=== PATIENT | female | born 1960 | race African-American/Black ===

== ENCOUNTER 2018-09-15 19:37 | Observation (INO) | payer OTHER ==
--- NOTE | 2018-09-15 20:29 | EDPHYS ---
Physician Documentation [facility] Name: Neela Pizano Age: 58 yrs Sex: Female : 1960 Arrival Date: 09/15/2018 Time: 19:38 Bed 8 Private MD: Bal Harris E ED Physician Omkar Nicole HPI: 09/15 20:08 This 58 yrs old Black Female presents to ER via Wheelchair with complaints of Chest thomas Pain, Asthma Exacerbation. 20:08 The patient or guardian reports chest pain that is located primarily in the anterior [facility] chest wall. Historical: - Allergies: 19:53 Iodine; aa1 19:53 Prednisone; (the orange one); aa1 - Home Meds: 19:53 gabapentin Oral [Active]; lisinopril Oral [Active]; Lorazepam Oral [Active]; Metformin aa1 Oral [Active]; albuterol sulfate inhalation Inhl [Active]; Atrovent Inhl [Active]; - PMHx: 19:53 Asthma; Diabetes - NIDDM; Hypertension; neuropathy; aa1 - PSHx: 19:53 Tubal ligation; Right little toe; aa1 - Immunization history:: Flu vaccine is not up to date. - Social history:: Smoking status: Patient/guardian denies using tobacco. - Ebola Screening: : No symptoms or risks identified at this time. ROS: 20:09 Constitutional: Negative for fever, chills, and weight loss, Eyes: Negative for injury, thomas pain, redness, and discharge, ENT: Negative for injury, pain, and discharge, Neck: Negative for injury, pain, and swelling, Cardiovascular: Negative for chest pain, palpitations, and edema, Abdomen/GI: Negative for abdominal pain, nausea, vomiting, diarrhea, and constipation, Back: Negative for injury and pain, : Negative for injury, bleeding, discharge, and swelling, MS/Extremity: Negative for injury and deformity, Skin: Negative for injury, rash, and discoloration, Neuro: Negative for headache, weakness, numbness, tingling, and seizure, Psych: Negative for depression, anxiety, suicide ideation, homicidal ideation, and hallucinations, Allergy/Immunology: Negative for hives, rash, and allergies, Endocrine: Negative for neck swelling, polydipsia, polyuria, polyphagia, and marked weight changes, Hematologic/Lymphatic: Negative for swollen nodes, abnormal bleeding, and unusual bruising. 20:09 Respiratory: Positive for cough, shortness of breath, wheezing, inspiratory, expiratory. Exam: 20:09 Constitutional: This is a well developed, well nourished patient who is awake, alert, thomas and in no acute distress. Head/Face: Normocephalic, atraumatic. Eyes: Pupils equal round and reactive to light, extra-ocular motions intact. Lids and lashes normal. Conjunctiva and sclera are non-icteric and not injected. Cornea within normal limits. Periorbital areas with no swelling, redness, or edema. ENT: Nares patent. No nasal discharge, no septal abnormalities noted. Tympanic membranes are normal and external auditory canals are clear. Oropharynx with no redness, swelling, or masses, exudates, or evidence of obstruction, uvula midline. Mucous membranes moist. Neck: Trachea midline, no thyromegaly or masses palpated, and no cervical lymphadenopathy. Supple, full range of motion without nuchal rigidity, or vertebral point tenderness. No Meningismus. Chest/axilla: Normal chest wall appearance and motion. Nontender with no deformity. No lesions are appreciated. Cardiovascular: Regular rate and rhythm with a normal S1 and S2. No gallops, murmurs, or rubs. Normal PMI, no JVD. No pulse deficits. Abdomen/GI: Soft, non-tender, with normal bowel sounds. No distension or tympany. No guarding or rebound. No evidence of tenderness throughout. Back: No spinal tenderness. No costovertebral tenderness. Full range of motion. Female : Normal external genitalia. Skin: Warm, dry with normal turgor. Normal color with no rashes, no lesions, and no evidence of cellulitis. MS/ Extremity: Pulses equal, no cyanosis. Neurovascular intact. Full, normal range of motion. Neuro: Awake and alert, GCS 15, oriented to person, place, time, and situation. Cranial nerves II-XII grossly intact. Motor strength 5/5 in all extremities. Sensory grossly intact. Cerebellar exam normal. Normal gait. Psych: Awake, alert, with orientation to person, place and time. Behavior, mood, and affect are within normal limits. 20:09 Respiratory: mild respiratory distress is noted, Breath sounds: decreased breath sounds, rhonchi, wheezing: inspiratory expiratory Vital Signs: 19:53 BP 138 / 95; Pulse 83; Resp 24; Temp 97.7; Pulse Ox 99% ; Weight 95.25 kg; Height 5 ft. aa1 4 in. (162.56 cm); Pain 0/10; 21:10 BP 126 / 96; Pulse 84; Resp 19; Pulse Ox 100% on Nebulizer Mask; rr5 22:15 BP 108 / 68; Pulse 84; Resp 16; Pulse Ox 99% on R/A; rr5 22:15 Pain 3/10; rr5 19:53 Body Mass Index 36.05 (95.25 kg, 162.56 cm) aa1 MDM: 19:47 Patient medically screened. [facility] 20:10 Data reviewed: vital signs, nurses notes, lab test result(s), EKG, radiologic studies. [facility] 09/15 20:08 Order name: Basic Metabolic Panel [facility] 09/15 20:08 Order name: CBC with Diff [facility] 09/15 20:08 Order name: LFT's [facility] 09/15 20:08 Order name: Magnesium [facility] 09/15 20:08 Order name: NT PRO-BNP [facility] 09/15 20:08 Order name: PT-INR [facility] 09/15 20:08 Order name: Troponin (emerg Dept Use Only); Complete Time: 21:16 [facility] 09/15 20:08 Order name: Blood Culture Adult (2) [facility] 09/15 20:08 Order name: Procalcitonin [facility] 09/15 20:08 Order name: Lactate; Complete Time: 21:16 [facility] 09/15 20:08 Order name: Urine Culture [facility] 09/15 20:08 Order name: Basic Metabolic Panel; Complete Time: 21:16 [facility] 09/15 20:08 Order name: CBC with Automated Diff; Complete Time: 21:16 [facility] 09/15 20:08 Order name: Liver (Hepatic) Function; Complete Time: 21:16 [facility] 09/15 20:08 Order name: XRAY Chest (1 view); Complete Time: 21:16 [facility] 09/15 20:08 Order name: EKG; Complete Time: 20:09 [facility] 09/15 20:08 Order name: Magnesium; Complete Time: 21:16 [facility] 09/15 20:08 Order name: NT PRO-BNP; Complete Time: 21:16 [facility] 09/15 20:08 Order name: Protime (+INR); Complete Time: 21:16 [facility] 09/15 22:02 Order name: Urine Dipstick--Ancillary (enter results) ar5 09/15 22:19 Order name: Urine Dipstick-Ancillary [facility] 09/15 20:08 Order name: Cardiac monitoring; Complete Time: 20:49 [facility] 09/15 20:08 Order name: EKG - Nurse/Tech; Complete Time: 20:49 [facility] 09/15 20:08 Order name: IV Saline Lock; Complete Time: 20:49 [facility] 09/15 20:08 Order name: Labs collected and sent; Complete Time: 21:02 [facility] 09/15 20:08 Order name: O2 Per Protocol; Complete Time: 20:49 [facility] 09/15 20:08 Order name: O2 Sat Monitoring; Complete Time: 20:49 [facility] 09/15 20:08 Order name: Urine Dipstick-Ancillary (obtain specimen); Complete Time: 22:12 [facility] Administered Medications: 20:40 Drug: SOLU-Medrol 125 mg Route: IVP; Site: right antecubital; ea 21:10 Follow up: Response: No adverse reaction ea 20:50 Drug: Albuterol - atroVENT (3:1) (2.5 mg - 0.5 mg) 3 ml Route: Nebulizer; ea 21:00 Follow up: Response: No adverse reaction ea 20:53 Drug: Rocephin - (cefTRIAXone) 1 grams Route: IVPB; Infused Over: 30 mins; Site: right ea antecubital; 21:10 Follow up: Response: No adverse reaction; IV Status: Completed infusion; IV Intake: 10mlea 20:53 Drug: Pepcid 20 mg Route: IVP; Site: right antecubital; ea 21:40 Follow up: Response: No adverse reaction ea 20:53 Drug: NS 0.9% 1000 ml Route: IV; Rate: 125 ml/hr; Site: right antecubital; ea 21:40 Follow up: IV Status: Infusion continued upon admission ea 20:55 Drug: Zithromax 500 mg Route: IVPB; Infused Over: 1 hrs; Site: right antecubital; rr5 22:12 Follow up: Response: No adverse reaction; IV Status: Infusion continued upon admission ea 20:55 Drug: Ativan 0.5 mg Route: IVP; Site: right antecubital; rr5 21:39 Follow up: Response: No adverse reaction; Anxiety decreased ea 21:01 Drug: Aspirin Chewable Tablet 162 mg Route: PO; rr5 21:39 Follow up: Response: No adverse reaction ea 21:37 Drug: NS 0.9% 500 ml Route: IV; Rate: bolus; Site: right antecubital; ea 22:11 Follow up: Response: No adverse reaction; IV Status: Completed infusion; IV Intake: ea 500ml Disposition: 09/15/18 20:29 Hospitalization ordered by Jean Claude Lewis for Inpatient Admission. Preliminary diagnosis are Dyspnea, Other chest pain, Unspecified asthma with (acute) exacerbation - failed outpatient treatment, Unspecified kidney failure. - Bed requested for Telemetry/MedSurg (Inpatient). - Status is Inpatient Admission. rr5 - Condition is Fair. - Problem is new. - Symptoms have improved. UTI on Admission? Yes Signatures: Dispatcher [employer] EDMS Ly Ivan RN RN mw Autenrieth, Alissa, RN RN aa1 Omkar Nicole MD MD cha Antunez, Elena, RN RN ea Roque, Raymond RN RN rr5 Corrections: (The following items were deleted from the chart) 20:29 20:29 Hospitalization Ordered by Jean Claude Lewis MD for Inpatient Admission. Preliminary thomas diagnosis is Dyspnea; Other chest pain; Unspecified asthma with (acute) exacerbation - failed outpatient treatment. Bed requested for Telemetry/MedSurg (Inpatient). Status is Inpatient Admission. Condition is Fair. Problem is new. Symptoms have improved. UTI on Admission? No. thomas 21:30 20:29 09/15/2018 20:29 Hospitalization Ordered by Jean Claude Lewis MD for Inpatient thomas Admission. Preliminary diagnosis is Dyspnea; Other chest pain; Unspecified asthma with (acute) exacerbation - failed outpatient treatment. Bed requested for Telemetry/MedSurg (Inpatient). Status is Inpatient Admission. Condition is Fair. Problem is new. Symptoms have improved. UTI on Admission? Yes. thomas 21:34 21:30 09/15/2018 20:29 Hospitalization Ordered by Jean Claude Lewis MD for Inpatient mw Admission. Preliminary diagnosis is Dyspnea; Other chest pain; Unspecified asthma with (acute) exacerbation - failed outpatient treatment; Unspecified kidney failure. Bed requested for Telemetry/MedSurg (Inpatient). Status is Inpatient Admission. Condition is Fair. Problem is new. Symptoms have improved. UTI on Admission? Yes. [facility] 22:29 21:34 09/15/2018 20:29 Hospitalization Ordered by Jean Claude Lewis MD for Inpatient rr5 Admission. Preliminary diagnosis is Dyspnea; Other chest pain; Unspecified asthma with (acute) exacerbation - failed outpatient treatment; Unspecified kidney failure. Bed requested for Telemetry/MedSurg (Inpatient). Status is Inpatient Admission. Condition is Fair. Problem is new. Symptoms have improved. UTI on Admission? Yes. mw
--- NOTE | 2018-09-15 20:29 | ER ---
Nurse's Notes [facility] Name: Neela Pizano Age: 58 yrs Sex: Female : 1960 Arrival Date: 09/15/2018 Time: 19:38 Bed 8 Private MD: Bal Harris E Diagnosis: Dyspnea;Other chest pain;Unspecified asthma with (acute) exacerbation-failed outpatient treatment;Unspecified kidney failure Presentation: 09/15 19:47 Presenting complaint: Patient states: she has been having asthma flare-ups all week aa1 with minimal relief from her breathing txs. States, "I just need that shot to open me up so I can go home.". Transition of care: patient was not received from another setting of care. Onset of symptoms was September 10, 2018. Risk Assessment: Do you want to hurt yourself or someone else? Patient reports no desire to harm self or others. Initial Sepsis Screen: Does the patient meet any 2 criteria? No. Patient's initial sepsis screen is negative. Does the patient have a suspected source of infection? No. Patient's initial sepsis screen is negative. Care prior to arrival: None. 19:47 Method Of Arrival: Wheelchair aa1 19:47 Acuity: MARVIN 3 aa1 Triage Assessment: 19:53 General: Appears in no apparent distress. comfortable, Behavior is calm, cooperative, aa1 appropriate for age. Pain: Denies pain. Historical: - Allergies: 19:53 Iodine; aa1 19:53 Prednisone; (the orange one); aa1 - Home Meds: 19:53 gabapentin Oral [Active]; lisinopril Oral [Active]; Lorazepam Oral [Active]; Metformin aa1 Oral [Active]; albuterol sulfate inhalation Inhl [Active]; Atrovent Inhl [Active]; - PMHx: 19:53 Asthma; Diabetes - NIDDM; Hypertension; neuropathy; aa1 - PSHx: 19:53 Tubal ligation; Right little toe; aa1 - Immunization history:: Flu vaccine is not up to date. - Social history:: Smoking status: Patient/guardian denies using tobacco. - Ebola Screening: : No symptoms or risks identified at this time. Screenin:15 Abuse screen: Denies threats or abuse. Nutritional screening: No deficits noted. ea Tuberculosis screening: No symptoms or risk factors identified. Fall Risk None identified. Assessment: 20:10 General: Appears in no apparent distress. uncomfortable, Behavior is calm, cooperative, rr5 appropriate for age. Pain: Complains of pain in chest Pain does not radiate. Pain currently is 10 out of 10 on a pain scale. Quality of pain is described as aching, Pain began gradually, Is continuous, intermittent. 20:10 Neuro: Level of Consciousness is awake, alert, obeys commands, Oriented to person, rr5 place, time, situation, Appropriate for age. Cardiovascular: Reports chest pain, Capillary refill < 3 seconds Patient's skin is warm and dry. Rhythm is regular. Respiratory: Reports shortness of breath I'm having asthma Airway is patent Respiratory effort is even, unlabored, Respiratory pattern is regular, tachypnea. GI: No signs and/or symptoms were reported involving the gastrointestinal system. : No signs and/or symptoms were reported regarding the genitourinary system. EENT: No signs and/or symptoms were reported regarding the EENT system. Derm: Skin is intact, Skin temperature is warm. Musculoskeletal: No signs and/or symptoms reported regarding the musculoskeletal system. 21:00 Reassessment: Patient appears in no apparent distress at this time. Patient is alert, rr5 oriented x 3, equal unlabored respirations, skin warm/dry/pink. its getting better now, about 8/10. Patient states symptoms have improved. 21:15 Reassessment: Patient appears in no apparent distress at this time. Patient is alert, rr5 oriented x 3, equal unlabored respirations, skin warm/dry/pink. agreed for the admission. no complaints made. Patient states feeling better. Patient states symptoms have improved. 21:40 Reassessment: Amna calender feeder cell phone number [phone]. rr5 22:15 Reassessment: Patient appears in no apparent distress at this time. Patient is alert, rr5 oriented x 3, equal unlabored respirations, skin warm/dry/pink. chest pain 3/10 pain score Patient states feeling better. Patient states symptoms have improved. Vital Signs: 19:53 BP 138 / 95; Pulse 83; Resp 24; Temp 97.7; Pulse Ox 99% ; Weight 95.25 kg; Height 5 ft. aa1 4 in. (162.56 cm); Pain 0/10; 21:10 BP 126 / 96; Pulse 84; Resp 19; Pulse Ox 100% on Nebulizer Mask; rr5 22:15 BP 108 / 68; Pulse 84; Resp 16; Pulse Ox 99% on R/A; rr5 22:15 Pain 3/10; rr5 19:53 Body Mass Index 36.05 (95.25 kg, 162.56 cm) aa1 ED Course: 19:38 Patient arrived in ED. am2 19:38 Bal Harris MD is Private Physician. am2 19:47 Omkar Nicole MD is Attending Physician. thomas 19:50 Triage completed. aa1 19:53 Arm band placed on right wrist. aa1 19:55 Za Schafer, GEE is Primary Nurse. ea 20:10 Patient has correct armband on for positive identification. Placed in gown. Bed in low ea position. Call light in reach. Side rails up X2. bus monitor on. Pulse ox on. NIBP on. 20:15 Patient maintains SpO2 saturation greater than 95% on room air. ea 20:25 XRAY Chest (1 view) In Process Unspecified. EDMS 20:27 Jean Claude Lewis MD is Hospitalizing Provider. thomas 20:30 Inserted saline lock: 22 gauge in right antecubital area, using aseptic technique. rr5 ,using aseptic technique. by za Blood collected. 21:42 No provider procedures requiring assistance completed. Patient admitted, IV remains in ea place. Administered Medications: 20:40 Drug: SOLU-Medrol 125 mg Route: IVP; Site: right antecubital; ea 21:10 Follow up: Response: No adverse reaction ea 20:50 Drug: Albuterol - atroVENT (3:1) (2.5 mg - 0.5 mg) 3 ml Route: Nebulizer; ea 21:00 Follow up: Response: No adverse reaction ea 20:53 Drug: Rocephin - (cefTRIAXone) 1 grams Route: IVPB; Infused Over: 30 mins; Site: right ea antecubital; 21:10 Follow up: Response: No adverse reaction; IV Status: Completed infusion; IV Intake: 10mlea 20:53 Drug: Pepcid 20 mg Route: IVP; Site: right antecubital; ea 21:40 Follow up: Response: No adverse reaction ea 20:53 Drug: NS 0.9% 1000 ml Route: IV; Rate: 125 ml/hr; Site: right antecubital; ea 21:40 Follow up: IV Status: Infusion continued upon admission ea 20:55 Drug: Zithromax 500 mg Route: IVPB; Infused Over: 1 hrs; Site: right antecubital; rr5 22:12 Follow up: Response: No adverse reaction; IV Status: Infusion continued upon admission ea 20:55 Drug: Ativan 0.5 mg Route: IVP; Site: right antecubital; rr5 21:39 Follow up: Response: No adverse reaction; Anxiety decreased ea 21:01 Drug: Aspirin Chewable Tablet 162 mg Route: PO; rr5 21:39 Follow up: Response: No adverse reaction ea 21:37 Drug: NS 0.9% 500 ml Route: IV; Rate: bolus; Site: right antecubital; ea 22:11 Follow up: Response: No adverse reaction; IV Status: Completed infusion; IV Intake: ea 500ml Intake: 21:10 IV: 10ml; Total: 10ml. ea 22:11 IV: 500ml; Total: 510ml. lashon Outcome: 20:29 Decision to Hospitalize by Provider. thomas 22:10 Admitted to Med/surg accompanied by tech, room 402, with chart, Report called to lashon Castro RN 22:10 Condition: stable 22:10 Instructed on the need for admit, Demonstrated understanding of instructions. 22:29 Patient left the ED. rr5 Signatures: Dispatcher [employer] EDMS Nichelle Busby RN RN [email or web address] Omkar Nicole MD MD cha Moreno, Amanda am2 Antunez, Elena, RN RN ea Roque, Raymond, RN RN rr5
[2018-09-15] MEDS ORDERED: METHYLPREDNISOLONE 125 MG INJ ONE (20:30)
[2018-09-15] MEDS ORDERED: NA CHLORIDE 0.9% 250 ML ONE (20:30)
[2018-09-15] MEDS ORDERED: AZITHROMYCIN 500 MG INJ IVPB ONE (20:30)
[2018-09-15] MEDS ORDERED: ALBUTEROL 2.5 MG/3 ML NEB SOL ONE (20:30)
[2018-09-15] MEDS ORDERED: IPRATROPIUM BROM 0.5MG/2.5ML ONE (20:30)
[2018-09-15] MEDS ORDERED: FAMOTIDINE 20 MG/2 ML VIAL IV ONE ×2 (20:31→20:54)
[2018-09-15] MEDS ORDERED: CEFTRIAXONE/SWI 1gm 1 GM/10 ML SYR ONE (20:31)
[2018-09-15] MEDS ORDERED: NA CHLORIDE 0.9% 1,000 ML ONE (20:31)
[2018-09-15 20:55] LABS: Absolute Lymphocytes (CBC) 2.4 K/uL (0.7-4.9); Absolute Monocytes 0.4 K/uL (0.1-1.3); Basophils % 0.6 % (0-1.3); Hematocrit 39.7 % (36.0-45.0); Lymphocytes % 34.5 % (15.3-44.8); MPV 8.5 fL (7.6-11.3); Monocytes % 6.2 % (3.3-12.3); RBC Red Blood Cell Count 4.17 M/uL (3.86-4.86)
--- NOTE | 2018-09-15 20:56 | RAD REPORT ---
EXAM DESCRIPTION: RAD - Chest Single View - 09/15/2018 8:25 pm CLINICAL HISTORY: Cough, COPD COMPARISON: November 2016 TECHNIQUE: AP portable chest image was obtained 2020 hours . FINDINGS: No focal lung parenchymal process. Interstitial markings are mildly prominent but not neo rly different. Heart and vasculature are normal. No measurable pleural effusion and no pneumothorax. No acute bony abnormality seen. No acute aortic findings suspected. IMPRESSION: No acute cardiopulmonary process. No significant change from comparison.
[2018-09-15 20:58] LABS: Protime INR 1.09
[2018-09-15] MEDS ORDERED: ASPIRIN 81 MG CHEWABLE TABLET ONE ×2 (21:08→21:09)
[2018-09-15] MEDS ORDERED: LORazepam 2 MG/ML VIAL ONE (21:12)
[2018-09-15 21:13] LABS: ALT/SGPT 13 U/L (12-78); AST/SGOT 18 U/L (15-37); Albumin 3.7 g/dL (3.4-5.0); Alkaline Phosphatase 96 U/L (45-117); BUN Blood Urea Nitrogen 28 mg/dL (7-18); Bicarbonate 27 mmol/L (21-32); Bilirubin Direct < 0.1 mg/dL (0-0.2); Bilirubin Total 0.3 mg/dL (0.2-1.0); Glucose Level 94 mg/dL (74-106); Magnesium 1.9 mg/dL (1.8-2.4); NT PRO-BNP 36 pg/mL (<125); Potassium 4.4 mmol/L (3.5-5.1); Protein, Total 8.4 g/dL (6.4-8.2); Sodium Level 139 mmol/L (136-145); Troponin (Emerg Dept Use Only) < 0.02 ng/mL (0.0-0.045)
[2018-09-15] MEDS ORDERED: ONDANSETRON 4 MG/2 ML VIAL IV PRN (21:25)
[2018-09-15] MEDS ORDERED: ACETAMINOPHEN 500 MG TAB PO PRN (21:25)
[2018-09-15] MEDS ORDERED: MORPHINE 2 MG/ML SYR IV PRN (21:25)
[2018-09-15] MEDS ORDERED: NA CHLORIDE 0.9% 1,000 ML IV SCH (22:00)
[2018-09-15 22:19] LABS: Urine Blood NEGATIVE (NEG); Urine Glucose NEGATIVE (NEG); Urine Protein 1+ (NEG); Urine Specific Gravity 1.025 (1.005-1.030)
[2018-09-15 22:39] VITALS: O2SAT 99
[2018-09-15 22:45] VITALS: BMI 35.6
[2018-09-15] MEDS ORDERED: DIVALPROEX DR 250 MG TAB PO ONE (23:07)
[2018-09-15] MEDS ORDERED: METFORMIN HCL 500 MG TAB PO ONE (23:10)
[2018-09-15] MEDS ORDERED: GABAPENTIN 400 MG CAP PO ONE (23:10)
[2018-09-16] MEDS ORDERED: METHYLPREDNISOLONE 125 MG INJ IV SCH
[2018-09-16 00:08] LABS: Urine Appearance CLEAR; Urine Bilirubin NEGATIVE (NEG); Urine Blood NEGATIVE (NEG); Urine Color YELLOW; Urine Glucose NEGATIVE (NEG); Urine Protein NEGATIVE (NEG); Urine Urobilinogen 0.2 mg/dL (0.2-1.0)
[2018-09-16 00:16] LABS: Urine Microscopic Reflex NO UMIC
[2018-09-16] MEDS: IPRATROPIUM BROM 0.5MG/2.5ML NEB SCH ×2 (02:00→07:24)
[2018-09-16] MEDS: ALBUTEROL 2.5 MG/3 ML NEB SOL NEB SCH ×2 (02:00→07:25)
[2018-09-16 06:26] LABS: Absolute Lymphocytes (CBC) 1.1 K/uL (0.7-4.9); Absolute Monocytes 0.1 K/uL (0.1-1.3); Absolute Neutrophil 5.4 K/uL (1.8-8.0); Basophils % 0.4 % (0-1.3); Hematocrit 37.2 % (36.0-45.0); Lymphocytes % 16.7 % (15.3-44.8); MPV 8.6 fL (7.6-11.3); Monocytes % 2.2 % (3.3-12.3); RBC Red Blood Cell Count 3.93 M/uL (3.86-4.86)
[2018-09-16 06:36] LABS: Albumin 3.2 g/dL (3.4-5.0); Bilirubin Total 0.2 mg/dL (0.2-1.0); Potassium 4.7 mmol/L (3.5-5.1); Protein, Total 7.9 g/dL (6.4-8.2)
--- NOTE | 2018-09-16 07:44 | P.HP ---
Certification for Inpatient Patient admitted to: Observation With expected LOS: <2 Midnights Patient will require the following post-hospital care: None Practitioner: I am a practitioner with admitting privileges, knowledge of patient current condition, hospital course, and medical plan of care. Services: Services provided to patient in accordance with Admission requirements found in Title 42 Section 412.3 of the Code of Federal Regulations Patient History Date of Service: 09/15/18 Reason for admission: Asthma exacerbation History of Present Illness: Patient is a 58-year-old female came to the hospital with shortness of breath. Patient was admitted with asthma exacerbation as chest x-ray was completely negative. Patient was having coughing and wheezing. Patient states that her nebulizer with/inhaler was not working. Patient came into ER for further evaluation. Patient is doing much better after nebulizer treatments and steroids. Will continue monitoring closely and possible discharge if peak flows have improved today. Allergies prednisone Allergy (Unknown, Verified 09/15/18 23:13) UNKNOWN iodine Allergy (Verified 09/15/18 23:13) Unknown shrimp Allergy (Verified 09/15/18 23:13) Itching/Hives/Rash - Past Medical/Surgical History Diabetic: Yes -: HTN -: Asthma -: DM -: DM Neuropathy -: hands limited ROM -: Rheumatoid Arthritis -: Chronic Back pain, Seen by Pain management in the past. -: Family history of stomach cancer. -: tubal ligation -: boil removal to buttock -: R toe sx -: L heel sx Psychosocial/ Personal History: Single, 6 children, Does not work. - Family History Father Medical History: Heart disease Mother Medical History: Heart disease, Cancer - Social History Smoking Status: Current some day smoker Alcohol use: Yes CD- Drugs: No Caffeine use: Yes Place of Residence: Home Review of Systems 10-point ROS is otherwise unremarkable Physical Examination - Vital Signs Temperature: 97.1 F Blood Pressure: 127/76 Pulse: 79 Respirations: 18 Pulse Ox (%): 94 - Physical Exam General: Alert, In no apparent distress, Oriented x3 HEENT: Atraumatic, PERRLA, Mucous membr. moist/pink, EOMI, Sclerae nonicteric Neck: Supple, 2+ carotid pulse no bruit, No LAD, Without JVD or thyroid abnormality Respiratory: Expiratory wheezes Cardiovascular: Regular rate/rhythm, Normal S1 S2, No murmurs Gastrointestinal: Normal bowel sounds, Soft and benign, Non-distended, No tenderness Musculoskeletal: No clubbing, No swelling, No tenderness Integumentary: No rashes Neurological: Normal gait, Normal speech, Normal strength at 5/5 x4 extr, Normal tone, Sensation intact, Cranial nerves 3-12 intact, Normal affect Lymphatics: No axilla or inguinal lymphadenopathy Assessment & Plan - Problems (Diagnosis) (1) Asthma exacerbation Current Visit: Yes Status: Acute (2) Rheumatoid arthritis Current Visit: Yes Status: Acute (3) Diabetes mellitus type 2, uncontrolled Onset Date: 06/23/15 Current Visit: No Status: Chronic (4) HTN (hypertension) Onset Date: 06/23/15 Current Visit: No Status: Chronic - Plan Plan: 1. Continue with albuterol and Atrovent nebs 2. Continue with IV steroids 3. Outpatient pulmonary function testing 4. Pulmonary follow-up if symptoms do not improve 5. Room air O2 sats 6. Repeat chest x-ray in the morning 7. Peak flows as needed 8. GI and DVT prophylaxis Discharge Plan: Home Plan to discharge in: 24 Hours - Advance Directives Does patient have a Living Will: No Does patient have a Durable POA for Healthcare: No - Code Status/Comfort Care Code Status Assessed: Yes Code Status: Full Code Critical Care: No Time Spent Managing PTS Care (In Minutes): 45
[2018-09-16 08:03] VITALS: BP 117/85; TEMP 97
--- NOTE | 2018-09-16 11:42 | P.SSS ---
Patient History Date of Service: 09/16/18 Reason for admission: Asthma exacerbation History of Present Illness: Patient is a 58-year-old female came to the hospital with shortness of breath. Patient was admitted with asthma exacerbation as chest x-ray was completely negative. Patient was having coughing and wheezing. Patient states that her nebulizer with/inhaler was not working. Patient came into ER for further evaluation. Patient is doing much better after nebulizer treatments and steroids. Will continue monitoring closely and possible discharge if peak flows have improved today. Allergies prednisone Allergy (Unknown, Verified 09/15/18 23:13) UNKNOWN iodine Allergy (Verified 09/15/18 23:13) Unknown shrimp Allergy (Verified 09/15/18 23:13) Itching/Hives/Rash Home Medications: Budesonide/Formoterol Fumarate [Symbicort 160-4.5 Mcg Inhaler] 2 puff IH BID #1 hfa.aer.ad 09/16/18 Divalproex Sodium [Depakote ER] 1 tab PO BID 09/16/18 Estradiol 1 tab PO DAILY 09/16/18 Gabapentin 300 mg PO TID 09/16/18 Ipratropium/Albuterol Sulfate [Combivent Respimat 20-100 Mcg] 1 puff IN QID Metformin HCl 1,000 mg PO BID 09/16/18 Pantoprazole [Protonix Tab*] 1 tab PO DAILY 09/16/18 Valacyclovir HCl [Valtrex] 1 tab PO DAILY 09/16/18 Venlafaxine HCl [Effexor XR] 1 tab PO DAILY 09/16/18 hydrOXYzine pamoate [Hydroxyzine Pamoate] 25 mg PO BID PRN 09/16/18 hydroCHLOROthiazide [Hydrochlorothiazide] 25 mg PO DAILY 09/16/18 predniSONE [Deltasone*] 10 mg PO DAILY #5 tab 09/16/18 - Past Medical/Surgical History Diabetic: Yes -: HTN -: Asthma -: DM -: DM Neuropathy -: hands limited ROM -: Rheumatoid Arthritis -: Chronic Back pain, Seen by Pain management in the past. -: Family history of stomach cancer. -: tubal ligation -: boil removal to buttock -: R toe sx -: L heel sx Psychosocial/ Personal History: Single, 6 children, Does not work. - Family History Father -: Heart disease Mother -: Heart disease, Cancer - Social History Smoking Status: Current some day smoker Alcohol use: Yes CD- Drugs: No Caffeine use: Yes Place of Residence: Home Review of Systems 10-point ROS is otherwise unremarkable Physical Examination - Vital Signs Temperature: 97.0 F Blood Pressure: 117/85 Pulse: 78 Respirations: 20 Pulse Ox (%): 100 - Physical Exam General: Alert, In no apparent distress HEENT: Atraumatic, PERRLA, Mucous membr. moist/pink, EOMI, Sclerae nonicteric Neck: Supple, 2+ carotid pulse no bruit, No LAD, Without JVD or thyroid abnormality Respiratory: Normal air movement, Expiratory wheezes, Inspiratory wheezes Cardiovascular: Regular rate/rhythm, Normal S1 S2 Gastrointestinal: Normal bowel sounds, No tenderness Musculoskeletal: No tenderness Integumentary: No rashes Neurological: Normal gait, Normal speech, Normal strength at 5/5 x4 extr, Normal tone, Normal affect Lymphatics: No axilla or inguinal lymphadenopathy - Diagnosis (Problem(s)) (1) Asthma exacerbation Current Visit: Yes Status: Acute Qualifiers: Asthma severity: mild Asthma persistence: persistent Qualified Code(s): J45.31 - Mild persistent asthma with (acute) exacerbation (2) Diabetes mellitus type 2, uncontrolled Onset Date: 06/23/15 Current Visit: No Status: Chronic Qualifiers: Glycemic state: with hypoglycemia Coma presence: without coma Qualified Code(s): E11.649 - Type 2 diabetes mellitus with hypoglycemia without coma (3) HTN (hypertension) Onset Date: 06/23/15 Current Visit: No Status: Chronic Qualifiers: Hypertension type: essential hypertension Qualified Code(s): I10 - Essential (primary) hypertension Treatment Summary: Overall during the hospital stay patient remained stable Patient was initially admitted to the hospital for asthma exacerbation. Was placed on DuoNeb here in the hospital along with steroids did well overall. Patient then was discharged home under stable condition was asked to continue taking Symbicort and prednisone when she gets discharged home for maintenance of her asthma. Patient was also asked to follow up with pulmonology in about 1- 2 days post discharge. - Disposition Disposition: ROUTINE DISCHARGE Condition: GOOD Patient Discharge Instructions: Please f.u with Pulmonology in 1 to 2 week post discharge. new medication. Symbicort 2 puff BID. Prednisone 10mg daily for 5 days Diet: Regular Activity: Ad ivan
[2018-09-16] MEDS ORDERED: GABAPENTIN 400 MG CAP PO ONE (23:10)
== END 2018-09-16 11:42 | disposition home or self-care (01) ==
LOC: ER 19:37 → ERHOLD 20:29 → INTOOBSV 20:29 → 4TH 22:06
PROVIDERS: ADMIT Hospitalist; ATTEND Hospitalist
DX: J45.31 Mild persistent asthma with (acute) exacerbation (principal); E11.649 Type 2 diabetes mellitus with hypoglycemia without coma; I10 Essential (primary) hypertension; M06.9 Rheumatoid arthritis, unspecified; F17.210 Nicotine dependence, cigarettes, uncomplicated; Z91.013 Allergy to seafood
CPT/HCPCS: 36415; 71045; 80048; 80053; 80076; 81003; 82962; 83605; 83735; 83880; 84145; 84484; 85025; 85610; 87040; 87070; 87086; 87088; 87205; 94640; 96365; 96375; 99285; G0378; J0456; J0696; J2930; J7030

== ENCOUNTER 2019-05-26 08:44 | Emergency (ER) | payer OTHER ==
--- OUTSIDE RECORDS SUMMARY | 2019-05-26 08:47 | XMS REPORT ---
:1960 [facility] [place] [address] Care Team Providers Name Role Phone Unavailable Unavailable Unavailable Problems This patient has no known problems. Allergies, Adverse Reactions, Alerts This patient has no known allergies or adverse reactions. Medications This patient has no known medications. Results Test Description Test Time Test Comments Text Results Atomic Results Result Comments SCR MAMM BILATERAL CAD 2019-02-12 10:48:36 - SCR MAMM BILATERAL CAD DIGITAL DIGITALBILATERAL DIGITAL SCREENING MAMMOGRAM WITH CAD: 02/09/2019CLINICAL: Asymptomatic. Current mammographic images were evaluated by either a [employer] M-Vu or a nanoRETEcker CAD (computer aided detection system). Comparison is made to exam dated 09/09/2014 mammogram - [facility]. The tissue of both breasts is predominantly fatty. There is a new benign-appearing subcentimeter mass in the posterior right breast upper outer quadrant. No suspicious architectural distortion, malignant type calcification, or lymph node abnormality detected. IMPRESSION: INCOMPLETE ASSESSMENT: ADDITIONAL IMAGING EVALUATION RECOMMENDEDNo significant new finding in the left breast is noted.Right breast ultrasound is advised for further evaluation.Carlos Eduardo Harrell M.D. rb/:02/12/2019 10:48:36 Visual Training Aide: Yenny Lawrence MM, [facility] sent: Additional Imaging Mammogram BI-RADS: 0 Indeterminate
--- OUTSIDE RECORDS SUMMARY | 2019-05-26 08:47 | XMS REPORT ---
:1960 Author Organization [employer] Care Team Providers Name Role Phone Wild Mccain Provider Role Unavailable Allergies, Adverse Reactions, Alerts Substance Reaction Event Type PredniSONE Info Not Available Drug Allergy Problems Problem Type Condition Code Onset Dates Condition Status Assessment Primary osteoarthritis of left knee M17.12 Active Assessment Pain in joint of left knee M25.562 Active Assessment Primary osteoarthritis of right M17.11 Active knee Assessment Sciatica, right side M54.31 Active Problem Sciatica, left side M54.32 Active Problem Primary osteoarthritis of knees, M17.0 Active bilateral Problem Sciatica, right side M54.31 Active Assessment Pain in joint of right knee M25.561 Active Problem Pain in joint of left knee M25.562 Active Problem Pain in joint of right knee M25.561 Active Medications Medication Code Code Instructions Start End Status Dosage System Date Date Gabapentin [facility] 51032747986 800 MG Oral Active not defined Hydrochlorothiazide [facility] 11559095931 25 MG Oral Active not defined Metronidazole [facility] 05935734529 500 MG Orally Active 1 tablet twice daily Symbicort [facility] 52853481757 80-4.5 MCG/ACT Active 2 puffs Inhalation Twice a day Claritin [facility] 14004914041 10 MG Orally Active 1 tablet Once a day Venlafaxine HCl ER [facility] 62108848533 225 MG Oral Active not defined Ventolin HFA [facility] 71535940029 108 (90 Base) Active 2 puffs as MCG/ACT needed Inhalation every 6 hrs Mupirocin [facility] 84666051229 2 % Externally Active 1 Three times a application day to affected area Metformin HCl [facility] 83354022700 1000 MG Oral Active not defined Advair Diskus [facility] 59507567162 500-50 Active 1 puff MCG/DOSE Inhalation Twice a day Montelukast Sodium ND 69802641267 10 MG Orally Active 1 tablet Once a day Ibuprofen ND 52098213620 800 MG Orally Active 1 tablet Three times a with food or day milk as needed HydrOXYzine HCl [facility] 57432273357 50 MG Oral Active not defined Combivent Respimat [facility] 89990703180 20-100 MCG/ACT Active not defined Inhalation Benadryl Allergy [facility] 42716970186 25 MG Orally Active 1 tablet as every 8 hrs needed Estradiol [facility] 63753894908 0.5 MG Oral Active not defined Divalproex Sodium [facility] 21513771392 500 MG Oral Active not defined Flonase Allergy [facility] 47295048274 50 MCG/ACT Active 1 spray in Relief Nasally Once a each nostril day Tramadol HCl [facility] 29778069316 50 MG Orally Active 1 tablet as every 6 hrs needed Results No Known Results Summary Purpose eClinicalWorks Submission
[2019-05-26] MEDS ORDERED: HYDROCODONE/APAP 5/325 MG TAB ONE (09:03)
[2019-05-26] MEDS ORDERED: ONDANSETRON 4 MG (ODT) TAB ONE (09:04)
--- NOTE | 2019-05-26 10:20 | RAD REPORT ---
EXAM DESCRIPTION: RAD - Knee Left 3 View - 05/26/2019 9:44 am CLINICAL HISTORY: Left knee pain FINDINGS: No fracture or dislocation is seen. Marked osteoarthritis medial compartment consisting of joint space narrowing and osteophytes
--- NOTE | 2019-05-26 10:21 | RAD REPORT ---
EXAM DESCRIPTION: RAD - Knee Right 3 View - 05/26/2019 9:44 am CLINICAL HISTORY: Right knee pain FINDINGS: No fracture or dislocation is seen. Moderate to marked osteoarthritis medial compartment consisting joint space narrowing and osteophytes . Lateral compartment is involved to a lesser extent
--- NOTE | 2019-05-26 13:09 | RAD REPORT ---
EXAM DESCRIPTION: USExtremity Venous Uni Ltd05/26/2019 12:57 pm CLINICAL HISTORY: left leg pain and swelling. COMPARISON: None. FINDINGS: Left common femoral, superficial femoral, popliteal and posterior tibial veins are compre ssible and demonstrate augmentation. Doppler demonstrates good flow. IMPRESSION: No evidence of deep venous thrombosis involving the left lower extremity.
--- NOTE | 2019-05-26 13:20 | EDPHYS ---
Physician Documentation [facility] Name: Neela Pizano Age: 59 yrs Sex: Female : 1960 Arrival Date: 05/26/2019 Time: 08:51 Bed 15 Private MD: ED Physician Carlos Grey HPI: 05/26 09:14 This 59 yrs old Black Female presents to ER via EMS with complaints of Leg Pain. pm1 09:14 The patient presents with Pain to bilateral knees. Left knee pain greater than right pm1 knee. Swelling to left knee and calf area. Patient with pain present to bilateral knees for the past few months and neuropathy for around 20 years. Patient has had multiple knee injections with steroids recently without much improvement. The complaints affect the left knee, right knee. Context: the patient can fully bear weight, the patient is able to ambulate. Modifying factors: The symptoms are alleviated by elevating leg, the symptoms are aggravated by weight bearing, bending knee. Associated signs and symptoms: Pertinent positives: calf tenderness, Pertinent negatives fever, nausea, vomiting. Treatment prior to arrival includes: no previous treatment. Severity of symptoms: in the emergency department the symptoms are actually worse. Historical: - Allergies: 08:56 Iodine; ph 08:56 Prednisone; (the orange one); ph - Home Meds: 08:56 albuterol sulfate inhalation Inhl [Active]; Atrovent Inhl [Active]; Lorazepam Oral ph [Active]; Metformin Oral [Active]; divalproex oral oral [Active]; Estradiol Oral [Active]; Hydroxyzine Oral [Active]; tizanidine oral oral [Active]; - PMHx: 08:56 Asthma; Diabetes - NIDDM; Hypertension; neuropathy; ph - PSHx: 08:56 Tubal ligation; Right little toe; ph - Immunization history:: Adult Immunizations unknown. - Social history:: Smoking status: Patient/guardian denies using tobacco. - Ebola Screening: : No symptoms or risks identified at this time. ROS: 09:14 Constitutional: Negative for fever, chills, and weight loss, Eyes: Negative for injury, pm1 pain, redness, and discharge, ENT: Negative for injury, pain, and discharge, Neck: Negative for injury, pain, and swelling, Cardiovascular: Negative for chest pain, palpitations, and edema, Abdomen/GI: Negative for abdominal pain, nausea, vomiting, diarrhea, and constipation, Back: Negative for injury and pain. 09:14 Skin: Negative for injury, rash, and discoloration, Neuro: Negative for headache, weakness, numbness, tingling, and seizure. 09:14 Respiratory: Positive for cough, Negative for shortness of breath, sputum production, wheezing. 09:14 MS/extremity: Positive for pain, of the right knee and left knee. Exam: 09:14 Constitutional: This is a well developed, well nourished patient who is awake, alert, pm1 and in no acute distress. Head/Face: Normocephalic, atraumatic. Neck: Trachea midline, no thyromegaly or masses palpated, and no cervical lymphadenopathy. Supple, full range of motion without nuchal rigidity, or vertebral point tenderness. No Meningismus. Chest/axilla: Normal chest wall appearance and motion. Nontender with no deformity. No lesions are appreciated. Cardiovascular: Regular rate and rhythm with a normal S1 and S2. No gallops, murmurs, or rubs. Normal PMI, no JVD. No pulse deficits. Respiratory: Lungs have equal breath sounds bilaterally, clear to auscultation and percussion. No rales, rhonchi or wheezes noted. No increased work of breathing, no retractions or nasal flaring. Abdomen/GI: Soft, non-tender, with normal bowel sounds. No distension or tympany. No guarding or rebound. No evidence of tenderness throughout. Back: No spinal tenderness. No costovertebral tenderness. Full range of motion. Skin: Warm, dry with normal turgor. Normal color with no rashes, no lesions, and no evidence of cellulitis. 09:14 Musculoskeletal/extremity: Extremities: grossly normal except: noted in the right knee: tenderness, There is no evidence of decreased ROM, deformity, noted in the left knee: pain, swelling, tenderness, no evidence of decreased ROM, deformity, erythema. Vital Signs: 09:15 BP 124 / 54; Pulse 104; Resp 20; Temp 99.2(O); Pulse Ox 99% on R/A; ph 10:20 BP 115 / 53; Pulse 98; Resp 16 S; Pulse Ox 92% on R/A; ca1 11:29 BP 103 / 54; Pulse 96; Resp 18 S; Pulse Ox 91% on R/A; ca1 12:24 BP 118 / 58; Pulse 97; Resp 16 S; Pulse Ox 92% on R/A; ca1 13:35 BP 111 / 52; Pulse 96; Resp 19 S; Pulse Ox 94% on R/A; ca1 MDM: 08:54 Patient medically screened. pm1 13:17 Data reviewed: vital signs. Data interpreted: Pulse oximetry: on room air is 99 %. pm1 Interpretation: normal. Counseling: I had a detailed discussion with the patient and/or guardian regarding: the historical points, exam findings, and any diagnostic results supporting the discharge/admit diagnosis, radiology results, the need for outpatient follow up, to return to the emergency department if symptoms worsen or persist or if there are any questions or concerns that arise at home. 05/26 08:56 Order name: Knee Right 3 View XRAY; Complete Time: 10:24 pm1 12 08:56 Order name: Knee Left 3 View XRAY; Complete Time: 10:24 pm1 12 08:56 Order name: Extremity Venous Uni Ltd US; Complete Time: 13:17 pm1 Administered Medications: 09:14 Drug: Sod 5 mg-325 mg 1 tabs Route: PO; ph 10:30 Follow up: Response: No adverse reaction; Pain is decreased; RASS: Alert and Calm (0) ca1 09:14 Drug: Zofran 4 mg Route: PO; ph 10:30 Follow up: Response: No adverse reaction; Nausea is decreased ca1 Disposition: 05/27 07:16 Co-signature as Attending Physician, Carlos Grey MD I agree with the assessment and kdr plan of care. Disposition: 05/26/19 13:19 Discharged to Home. Impression: Pain in left knee, Pain in right knee, Other specified diabetes mellitus with diabetic neuropathy, unspecified - peripheral neuropathy. - Condition is Stable. - Discharge Instructions: Knee Pain, Peripheral Neuropathy. - Prescriptions for Zofran 4 mg Oral Tablet - take 1 tablet by ORAL route every 8 hours As needed; 20 tablet. Tramadol 50 mg Oral Tablet - take 1 tablet by ORAL route every 8 hours as needed; 12 tablet. - Medication Reconciliation Form, Thank You Letter, Antibiotic Education, Prescription Opioid Use form. - Follow up: Emergency Department; When: As needed; Reason: Worsening of condition. Follow up: Private Physician; When: 2 - 3 days; Reason: Recheck today's complaints, Continuance of care, Re-evaluation by your physician. - Problem is new. - Symptoms have improved. Signatures: Dispatcher [employer] EDMS Carlos Grey MD MD [facility] Lianne Gaona, RN RN ph Сергей Cooper, SENIOR PROGRAM ANALYST SENIOR PROGRAM ANALYST pm1 Acob, Beverly, RN RN ca1 Corrections: (The following items were deleted from the chart) 05/26 13:20 13:19 05/26/2019 13:19 Discharged to Home. Impression: Pain in left knee; Pain in right pm1 knee; Other specified diabetes mellitus with diabetic neuropathy, unspecified. Condition is Stable. Forms are Medication Reconciliation Form, Thank You Letter, Antibiotic Education, Prescription Opioid Use. Follow up: Emergency Department; When: As needed; Reason: Worsening of condition. Follow up: Private Physician; When: 2 - 3 days; Reason: Recheck today's complaints, Continuance of care, Re-evaluation by your physician. Problem is new. Symptoms have improved. pm1 13:49 13:20 05/26/2019 13:19 Discharged to Home. Impression: Pain in left knee; Pain in right ca1 knee; Other specified diabetes mellitus with diabetic neuropathy, unspecified - peripheral neuropathy. Condition is Stable. Discharge Instructions: Knee Pain, Peripheral Neuropathy. Forms are Medication Reconciliation Form, Thank You Letter, Antibiotic Education, Prescription Opioid Use. Follow up: Emergency Department; When: As needed; Reason: Worsening of condition. Follow up: Private Physician; When: 2 - 3 days; Reason: Recheck today's complaints, Continuance of care, Re-evaluation by your physician. Problem is new. Symptoms have improved. pm1
--- NOTE | 2019-05-26 13:20 | ER ---
Nurse's Notes [facility] Name: Neela Pizano Age: 59 yrs Sex: Female : 1960 Arrival Date: 05/26/2019 Time: 08:51 Bed 15 Private MD: Diagnosis: Pain in left knee;Pain in right knee;Other specified diabetes mellitus with diabetic neuropathy, unspecified-peripheral neuropathy Presentation: 05/26 08:52 Presenting complaint: EMS states: Pt c/o L leg pain and knee swelling, also reports ph cough, congestion. Transition of care: patient was not received from another setting of care. Onset of symptoms was May 26, 2019. Risk Assessment: Do you want to hurt yourself or someone else? Patient reports no desire to harm self or others. Initial Sepsis Screen: Does the patient meet any 2 criteria? Yes Does the patient have a suspected source of infection? No. Patient's initial sepsis screen is negative. Care prior to arrival: None. 08:52 Method Of Arrival: EMS: [facility] ph 08:52 Acuity: MARVIN 3 ph Historical: - Allergies: 08:56 Iodine; ph 08:56 Prednisone; (the orange one); ph - Home Meds: 08:56 albuterol sulfate inhalation Inhl [Active]; Atrovent Inhl [Active]; Lorazepam Oral ph [Active]; Metformin Oral [Active]; divalproex oral oral [Active]; Estradiol Oral [Active]; Hydroxyzine Oral [Active]; tizanidine oral oral [Active]; - PMHx: 08:56 Asthma; Diabetes - NIDDM; Hypertension; neuropathy; ph - PSHx: 08:56 Tubal ligation; Right little toe; ph - Immunization history:: Adult Immunizations unknown. - Social history:: Smoking status: Patient/guardian denies using tobacco. - Ebola Screening: : No symptoms or risks identified at this time. Screenin:57 Abuse screen: Denies threats or abuse. Denies injuries from another. Nutritional ph screening: No deficits noted. Tuberculosis screening: No symptoms or risk factors identified. Fall Risk None identified. Assessment: 09:15 General: Appears in no apparent distress. comfortable, Behavior is calm, cooperative, ph appropriate for age. Pain: Complains of pain in bilateral legs, worse on L. Neuro: Level of Consciousness is awake, alert, obeys commands, Oriented to person, place, time, situation. Cardiovascular: Capillary refill < 3 seconds in bilateral fingers Patient's skin is warm and dry. Respiratory: Airway is patent Respiratory effort is even, unlabored, Respiratory pattern is regular, symmetrical. Derm: Skin is intact, is healthy with good turgor, Skin is pink, warm \T\ dry. Musculoskeletal: Circulation, motion, and sensation intact. Range of motion: intact in all extremities, Swelling present in left knee. 10:20 Reassessment: Patient appears in no apparent distress at this time. Patient is alert, ca1 oriented x 3, equal unlabored respirations, skin warm/dry/pink. 11:29 Reassessment: Patient appears in no apparent distress at this time. Patient is alert, ca1 oriented x 3, equal unlabored respirations, skin warm/dry/pink. Pending Ultrasound. 12:23 Reassessment: Patient appears in no apparent distress at this time. Patient is alert, ca1 oriented x 3, equal unlabored respirations, skin warm/dry/pink. Ultrasound at bedside. 13:35 Reassessment: Pt refused Tylenol#3 for home meds. Notified provider. Prescription ca1 changed. Vital Signs: 09:15 BP 124 / 54; Pulse 104; Resp 20; Temp 99.2(O); Pulse Ox 99% on R/A; ph 10:20 BP 115 / 53; Pulse 98; Resp 16 S; Pulse Ox 92% on R/A; ca1 11:29 BP 103 / 54; Pulse 96; Resp 18 S; Pulse Ox 91% on R/A; ca1 12:24 BP 118 / 58; Pulse 97; Resp 16 S; Pulse Ox 92% on R/A; ca1 13:35 BP 111 / 52; Pulse 96; Resp 19 S; Pulse Ox 94% on R/A; ca1 ED Course: 08:51 Patient arrived in ED. ph 08:53 Triage completed. ph 08:53 Сергей Cooper NP is PHCP. pm1 08:53 Carlos Grey MD is Attending Physician. pm1 08:56 Arm band placed on. ph 08:58 Patient has correct armband on for positive identification. Placed in gown. Bed in low ph position. Call light in reach. Side rails up X 1. Pulse ox on. NIBP on. Door closed. Noise minimized. Warm blanket given. Pillow given. 09:13 Lianne Gaona, RN is Primary Nurse. ph 09:45 Knee Right 3 View XRAY In Process Unspecified. EDMS 09:45 Knee Left 3 View XRAY In Process Unspecified. EDMS 12:58 Extremity Venous Uni Ltd US In Process Unspecified. EDMS 13:49 No provider procedures requiring assistance completed. Patient did not have IV access ca1 during this emergency room visit. Administered Medications: 09:14 Drug: [place] 5 mg-325 mg 1 tabs Route: PO; ph 10:30 Follow up: Response: No adverse reaction; Pain is decreased; RASS: Alert and Calm (0) ca1 09:14 Drug: Zofran 4 mg Route: PO; ph 10:30 Follow up: Response: No adverse reaction; Nausea is decreased ca1 Outcome: 13:19 Discharge ordered by MD. pm1 13:49 Discharged to home ambulatory. ca1 13:49 Condition: stable 13:49 Discharge instructions given to patient, Instructed on discharge instructions, follow up and referral plans. medication usage, Demonstrated understanding of instructions, follow-up care, medications, Prescriptions given X 2. 13:49 Patient left the ED. ca1 Signatures: Dispatcher [employer] EDPA Lianne Gaona, RN RN ph Сергей Cooper, VALVE LAPPER VALVE LAPPER pm1 Beverly Ross RN RN ca1
[2019-05-26 14:02] VITALS: TEMP 102
[2019-05-26 14:11] VITALS: BP 111/52; O2SAT 94
== END 2019-05-26 13:49 | disposition home or self-care (01) ==
LOC: ER 08:44
DX: M25.562 Pain in left knee (principal); M25.561 Pain in right knee; E11.42 Type 2 diabetes mellitus with diabetic polyneuropathy; J45.909 Unspecified asthma, uncomplicated; I10 Essential (primary) hypertension
CPT/HCPCS: 93971; 99284

== ENCOUNTER 2019-07-08 06:44 | Inpatient (IN) | payer OTHER ==
--- OUTSIDE RECORDS SUMMARY | 2019-07-08 06:46 | XMS REPORT ---
:1960 [facility] [address] [place] [address] Care Team Providers Name Role Phone Unavailable [...] mammographic images were evaluated by either a [employer] M-Vu or a [employer] ImageChecker CAD (computer aided detection system). Comparison is made to exam dated 09/09/2014 mammogram - [facility]. The tissue of both breasts is [...] further evaluation.Carlos Eduardo Harrell M.D. rb/:02/12/2019 10:48:36 Show Operations Supervisor: Yenny Lawrence MM, [facility] Mammographyletter sent: Additional Imaging Mammogram BI-RADS: 0 Indeterminate
--- OUTSIDE RECORDS SUMMARY | 2019-07-08 06:47 | XMS REPORT ---
[...] End Status Dosage System Date Date Gabapentin [facility] 85804175848 800 MG Oral Active not defined Hydrochlorothiazide [facility] 19738706354 25 MG Oral Active not defined Metronidazole [facility] 44699844897 500 MG Orally Active 1 tablet twice daily Symbicort [facility] 53195612764 80-4.5 MCG/ACT Active 2 puffs Inhalation Twice a day Claritin [facility] 56270771246 10 MG Orally Active 1 tablet Once a day Venlafaxine HCl ER [facility] 74961867869 225 MG Oral Active not defined Ventolin HFA [facility] 54662033962 108 (90 Base) Active 2 puffs as MCG/ACT needed Inhalation every 6 hrs Mupirocin [facility] 53161283007 2 % Externally Active 1 Three times a application day to affected area Metformin HCl [facility] 94981985215 1000 MG Oral Active not defined Advair Diskus [facility] 56534733950 500-50 Active 1 puff MCG/DOSE Inhalation Twice a day Montelukast Sodium ND 62774666775 10 MG Orally Active 1 tablet Once a day Ibuprofen ND 65837690035 800 MG Orally Active 1 tablet Three times a with food or day milk as needed HydrOXYzine HCl [facility] 20009477891 50 MG Oral Active not defined Combivent Respimat [facility] 38600297540 20-100 MCG/ACT Active not defined Inhalation Benadryl Allergy [facility] 56773009753 25 MG Orally Active 1 tablet as every 8 hrs needed Estradiol [facility] 03050891788 0.5 MG Oral Active not defined Divalproex Sodium [facility] 54343626570 500 MG Oral Active not defined Flonase Allergy [facility] 14554994325 50 MCG/ACT Active 1 spray in Relief Nasally Once a each nostril day Tramadol HCl [facility] 24380651616 50 MG Orally Active 1 tablet as every 6 hrs needed Results No Known Results Summary Purpose eClinicalWorks Submission
[2019-07-08] MEDS ORDERED: IPRATROPIUM BROM 0.5MG/2.5ML ONE ×2 (07:14→14:56)
[2019-07-08] MEDS ORDERED: LEVALBUTEROL 1.25 MG/3 ML NEB ONE (07:14)
[2019-07-08] MEDS ORDERED: MAGNESIUM SULFATE 1 gm IVPB 1 GM/100 ML BAG IV ONE (07:14)
[2019-07-08] MEDS ORDERED: METHYLPREDNISOLONE 125 MG INJ ONE (07:14)
[2019-07-08 07:39] LABS: ALT/SGPT 15 U/L (12-78); AST/SGOT 13 U/L (15-37); Albumin 3.3 g/dL (3.4-5.0); Alkaline Phosphatase 81 U/L (45-117); BUN Blood Urea Nitrogen 17 mg/dL (7-18); Bicarbonate 27 mmol/L (21-32); Bilirubin Direct < 0.1 mg/dL (0-0.2); Bilirubin Total 0.3 mg/dL (0.2-1.0); CKMB Creatine Kinase MB < 1.0 ng/mL (0.3-3.6); Creatine Phosphokinase 103 U/L (26-192); Glucose Level 112 mg/dL (74-106); Lipase 123 U/L (73-393); Magnesium 1.8 mg/dL (1.8-2.4); NT PRO-BNP 614 pg/mL (<125); Potassium 4.3 mmol/L (3.5-5.1); Protein, Total 7.7 g/dL (6.4-8.2); Sodium Level 140 mmol/L (136-145); Troponin (Emerg Dept Use Only) < 0.02 ng/mL (0.0-0.045)
[2019-07-08 08:02] LABS: Protime INR 1.08
[2019-07-08] MEDS ORDERED: CEFTRIAXONE/SWI 1gm 1 GM/10 ML SYR ONE (08:02)
[2019-07-08 08:07] LABS: Absolute Lymphocytes (CBC) 1.9 K/uL (0.7-4.9); Basophils % 0.5 % (0-1.3); Hematocrit 34.1 % (36.0-45.0); Lymphocytes % 18.8 % (15.3-44.8); MPV 7.9 fL (7.6-11.3); RBC Red Blood Cell Count 3.65 M/uL (3.86-4.86)
[2019-07-08] MEDS ORDERED: IBUPROFEN 400 MG TAB ONE (08:42)
--- NOTE | 2019-07-08 08:51 | RAD REPORT ---
EXAM DESCRIPTION: RAD - Chest Single View - 07/08/2019 7:30 am CLINICAL HISTORY: Cough, shortness of breath COMPARISON: August 2018 TECHNIQUE: AP portable chest image was obtained 0711 hour . FINDINGS: Lung volumes are slightly reduced from comparison study. Left lung field is clear of an ac [place] process. Airspace opacification is present in the mid right lung field abutting the minor fissure . There is some atelectasis on the right. This is favored to be pneumonia of the right upper lobe lauren t could be atelectasis. No tracheal shift. Heart and vasculature are normal. No measurable pleural ef fusion and no pneumothorax. No acute bony abnormality seen. No acute aortic findings suspected. IMPRESSION: Right upper lobe pneumonia versus right upper lobe atelectasis. Shallow inspiration accentuates lung markings potentially masking concurrent interstitial edema or in filtrate.
[2019-07-08] MEDS ORDERED: AZITHROMYCIN IV 500 MG in NA CHLORIDE 0.9% 250 ML IVPB ONE (09:00)
--- NOTE | 2019-07-08 09:04 | ER ---
Nurse's Notes [facility] Name: Neela Pizano Age: 59 yrs Sex: Female : 1960 Arrival Date: 07/08/2019 Time: 06:51 Bed 2 Private MD: Diagnosis: Bacterial pneumonia, not elsewhere classified;Shortness of breath Presentation: 07/08 06:52 Presenting complaint: EMS states: "we were called out for a pt with shortness of jd3 breath. the pt reported she has been doing nebulizer treatments, but they were not helping. she is also reporting chest pain. we attempted to give a breathing treatment on the way, but the pt refused saying 'only the the shots that they give at the hospital work when it gets this bad.' ". Transition of care: patient was not received from another setting of care. Onset of symptoms was July 08, 2019. Risk Assessment: Do you want to hurt yourself or someone else? Patient reports no desire to harm self or others. Initial Sepsis Screen: Does the patient meet any 2 criteria? RR > 20 per min. HR > 90 bpm. Yes Does the patient have a suspected source of infection? No. Patient's initial sepsis screen is negative. Care prior to arrival: Glucose check: 115. 06:52 Method Of Arrival: EMS: [facility] jd3 06:52 Acuity: MARVIN 3 jd3 Historical: - Allergies: 07:01 Iodine; jd3 07:01 Prednisone; (the orange one); jd3 - Home Meds: 07:01 albuterol sulfate inhalation Inhl [Active]; gabapentin Oral [Active]; Metformin Oral jd3 [Active]; tizanidine Oral [Active]; divalproex Oral [Active]; - PMHx: 07:01 Diabetes - NIDDM; Asthma; Hypertension; neuropathy; jd3 - PSHx: 07:01 Tubal ligation; Right little toe; jd3 - Immunization history:: Adult Immunizations up to date. - Social history:: Smoking status: Patient denies any tobacco usage or history of. - Ebola Screening: : Patient negative for fever greater than or equal to 101.5 degrees Fahrenheit, and additional compatible Ebola Virus Disease symptoms. Screenin:20 Abuse screen: Denies threats or abuse. Nutritional screening: No deficits noted. em Tuberculosis screening: No symptoms or risk factors identified. Fall Risk None identified. Assessment: 07:20 General: Appears in no apparent distress. comfortable, Behavior is calm, cooperative, em appropriate for age, Reports fever for off and on for a week. Pain: Complains of pain in chest Pain currently is 10 out of 10 on a pain scale. Pain began 1 month. Neuro: Level of Consciousness is awake, alert, obeys commands, Oriented to person, place, time, situation, Appropriate for age. Cardiovascular: Capillary refill < 3 seconds Patient's skin is warm and dry. Rhythm is sinus rhythm. Respiratory: Reports shortness of breath at rest on exertion cough that is non-productive, Airway is patent Respiratory effort is even, unlabored, Respiratory pattern is regular, symmetrical, Breath sounds are diminished bilaterally. Derm: Skin is intact, is thin, Skin is dry, Skin is normal, Skin temperature is warm. Musculoskeletal: Capillary refill < 3 seconds, Range of motion: intact in all extremities. 08:20 Reassessment: Patient appears in no apparent distress at this time. Patient is alert, em oriented x 3, equal unlabored respirations, skin warm/dry/pink. Patient states feeling better. Patient states symptoms have improved. 09:32 Reassessment: Patient appears in no apparent distress at this time. Patient and/or em family updated on plan of care and expected duration. Pain level reassessed. Patient is alert, oriented x 3, equal unlabored respirations, skin warm/dry/pink. Vital Signs: 07:01 BP 138 / 79; Pulse 95; Resp 22 S; Temp 99.1(O); Pulse Ox 95% on 3 lpm NC; Weight 95.25 jd3 kg (R); Height 5 ft. 4 in. (162.56 cm) (R); Pain 10/10; 07:54 BP 137 / 84; Pulse 99; Resp 25; Pulse Ox 97% on 2 lpm NC; Pain 10/10; em 08:41 BP 124 / 61; Pulse 102; Resp 22; Temp 101.4(O); Pulse Ox 96% on R/A; em 09:32 BP 132 / 62; Pulse 94; Resp 18; Pulse Ox 99% on 2 lpm NC; em 07:01 Body Mass Index 36.05 (95.25 kg, 162.56 cm) jd3 ED Course: 06:51 Patient arrived in ED. la1 06:54 Alex Rodriges FNP-C [facility]. la1 06:54 Omkar Nicole MD is Attending Physician. la1 06:55 Triage completed. jd3 07:08 Arm band placed on. EKG completed in triage. Results shown to MD. jd3 07:20 Patient has correct armband on for positive identification. Placed in gown. Bed in low em position. Call light in reach. Adult w/ patient. air sampling and monitoring on. Pulse ox on. NIBP on. 07:30 XRAY CXR (1 view) In Process Unspecified. EDMS 07:40 Repeat lab(s) drawn. by me, sent to lab. Inserted saline lock: 24 gauge in left hand, em using aseptic technique. Blood collected. 07:48 Vargas Sims, RN is Primary Nurse. em 09:02 Norma Boogie MD is Hospitalizing Provider. la1 09:30 No provider procedures requiring assistance completed. Patient admitted, IV remains in em place. Administered Medications: 07:35 Drug: Xopenex (3) 1.25 mg Route: Inhalation; em 07:56 Follow up: Response: No adverse reaction; Marked relief of symptoms em 07:35 Drug: AtroVENT Aerosol 0.5 mg Route: Inhalation; em 07:57 Follow up: Response: No adverse reaction em 07:41 Drug: SOLU-Medrol 125 mg Route: IVP; Site: left hand; em 07:57 Follow up: Response: No adverse reaction em 07:45 Drug: Magnesium Sulfate 1 grams Route: IVPB; Infused Over: 1 hrs; Site: left hand; em 09:00 Follow up: Response: No adverse reaction; IV Status: Completed infusion; IV Intake: em 100ml 08:25 Drug: Rocephin 1 grams Route: IV; Rate: calculated rate; Site: left hand; em 09:28 Follow up: Response: No adverse reaction; IV Status: Completed infusion; IV Intake: 10mlem 08:37 Drug: Zithromax 500 mg Route: IVPB; Infused Over: 1 hrs; Site: left hand; em 11:00 Follow up: Response: No adverse reaction; IV Status: Completed infusion; IV Intake: em 500ml 08:45 Drug: Motrin 800 mg Route: PO; em 13:11 Follow up: Response: No adverse reaction; Temperature is decreased em Intake: 09:00 IV: 100ml; Total: 100ml. em 09:28 IV: 10ml; Total: 110ml. em 11:00 IV: 500ml; Total: 610ml. em Outcome: 09:03 Decision to Hospitalize by Provider. la1 10:00 Admitted to ER Hold. Please see [facility] for further documentation. em 10:00 Condition: good em 16:17 Patient left the ED. em Signatures: Dispatcher [employer] Vargas Barnard RN RN em Alex Rodriges, LEATHER PRODUCTION ARTISAN-C [employer]ATHER [employer]ODUCTION ARTISAN-Cla1 Phil Garcia RN RN tayed3 Corrections: (The following items were deleted from the chart) 06:56 06:52 Care prior to arrival: None. bridger sparks
--- NOTE | 2019-07-08 09:04 | EDPHYS ---
Physician Documentation [facility] Name: Neela Pizano Age: 59 yrs Sex: Female : 1960 Arrival Date: 07/08/2019 Time: 06:51 Bed 2 Private MD: ED Physician Omkar Nicole HPI: 07/08 06:54 This 59 yrs old Black Female presents to ER via Unassigned with complaints of Shortness la1 Of Breath. 06:54 The patient has shortness of breath at rest. Onset: The symptoms/episode began/occurred la1 1 month(s) ago, and became worse this morning. Duration: The symptoms are continuous. The patient's shortness of breath is aggravated by nothing, is alleviated by nothing. Associated signs and symptoms: Pertinent positives: non-productive cough, Pertinent negatives: chest pain, diaphoresis, hemoptysis. Severity of symptoms: At their worst the symptoms were moderate in the emergency department the symptoms are unchanged. The patient has experienced similar episodes in the past. Historical: - Allergies: 07:01 Iodine; jd3 07:01 Prednisone; (the orange one); jd3 - Home Meds: 07:01 albuterol sulfate inhalation Inhl [Active]; gabapentin Oral [Active]; Metformin Oral jd3 [Active]; tizanidine Oral [Active]; divalproex Oral [Active]; - PMHx: 07:01 Diabetes - NIDDM; Asthma; Hypertension; neuropathy; jd3 - PSHx: 07:01 Tubal ligation; Right little toe; jd3 - Immunization history:: Adult Immunizations up to date. - Social history:: Smoking status: Patient denies any tobacco usage or history of. - Ebola Screening: : Patient negative for fever greater than or equal to 101.5 degrees Fahrenheit, and additional compatible Ebola Virus Disease symptoms. ROS: 06:55 Eyes: Negative for injury, pain, redness, and discharge, ENT: Negative for injury, la1 pain, and discharge, Neck: Negative for injury, pain, and swelling. 06:55 Constitutional: Positive for chills . 06:56 Abdomen/GI: Negative for abdominal pain, nausea, vomiting, diarrhea, and constipation, la1 Back: Negative for injury and pain, MS/Extremity: Negative for injury and deformity, Neuro: Negative for headache, weakness, numbness, tingling, and seizure, Allergy/Immunology: Negative for hives, rash, and allergies, Endocrine: Negative for neck swelling, polydipsia, polyuria, polyphagia, and marked weight changes. 06:56 Cardiovascular: Negative for chest pain, orthopnea, acute changes. 06:56 Respiratory: Positive for cough, dyspnea on exertion, shortness of breath, wheezing. Exam: 06:56 Constitutional: This is a well developed, well nourished patient who is awake, alert, la1 and in no acute distress. Head/Face: Normocephalic, atraumatic. Eyes: Pupils equal round and reactive to light, extra-ocular motions intact. Periorbital areas with no swelling, redness, or edema. ENT: Mucous membranes moist. Neck: Trachea midline. No Meningismus. Chest/axilla: Normal chest wall appearance and motion. Cardiovascular: Regular rate and rhythm with a normal S1 and S2. 06:56 Abdomen/GI: Soft, non-tender, with normal bowel sounds. MS/ Extremity: Pulses equal, no cyanosis. Neurovascular intact. Full, normal range of motion. Neuro: Awake and alert, GCS 15, oriented to person, place, time, and situation. 06:56 Respiratory: moderate respiratory distress is noted, Respirations: labored breathing, that is mild, tachypnea, that is mild, Breath sounds: wheezing: expiratory that is moderate, is heard diffusely. Vital Signs: 07:01 BP 138 / 79; Pulse 95; Resp 22 S; Temp 99.1(O); Pulse Ox 95% on 3 lpm NC; Weight 95.25 jd3 kg (R); Height 5 ft. 4 in. (162.56 cm) (R); Pain 10/10; 07:54 BP 137 / 84; Pulse 99; Resp 25; Pulse Ox 97% on 2 lpm NC; Pain 10/10; em 08:41 BP 124 / 61; Pulse 102; Resp 22; Temp 101.4(O); Pulse Ox 96% on R/A; em 09:32 BP 132 / 62; Pulse 94; Resp 18; Pulse Ox 99% on 2 lpm NC; em 07:01 Body Mass Index 36.05 (95.25 kg, 162.56 cm) jd3 MDM: 06:54 Patient medically screened. la1 09:00 Differential diagnosis: asthma, Bronchitis CHF exacerbation, Chronic Obstructive la1 Pulmonary Disease Myocardial Infarction pneumonia, pulmonary edema. Data reviewed: vital signs, nurses notes, lab test result(s), EKG, radiologic studies, I have discussed the patient's presentation/case with the attending Emergency Department Physician; and as a result, I will admit patient. Data interpreted: Pulse oximetry: on room air is 96 %. Interpretation: normal. Test interpretation: by ED physician or midlevel provider: ECG, plain radiologic studies. Counseling: I had a detailed discussion with the patient and/or guardian regarding: the historical points, exam findings, and any diagnostic results supporting the discharge/admit diagnosis, the presence of at least one elevated blood pressure reading (>120/80) during this emergency department visit, radiology results, the need for further work-up and treatment in the hospital. Medication response: xopinex, solu-medrol, atrovent, magnesium. Response to treatment: the patient's symptoms have mildly improved after treatment. Physician consultation: Norma Boogie MD was called at 09:01, was contacted at 09:01, regarding admission, to the telemetry unit. and will see patient. 07/08 06:54 Order name: Blood Culture Adult (2) 07/08 06:54 Order name: BMP; Complete Time: 07:45 07/08 06:54 Order name: CBC with Diff; Complete Time: 08:21 07/08 06:54 Order name: Ckmb; Complete Time: 07:45 07/08 06:54 Order name: CPK; Complete Time: 07:45 07/08 06:54 Order name: Hepatic Function; Complete Time: 07:45 07/08 06:54 Order name: Lipase; Complete Time: 07:45 07/08 06:54 Order name: Magnesium; Complete Time: 07:45 07/08 06:54 Order name: NT PRO-BNP; Complete Time: 07:45 07/08 06:54 Order name: PT-INR; Complete Time: 08:21 07/08 06:54 Order name: Ptt, Activated; Complete Time: 08:21 07/08 06:54 Order name: Troponin (emerg Dept Use Only); Complete Time: 07:45 07/08 06:54 Order name: Blood Culture EDCA 07/08 06:56 Order name: Flu [facility] 07/08 06:54 Order name: XRAY CXR (1 view); Complete Time: 08:52 07/08 08:54 Order name: Lactate [facility] 07/08 09:32 Order name: CBC with Automated Diff EDMS 07/08 09:32 Order name: CBC with Automated Diff EDMS 07/08 09:32 Order name: Comprehensive Metabolic Panel [facility] 07/08 09:32 Order name: Comprehensive Metabolic Panel EDMS 07/08 09:32 Order name: Lipid Profile EDMS 07/08 09:32 Order name: Lipid Profile [facility] 07/08 09:33 Order name: Chest Pa And Lat (2 Views) [facility] 07/08 06:54 Order name: EKG; Complete Time: 06:55 07/08 06:54 Order name: Cardiac monitoring; Complete Time: 07:05 07/08 06:54 Order name: EKG - Nurse/Tech; Complete Time: 07:05 07/08 06:54 Order name: IV Saline Lock; Complete Time: 07:50 07/08 06:54 Order name: Labs collected and sent; Complete Time: 07:05 07/08 06:54 Order name: O2 Per Protocol; Complete Time: 07:04 07/08 06:54 Order name: O2 Sat Monitoring; Complete Time: 07:04 07/08 09:32 Order name: Regular EDMS Administered Medications: 07:35 Drug: Xopenex (3) 1.25 mg Route: Inhalation; em 07:56 Follow up: Response: No adverse reaction; Marked relief of symptoms em 07:35 Drug: AtroVENT Aerosol 0.5 mg Route: Inhalation; em 07:57 Follow up: Response: No adverse reaction em 07:41 Drug: SOLU-Medrol 125 mg Route: IVP; Site: left hand; em 07:57 Follow up: Response: No adverse reaction em 07:45 Drug: Magnesium Sulfate 1 grams Route: IVPB; Infused Over: 1 hrs; Site: left hand; em 09:00 Follow up: Response: No adverse reaction; IV Status: Completed infusion; IV Intake: em 100ml 08:25 Drug: Rocephin 1 grams Route: IV; Rate: calculated rate; Site: left hand; em 09:28 Follow up: Response: No adverse reaction; IV Status: Completed infusion; IV Intake: 10mlem 08:37 Drug: Zithromax 500 mg Route: IVPB; Infused Over: 1 hrs; Site: left hand; em 11:00 Follow up: Response: No adverse reaction; IV Status: Completed infusion; IV Intake: em 500ml 08:45 Drug: Motrin 800 mg Route: PO; em 13:11 Follow up: Response: No adverse reaction; Temperature is decreased em Disposition: 07/09 07:55 Co-signature as Attending Physician, Omkar Nicole MD I agree with the assessment and thomas plan of care. Disposition: 07/08/19 09:03 Hospitalization ordered by Norma Boogie for Observation. Preliminary diagnosis are Bacterial pneumonia, not elsewhere classified, Shortness of breath. - Bed requested for Telemetry/MedSurg (observation). - Status is Observation. em - Condition is Stable. - Problem is new. - Symptoms have improved. UTI on Admission? No Signatures: Dispatcher [employer] Rylie Felipe RN RN dw Anderson, Corey, MD MD cha Munoz, Edgar, RN RN em Alex Rodriges, GARAGE DOOR INSTALLER-C GARAGE DOOR INSTALLER-Cla1 Phil Garcia RN RN Keke Nieto Corrections: (The following items were deleted from the chart) 07/08 09:59 09:03 Hospitalization Ordered by Norma Boogie MD for Observation. Preliminary eb diagnosis is Bacterial pneumonia, not elsewhere classified; Shortness of breath. Bed requested for Telemetry/MedSurg (observation). Status is Observation. Condition is Stable. Problem is new. Symptoms have improved. UTI on Admission? No. la1 15:10 09:59 07/08/2019 09:03 Hospitalization Ordered by Norma Boogie MD for Observation. dw Preliminary diagnosis is Bacterial pneumonia, not elsewhere classified; Shortness of breath. Bed requested for [facility] ER HOLD. Status is Observation. Condition is Stable. Problem is new. Symptoms have improved. UTI on Admission? No. eb 16:17 15:10 07/08/2019 09:03 Hospitalization Ordered by Norma Boogie MD for Observation. em Preliminary diagnosis is Bacterial pneumonia, not elsewhere classified; Shortness of breath. Bed requested for Telemetry/MedSurg (observation). Status is Observation. Condition is Stable. Problem is new. Symptoms have improved. UTI on Admission? No. dw
[2019-07-08] MEDS ORDERED: ONDANSETRON 4 MG/2 ML VIAL IV PRN (09:27)
[2019-07-08] MEDS ORDERED: ACETAMINOPHEN 500 MG TAB PO PRN (09:27)
[2019-07-08] MEDS: ENOXAPARIN 40 MG/0.4 ML SQ SCH (10:00)
[2019-07-08] MEDS: NA CHLORIDE 0.9% 1,000 ML IV SCH ×3 (10:00→23:34)
[2019-07-08] MEDS ORDERED: INSULIN -REGULAR HUMAN 50 UNIT/0.5 ML ML SQ SCH (11:30)
[2019-07-08] MEDS ORDERED: NA CHLORIDE 0.9% 1,000 ML ONE (12:43)
[2019-07-08] MEDS ORDERED: ENOXAPARIN 40 MG/0.4 ML SQ ONE (12:43)
[2019-07-08] MEDS ORDERED: HOME MED 1 EA UNK (Hydroxyzine Pamoate [Hydroxyzine Pamoate] 25 MG) PO PRN (13:40)
[2019-07-08] MEDS ORDERED: hydrOXYzine HCL 25 MG TAB PO PRN (13:47)
[2019-07-08] MEDS ORDERED: GLUCAGON 1 MG/VIAL IM PRN (13:48)
[2019-07-08] MEDS ORDERED: D50W 25 GM/50 ML SYRINGE/VIAL IV PRN (13:48)
[2019-07-08] MEDS: GABAPENTIN 300 MG CAP PO SCH ×2 (14:00→21:35)
[2019-07-08] MEDS: VALACYCLOVIR 500 MG TAB PO SCH (14:00)
[2019-07-08] MEDS: hydroCHLOROthiazide 25 MG TAB PO SCH (14:00)
[2019-07-08] MEDS ORDERED: GABAPENTIN 300 MG CAP ONE (14:32)
[2019-07-08] MEDS ORDERED: hydroCHLOROthiazide 25 MG TAB ONE (14:32)
[2019-07-08] MEDS ORDERED: VALACYCLOVIR 500 MG TAB ONE (14:32)
[2019-07-08] MEDS: IPRATROPIUM BROM 0.5MG/2.5ML NEB SCH ×2 (14:45→19:40)
[2019-07-08] MEDS: ALBUTEROL 2.5 MG/3 ML NEB SOL NEB SCH ×2 (14:45→19:40)
[2019-07-08] MEDS ORDERED: ALBUTEROL 2.5 MG/3 ML NEB SOL ONE (14:55)
[2019-07-08] MEDS: VENLAFAXINE HCL XR 75 MG CAP PO SCH (15:00)
[2019-07-08] MEDS ORDERED: DIVALPROEX DR 500MG TAB PO SCH (15:00)
[2019-07-08 16:51] VITALS: BMI 34.8
[2019-07-08] MEDS: METFORMIN HCL 500 MG TAB PO SCH (18:15)
[2019-07-08] MEDS: INSULIN -REGULAR HUMAN 50 UNIT/0.5 ML ML SQ SCH ×2 (18:15→21:00)
[2019-07-08] MEDS: METHYLPREDNISOLONE 40 MG INJ IV SCH ×2 (18:15→23:30)
--- NOTE | 2019-07-08 20:10 | HP ---
Date of Admission: 07/08/2019 Reason For Admission: Progressive shortness of breath. History Of Present Illness: This is a 59-year-old female with history of multiple medical problems i ncluding asthma, diabetes, hypertension, neuropathy, presented to emergency room with progressive rhoda rtness of breath that started almost 1 month ago, got much worse this morning. Patient is not able t o catch her breath. She has had to come to emergency room where she was evaluated. In the ER, labs were normal, but creatinine was slightly elevated at 1.31. BNP was 614. Chest x-ray showed question able right upper lobe pneumonia versus right upper lobe atelectasis. Patient was started on IV antib iotic with ceftriaxone and Zithromax as well as inhalers and she is admitted. Currently, she is lyin g in bed. She looks comfortable. She described a productive cough with yellow sputum. She had a te mperature of 101 at her house. In the emergency room, her temperature was at 99.1. She continued to be weak, fatigued. Review of Systems: Otherwise as below. Past Medical History: Significant for diabetes, asthma, hypertension, neuropathy. Past Surgical History: Significant for tubal ligation, right little toe surgery. Allergies: TO IODINE, PREDNISONE. Social History: She is . She has 6 kids. 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 She drinks socially. She does not smoke or use any drugs. Family History: Father and mother both of [place]. Medications: She is on albuterol, gabapentin, metformin, tizanidine and valproic acid. Review of Systems: Patient had low-grade temperature and some chills. There was no night sweats, dizziness, lightheaded , headache, blurred vision. She has not had any loss of consciousness. She does have productive cou gh with sputum, yellow sputum and shortness of breath. She is not having chest pain or palpitation. No nausea, vomiting, abdominal pain, diarrhea, constipation, dysuria, frequency, urgency, hematuria. There is no history of depression, anxiety, seizure or stroke. Physical Examination: Vital Signs: Currently vital signs according to the ER record, blood pressure is 124/61, respiratory rate 22, pulse 99, saturating 97% on 2 L nasal cannula. She had a temperature 99.1. General: Patient is alert and oriented x3. Does not look in any distress. HEENT: Atraumatic, normocephalic. PERRLA. Oral mucosa is moist. Neck: Supple. No JVD. No carotid bruits. Chest: Clear to auscultation with fine crackles on the right. Heart: Regular rate and rhythm. Tachy. No gallop or murmur. Abdomen: Soft, nontender. No masses. No hepatosplenomegaly. Positive bowel sounds. Extremities: No edema. No calf tenderness. Neurologic: Deferred. Laboratory Data: Today in the emergency room showed CBC within normal except for hemoglobin 11.4. I NR was normal. Chemistry was normal except for creatinine 1.31, GFR of 50, glucose 112, AST of 13, B OUTPATIENT SERVICES DIRECTOR of 614, albumin 3.3. Chest x-ray as mentioned above, questionable right upper lobe pneumonia. Assessment And Plan: This is a 59-year-old female, history of asthma? chronic obstructive pulmonary disease, diabetes, neuropathy, hypertension, presented with progressive shortness of breath and foun d to have a right lung infiltrate on chest x-ray. IMPRESSION: 1.Right upper lobe pneumonia. We will admit patient to floor, started on IV antibiotic with Zithrom ax, ceftriaxone. Continue inhalers with the Atrovent, albuterol. Patient will also be on Solu-Medro l as she has she been on prednisone at home 40 mg daily. So albuterol, Solu-Medrol 60 every 6 hours. Blood culture done in the emergency room as well as a flu screen was negative. 2.History of hypertension with the patient on home medication, hydralazine p.r.n. and Norvasc. 3.Diabetes mellitus, so we will check hemoglobin A1c. Place patient on insulin sliding scale as wel l as metformin. 4.Renal insufficiency. We will start patient on IV fluid with normal saline. 5.Deep vein thrombosis prophylaxis with Lovenox 30 mg due to insufficiency. 6.Neuropathy. We will continue patient on valproic acid, gabapentin as before. ELIUD/ELIF Voice ID: [id number]
[2019-07-08] MEDS: HOME MED 1 EA UNK (Budesonide/Formoterol Fumarate [Symbicort 160-4.5 Mcg Inhaler] 2 PUFF) IH SCH (21:00)
[2019-07-08] MEDS ORDERED: DIVALPROEX SODIUM PO SCH (21:00)
[2019-07-08] MEDS ORDERED: HOME MED 1 EA UNK (Metformin Hcl [Metformin Hcl] 1,000 MG) PO SCH (21:00)
[2019-07-08] MEDS: CEFTRIAXONE/SWI 1gm 1 GM/10 ML SYR IVP SCH (21:35)
[2019-07-08] MEDS: DIVALPROEX ER 250 MG TAB PO SCH (21:35)
[2019-07-09] MEDS: IPRATROPIUM BROM 0.5MG/2.5ML NEB SCH ×4 (01:30→20:20)
[2019-07-09] MEDS: ALBUTEROL 2.5 MG/3 ML NEB SOL NEB SCH ×4 (01:30→20:20)
[2019-07-09] MEDS: NA CHLORIDE 0.9% 1,000 ML IV SCH ×2 (05:54→10:20)
[2019-07-09] MEDS: METHYLPREDNISOLONE 40 MG INJ IV SCH ×2 (05:55→11:53)
[2019-07-09] MEDS: PANTOPRAZOLE 40MG TABLET PO SCH (05:55)
[2019-07-09 05:59] LABS: Basophils % 0.1 % (0-1.3); Hematocrit 37.1 % (36.0-45.0); Lymphocytes % 9.3 % (15.3-44.8); MPV 8.4 fL (7.6-11.3); RBC Red Blood Cell Count 3.85 M/uL (3.86-4.86)
[2019-07-09 06:01] LABS: Albumin 3.1 g/dL (3.4-5.0); Bilirubin Total 0.2 mg/dL (0.2-1.0); Magnesium 2.2 mg/dL (1.8-2.4); Potassium 4.2 mmol/L (3.5-5.1); Protein, Total 8.1 g/dL (6.4-8.2)
[2019-07-09] MEDS: INSULIN -REGULAR HUMAN 50 UNIT/0.5 ML ML SQ SCH ×4 (07:30→21:00)
[2019-07-09 08:00] LABS: Anisocytosis 1+; Blood Morphology Comment NOTED (NOT SEEN); Platelet Estimate ADEQ; Urine White Blood Cell Casts OK
--- NOTE | 2019-07-09 08:23 | RAD REPORT ---
EXAM DESCRIPTION: RAD - Chest Pa And Lat (2 Views) - 07/09/2019 5:34 am CLINICAL HISTORY: pneumonia Chest pain. COMPARISON: Chest Single View dated 07/08/2019; Chest Single View dated 09/15/2018; Chest Single View dated 12/03/2016; Chest Pa And Lat (2 Views) dated 03/30/2016 FINDINGS: Interstitial prominence is again noted throughout both lungs, mildly improved. Mild right upper lobe lung infiltrate also appears mildly improved. The heart is normal in size. No displaced fr actures. IMPRESSION: Mild improvement in lung aeration since comparative study.
[2019-07-09] MEDS: METFORMIN HCL 500 MG TAB PO SCH ×2 (08:24→17:01)
[2019-07-09] MEDS: VENLAFAXINE HCL XR 75 MG CAP PO SCH (08:24)
[2019-07-09] MEDS: GABAPENTIN 300 MG CAP PO SCH ×3 (08:25→21:53)
[2019-07-09] MEDS: CEFTRIAXONE/SWI 1gm 1 GM/10 ML SYR IVP SCH ×2 (08:25→21:52)
[2019-07-09] MEDS: ENOXAPARIN 40 MG/0.4 ML SQ SCH (08:26)
[2019-07-09] MEDS: DIVALPROEX ER 250 MG TAB PO SCH ×2 (08:29→21:53)
[2019-07-09] MEDS: AZITHROMYCIN IV 500 MG in NA CHLORIDE 0.9% 250 ML IVPB SCH (08:29)
[2019-07-09] MEDS: hydroCHLOROthiazide 25 MG TAB PO SCH (08:30)
--- NOTE | 2019-07-09 08:49 | EKG ---
Test Date: 2019-07-08 Test Time: 07:07:58 Helicopter Officer: RUSTY MEASUREMENT RESULTS: Intervals: Rate: 100 HI: 134 QRSD: 66 QT: 316 QTc: 407 Robeline: P: 56 HI: 134 QRS: 46 T: 47 INTERPRETIVE STATEMENTS: Sinus rhythm with fusion complexes Otherwise normal ECG Compared to ECG 09/15/2018 20:38:40 Fusion complex(es) now present Electronically Signed On 07-09-19 08:49:22 AIRCRAFT ENGINE MECHANIC SUPERVISOR by Yvan Hopper
[2019-07-09] MEDS ORDERED: hydroCHLOROthiazide 25 MG TAB PO SCH (09:00)
[2019-07-09] MEDS ORDERED: VALACYCLOVIR HCL PO SCH (09:00)
[2019-07-09] MEDS: HOME MED 1 EA UNK (Budesonide/Formoterol Fumarate [Symbicort 160-4.5 Mcg Inhaler] 2 PUFF) IH SCH ×2 (09:00→21:00)
[2019-07-09] MEDS ORDERED: VENLAFAXINE HCL PO SCH (09:00)
[2019-07-09] MEDS: VALACYCLOVIR 500 MG TAB PO SCH (10:19)
[2019-07-09 11:12] LABS: Urine Appearance CLEAR; Urine Bilirubin NEGATIVE (NEG); Urine Blood NEGATIVE (NEG); Urine Color YELLOW; Urine Glucose NEGATIVE (NEG); Urine Protein NEGATIVE (NEG); Urine Urobilinogen 0.2 mg/dL (0.2-1.0)
[2019-07-09 11:13] LABS: Urine Microscopic Reflex NO UMIC
--- NOTE | 2019-07-09 13:38 | P.PN ---
Subjective Date of Service: 07/09/19 Chief Complaint: cough Subjective: No new changes (- tremiors , intermittent palpitations -still feels unwell - feels easy fatigue and SOB), C/O voiced Review of Systems 10-point ROS is otherwise unremarkable Physical Examination - Vital Signs Temperature: 97.3 F Blood Pressure: 131/77 Pulse: 68 Respirations: 20 Pulse Ox (%): 97 - Physical Exam General: Alert, Oriented x3, Obese HEENT: Atraumatic, Normocephalic, PERRLA Neck: Supple, JVD not distended Respiratory: Normal air movement, Crackles/rales, Expiratory wheezes Cardiovascular: No edema, Regular rate/rhythm, Normal S1 S2 Gastrointestinal: Normal bowel sounds, Soft and benign Musculoskeletal: No clubbing, No swelling Integumentary: No rashes, No breakdown Neurological: Normal gait, Normal speech, Normal strength at 5/5 x4 extr External genitalia: No edema - Studies Laboratory Last Values WBC 10.8 K/uL (4.3-10.9) 07/09/19 05:06 RBC 3.85 M/uL (3.86-4.86) L 07/09/19 05:06 Hgb 12.2 g/dL (12.0-15.0) 07/09/19 05:06 Hct 37.1 % (36.0-45.0) 07/09/19 05:06 MCV 96.4 fL (80-100) 07/09/19 05:06 MCH 31.7 pg (27.0-35.0) 07/09/19 05:06 MCHC 32.9 g/dL (32.0-36.0) 07/09/19 05:06 RDW 16.4 % (12.1-15.2) H 07/09/19 05:06 Plt Count 308 K/uL (152-406) 07/09/19 05:06 MPV 8.4 fL (7.6-11.3) 07/09/19 05:06 Neutrophils % 88.1 % (41.7-73.7) H 07/09/19 05:06 Lymphocytes % 9.3 % (15.3-44.8) L 07/09/19 05:06 Monocytes % 2.5 % (3.3-12.3) L 07/09/19 05:06 Eosinophils % 0.0 % (0-4.4) 07/09/19 05:06 Basophils % 0.1 % (0-1.3) 07/09/19 05:06 Absolute Neutrophils 9.5 K/uL (1.8-8.0) H 07/09/19 05:06 Absolute Lymphocytes 1.0 K/uL (0.7-4.9) 07/09/19 05:06 Absolute Monocytes 0.3 K/uL (0.1-1.3) 07/09/19 05:06 Absolute Eosinophils 0.0 K/uL (0-0.5) 07/09/19 05:06 Absolute Basophils 0.0 K/uL (0-0.5) 07/09/19 05:06 Anisocytosis 1+ 07/09/19 05:06 Morphology Comment Noted (NOT SEEN) 07/09/19 05:06 PT 12.7 SECONDS (9.5-12.5) H 07/08/19 07:40 INR 1.08 07/08/19 07:40 APTT 34.5 SECONDS (24.3-36.9) 07/08/19 07:40 Sodium 140 mmol/L (136-145) 07/09/19 05:06 Potassium 4.2 mmol/L (3.5-5.1) 07/09/19 05:06 Chloride 107 mmol/L (98-107) 07/09/19 05:06 Carbon Dioxide 25 mmol/L (21-32) 07/09/19 05:06 BUN 18 mg/dL (7-18) 07/09/19 05:06 Creatinine 1.11 mg/dL (0.55-1.3) 07/09/19 05:06 Estimated GFR 61 mL/min (=/>90) L 07/09/19 05:06 Glucose 143 mg/dL (74-106) H 07/09/19 05:06 POC Glucose 93 mg/dl (65-120) 07/09/19 11:52 Hemoglobin A1c 6.2 % (4.2-6.3) 07/09/19 05:06 Lactic Acid 1.0 mmol/L (0.4-2.0) 07/08/19 09:09 Calcium 8.7 mg/dL (8.5-10.1) 07/09/19 05:06 Magnesium 2.2 mg/dL (1.8-2.4) 07/09/19 05:06 Total Bilirubin 0.2 mg/dL (0.2-1.0) 07/09/19 05:06 Direct Bilirubin < 0.1 mg/dL (0-0.2) 07/08/19 07:00 AST 10 U/L (15-37) L 07/09/19 05:06 ALT 14 U/L (12-78) 07/09/19 05:06 Alkaline Phosphatase 83 U/L (45-117) 07/09/19 05:06 Creatine Kinase 103 U/L (26-192) 07/08/19 07:00 CK-MB (CK-2) < 1.0 ng/mL (0.3-3.6) 07/08/19 07:00 Rapid Troponin I < 0.02 ng/mL (0.0-0.045) 07/08/19 07:00 NT-Pro-B Natriuret Pep 614 pg/mL (<125) H 07/08/19 07:00 Serum Total Protein 8.1 g/dL (6.4-8.2) 07/09/19 05:06 Albumin 3.1 g/dL (3.4-5.0) L 07/09/19 05:06 Globulin 5.0 g/dL (2.3-3.5) H D 07/09/19 05:06 Albumin/Globulin Ratio 0.6 (1.1-1.8) L 07/09/19 05:06 Triglycerides 94 mg/dL (<150) 07/09/19 05:06 Cholesterol 235 mg/dL (<200) H 07/09/19 05:06 LDL Cholesterol, Calc 123 (<130) 07/09/19 05:06 HDL Cholesterol 93 mg/dL (40-60) H 07/09/19 05:06 Cholesterol/HDL Ratio 2.53 07/09/19 05:06 Lipase 123 U/L (73-393) 07/08/19 07:00 Urine Color Yellow 07/09/19 10:20 Urine Appearance Clear 07/09/19 10:20 Urine pH 6.0 (5.0-7.0) 07/09/19 10:20 Ur Specific [place] 1.020 (1.005-1.030) 07/09/19 10:20 Urine Ketones Trace (NEG) 07/09/19 10:20 Urine Blood Negative (NEG) 07/09/19 10:20 Urine Nitrite Negative (NEG) 07/09/19 10:20 Urine Bilirubin Negative (NEG) 07/09/19 10:20 Urine Urobilinogen 0.2 mg/dL (0.2-1.0) 07/09/19 10:20 Ur Leukocyte Esterase Negative (NEG) 07/09/19 10:20 Urine Glucose Negative (NEG) 07/09/19 10:20 Urine Total Protein Negative (NEG) 07/09/19 10:20 Microbiology Data (last 24 hrs): 07/08/19 07:00 Blood - Blood Anaerobic Blood Culture - Final 07/08/19 07:40 Blood - Blood Anaerobic Blood Culture - Final 07/08/19 08:45 Nasopharnyx Influenza Type A Antigen Screen - Final 07/08/19 08:45 Nasopharnyx Influenza Type B Antigen Screen - Final Medications List Reviewed: Yes Assessment & Plan - Problems (Diagnosis) (1) COPD exacerbation Current Visit: Yes Status: Acute (2) PNA (pneumonia) Current Visit: Yes Status: Acute Discharge Plan: Home Physician Review Additional Text: pt admitted for copd exac and right pna # COPD - persistent , still symptomatic -c/w steroids/nebs /abx -uses home 02 at baseline # Presumed Pneumonia - continue abx , follow sputum cx # Anxiety/Tremors- may be due to side effects of nebs - will do more anti-anxiety meds # DM /HTN - stable Dispo - vitals stable but patient still feels unwell , will manage symptoms for now Time Spent Managing Pts Care (In Minutes): 34
[2019-07-09] MEDS ORDERED: LORazepam 2 MG/ML VIAL IV PRN (13:39)
[2019-07-09] MEDS: ACETYLCYST 20% 4 ML VIAL IH SCH ×2 (13:44→20:20)
[2019-07-09] MEDS: predniSONE 20 MG TAB PO SCH (21:53)
[2019-07-10] MEDS: ALBUTEROL 2.5 MG/3 ML NEB SOL NEB SCH ×4 (02:10→19:45)
[2019-07-10] MEDS: IPRATROPIUM BROM 0.5MG/2.5ML NEB SCH ×4 (02:10→19:45)
[2019-07-10 06:29] LABS: Absolute Lymphocytes (CBC) 1.1 K/uL (0.7-4.9); Basophils % 0.2 % (0-1.3); Hematocrit 33.5 % (36.0-45.0); MPV 8.5 fL (7.6-11.3); RBC Red Blood Cell Count 3.53 M/uL (3.86-4.86)
[2019-07-10 06:34] LABS: Albumin 2.8 g/dL (3.4-5.0); Bilirubin Total 0.2 mg/dL (0.2-1.0); Potassium 4.2 mmol/L (3.5-5.1)
[2019-07-10] MEDS: INSULIN -REGULAR HUMAN 50 UNIT/0.5 ML ML SQ SCH ×4 (07:30→20:25)
[2019-07-10] MEDS: ACETYLCYST 20% 4 ML VIAL IH SCH ×2 (08:00→20:00)
[2019-07-10] MEDS: HOME MED 1 EA UNK (Budesonide/Formoterol Fumarate [Symbicort 160-4.5 Mcg Inhaler] 2 PUFF) IH SCH ×2 (09:00→20:41)
[2019-07-10] MEDS: VALACYCLOVIR 500 MG TAB PO SCH (09:00)
[2019-07-10] MEDS: AZITHROMYCIN IV 500 MG in NA CHLORIDE 0.9% 250 ML IVPB SCH (09:00)
[2019-07-10] MEDS: PANTOPRAZOLE 40MG TABLET PO SCH (09:29)
[2019-07-10] MEDS: GABAPENTIN 300 MG CAP PO SCH ×3 (09:29→20:24)
[2019-07-10] MEDS: hydroCHLOROthiazide 25 MG TAB PO SCH (09:30)
[2019-07-10] MEDS: ENOXAPARIN 40 MG/0.4 ML SQ SCH (09:30)
[2019-07-10] MEDS: predniSONE 20 MG TAB PO SCH ×2 (09:30→20:24)
[2019-07-10] MEDS: CEFTRIAXONE/SWI 1gm 1 GM/10 ML SYR IVP SCH ×2 (09:31→20:25)
[2019-07-10] MEDS: METFORMIN HCL 500 MG TAB PO SCH ×2 (09:32→17:39)
[2019-07-10] MEDS: VENLAFAXINE HCL XR 75 MG CAP PO SCH (09:32)
[2019-07-10] MEDS: DIVALPROEX ER 250 MG TAB PO SCH ×2 (09:34→20:24)
[2019-07-10] MEDS: IBUPROFEN 400 MG TAB PO PRN (13:16)
--- NOTE | 2019-07-10 16:38 | PN ---
Date of Progress Note: 07/10/2019 Subjective: Patient is seen and examined. Chart reviewed and case discussed with RN. Patient is st ill having significant amount of cough. Medications: List reviewed. Physical Examination: Vital Signs: Temperature 98.3, heart rate 64, blood pressure 158/82, respirations 18, O2 of 93% on 2 L via nasal cannula. General: Awake, alert, and oriented x3. Some mild distress, ill-appearing female. CV: S1, S2. Regular rate and rhythm. Peripheral pulses present. Respiratory: Diminished breath sounds. No wheezing or stridor. Gastrointestinal: Abdomen is soft, nontender, nondistended. Positive bowel sounds. Extremities: No clubbing, cyanosis, or edema. Neurologic: Nonfocal. Laboratory Data: Sodium 141, potassium 4.2, chloride 107, CO2 of 27, BUN 22, creatinine 1.14, glucos e 130, calcium 8.4, albumin 2.8. WBC 10.7, H and H of 11.1 and 33.5, platelets 327, neutrophils 86%. Blood cultures, pending influenza screen is negative. Assessment: A 59-year-old female with: 1.Acute chronic obstructive pulmonary disease exacerbation. We will continue with nebulizer treatme nts, steroids, and antibiotics. Patient is on home oxygen at baseline. 2.Pneumonia. We will continue antibiotics. Pneumonia is on the right side. Blood cultures negativ e to date. 3.Anxiety, tremors, likely due to side effect of nebulizers. 4.Essential hypertension, stable. 5.Diabetes mellitus type 2 with hyperglycemia. We will continue sliding scale insulin. 6.Mild protein-calorie malnutrition, albumin is 2.8. Deep venous thrombosis prophylaxis addressed. Plan: Likely discharged in the next 24 to 48 hours depending on clinical response. SA/MODL Voice ID: [id number] Report ID: [id number]
[2019-07-11] MEDS: IPRATROPIUM BROM 0.5MG/2.5ML NEB SCH ×3 (01:55→13:10)
[2019-07-11] MEDS: ALBUTEROL 2.5 MG/3 ML NEB SOL NEB SCH ×3 (01:55→13:10)
[2019-07-11 05:28] LABS: Absolute Lymphocytes (CBC) 1.3 K/uL (0.7-4.9); Basophils % 0.2 % (0-1.3); Hematocrit 36.6 % (36.0-45.0); Lymphocytes % 14.3 % (15.3-44.8); MPV 8.6 fL (7.6-11.3); RBC Red Blood Cell Count 3.88 M/uL (3.86-4.86)
[2019-07-11] MEDS: INSULIN -REGULAR HUMAN 50 UNIT/0.5 ML ML SQ SCH ×2 (07:30→11:30)
[2019-07-11] MEDS: ACETYLCYST 20% 4 ML VIAL IH SCH (07:40)
[2019-07-11 08:15] VITALS: O2SAT 95
[2019-07-11] MEDS: AZITHROMYCIN IV 500 MG in NA CHLORIDE 0.9% 250 ML IVPB SCH (08:36)
[2019-07-11] MEDS: ENOXAPARIN 40 MG/0.4 ML SQ SCH (08:37)
[2019-07-11] MEDS: VENLAFAXINE HCL XR 75 MG CAP PO SCH (08:38)
[2019-07-11] MEDS: GABAPENTIN 300 MG CAP PO SCH (08:38)
[2019-07-11] MEDS: METFORMIN HCL 500 MG TAB PO SCH (08:38)
[2019-07-11] MEDS: CEFTRIAXONE/SWI 1gm 1 GM/10 ML SYR IVP SCH (08:38)
[2019-07-11] MEDS: DIVALPROEX ER 250 MG TAB PO SCH (08:38)
[2019-07-11] MEDS: PANTOPRAZOLE 40MG TABLET PO SCH (08:38)
[2019-07-11] MEDS: VALACYCLOVIR 500 MG TAB PO SCH (08:39)
[2019-07-11] MEDS: hydroCHLOROthiazide 25 MG TAB PO SCH (08:39)
[2019-07-11] MEDS: HOME MED 1 EA UNK (Budesonide/Formoterol Fumarate [Symbicort 160-4.5 Mcg Inhaler] 2 PUFF) IH SCH (08:40)
[2019-07-11] MEDS: IBUPROFEN 400 MG TAB PO PRN (08:49)
[2019-07-11] MEDS: predniSONE 20 MG TAB PO SCH (08:49)
[2019-07-11 12:11] VITALS: BP 152/80; TEMP 97.7
--- NOTE | 2019-07-11 21:28 | DS ---
Date of Discharge: 07/11/2019 Consultants: None. Admitting Diagnoses: 1.Right upper lobe pneumonia. 2.Essential hypertension. 3.Diabetes mellitus type 2, dtm-doppydj-unrqrywwo with diabetic neuropathy. 4.Renal insufficiency. 5.Acute chronic obstructive pulmonary disease exacerbation. Discharge Diagnoses: 1.Acute chronic obstructive pulmonary disease exacerbation, improved. 2.Right upper lobe pneumonia, improved with antibiotics. 3.Generalized anxiety disorder and tremors. 4.Essential hypertension. 5.Diabetes mellitus type 2 with hyperglycemia and neuropathy. 6.Mild protein calorie malnutrition, albumin 2.8. 7.Renal insufficiency, resolved. 8.Obesity, BMI 34. Hospital Course: The patient is a 59-year-old female, who was admitted to the hospital for shortness of breath. Patient was found to have right upper lobe pneumonia and her COPD was also in a flare up causing exacerbation. The patient was started on antibiotics, steroids, and nebulizer treatments. Patient improved with treatment. She was able to be weaned off oxygen. She was able to ambulate wit hout significant hypoxia. Patient's diabetes was well controlled. Hemoglobin A1c is 6.2%. She does have diabetic neuropathy, is on gabapentin. Her dose was adjusted renally. However, kidney functio n was corrected with IV fluids. Patient's influenza screen was negative. Her blood cultures did not show any growth. Repeat chest x-ray showed improvement. Patient was then doing well. She was afeb rile. There were no signs of sepsis. She was then weaned off O2 and discharged in a stable conditio n. Activity: No strenuous activity. Followup: Follow up with primary care physician in 2-3 days. Follow up with separating machine operator, Dr. Edwin chaudhari in 2 weeks. Patient to double up dose of prednisone for the next 5 days. Medications: As per medication reconciliation list. Diet: Diabetic. Physical Examination: General: Awake, alert, and oriented x3. No acute distress. Obese female. CV: S1, S2. Respiratory: Mild wheezing. No rales. No use of accessory muscles. Gastrointestinal: Positive bowel sounds. No tenderness. Extremities: No clubbing, cyanosis, or edema. Neurologic: Nonfocal. The patient does have some tremors. SA/MODL Voice ID: [id number] Report ID: [id number]
== END 2019-07-11 13:25 | disposition home or self-care (01) | DRG 190 ==
LOC: ER 06:44 → ERHOLD 09:26 → 2ND 15:54
PROVIDERS: ADMIT Internal Medicine; ATTEND Family Medicine
DX: J44.1 Chronic obstructive pulmonary disease with (acute) exacerbation (principal); J18.9 Pneumonia, unspecified organism; E44.1 Mild protein-calorie malnutrition; J44.0 Chronic obstructive pulmonary disease with (acute) lower respiratory infection; E11.65 Type 2 diabetes mellitus with hyperglycemia; I10 Essential (primary) hypertension; E11.40 Type 2 diabetes mellitus with diabetic neuropathy, unspecified; F41.9 Anxiety disorder, unspecified; R25.1 Tremor, unspecified; T48.6X5A Adverse effect of antiasthmatics, initial encounter; Y92.239 Unspecified place in hospital as the place of occurrence of the external cause; Z79.4 Long term (current) use of insulin; Z68.34 Body mass index [BMI] 34.0-34.9, adult
CPT/HCPCS: 36415; 71045; 71046; 80048; 80053; 80061; 80076; 81003; 82550; 82553; 82947; 83036; 83605; 83690; 83735; 83880; 84484; 85025; 85610; 85730; 87040; 87205; 87804; 93005; 94640; 94760; 96365; 96367; 96375; 99285; J0456; J0696; J1650; J2920; J2930; J3475; J7030; J7512

== ENCOUNTER 2020-08-24 20:06 | Emergency (ER) | payer OTHER ==
--- OUTSIDE RECORDS SUMMARY | 2020-08-24 20:09 | XMS REPORT | Continuity of Care Document ---
:1960 Author Organization [facility] t Address [address] [place] [address] Care Team Providers Name Role Phone Unavailable Unavailable Unavailable Problems Condition Condition Condition Status Onset Resolution Last Treating Co mments Source Name Details Category Date Date Treatment Clinician Date Primary Primary Diagnosis [facility] left knee left [facility] Pain in Pain in Problem [facility] knee left knee Dennis dacia [facility] Primary Primary Diagnosis [facility] right knee right knee l [facility] Sciatica, Sciatica, Problem Active [facility] right side right side [facility] Sciatica, Sciatica, Problem Active [facility] left side left side [facility] Primary Primary Problem Active [facility] osteoarthr osteoarthr Vanda k[facility] knees, knees, l bilateral bilateral Outp ati ent Clinics Pain in Pain in Problem Active [facility] right knee right knee Me mor[facility] Allergies, Adverse Reactions, Alerts Allergy Allergy Status Severity Reaction(s) Onset Inactive Treating Comm ents Source Name Type Date Date Clinician PredniSO Adverse Active Info Not [facility] Reaction Available [facility] Medications Ordered Filled Start Stop Current Ordering Indication Dosage Frequency Signature Comments Components Source Medication Medication Date Date Medication? Clinician (SIG) Name Name Symbicort Symbicort Yes Wild [address] [facility] Claritin Claritin Yes Wild [address] [facility] Venlafaxine Venlafaxine Yes Wild not [facility] HCl ER HCl ER [facility] defined [facility] Ventolin Ventolin Yes Wild [address] [facility] HFA HFA [facility] needed [facility] Mupirocin Mupirocin Yes Wild [address] [facility] applicatio [facility] to [facility] affected l area [facility] ent [facility] Metformin Metformin Yes Wild not [facility] HCl HCl [facility] defined [facility] Advair Advair Yes Wild [address] [facility] Diskus Diskus [facility] Wild [address] [facility] Sodium Sodium [facility] Ibuprofen Ibuprofen Yes Wild [address] [facility] with food [facility] - or milk as [facility] needed l [facility] ent [facility] HydrOXYzine HydrOXYzine Yes Wild not [facility] HCl HCl [facility] defined [facility] Combivent Combivent Yes Wild not [facility] Respimat Respimat [facility] defined [facility] Benadryl Benadryl Yes Wild [address] Allergy Allergy [facility] as needed [facility] Estradiol Estradiol Yes Wild not [facility] defined [facility] Divalproex Divalproex Yes Wild not [facility] Sodium Sodium [facility] defined [facility] Flonase Flonase Yes Wild [address] [facility] Allergy Allergy [facility] each [facility] - Relief Relief nostril [facility] Tramadol Tramadol Yes Wild [address] HCl HCl [facility] as needed [facility] Gabapentin Gabapentin Yes Wild not [facility] defined [facility] Hydrochloro Hydrochloro Yes Wild not [facility] thiazide thiazide [facility] defined [facility] Metronidazo Metronidazo Yes Wild [address] [facility] Procedures This patient has no known procedures. Encounters Start End Encounter Admission Attending Care Care Encounter Source Date/Time Date/Time Type Type Clinicians Facility Department ID 2019-03-08 2019-03-08 Outpatient Nakia Hernández [id number] [facility] 10:30[facility]00 10[facility] Results Test Description Test Time Test Comments Results Result Sourc e Comments SCR MAMM 2019-02-12 - SCR MAMM BILATERAL BILATERAL CAD 10:48:36 CAD DIGITALBILATERAL DIGITAL DIGITAL SCREENING MAMMOGRAM WITH CAD: 02/09/2019CLINICAL: Asymptomatic. Current mammographic images were evaluated by either a Asuum M-Vu or a [employer] CRM ImageChecker CAD (computer aided detection system). Comparison is made to exam dated 09/09/2014 mammogram - [facility]. The tissue of both breasts [...] further evaluation.Carlos Eduardo Harrell M.D. rb/:02/12/2019 10:48:36 Hotel Valet Attendant: Yenny Lawrence MM, [facility]: Additional Imaging Mammogram BI-RADS: 0 Indeterminate
[2020-08-24 22:26] LABS: Absolute Lymphocytes (CBC) 1.3 K/uL (0.7-4.9); Basophils % 0.6 % (0-1.3); Hematocrit 38.4 % (36.0-45.0); Lymphocytes % 15.6 % (15.3-44.8); MPV 8.4 fL (7.6-11.3); RBC Red Blood Cell Count 4.05 M/uL (3.86-4.86)
[2020-08-24] MEDS ORDERED: ONDANSETRON 4 MG/2 ML VIAL ONE (22:28)
[2020-08-24] MEDS ORDERED: MORPHINE 4 MG/ML SYR ONE (22:28)
[2020-08-24] MEDS ORDERED: NA CHLORIDE 0.9% 500 ML ONE (22:28)
[2020-08-24 23:28] LABS: ALT/SGPT 15 U/L (12-78); AST/SGOT 10 U/L (15-37); Alkaline Phosphatase 109 U/L (45-117); BUN Blood Urea Nitrogen 16 mg/dL (7-18); Bicarbonate 28 mmol/L (21-32); Bilirubin Direct < 0.1 mg/dL (0-0.2); Bilirubin Total 0.3 mg/dL (0.2-1.0); Glucose Level 81 mg/dL (74-106); Lipase 115 U/L (73-393); Potassium 4.1 mmol/L (3.5-5.1); Protein, Total 7.1 g/dL (6.4-8.2); Sodium Level 140 mmol/L (136-145)
--- NOTE | 2020-08-24 23:55 | EDPHYS ---
Physician Documentation [facility] Name: Neela Pizano Age: 60 yrs Sex: Female : 1960 Arrival Date: 08/24/2020 Time: 20:15 Bed 5 Private MD: ED Physician Reynold Reed HPI: 08/25 00:09 This 60 yrs old Black Female presents to ER via EMS with complaints of Abdominal Pain. kb 00:09 The patient presents with abdominal pain that is diffuse. Onset: The symptoms/episode kb began/occurred this morning. The symptoms do not radiate. Associated signs and symptoms: Pertinent positives: nausea, vomiting, and diarrhea, Pertinent negatives: fever. The symptoms are described as crampy. Modifying factors: The symptoms are alleviated by nothing, the symptoms are aggravated by nothing. Severity of pain: At its worst the pain was moderate in the emergency department the pain is unchanged. The patient has not experienced similar symptoms in the past. The patient has not recently seen a physician. Pt reports abd pain, n/v/d that started this morning. Also reports left knee pain that is chronic, but she thinks the shot she got in March wore off because it has been hurting more. Historical: - Allergies: 08/24 20:53 Iodine; iw 20:53 Prednisone; (the orange one); iw - Home Meds: 20:57 albuterol sulfate 0.63 mg/3 mL Nebulizer nebu [Active]; Combivent 18-103 mcg/actuation iw Inhl aero 2 puffs 4 times per day [Active]; divalproex 500 mg oral TbEC 1 tab 2 times per day [Active]; estradiol 0.5 mg Oral tab 1 tab once daily [Active]; Advair Diskus 100-50 mcg/dose Inhl dsdv 1 puff 2 times per day [Active]; gabapentin 800 mg oral tab 1 tab 3 times per day [Active]; glimepiride 1 mg Oral tab 1 tab twice a day [Active]; valacyclovir 1 gram Oral tab once daily [Active]; venlafaxine 225 mg oral tr24 1 tab once daily [Active]; - PMHx: 20:53 Asthma; Diabetes - NIDDM; Hypertension; neuropathy; iw - PSHx: 20:53 Tubal ligation; Right little toe; iw - Immunization history:: Adult Immunizations not up to date. - Social history:: Smoking status: Patient denies any tobacco usage or history of. ROS: 08/25 00:06 Constitutional: Negative for fever, chills, and weight loss, Cardiovascular: Negative kb for chest pain, palpitations, and edema, Respiratory: Negative for shortness of breath, cough, wheezing, and pleuritic chest pain, Back: Negative for injury and pain, Skin: Negative for injury, rash, and discoloration, Neuro: Negative for headache, weakness, numbness, tingling, and seizure. Abdomen/GI: Positive for abdominal pain, nausea, vomiting, and diarrhea. 00:06 MS/extremity: Positive for pain, of the left knee. kb Exam: 00:07 Constitutional: This is a well developed, well nourished patient who is awake, alert, kb and in no acute distress. Head/Face: Normocephalic, atraumatic. Chest/axilla: Normal chest wall appearance and motion. Cardiovascular: Regular rate and rhythm with a normal S1 and S2. No gallops, murmurs, or rubs. No pulse deficits. Respiratory: Lungs have equal breath sounds bilaterally, clear to auscultation. No rales, rhonchi or wheezes noted. No increased work of breathing, no retractions or nasal flaring. Back: No spinal tenderness. No costovertebral tenderness. Full range of motion. Skin: Warm, dry with normal turgor. Normal color with no rashes, no lesions, and no evidence of cellulitis. Neuro: Awake and alert, GCS 15, oriented to person, place, time, and situation. Cranial nerves II-XII grossly intact. Moves all extremities. Sensory grossly intact. Cerebellar exam normal. Normal gait. 00:07 Abdomen/GI: Inspection: abdomen appears normal, Bowel sounds: normal, in all quadrants, Palpation: soft, in all quadrants, mild abdominal tenderness, in all quadrants. 00:07 Musculoskeletal/extremity: Extremities: grossly normal except: noted in the left knee: pain, ROM: no acute changes, intact in all extremities, Circulation is intact in all extremities. Sensation intact. Vital Signs: 08/24 20:51 BP 120 / 76; Pulse 98; Resp 18 S; Temp 98.3; Pulse Ox 100% on R/A; Weight 105.69 kg; iw Height 5 ft. 4 in. (162.56 cm); 23:22 BP 136 / 73; Pulse 90; Resp 18; Pulse Ox 93% ; ea 08/25 00:20 BP 135 / 90; Pulse 88; Resp 18; Temp 98; Pulse Ox 95% ; ea 08/24 20:51 Body Mass Index 40.00 (105.69 kg, 162.56 cm) iw MDM: 08/24 21:49 Patient medically screened. kb 23:54 Data reviewed: vital signs, nurses notes. Data interpreted: Pulse oximetry: on room air kb is 93 %. Interpretation: normal. Counseling: I had a detailed discussion with the patient and/or guardian regarding: the historical points, exam findings, and any diagnostic results supporting the discharge/admit diagnosis, lab results, radiology results, the need for outpatient follow up, a family practitioner, a router operator pin, to return to the emergency department if symptoms worsen or persist or if there are any questions or concerns that arise at home. 08/24 21:57 Order name: Basic Metabolic Panel 08/24 21:57 Order name: CBC with Diff 08/24 21:57 Order name: Hepatic Function 08/24 21:57 Order name: Lipase 08/24 22:28 Order name: CBC with Automated Diff; Complete Time: 22:35 EDHI 08/24 23:28 Order name: Basic Metabolic Panel; Complete Time: 23:31 EDHI 08/24 21:57 Order name: CT Stone Protocol 08/24 23:28 Order name: Liver (Hepatic) Function; Complete Time: 23:31 EDMS 08/24 23:28 Order name: Lipase; Complete Time: 23:31 EDHI 08/24 21:57 Order name: IV Saline Lock; Complete Time: 22:13 kb 08/24 21:57 Order name: Labs collected and sent; Complete Time: 22:13 kb 08/24 22:38 Order name: Labs - recollect needed; Complete Time: 22:53 em Administered Medications: 22:15 Drug: morphine 4 mg Route: IVP; Site: left antecubital; ea 08/25 00:19 Follow up: Response: No adverse reaction; RASS: Alert and Calm (0) ea 08/24 22:15 Drug: Zofran (Ondansetron) 4 mg Route: IVP; Site: left antecubital; ea 08/25 00:20 Follow up: Response: No adverse reaction ea 08/24 22:15 Drug: NS 0.9% 500 ml Route: IV; Rate: bolus; Site: left antecubital; ea 08/25 00:20 Follow up: Response: No adverse reaction; IV Status: Completed infusion; IV Intake: ea 500ml 00:05 Drug: morphine 4 mg Route: IVP; Site: left antecubital; ea 00:22 Follow up: Response: No adverse reaction ea 00:05 Drug: Zofran (Ondansetron) 4 mg Route: IVP; Site: left antecubital; ea 00:23 Follow up: Response: No adverse reaction ea Disposition: 05:55 Co-signature as Attending Physician, Reynold Reed MD. [email or web address] Disposition: 08/24/20 23:55 Discharged to Home. Impression: Nausea and vomiting, Diarrhea, unspecified. - Condition is Stable. - Discharge Instructions: Food Choices to Help Relieve Diarrhea, Adult, Viral Gastroenteritis, Adult, Vito-rj-Rydz, Nausea and Vomiting, Adult, Owod-go-Icmk, Diarrhea, Adult, Uamu-oe-Dags. - Prescriptions for Bentyl 20 mg Oral Tablet - take 1 tablet by ORAL route every 6 hours As needed; 20 tablet. Zofran 4 mg Oral Tablet - take 1 tablet by ORAL route every 6 hours As needed; 20 tablet. - Medication Reconciliation Form, Thank You Letter, Antibiotic Education, Prescription Opioid Use form. - Follow up: Emergency Department; When: As needed; Reason: Worsening of condition. Follow up: Private Physician; When: 2 - 3 days; Reason: Recheck today's complaints, Continuance of care, Re-evaluation by your physician. Signatures: Dispatcher [employer] ALEXHI Rose Mary Gaspar, UMAIRC QUALITY REVIEWER-Vargas Gandhi RN RN em Williams, Irene, RN RN iw Antunez, Elena, RN RN ea Holmes, Maurice, MD MD [email or web address] Corrections: (The following items were deleted from the chart) 00:07 00:06 Constitutional: Negative for fever, chills, and weight loss, Cardiovascular: kb Negative for chest pain, palpitations, and edema, Respiratory: Negative for shortness of breath, cough, wheezing, and pleuritic chest pain, Back: Negative for injury and pain, MS/Extremity: Negative for injury and deformity, Skin: Negative for injury, rash, and discoloration, Neuro: Negative for headache, weakness, numbness, tingling, and seizure, kb 00:22 08/24 23:55 08/24/2020 23:55 Discharged to Home. Impression: Nausea and vomiting; ea Diarrhea, unspecified. Condition is Stable. Forms are Medication Reconciliation Form, Thank You Letter, Antibiotic Education, Prescription Opioid Use. Follow up: Emergency Department; When: As needed; Reason: Worsening of condition. Follow up: Private Physician; When: 2 - 3 days; Reason: Recheck today's complaints, Continuance of care, Re-evaluation by your physician. kb
--- NOTE | 2020-08-24 23:55 | ER ---
Nurse's Notes [facility] Name: Neela Pizano Age: 60 yrs Sex: Female : 1960 Arrival Date: 08/24/2020 Time: 20:15 Bed 5 Private MD: Diagnosis: Nausea and vomiting;Diarrhea, unspecified Presentation: 08/24 20:15 Method Of Arrival: EMS: [facility] ca1 20:15 Chief complaint: Patient states: abdominal pain, N/V/D today. ca1 20:51 Chief complaint: Patient states: has been having stomach pain and right knee pain, also iw having diarrhea and vomiting, weak, started yesterday. Coronavirus screen: diarrhea, fatigue, vomiting. Ebola Screen: Patient negative for fever greater than or equal to 101.5 degrees Fahrenheit, and additional compatible Ebola Virus Disease symptoms Patient denies exposure to infectious person. Patient denies travel to an Ebola-affected area in the 21 days before illness onset. No symptoms or risks identified at this time. Initial Sepsis Screen: Does the patient meet any 2 criteria? No. Patient's initial sepsis screen is negative. Does the patient have a suspected source of infection? No. Patient's initial sepsis screen is negative. Risk Assessment: Do you want to hurt yourself or someone else? Patient reports no desire to harm self or others. Onset of symptoms was August 23, 2020. 20:51 Acuity: MARVIN 3 iw Historical: - Allergies: 20:53 Iodine; iw 20:53 Prednisone; (the orange one); iw - Home Meds: 20:57 albuterol sulfate 0.63 mg/3 mL Nebulizer nebu [Active]; Combivent 18-103 mcg/actuation iw Inhl aero 2 puffs 4 times per day [Active]; divalproex 500 mg oral TbEC 1 tab 2 times per day [Active]; estradiol 0.5 mg Oral tab 1 tab once daily [Active]; Advair Diskus 100-50 mcg/dose Inhl dsdv 1 puff 2 times per day [Active]; gabapentin 800 mg oral tab 1 tab 3 times per day [Active]; glimepiride 1 mg Oral tab 1 tab twice a day [Active]; valacyclovir 1 gram Oral tab once daily [Active]; venlafaxine 225 mg oral tr24 1 tab once daily [Active]; - PMHx: 20:53 Asthma; Diabetes - NIDDM; Hypertension; neuropathy; iw - PSHx: 20:53 Tubal ligation; Right little toe; iw - Immunization history:: Adult Immunizations not up to date. - Social history:: Smoking status: Patient denies any tobacco usage or history of. Screenin:41 Abuse screen: Denies threats or abuse. Nutritional screening: No deficits noted. ea Tuberculosis screening: No symptoms or risk factors identified. Fall Risk None identified. Assessment: 22:15 General: Appears in no apparent distress. Behavior is calm, cooperative, appropriate ea for age. Pain: Complains of pain in abdomen. Neuro: Level of Consciousness is awake, alert, obeys commands, Oriented to person, place, time. Cardiovascular: Patient's skin is warm and dry. Respiratory: Airway is patent Respiratory effort is even, unlabored, Respiratory pattern is regular, symmetrical. Derm: Skin is pink, warm \T\ dry. 08/25 00:21 Reassessment: Patient and/or family updated on plan of care and expected duration. Pain ea level reassessed. Patient is alert, oriented x 3, equal unlabored respirations, skin warm/dry/pink. Discharge instruction given to patient, verbalized the understanding of instruction. Pt left ED ambulatory tolerating well. Patient states feeling better. Vital Signs: 08/24 20:51 BP 120 / 76; Pulse 98; Resp 18 S; Temp 98.3; Pulse Ox 100% on R/A; Weight 105.69 kg; iw Height 5 ft. 4 in. (162.56 cm); 23:22 BP 136 / 73; Pulse 90; Resp 18; Pulse Ox 93% ; ea 08/25 00:20 BP 135 / 90; Pulse 88; Resp 18; Temp 98; Pulse Ox 95% ; ea 08/24 20:51 Body Mass Index 40.00 (105.69 kg, 162.56 cm) iw ED Course: 08/24 20:15 Patient arrived in ED. ca1 20:53 Triage completed. iw 20:54 Arm band placed on. iw 21:30 Rose Mary Gaspar FNP-C [facility]. kb 21:30 Reynold Reed MD is Attending Physician. kb 22:00 Gregorio Kaur RN is Primary Nurse. rv 22:15 Inserted saline lock: 22 gauge in left antecubital area, using aseptic technique. ea 22:41 Patient has correct armband on for positive identification. Bed in low position. Call ea light in reach. Side rails up X2. 08/25 00:20 No provider procedures requiring assistance completed. ea 00:22 IV discontinued, intact, bleeding controlled, No redness/swelling at site. Pressure ea dressing applied. 01:10 CT Stone Protocol In Process Unspecified. EDMS Administered Medications: 08/24 22:15 Drug: morphine 4 mg Route: IVP; Site: left antecubital; ea 08/25 00:19 Follow up: Response: No adverse reaction; RASS: Alert and Calm (0) ea 08/24 22:15 Drug: Zofran (Ondansetron) 4 mg Route: IVP; Site: left antecubital; ea 08/25 00:20 Follow up: Response: No adverse reaction ea 08/24 22:15 Drug: NS 0.9% 500 ml Route: IV; Rate: bolus; Site: left antecubital; ea 08/25 00:20 Follow up: Response: No adverse reaction; IV Status: Completed infusion; IV Intake: ea 500ml 00:05 Drug: morphine 4 mg Route: IVP; Site: left antecubital; ea 00:22 Follow up: Response: No adverse reaction ea 00:05 Drug: Zofran (Ondansetron) 4 mg Route: IVP; Site: left antecubital; ea 00:23 Follow up: Response: No adverse reaction ea Intake: 00:20 IV: 500ml; Total: 500ml. ea Outcome: 08/24 23:55 Discharge ordered by MD. rodríguez 08/25 00:22 Discharged to home ambulatory, with family. ea Condition: stable Discharge instructions given to patient, Instructed on discharge instructions, follow up and referral plans. medication usage, Demonstrated understanding of instructions, follow-up care, medications, Prescriptions given X 2. 00:22 Patient left the ED. ea Signatures: Dispatcher [employer] EDMS Rose Mary Gaspar, ANGLEA BARRP-Vane Nash RN RN iw Antunez, Elena, RN RN ea Vicente, Ronaldo, RN RN rv Acob, Beverly RN RN ca1 Corrections: (The following items were deleted from the chart) 08/24 20:53 20:51 BP 120 / 76; Pulse 98bpm; Resp 18bpm; Spontaneous; Pulse Ox 97% RA; Temp 98.3F; iw 105.69 kg; Height 5 ft. 4 in.; BMI: 39.9; iw
[2020-08-25] MEDS ORDERED: MORPHINE 4 MG/ML SYR ONE (00:26)
[2020-08-25] MEDS ORDERED: ONDANSETRON 4 MG/2 ML VIAL ONE (00:26)
[2020-08-25 01:26] VITALS: BP 135/90; TEMP 98; O2SAT 95
--- NOTE | 2020-08-25 11:53 | RAD REPORT ---
EXAM DESCRIPTION: CT - Stone Protocol - 08/25/2020 5:03 am CLINICAL HISTORY: Abdominal pain, nausea, vomiting and diarrhea TECHNIQUE: Contiguous axial images obtained through the abdomen and pelvis without IV contrast. Syed nal and sagittal reformatted images were provided. This exam was performed according to our departmental dose-optimization program, which includes autom ated exposure control, adjustment of the mA and/or kV according to patient size and/or use of iterati ve reconstruction technique. COMPARISON: 06/22/2015 FINDINGS: Lung bases: Mild paraseptal emphysema. Liver: Grossly unremarkable Gallbladder and biliary system: Unremarkable Pancreas: Grossly unremarkable Spleen: Grossly unremarkable Adrenals: Bilateral adrenal thickening. Kidneys: Lobulated renal contour bilaterally with areas of cortical thinning/scar. No calculi. No hyd ronephrosis. Bowel: Duodenal diverticulum. Colonic diverticula without adjacent inflammatory change. No obstructio n. No appreciable mucosal thickening. Appendix: Normal caliber appendix. No findings to suggest acute appendicitis. Urinary bladder: Unremarkable Reproductive: Lobulated uterine contour compatible with underlying fibroids. No adnexal mass. Lymph nodes: No pathologically enlarged lymph nodes. Peritoneum: No focal fluid collection. No free air. Vessels: Minimal atherosclerotic disease. No abdominal aortic aneurysm. Abdominal wall: Tiny fat-containing umbilical hernia. Bones: Multilevel spondylosis. No acute fracture. IMPRESSION: 1. No renal, ureteral or bladder calculi. No evidence for renal obstruction. 2. Colonic diverticulosis without radiologic evidence for acute diverticulitis. 3. Other findings as above. Electronically signed by: Liberty Alexander MD 08/24/2020 11:04 PM TORCH BURNER Due to temporary technical issues with the PACS/Fluency reporting system, reports are being signed by the in house radiologists without review as a courtesy to insure prompt reporting. The interpreting radiologist is fully responsible for the content of the report.
== END 2020-08-25 00:22 | disposition home or self-care (01) ==
LOC: ER 20:06
DX: R11.2 Nausea with vomiting, unspecified (principal); R19.7 Diarrhea, unspecified; I10 Essential (primary) hypertension; E11.40 Type 2 diabetes mellitus with diabetic neuropathy, unspecified; Z88.8 Allergy status to other drugs, medicaments and biological substances; Z91.048 Other nonmedicinal substance allergy status
CPT/HCPCS: 96361; 85025; 80048; 36415; 80076; 83690; 76377; 74176; 96375; 96374; 99284; J7040; J2405 ×2

== ENCOUNTER 2021-01-22 06:59 | Emergency (ER) | payer OTHER ==
--- OUTSIDE RECORDS SUMMARY | 2021-01-22 07:04 | XMS REPORT | Continuity of Care Document ---
:1960 Author Organization [facility] t Address [address] [place] [address] Care Team Providers Name Role Phone Unavailable Unavailable Unavailable Problems This patient has no known problems. Allergies, Adverse Reactions, Alerts Allergy Allergy Status Severity Reaction(s) Onset Inactive Treating Comm ents Source Name Type Date Date Clinician PredniSO Adverse Active Info Not [facility] Reaction [facility] Medications Ordered Filled Start Stop Current Ordering Indication Dosage Frequency Signature Comments Components Source Medication Medication Date Date Medication? Clinician (SIG) Name Name Hydrochloro Hydrochloro Yes Wild not [facility] thiazide thiazide [facility] Metronidazo Metronidazo Yes Wild [address] [facility] Symbicort Symbicort Yes Wild [address] [facility] Claritin Claritin Yes Wild [address] [facility] Venlafaxine Venlafaxine Yes Wild not [...] [facility] Montelukast Montelukast Yes Wild [address] [facility] Sodium [...] Date/Time Type Type Clinicians Facility Department ID 2020-09-30 2020-09-30 Outpatient [facility] [id number] [facility] 2019-03-08 2019-03-08 [facility] [id number] [facility] 10:30[facility] 10:30[facility]00 [facility] Results Test Description Test Time Test Comments Results Result Sourc e Comments SCR MAMM 2019-02-12 - SCR MAMM BILATERAL BILATERAL CAD 10:48:36 CAD DIGITALBILATERAL DIGITAL DIGITAL SCREENING MAMMOGRAM WITH CAD: 02/09/2019CLINICAL: Asymptomatic. Current mammographic images were evaluated by either a [employer] M-Vu or a [employer] ImageChecker CAD (computer aided detection system). Comparison is made to exam dated 09/09/2014 mammogram - [facility]. The tissue of both breasts [...] further evaluation.Carlos Eduardo Harrell M.D. rb/:02/12/2019 10:48:36 Clothes Shaker: Yenny Larwence MM, [facility]: Additional Imaging Mammogram BI-RADS: 0 Indeterminate
[2021-01-22] MEDS ORDERED: IBUPROFEN 200 MG TAB PO ONE (08:18)
[2021-01-22] MEDS ORDERED: ACETAMINOPHEN 325 MG TABLET ONE (08:22)
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
[2021-01-22 09:05] VITALS: BP 140/93; TEMP 98; O2SAT 99
== END 2021-01-22 08:59 | disposition home or self-care (01) ==
LOC: ER 06:59
DX: S09.90XA Unspecified injury of head, initial encounter (principal); S16.1XXA Strain of muscle, fascia and tendon at neck level, initial encounter; V49.50XA Passenger injured in collision with unspecified motor vehicles in traffic accident, initial encounter; I10 Essential (primary) hypertension; Z88.8 Allergy status to other drugs, medicaments and biological substances; Z91.048 Other nonmedicinal substance allergy status
CPT/HCPCS: 70450; 70490; 99283

== ENCOUNTER 2021-01-28 12:47 | Emergency (ER) | payer OTHER ==
--- OUTSIDE RECORDS SUMMARY | 2021-01-28 12:50 | XMS REPORT | Continuity of Care Document ---
:1960 Author Organization [facility] t Address [address] [place] [address] Care Team Providers Name Role Phone Marcy Shepherd DO Attending Clinician Problems This patient has no known problems. Allergies, Adverse Reactions, Alerts Allergy Allergy Status Severity Reaction(s) Onset Inactive Treating Comm ents Source Name Type Date Date Clinician PredniSO Adverse Active Info Not [facility] Medications Ordered Filled Start Stop Current Ordering Indication Dosage Frequency Signature Comments Components Source Medication Medication Date Date Medication? Clinician (SIG) Name Name Gabapentin Gabapentin Yes Wild not [facility] Hydrochloro Hydrochloro Yes Wild not [facility] thiazide thiazide [facility] defined [facility] [...] ER [facility] defined [facility] Ventolin Ventolin Yes Wild 2 [facility] Montelukast [place] Yes Wild [address] [facility] Sodium [...] Date/Time Type Type Clinicians Facility Department ID 2021-01-26 2021-01-26 Emergency [facility] [id number] 07:40:00 09:22:00 Sara Acosta [id number] Allison [id number] [place] [id number] 2020-09-30 2020-09-30 Outpatient [facility] [id number] [facility] 2019-03-08 2019-03-08 Outpatient Nakia Hernández [id number] [facility] 10:30:00 10:30:00 [facility] Results Test Description Test Time Test Comments Results Result Sourc e Comments SCR MAMM 2019-02-12 - SCR MAMM BILATERAL BILATERAL CAD 10:48:36 CAD DIGITALBILATERAL DIGITAL DIGITAL SCREENING MAMMOGRAM WITH CAD: 02/09/2019CLINICAL: Asymptomatic. Current mammographic images were evaluated by either a [employer] M-Vu or a [employer] ImageChecker CAD (computer aided detection system). Comparison is made to exam dated 09/09/2014 mammogram - [facility]. The tissue of both breasts [...] further evaluation.Carlos Eduardo Harrell M.D. rb/:02/12/2019 10:48:36 Switch Engineer: Yenny Lawrence MM, [facility]: Additional Imaging Mammogram BI-RADS: 0 Indeterminate
[2021-01-28] MEDS ORDERED: D50W 25 GM/50 ML SYRINGE IV ONE (15:10)
[2021-01-28 15:22] LABS: Absolute Lymphocytes (CBC) 1.1 K/uL (0.7-4.9); Basophils % 0.2 % (0-1.3); Hematocrit 38.6 % (36.0-45.0); MPV 8.7 fL (7.6-11.3); RBC Red Blood Cell Count 4.12 M/uL (3.86-4.86)
[2021-01-28 15:48] LABS: Potassium 4.2 mmol/L (3.5-5.1)
[2021-01-28 16:08] LABS: Urine Blood Negative (Negative); Urine Glucose Trace (Negative); Urine Protein 1+ (Negative); Urine Specific Gravity >=1.030 (1.005-1.030); Urine pH 5.5 (5.0-7.0)
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
[2021-01-28] MEDS ORDERED: TRAMADOL HCL 50 MG TAB ONE (18:10)
[2021-01-28 18:59] VITALS: TEMP 97.8
[2021-01-28 19:06] VITALS: O2SAT 100
[2021-01-28 19:07] VITALS: BP 131/71
== END 2021-01-28 18:37 | disposition home or self-care (01) ==
LOC: ER 12:47
DX: E11.649 Type 2 diabetes mellitus with hypoglycemia without coma (principal); M79.10 Myalgia, unspecified site; M25.50 Pain in unspecified joint; I10 Essential (primary) hypertension; J45.909 Unspecified asthma, uncomplicated; Z88.8 Allergy status to other drugs, medicaments and biological substances; Z91.048 Other nonmedicinal substance allergy status
CPT/HCPCS: 36415; 51702; 80048; 81003; 82947; 85025; 96374; 99284

== ENCOUNTER 2021-08-11 20:51 | Emergency (ER) | payer OTHER ==
--- OUTSIDE RECORDS SUMMARY | 2021-08-11 20:55 | XMS REPORT | Continuity of Care Document ---
:1960 Author Organization [facility] t Address [address] [place] [address] Care Team Providers Name Role Phone Marcy Dietrich DO Attending Clinician Marcy DIETRICH Attending Clinician Unavailable Payers Payer Name Policy Type Policy Number Effective Date Expiration Date S ource Problems Condition Condition Condition Status Onset Resolution Last Treating Co mments Source Name Details Category Date Date Treatment Clinician Date HTN HTN Disease Active Univers (hypertens (hypertens 3-10 it y of ion) ion) 00:00: [address] Branch Asthma Asthma Disease Active Univers 3-10 ity of 00:00: [address] Branch Hyperlipid Hyperlipid Disease Active U nivers emia emia 3-10 ity of 00:00: [address] Branch Stiffness Stiffness Disease Active 2012-06 Uni vers of PIP of PIP 2-10 [place] of joints [place] middle, middle, Branch ring and ring and small small fingers fingers Trigger Trigger Disease Active Univers thumb of thumb of 8-16 [place] Trigger Trigger Disease Active Univers middle middle 8-16 [place] of finger of finger [place] left hand 00 [facility] Branch Diabetes Diabetes Disease Active 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 ity of type 2, type 2, 00:00: [place] controlled controlled 00 Me dical Branch Hand pain Hand pain Disease Active Uni vers 4-26 ity of 00:00: Medical Branch Range of Range of Disease Active Unive rs joint joint 4-26 ity of movement movement 00:00: [place] reduced reduced 00 Medical Branch Disp Disp Disease Active Univers fracture fracture 4-16 ity of of neck of of neck of [place] right right 00 Medical fifth fifth Branch 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 Pain, Pain, Disease Active Univers joint, joint, 4-16 ity of shoulder shoulder 00:00: [place] region, region, 00 Medical right right Branch History of History of Disease Active U nivers hand hand 4-16 ity of fracture fracture 00:00: [place] [facility] Branch Personal Personal Disease Active Unive rs history of history of 4-16 it y of noncomplia noncomplia [place]ce with nce with 00 [facility] treatment, treatment, presenting presenting hazards to hazards to health health Difficulty Difficulty Disease Active U nivers with with 4-16 [place] of activities activities [place] of daily of daily 00 [facility] living living [place] Limitation Limitation Disease Active U nivers of joint of joint 2-20 ity of motion motion 00:00: [place] [facility] Branch Fracture, Fracture, Disease Active Uni vers metacarpal metacarpal 2-20 it y of , neck , neck 00:00: [facility] Branch Edema Edema Disease Active Univers 2-20 ity of 00:00: [place] [facility] Obesity Obesity Disease Active Univers (BMI (BMI ity of 30-39.9) 30-39.9) [facility] Allergies, Adverse Reactions, Alerts Allergy Allergy Status Severity Reaction(s) Onset Inactive Treating Comm ents Source Name Type Date Date Clinician PREDNISO DRUG Active ITCHING Univers NE INGREDI 5-21 ity of 00:00: [place] [facility] Predniso Propensi Active Swelling "orange Uni vers ne ty to 5-21 tablets, ity of adverse 00:00: not the [place] reaction 00 white Medical s ones" Branch PredniSO Adverse Active Info Not [facility] Reaction Available Maribel flores [facility] Social History Social Habit Start Date Stop Date Quantity Comments Source Exposure to Not sure [facility] SARS-CoV-2 [facility] (event) [place] Alcohol intake 2015-09-01 2015-09-01 Current University of 00:00:00 00:00:00 non-drinker of [facility] alcohol [place] (finding) Sex Ass[birth year] At [birth year] Universit y of 00:00:00 00:00:00 [facility] Smoking Status Start Date Stop Date Source Never smoker [facility] Medications Ordered Filled Start Stop Current Ordering Indication Dosage Frequency Signature Comments Components Source Medication Medication Date Date Medication? Clinician (SIG) Name Name ondansetron 2020- No 4mg 4 mg, Slow Univers (ZOFRAN 01-26 IV Push, ity of (PF)) 13:45: 12:49 ONCE, 1 [place] injection 4 00 :00 dose, [facility] ical mg 01/26/21 at [place] [address], CARLOS morpHINE 2020- No 4mg 4 mg, Slow Un tere injection 4 01-26 IV Push, ity of mg 13:45: 12:49 ONCE, 1 [place] 00 :00 dose, [facility] 01/26/21 at [place] [address], STAT valACYclovi 2020- No [id number] 1g Take 1 Univers r (VALTREX) 01-26 tablet by it y of 1 gram 00:00: 04:59 mouth 3 [place] tablet 00 :00 (three) Medical times Branch daily for 7 days. valACYclovi 2020- No [id number] 1g Take 1 Univers r (VALTREX) 01-26 tablet by it y of 1 gram 00:00: 00:00 mouth 3 [place] tablet 00 :00 (three) Medical times Branch daily for 7 days. METFORMIN Yes 500mg Take 500 Uni vers HCL 3-10 mg by ity of (METFORMIN 16:54: [place] 2 [place] ORAL) 34 (two) Medical times Branch daily. lisinopril Yes 20mg Take 20 mg U nivers (PRINIVIL,Z 3-10 by mouth ity of ESTRIL) 10 16:54: daily. [place] mg tablet 34 Medical Branch montelukast Yes 10mg Take 10 mg Univers (SINGULAIR) 3-10 by mouth ity of 10 mg 16:54: daily. [place] tablet Medical Branch SIMVASTATIN Yes Take by Un tere ORAL 3-10 mouth. ity of 16:54: [address] Branch COMBIVENT Yes INHALE TWO Un tere RESPIMAT 6-03 PUFFS 4 ity of 20-100 00:00: TIMES [place] mcg/actuati 00 DAILY Medi martita on inhaler NEEDED Branch fluticasone Yes 1{spray Use 1 Un tere (FLONASE) 4-15 } [place] in ity of 50 00:00: each [place] mcg/actuati 00 nostril 2 Med ical on nasal (two) Branch spray times daily. diphenhydrA Yes 25mg Take 1 Cap Univers MINE 4-15 by mouth ity of (BENADRYL) 00:00: every 6 [place] 25 mg 00 (six) Medical capsule hours as Branch needed for Allergies. ibuprofen Yes 800mg Take 1 Tab U nivers (MOTRIN) 8-13 by mouth ity of 800 mg 00:00: every 6 [place] tablet 00 (six) Medical hours as Branch needed for Pain (scale 4-6). HYDROcodone Yes 1{tbl} Take 1 Tab Univers -acetaminop 2-22 by mouth ity of hen (NORCO) 00:00: every 6 [place] 5-325 mg 00 (six) Medical tablet hours as Branch needed for Pain (scale 7-10) or Pain unrelieved by non-narcot ic analgesics . traMADOL Yes 50mg Take 1 Tab Uni vers (ULTRAM) 50 7-20 by mouth ity of mg tablet 00:00: every 6 [place] 00 (six) Medical hours as Branch needed for Pain. Gabapentin Gabapentin Yes Wild not C HI [facility] Adán defined [facility] Yes Wild [address] Sodium [...] [facility] Vital Signs Vital Name Observation Time Observation Value Comments Source Systolic blood 2021-01-26 12:33:00 136 mm[Hg] Univer sity of pressure [facility] Diastolic blood 2021-01-26 12:33:00 93 mm[Hg] Unive rsity of pressure [place] [facility] Heart rate 2021-01-26 12:33:00 94 /min Universi ty of [place] [facility] Body temperature 2021-01-26 12:33:00 38.22 Carmela Univ ersity of [place] [facility] Respiratory rate 2021-01-26 12:33:00 20 /min Univ ersity of [facility] Body weight 2021-01-26 12:33:00 95.709 kg Universi ty of [place] [facility] BMI 2021-01-26 12:33:00 37.38 kg/m2 Universi ty of [facility] Oxygen saturation in 2021-01-26 12:33:00 97 /min University of Arterial blood by [facility] Pulse oximetry Branch Systolic blood 2021-01-26 12:33:00 136 mm[Hg] Univer sity of pressure [place] [facility] [place] Diastolic blood 2021-01-26 12:33:00 93 mm[Hg] Unive rsity of pressure [facility] Heart rate 2021-01-26 12:33:00 94 /min Universi ty of [place] [facility] [place] Body temperature 2021-01-26 12:33:00 38.22 Carmela [facility] ersity of [place] [facility] [place] Respiratory rate 2021-01-26 12:33:00 20 /min Univ ersity of [place] [facility] [place] Body weight 2021-01-26 12:33:00 95.709 kg Universi ty of [place] [facility] [place] BMI 2021-01-26 12:33:00 37.38 kg/m2 Universi ty of [place] [facility] [place] Oxygen saturation in 2021-01-26 12:33:00 97 /min University of Arterial blood by [facility] Pulse oximetry Branch Procedures Procedure Date / Time Performed Performing Clinician Shauna e CT ABDOMEN PELVIS WO 2021-01-26 13:16:32 Sara Dietrich [facility] CBC WITH DIFF 2021-01-26 12:49:00 Sara Dietrich [facility] URINALYSIS 2021-01-26 12:49:00 Sara Dietrich [facility] CONSENT/REFUSAL FOR 2021-01-26 12:11:51 [facility] Name Medical Branch TREATMENT NOTICE OF PRIVACY 2021-01-26 12:11:18 Doctor Unassigned, [facility] Name Medical Branch Encounters Start End Encounter Admission Attending Care Care Encounter Source Date/Time Date/Time Type Type Clinicians Facility Department ID 2021-08-06 Out[facility] [id number] 11:56:01 [facility] 2021-08-05 [facility] [id number] 13[facility]42:01 [id number] [facility] Clin[facility] 2021-07-15 Outpatient [facility] [id number] 12:51:16 [id number] [facility] Clin[facility] 2021-07-15 [facility] [id number] 12:41:44 [id number] [facility] [employer] 2021-01-26 2021-01-[address] [facility] [id number] 07:40:00 09:22:00 Sara Acosta [id number] [place] [id number] [place] [id number] [facility] 2021-01-26 2021-01-[address] [facility] [id number] Univers 07:40:00 09:22:00 Sara Acosta [id number] ity [facility] [id number] [facility] [id number] [address] 2021-01-26 2021-01-[address] [facility] ERT [id number] Univers 07:40:00 07:40:00 SARA almeida [facility] 2020-09-30 2020-09-30 [facility] [id number] [facility] 00:[facility]00 [facility] Clin[facility] 2019-03-08 2019-03-08 [facility] [id number] 10:30:00 10:30:00 [facility] Results Test Test Test Results Result Source Description Time Comments Comments CT ABDOMEN 2021-01-18. ?No acute University of PELVIS WO 09 intra-abdominal or pelvic [place] [facility] CONTRAST 13:48:04 abnormality. Limited study Branch in theabsence of IV contrast. 2. ?Uterine leiomyomas, one arising from the anterior lower uterine segmentmeasuring 6.2 cm compressing the urinary bladder. 3. ?Osteopenia. Diverticulosis. Obese body habitus. Preliminary Report Dictated by Resident: Shania Carrington ?MD. Maya, have reviewed this study and agree with theabove report.EXAM: CT ABDOMEN PELVIS WO CONTRAST HISTORY: 60 years-old Female Abdominal pain, acute, nonlocalized COMPARISON: TECHNIQUE AND FINDINGS: Contiguous axial imaging from the level of the lungbases through the pubic symphysis was performed. Coronal and sagittalreconstructions were obtained. ?Auto mA and/or iterative reconstructionwere used to reduce radiation dose. FINDINGS: Limited evaluation of solid organ without administration intravenouscontrast. LOWER THORAX: Small scattered areas of groundglass opacities are seen atthe right lung base. Paraseptal emphysematous changes are noted. Nocardiomegaly. LIVER: No focal hepatic lesions. ?Normal contour. GALLBLADDER AND BILIARY TREE: No intra or extrahepatic biliary dilatation.No gallbladder wall thickening. SPLEEN: No splenomegaly PANCREAS: No ductal dilation or masses. ADRENAL GLANDS: No adrenal nodules. KIDNEYS: No hydronephrosis, stones, or masses. Multifocal scarring are seenbilaterally. GI TRACT: No dilation or abnormal wall thickening. Colonic diverticulosiswithout evidence of diverticulitis. Appendix is normal PERITONEUM AND RETROPERITONEUM: No free air or fluid. LYMPH NODES: No lymphadenopathy. PELVIS/BLADDER: Urinary bladder is empty. At least 2 uterine fibroids areseen. 5.6 cm uterine fibroid arising from the left side of the uterinefundus. Another one is arising from the anterior lower uterine segmentmeasuring 6.3 cm compressing the urinary bladder. VESSELS: Unremarkable. BONES AND SOFT TISSUES: No suspicious lytic or sclerotic bony lesions.Grade 1 anterolisthesis of L4 over L5. Osteopenia. [facility], Radiant Results Inft User - 01/26/2021 8:49 AM CDT EXAM: CT ABDOMEN PELVIS WO CONTRASTHISTORY: 60 years-old Female Abdominal pain, acute, nonlocalized COMPARISON:TECHNIQUE AND FINDINGS: Contiguous axial imaging from the level of the lungbases through the pubic symphysis was performed. Coronal and sagittalreconstructions were obtained. Auto mA and/or iterative reconstructionwere used to reduce radiation dose.FINDINGS:Limited evaluation of solid organ without administration intravenouscontrast.LOWER THORAX: Small scattered areas of groundglass opacities are seen atthe right lung base. Paraseptal emphysematous changes are noted. Nocardiomegaly.LIVER: No focal hepatic lesions. Normal contour.GALLBLADDER AND BILIARY TREE: No intra or extrahepatic biliary dilatation.No gallbladder wall thickening.SPLEEN: No splenomegaly PANCREAS: No ductal dilation or masses.ADRENAL GLANDS: No adrenal nodules.KIDNEYS: No hydronephrosis, stones, or masses. Multifocal scarring are seenbilaterally.GI TRACT: No dilation or abnormal wall thickening. Colonic diverticulosiswithout evidence of diverticulitis. Appendix is normalPERITONEUM AND RETROPERITONEUM: No free air or fluid.LYMPH NODES: No lymphadenopathy.PELVIS/VAMSHI DDER: Urinary bladder is empty. At least 2 uterine fibroids areseen. 5.6 cm uterine fibroid arising from the left side of the uterinefundus. Another one is arising from the anterior lower uterine segmentmeasuring 6.3 cm compressing the urinary bladder.VESSELS: Unremarkable.BONES AND SOFT TISSUES: No suspicious lytic or sclerotic bony lesions.Grade 1 anterolisthesis of L4 over L5. Osteopenia.IMPRESSION1. No acute intra-abdominal or pelvic abnormality. Limited study in theabsence of IV contrast.2. Uterine leiomyomas, one arising from the anterior lower uterine segmentmeasuring 6.2 cm compressing the urinary bladder.3. Osteopenia. Diverticulosis. Obese body habitus.Preliminary Report Dictated by Resident: Shania Ma MD., have reviewed this study and agree with theabove report. URINALYSIS 2021-01-26 13:31:39 Test Item Value Reference Range Interpretation Comme nts APPEARANCE (test code = Hazy Clear A 7748033955) COLOR (test code = 0049423897) Sandie Yellow A PH (test code = 1437270978) 4.8-8.0 SP GRAVITY (test code = 1.003-1.030 H 8203240405) GLU U QUAL (test code = Normal Normal 3034230245) BLOOD (test code = 9672668427) Negative Negative KETONES (test code = 9272255121) 5 mg/dL Negative A PROTEIN (test code = 2887-8) 100 mg/dL Negative A UROBILIN (test code = 4.0 mg/dL Normal A 6816517905) BILIRUBIN (test code = 2 mg/dL Negative A 0377473922) NITRITE (test code = 9535039637) Negative Negative LEUK ESTEFANY (test code = Negative Negative 4109906157) RBC/HPF (test code = 6112569109) See_Comment [Automated message] The system which ge nerated this result transmit suman reference range: 0 - 3 HP F. The reference range was not used to interpret th is result as normal/abnormal . WBC/HPF (test code = 2330499277) See_Comment [Automated message] The system which ge nerated this result transmit suman reference range: 0 - 5 HP F. The reference range was not used to interpret th is result as normal/abnormal . BACTERIA (test code = Few Negative A 4034490542) MUCOUS (test code = 1056004258) Moderate Negative LPF A SQ EPITH (test code = HPF 9385760127) HYAL CAST (test code = See_Comment H [Aut omated message] The 6499287156) system which ge nerated this result transmit suman reference range: <=2 LPF. The reference range was not used to interpret th is result as normal/abnormal . Ictotest (test code = Positive 5006592228) Lab Interpretation (test code = Abnormal 90262-6) [facility] WITH [id number] 13:21:22 Test Item Value Reference Range Interpretation Comments WBC (test code = See_Comment [Automated 5935-2) message] The sy stem which generated this result transmitted reference range : 4.30 - 11.10 10*3/?L. The reference range was not used to interpret this result as normal/abnormal . RBC (test code = See_Comment [Automated 073-8) message] The sy stem which generated this result transmitted reference range : 3.93 - 5.25 10*6/?L. The reference range was not used to interpret this result as normal/abnormal . HGB (test code = 14.2 g/dL 11.6-15.0 718-7) HCT (test code = 44.2 % 35.7-45.2 4544-3) MCV (test code = 94.2 fL 80.6-95.5 787-2) MCH (test code = 30.3 pg 25.9-32.8 785-6) MCHC (test code = 32.1 g/dL 31.6-35.1 786-4) RDW-SD (test code = 50.0 fL 39.0-49.9 H 88076-8) RDW-CV (test code = 14.6 % 12.0-15.5 788-0) PLT (test code = See_Comment [Automated 777-3) message] The sy stem which generated this result transmitted reference range : 166 - 358 10*3/ ?L. The reference r nima was not used to interpret this result as normal/abnormal . MPV (test code = 10.2 fL 9.5-12.9 43409-3) NRBC/100 WBC (test See_Comment [Automat ed code = 0645314049) message] The system which generated this result transmitted reference range : 0.0 - 10.0 /100 WBCs. The refer ence range was not u sed to interpret th is result as normal/abnormal . NRBC x10^3 (test code <0.01 See_Comment [Auto mated = 1094709292) message] The s ystem which generated this result transmitted reference range : 10*3/?L. The reference range was not used to interpret this result as normal/abnormal . GRAN MAT (NEUT) % 67.0 % (test code = 770-8) IMM GRAN % (test code 0.30 % = 4901076471) LYMPH % (test code = 24.6 % 736-9) MONO % (test code = 7.7 % 5905-5) EOS % (test code = 0.2 % 713-8) BASO % (test code = 0.2 % 706-2) GRAN MAT x10^3(ANC) 3.93 10*3/uL 1.88-7.09 (test code = 4860142623) IMM GRAN x10^3 (test <0.03 0.00-0.06 code = 4903026680) LYMPH x10^3 (test code 1.44 10*3/uL 1.32-3.29 = 731-0) MONO x10^3 (test code 0.45 10*3/uL 0.33-0.92 = 742-7) EOS x10^3 (test code = <0.03 0.03-0.39 L 711-2) BASO x10^3 (test code <0.03 0.01-0.07 = 704-7) Lab Interpretation Abnormal (test code = 59870-0) [facility] [id number] 10:48:36 - SCR MAMM BILATERAL CAD DIGITALBILATERAL DIGITAL SCREENING MAMMOGRAM WITH CAD: 02/09/2019CLINICAL: Asymptomatic. Current mammographic images were evaluated by either a [employer] or a [employer] CAD (computer aided detection system). Comparison is made to exam dated 09/09/2014 mammogram - [facility]. The tissue of both breasts is predominantly fatty. There is a new benign-appearing subcentimeter mass in the posterior right breast upper outer quadrant. No suspicious architectural distortion, malignant type calcification, or lymph node abnormality detected. IMPRESSION: INCOMPLETE ASSESSMENT: ADDITIONAL IMAGING EVALUATION RECOMMENDEDNo significant new finding in theleft breast is noted.Right breast ultrasound is advised for further evaluation.Carlos Eduardo Harrell M.D. rb/:02/12/2019 10:48:36 Sfdc Consultant: Yenny Lawrence MM, [facility] sent: Additional Imaging Mammogram BI-RADS: 0 Indeterminate
[2021-08-11 22:12] LABS: Urine Blood Trace-intact (Negative); Urine Glucose Negative (Negative); Urine Protein Negative (Negative); Urine Specific Gravity 1.015 (1.005-1.030); Urine pH 8.5 (5.0-7.0)
[2021-08-11 22:18] LABS: Absolute Lymphocytes (CBC) 2.1 K/uL (0.7-4.9); Hematocrit 41.6 % (36.0-45.0); Lymphocytes % 16.8 % (15.3-44.8); RBC Red Blood Cell Count 4.44 M/uL (3.86-4.86)
[2021-08-11 22:25] LABS: Urine Bacteria <20 /HPF (<20); Urine RBC <5 /HPF (NONE SEEN)
[2021-08-11 22:27] LABS: Potassium 4.4 mmol/L (3.5-5.1); Sodium Level 134 mmol/L (136-145)
[2021-08-11] MEDS ORDERED: MORPHINE 4 MG/ML SYR ONE (22:30)
[2021-08-11] MEDS ORDERED: ONDANSETRON 4 MG/2 ML VIAL ONE (22:32)
[2021-08-11 22:33] LABS: ALT/SGPT 19 U/L (12-78); AST/SGOT 15 U/L (15-37); Albumin 4.2 g/dL (3.4-5.0); BUN Blood Urea Nitrogen 20 mg/dL (7-18); Bicarbonate 32 mmol/L (21-32); Glucose Level 112 mg/dL (74-106); Lipase 133 U/L (73-393)
[2021-08-11 22:35] LABS: Bilirubin Direct < 0.1 mg/dL (0-0.2)
[2021-08-11 22:36] LABS: Alkaline Phosphatase 132 U/L (45-117); Bilirubin Total 0.5 mg/dL (0.2-1.0); Protein, Total 9.9 g/dL (6.4-8.2)
[2021-08-12] MEDS ORDERED: KETOROLAC 30 MG/ML INJ ONE (00:06)
[2021-08-12] MEDS ORDERED: NA CHLORIDE 0.9% 500 ML ONE (00:07)
[2021-08-12] MEDS ORDERED: ALBUTEROL 2.5 MG/3 ML NEB SOL ONE (01:07)
[2021-08-12] MEDS ORDERED: METHYLPREDNISOLONE 125 MG INJ ONE (01:31)
--- NOTE | 2021-08-12 01:39 | EDPHYS ---
Physician Documentation [facility] Name: Neela Pizano Age: 61 yrs Sex: Female : 1960 Arrival Date: 08/11/2021 Time: 20:58 Bed 20 Private MD: ED Physician Reynold Reed HPI: 08/11 21:45 This 61 yrs old Black Female presents to ER via EMS with complaints of Ear Pain and cp Pain in Legs. 21:45 The patient presents with pain. cp 21:45 The complaints affect the right leg and left leg. Context: resulted from a chronic cp condition, the patient can fully bear weight, the patient is able to ambulate. Associated signs and symptoms: Pertinent positives: left ear pain, Pertinent negatives fever, rash, warmth, weakness. Treatment prior to arrival includes: no previous treatment. Severity of symptoms: in the emergency department the symptoms are unchanged, despite EMS interventions. - Social history:: Smoking status: Patient denies any tobacco usage or history of. Patient uses alcohol, on a daily basis. Patient/guardian denies using street drugs. ROS: 21:50 Constitutional: Positive for pain all over, Negative for chills, fever, poor PO intake. cp 21:50 Eyes: Negative for injury, pain, redness, and discharge. cp 21:50 Cardiovascular: Negative for chest pain, palpitations. 21:50 Respiratory: Negative for cough, shortness of breath, wheezing. 21:50 Abdomen/GI: Negative for vomiting, diarrhea, constipation. Exam: 21:55 Constitutional: The patient appears in no acute distress, alert, awake, cp non-diaphoretic, non-toxic, well developed, well nourished, uncomfortable. 21:55 Head/Face: Normocephalic, atraumatic. cp 21:55 Eyes: Periorbital structures: appear normal, Conjunctiva: normal, no exudate, no injection, Sclera: no appreciated abnormality, Lids and lashes: appear normal, bilaterally. 21:55 ENT: External ear(s): are unremarkable, Ear canal(s): are normal, clear, TM's: erythema, that is mild, on the left, fluid levels, on the left, Examination of the other ear shows no obvious abnormality, Nose: is normal, Mouth: Lips: moist, Oral mucosa: pink and intact, moist, Posterior pharynx: Airway: no evidence of obstruction, patent, erythema, is not appreciated, exudate, is not appreciated. 21:55 Neck: ROM/movement: is normal, is supple, without pain, no range of motions limitations. 21:55 Chest/axilla: Inspection: normal, Palpation: is normal, no crepitus, no tenderness. 21:55 Cardiovascular: Rate: normal, Rhythm: regular, Edema: is not appreciated. 21:55 Respiratory: the patient does not display signs of respiratory distress, Respirations: normal, no use of accessory muscles, no retractions, labored breathing, is not present, Breath sounds: are clear throughout, no decreased breath sounds, no stridor, no wheezing. 21:55 Abdomen/GI: Inspection: abdomen appears normal, Bowel sounds: active, all quadrants, Palpation: soft, in all quadrants, nontender, in all quadrants, rebound tenderness, is not appreciated. 21:55 Back: pain, that is moderate, ROM is painful, with all movement. 21:55 Musculoskeletal/extremity: Extremities: noted in the right knee and left knee: pain, swelling, tenderness, ROM: limited active range of motion due to pain, in the right knee and left knee, Pulses: noted to be 2+ in the right radial artery, right dorsalis pedis artery, left radial artery and left dorsalis pedis artery. 21:55 Skin: cellulitis, is not appreciated, no rash present. 21:55 Neuro: Orientation: to person, place \T\ time. Mentation: is normal, Motor: moves all fours, strength is normal, Sensation: is normal. Vital Signs: 22:54 BP 158 / 71; Pulse 99; Resp 18; Temp 99.0; Pulse Ox 88% on R/A; Weight 100.24 kg; sf1 Height 5 ft. 4 in. (162.56 cm); Pain 8/10; 08/12 01:15 BP 153 / 94; Pulse 105; Resp 22; Temp 98.3; Pulse Ox 95% on R/A; sf1 08/11 22:54 Body Mass Index 37.93 (100.24 kg, 162.56 cm) 1 MDM: 08/11 21:36 Patient medically screened. cp 22:00 Differential diagnosis: chronic pain, cellulitis, otitis media. cp 08/12 01:35 Data reviewed: vital signs, nurses notes, lab test result(s). cp 01:35 Counseling: I had a detailed discussion with the patient and/or guardian regarding: the cp historical points, exam findings, and any diagnostic results supporting the discharge/admit diagnosis, lab results, the need for outpatient follow up, a family practitioner, to return to the emergency department if symptoms worsen or persist or if there are any questions or concerns that arise at home. Response to treatment: the patient's symptoms have markedly improved after treatment, VSS. Pain improved. Will discharge to home for continued monitoring. 08/11 21:38 Order name: Basic Metabolic Panel cp 08/11 21:38 Order name: CBC with Diff; Complete Time: 22:46 cp 08/11 23:48 Interpretation: Normal except: WBC 12.40; RDW 15.4; ÁNGEL% 76.6; NEUT A 9.5. cp 08/11 21:38 Order name: Hepatic Function; Complete Time: 22:46 08/11 23:48 Interpretation: Normal except: ALK 132; TP 9.9; GLOB 5.7; A/G 0.7. cp 08/11 21:38 Order name: Lipase; Complete Time: 22:46 cp 08/11 21:38 Order name: Urine Microscopic Only; Complete Time: 22:46 cp 08/11 23:50 Interpretation: Reviewed. 08/11 21:38 Order name: Basic Metabolic Panel; Complete Time: 22:46 EDMS 08/11 23:49 Interpretation: Normal except: NA 134; GLUC 112; BUN 20; CRE 1.47; GFR 44. cp 08/11 22:12 Order name: Urine Dipstick-Ancillary; Complete Time: 22:46 EDMS 08/11 23:49 Interpretation: Normal except: UBLD Trace-intact; UPH 8.5. cp 08/11 23:02 Order name: US Extremity Venous W Compression Thom cp 08/11 21:38 Order name: IV Saline Lock; Complete Time: 22:15 cp 08/11 21:38 Order name: Labs collected and sent; Complete Time: 22:15 cp 08/11 21:38 Order name: Urine Dipstick-Ancillary (obtain specimen); Complete Time: 22:14 cp 08/12 00:58 Order name: Vital Signs; Complete Time: 01:26 cp Administered Medications: 08/11 22:39 Drug: morphine 4 mg Route: IVP; Site: right antecubital; sf1 22:39 Drug: Zofran (Ondansetron) 4 mg Route: IVP; Site: right antecubital; sf1 08/12 00:07 Drug: Ketorolac 30 mg Route: IVP; Site: right antecubital; sf1 00:08 Drug: NS 0.9% 500 ml Route: IV; Rate: bolus; Site: right antecubital; sf1 01:26 Drug: Albuterol - atroVENT (ipratropium) (3:1) (2.5 mg - 0.5 mg) 3 ml Route: Nebulizer; sf1 01:48 Drug: SOLU-Medrol (methylPrednisoLONE) 125 mg Route: IVP; Site: right antecubital; sf1 Disposition: 06:39 Co-signature as Attending Physician, Reynold Reed MD. [email or web address] Disposition Summary: 08/12/21 01:37 Discharge Ordered Location: Home cp Problem: new cp Symptoms: have improved cp Condition: Stable cp Diagnosis - Otitis media, unspecified, left ear cp - Pain in leg, unspecified cp Followup: cp - With: Private Physician - When: 2 - 3 days - Reason: Recheck today's complaints Discharge Instructions: - Discharge Summary Sheet cp - Otitis Media, Adult cp Forms: - Medication Reconciliation Form cp - Thank You Letter cp - Antibiotic Education cp - Prescription Opioid Use cp Prescriptions: - Augmentin 875-125 mg Oral Tablet - take 1 tablet by ORAL route every 12 hours for 10 days; 20 tablet; Refills: 0, cp Product Selection Permitted - Ibuprofen 800 mg Oral Tablet - take 1 tablet by ORAL route every 8 hours As needed take with food; 30 tablet; cp Refills: 0, Product Selection Permitted Signatures: Dispatcher [employer] EDMS Omkar Dillard PA PA cp Reynold Reed MD MD mh7 Lourdes Baker RN RN sf1 Francheska Conley PA PA sb3 Corrections: (The following items were deleted from the chart) 08/11 22:16 21:38 CBC+H.LAB.BRZ ordered. EDMS EDMS
--- NOTE | 2021-08-12 01:39 | ER ---
Nurse's Notes [facility] Name: Neela Pizano Age: 61 yrs Sex: Female : 1960 Arrival Date: 08/11/2021 Time: 20:58 Bed 20 Private MD: Diagnosis: Otitis media, unspecified, left ear;Pain in leg, unspecified Presentation: 02 22:54 Chief complaint: EMS states: fell at home. Coronavirus screen: Vaccine status: Patient sf1 reports being unvaccinated. Client denies travel out of the [place] in the last 14 days. Ebola Screen: Patient negative for fever greater than or equal to 101.5 degrees Fahrenheit, and additional compatible Ebola Virus Disease symptoms Patient denies exposure to infectious person. Patient denies travel to an Ebola-affected area in the 21 days before illness onset. Initial Sepsis Screen: Does the patient meet any 2 criteria? No. Patient's initial sepsis screen is negative. Does the patient have a suspected source of infection? No. Patient's initial sepsis screen is negative. Risk Assessment: Do you want to hurt yourself or someone else? Patient reports no desire to harm self or others. Onset of symptoms was August 11, 2021. 22:54 Method Of Arrival: EMS sf1 22:54 Acuity: MARVIN 3 sf1 - Social history:: Smoking status: Patient denies any tobacco usage or history of. Patient uses alcohol, on a daily basis. Patient/guardian denies using street drugs. Screenin:58 Abuse screen: Denies threats or abuse. Nutritional screening: No deficits noted. sf1 Tuberculosis screening: No symptoms or risk factors identified. Fall Risk Fall in past 12 months (25 points). Secondary diagnosis (15 points) impaired mobility, IV access (20 points). Ambulatory Aid- None/Bed Rest/Nurse Assist (0 pts). Gait- Weak (10 pts.). Mental Status- Oriented to own ability (0 pts). Total Cadet Fall Scale indicates. Assessment: 22:58 Pain: Complains of pain in left ear. Neuro: No deficits noted. Musculoskeletal: Reports sf1 difficulty walking. Vital Signs: 22:54 BP 158 / 71; Pulse 99; Resp 18; Temp 99.0; Pulse Ox 88% on R/A; Weight 100.24 kg; sf1 Height 5 ft. 4 in. (162.56 cm); Pain 8/10; 08/12 01:15 BP 153 / 94; Pulse 105; Resp 22; Temp 98.3; Pulse Ox 95% on R/A; sf1 08/11 22:54 Body Mass Index 37.93 (100.24 kg, 162.56 cm) sf1 ED Course: 08/11 20:58 Patient arrived in ED. mw2 21:31 Omkar Dillard PA is PHCP. cp 21:32 Reynold Reed MD is Attending Physician. cp 21:43 Lourdes Baker RN is Primary Nurse. sf1 22:12 Basic Metabolic Panel Sent. sf1 22:14 Basic Metabolic Panel Sent. sf1 22:15 Hepatic Function Sent. sf1 22:15 Lipase Sent. sf1 22:19 Urine Microscopic Only Sent. sf1 22:58 Triage completed. sf1 22:58 No provider procedures requiring assistance completed. Inserted saline lock: 20 gauge sf1 in right antecubital area, using aseptic technique. Blood collected. 22:58 Patient has correct armband on for positive identification. sf1 23:43 US Extremity Venous W Compression Thom In Process Unspecified. EDMS Administered Medications: 22:39 Drug: morphine 4 mg Route: IVP; Site: right antecubital; sf1 22:39 Drug: Zofran (Ondansetron) 4 mg Route: IVP; Site: right antecubital; sf1 08/12 00:07 Drug: Ketorolac 30 mg Route: IVP; Site: right antecubital; sf1 00:08 Drug: NS 0.9% 500 ml Route: IV; Rate: bolus; Site: right antecubital; sf1 01:26 Drug: Albuterol - atroVENT (ipratropium) (3:1) (2.5 mg - 0.5 mg) 3 ml Route: Nebulizer; sf1 01:48 Drug: SOLU-Medrol (methylPrednisoLONE) 125 mg Route: IVP; Site: right antecubital; sf1 Outcome: 01:37 Discharge ordered by . cp 02:23 Patient left the ED. sf1 Signatures: Dispatcher [employer] EDMS Omkar Dillard PA PA cp [place], MyKena mw2 Lourdes Baker RN RN sf1 Corrections: (The following items were deleted from the chart) 08/11 22:16 22:15 [facility]+H.LAB.PATRICIA drawn and sent. [email or web address] ED
[2021-08-12 04:40] VITALS: BP 153/94; TEMP 98.3; O2SAT 95
--- NOTE | 2021-08-12 07:09 | RAD REPORT ---
EXAM DESCRIPTION: US - Extrem Venous W Compress Thom - 08/11/2021 11:44 pm CLINICAL HISTORY: PAIN COMPARISON: None. TECHNIQUE: Real-time sonographic evaluation of the bilateral lower extremity common femoral, superfi cial femoral, popliteal and posterior tibial veins was performed. FINDINGS: Normal compressibility, flow augmentation, phasic flow and spontaneous flow are identified in the left and right lower extremity common femoral, superficial femoral, popliteal and posterior t ibial veins. No intraluminal filling defects seen. IMPRESSION: No DVT in either lower extremity.
== END 2021-08-12 02:23 | disposition home or self-care (01) ==
LOC: ER 20:51
DX: H66.92 Otitis media, unspecified, left ear (principal); M79.605 Pain in left leg; M79.604 Pain in right leg
CPT/HCPCS: 85025; 80048; 36415; 80076; 83690; 93970; 94640; 96375; 96374; 99284; J7040; J2930; J2405; 81003; 81015

== ENCOUNTER 2021-11-02 08:58 | Emergency (ER) | payer OTHER ==
--- OUTSIDE RECORDS SUMMARY | 2021-11-02 09:06 | XMS REPORT | Continuity of Care Document ---
:1960 Author Organization [facility] t Address [address] [place] [address] Care Team Providers Name Role Phone Marcy Dietrich DO Attending Clinician Marcy DIETRICH Attending Clinician Unavailable Payers Payer Name Policy Type Policy Number Effective Date Expiration Date S ource Problems Condition Condition Condition Status Onset Resolution Last Treating Co mments Source Name Details Category Date Date Treatment Clinician Date HTN HTN Disease Active Univers (hypertens (hypertens 3-10 it y of ion) ion) 00:00: [address] Asthma Asthma Disease Active Univers 3-10 ity of 00:00: [address] Hyperlipid Hyperlipid Disease Active U nivers emia emia 3-10 ity of 00:00: [address] Stiffness Stiffness Disease Active 2012-06 [...] [place] hand 00 [facility] martita Branch Diabetes Diabetes Disease Active [...] joint, 4-16 ity of shoulder shoulder 00:00: [place] region, region, 00 Medical right right Branch History of History of Disease Active U nivers hand hand 4-16 ity of fracture fracture 00:00: [place] [facility] Personal Personal Disease Active Unive rs history of history of 4-16 [place] of [place]compl[place] with 00 [facility] treatment, treatment, presenting presenting hazards to hazards to health health Difficulty Difficulty Disease Active U nivers with with 4-16 [place] of activities [place] of daily 00 [facility] living living [place] Limitation Limitation Disease Active U nivers of joint of joint 2-20 ity of motion motion 00:00: [place] [facility] Fracture, Fracture, Disease Active Uni vers metacarpal metacarpal 2-20 it y of , neck , neck 00:00: [facility] Edema Edema Disease Active Univers 2-20 ity of 00:00: [place] [facility] Obesity Obesity Disease Active Univers (BMI (BMI ity of 30-39.9) 30-39.9) [facility] Allergies, Adverse Reactions, Alerts Allergy Allergy Status Severity Reaction(s) Onset Inactive Treating Comm ents Source Name Type Date Date Clinician PREDNISO DRUG Active ITCHING Univers NE INGREDI 5-21 ity of 00:00: [place] [facility] Predniso Propensi Active Swelling "orange Uni vers ne ty to 5-21 tablets, ity of adverse 00:00: not the [place] reaction 00 white Medical s ones" Branch PredniSO Adverse Active Info Not Commo n NE Reaction Available Adela lee - KATHARINA [facility] Social History Social Habit Start Date Stop Date Quantity Comments Source Exposure to Not sure [facility] SARS-CoV-2 [facility] (event) Branch Alcohol intake 2015-09-01 2015-09-01 Current University 00:00:00 00:00:00 non-drinker of [facility] alcohol [place] (finding) Sex Assigned At [birth year] Universit y of 00:00:00 00:00:[address] [facility] Smoking Status Start Date Stop Date Source Never smoker General acute hospital Medications Ordered Filled Start Stop Current Ordering Indication Dosage Frequency Signature Comments Components Source Medication Medication Date Date Medication? Clinician (SIG) Name Name ondansetron 2020- No 4mg 4 mg, Slow Univers (ZOFRAN 01-26 IV Push, ity of (PF)) 13:45: 12:49 ONCE, 1 [place] injection 4 00 :00 dose, [facility] ical mg 01/26/21 at [place] [address], CARLOS morpHINE 2020- No 4mg 4 mg, Slow Un tere injection 4 01-26 IV Push, ity of mg 13:45: 12:49 ONCE, 1 [place] 00 :00 dose, [facility] Medical 01/26/21 at [place] [address], STAT valACYclovi 2020- No [id number] 1g Take 1 Univers r (VALTREX) 01-26 tablet by it y of 1 gram 00:00: 04:59 mouth 3 [place] tablet 00 :00 (three) Medical times Branch daily for 7 days. valACYclovi 2020- No [id number] 1g Take 1 Univers r (VALTREX) 01-26 [...] mouth ity of ESTRIL) 10 16:54: daily. [place] mg tablet 34 Medical Branch montelukast Yes 10mg Take 10 mg Univers (SINGULAIR) 3-10 by mouth ity of 10 mg 16:54: daily. [place] tablet 34 Medical Branch SIMVASTATIN Yes Take by Un tere ORAL 3-10 mouth. ity of 16:54: [place] [address] Medical Branch COMBIVENT Yes INHALE TWO Un tere RESPIMAT 6-03 PUFFS 4 ity of 20-100 00:00: TIMES [place] mcg/actuati 00 DAILY Medi martita on inhaler NEEDED Branch fluticasone Yes 1{spray Use 1 Un tere (FLONASE) 4-15 } [place] in ity of 50 00:00: each [place] [...] Pain. Gabapentin Gabapentin Yes Wild not C ommon Adán defined [facility] Hydrochloro Hydrochloro Yes Wild not Common thiazide thiazide Adán defined Sp dali - [facility] Metronidazo Metronidazo Yes Wild 1 tablet Common le le [facility] Symbicort Symbicort Yes Wild 2 puffs Common [facility] Claritin Claritin Yes Wild 1 tablet C ommon [facility] Venlafaxine Venlafaxine Yes Wild not Common HCl ER HCl ER [facility] defined [facility] Ventolin Ventolin Yes Wild 2 puffs as Common HFA HFA [facility] needed [facility] Mupirocin Mupirocin Yes Wild 1 Com mon [facility] applicatio Spirit n to - [facility] affected [facility] Metformin Metformin Yes Wild not Com mon HCl HCl [facility] defined [facility] Advair Advair Yes Wild 1 puff Common Diskus Diskus [facility] Montelukast [facility] Yes Wild 1 tablet Common Sodium Sodium [facility] Ibuprofen Ibuprofen Yes Wild 1 tablet Common [facility] with food Spirit or milk as - [facility] needed [facility] HydrOXYzine HydrOXYzine Yes Wild not Common HCl HCl [facility] defined [facility] Combivent Combivent Yes Wild not Com mon Respimat Respimat [facility] defined [facility] Benadryl Benadryl Yes Wild 1 tablet C ommon Allergy Allergy [facility] as needed Sp [facility] Estradiol Estradiol Yes Wild not Com mon [facility] defined [facility] Divalproex Divalproex Yes Wild not C ommon Sodium Sodium [facility] defined [facility] Flonase Flonase Yes Wild 1 spray in C ommon Allergy Allergy [facility] each Spirit Relief Relief nostril - [facility] Tramadol Tramadol Yes Wild 1 tablet C ommon HCl HCl [facility] as needed [facility] Vital Signs Vital Name Observation Time Observation Value Comments Source Systolic blood 2021-01-26 12:33:00 136 mm[Hg] Univer sity of [facility] Diastolic blood 2021-01-26 12:33:00 93 mm[Hg] Unive rsity of [facility] Heart rate 2021-01-26 12:33:00 94 /min [facility] Body temperature 2021-01-26 12:33:00 38.22 Carmela [facility] ersity of [place] [facility] Respiratory rate 2021-01-26 12:33:00 20 /min Univ ersity of [place] [facility] Body weight 2021-01-26 12:33:00 95.709 kg Universi ty of [place] [facility] BMI 2021-01-26 12:33:00 37.38 kg/m2 Universi ty of [facility] Branch Oxygen saturation in 2021-01-26 12:33:00 97 /min University of Arterial blood by [facility] Pulse oximetry Branch Systolic blood 2021-01-26 12:33:00 136 mm[Hg] Univer sity of pressure [place] [facility] Diastolic blood 2021-01-26 12:33:00 93 mm[Hg] Unive rsity of pressure [place] [facility] Heart rate 2021-01-26 12:33:00 94 /min Universi ty of [place] [facility] Body temperature 2021-01-26 12:33:00 38.22 Carmela [facility] ersity of [place] [facility] Respiratory rate 2021-01-26 12:33:00 20 /min [facility] ersity of [place] [facility] Body weight 2021-01-26 12:33:00 95.709 kg Universi ty of [place] [facility] BMI 2021-01-26 12:33:00 37.38 kg/m2 Universi ty of [place] [facility] Oxygen saturation in 2021-01-26 12:33:00 97 /min University of Arterial blood by [facility] Pulse oximetry Branch Procedures Procedure Date / Time Performed Performing Clinician Sourc e CT ABDOMEN PELVIS WO 2021-01-26 13:16:32 Sara Dietrich [facility] CBC WITH DIFF 2021-01-26 12:49:00 Sara Dietrich [facility] URINALYSIS 2021-01-26 12:49:00 Sara Dietrich [facility] CONSENT/REFUSAL FOR 2021-01-26 12:11:51 [facility]igned, [facility] AND Name Medical Branch TREATMENT NOTICE OF PRIVACY 2021-01-26 12:11:18 Doctor Unassigned, No Univ ersity of [place] PRACTICES Name Medical Branch Encounters Start End Encounter Admission Attending Care Care Encounter Source Date/Time Date/Time Type Type Clinicians Facility Department ID 2021-08-06 Outpatient STLMLC STLMLC [id number] Common 11:56:01 [facility] 2021-08-05 Outpatient STLMLC STLMLC [id number] Common 13:42:01 [facility] 2021-07-15 Outpatient STLMLC STLMLC [id number] Common 12:51:16 [id number] [facility] 2021-07-15 Outpatient STLMLC STLMLC [id number] Common 12:41:44 [id number] [facility] 2021-08-06 2021-08-06 ambulatory STLMLC STLC [id number] Common 00:00:00 00:00:00 [facility] 2021-01-26 2021-01-26 Emergency [facility] [id number] 07:40:00 09:22:00 Sara Acosta [id number] [place] [id number] [place] [id number] [facility] 2021-01-26 2021-01-26 [facility] [id number] [facility] 07:40:00 09:22:00 [id number] [id number] [address] 2021-01-26 2021-01-26 Emergency X [facility] ERT [id number] 07:40:00 07:40:00 SARA almeida [facility] 2020-09-30 2020-09-30 Outpatient STLMLC STLC [id number] Common 00:00:00 00:00:00 [facility] 2019-03-08 2019-03-08 [id number] Common 10:30:00 10:30:00 [facility] Results Test Test Test Results Result [...] Preliminary Report Dictated by Resident: Shania Carrington ?MD Maya., have reviewed this study and agree with [...] Obese body habitus.Preliminary Report Dictated by Resident: EsrShania Matute MD., have reviewed this study and agree with theabove report. URINALYSIS 2021-01-26 13:31:39 Test Item Value Reference Range Interpretation Comme nts APPEARANCE (test code = Hazy Clear A 9777354952) COLOR (test code = 2884097344) Sandie Yellow A PH (test code = 7263718359) 4.8-8.0 SP GRAVITY (test code = 1.003-1.030 H 0904843290) GLU U QUAL (test code = Normal Normal 0458211214) BLOOD (test code = 6334522596) Negative Negative KETONES (test code = 1063143062) 5 mg/dL Negative A PROTEIN (test code = 2887-8) 100 mg/dL Negative A UROBILIN (test code = 4.0 mg/dL Normal A 1214960492) BILIRUBIN (test code = 2 mg/dL Negative A 4996777454) NITRITE (test code = 8513056714) Negative Negative LEUK ESTEFANY (test code = Negative Negative 7965690022) RBC/HPF (test code = 6130118528) See_Comment [Automated message] The system which ge nerated this result transmit suman reference range: 0 - 3 HP F. The reference range was not used to interpret th is result as normal/abnormal . WBC/HPF (test code = 1912156605) See_Comment [Automated message] The system which ge nerated this result transmit suman reference range: 0 - 5 HP F. The reference range was not used to interpret th is result as normal/abnormal . BACTERIA (test code = Few Negative A 3968181177) MUCOUS (test code = 3821563428) Moderate Negative LPF A SQ EPITH (test code = HPF 4108925310) HYAL CAST (test code = See_Comment H [Aut omated message] The 5086867174) system which ge nerated this result transmit suman reference range: <=2 LPF. The reference range was not used to interpret th is result as normal/abnormal . Ictotest (test code = Positive 7014708998) Lab Interpretation (test code = Abnormal 63443-4) [facility] WITH [id number] 13:21:22 Test Item Value Reference Range Interpretation Comments WBC (test code = See_Comment [Automated 5617-2) message] The sy stem which generated this result transmitted reference range : 4.30 - 11.10 10*3/?L. The reference range was not used to interpret this result as normal/abnormal . RBC (test code = See_Comment [Automated 899-8) message] The sy stem which generated this [...] (test code = 50.0 fL 39.0-49.9 H 15324-4) RDW-CV (test code = 14.6 % 12.0-15.5 788-0) PLT (test code = See_Comment [Automated 777-3) message] The sy stem which generated this result transmitted reference range : 166 - 358 10*3/ ?L. The reference r nima was not used to interpret this result as normal/abnormal . MPV (test code = 10.2 fL 9.5-12.9 83892-4) NRBC/100 WBC (test See_Comment [Automat ed code = 2503604196) message] The system which generated this result transmitted reference range : 0.0 - 10.0 /100 WBCs. The refer ence range was not u sed to interpret th is result as normal/abnormal . NRBC x10^3 (test code <0.01 See_Comment [Auto mated = 6727149559) message] The s ystem which generated this result transmitted reference range : 10*3/?L. The reference range was not used to interpret this result as normal/abnormal . GRAN MAT (NEUT) % 67.0 % (test code = 770-8) IMM GRAN % (test code 0.30 % = 6811945170) LYMPH % (test code = 24.6 % 736-9) MONO % (test code = 7.7 % 5905-5) EOS % (test code = 0.2 % 713-8) BASO % (test code = 0.2 % 706-2) GRAN MAT x10^3(ANC) 3.93 10*3/uL 1.88-7.09 (test code = 3703689265) IMM GRAN x10^3 (test <0.03 0.00-0.06 code = 8429935246) LYMPH x10^3 (test code 1.44 10*3/uL 1.32-3.29 = 731-0) MONO x10^3 (test code 0.45 10*3/uL 0.33-0.92 = 742-7) EOS x10^3 (test code = <0.03 0.03-0.39 L 711-2) BASO x10^3 (test code <0.03 0.01-0.07 = 704-7) Lab Interpretation Abnormal (test code = 81278-9) [facility] [id number] 10:48:36 - SCR MAMM BILATERAL CAD DIGITALBILATERAL DIGITAL SCREENING MAMMOGRAM WITH CAD: 02/09/2019CLINICAL: Asymptomatic. Current mammographic images were evaluated by either a LumiGrow M-Vu or a Vinsulaer CAD (computer aided detection system). Comparison is made to exam dated 09/09/2014 mammogram - [facility]. The tissue of both breasts is predominantly fatty. There is a new benign-appearing subcentimeter mass in the posterior right breast upper outer quadrant. No suspicious architectural distortion, malignant type calcification, or lymph node abnormality detected. IMPRESSION: INCOMPLETE ASSESSMENT: ADDITIONAL IMAGING EVALUATION RECOMMENDEDNo significant new finding in theleft breast is noted.Right breast ultrasound is advised for further evaluation.Carlos Eduardo Harrell M.D. rb/:02/12/2019 10:48:36 Energy Attorney: Yenny Lawrence MM, [facility] sent: Additional Imaging Mammogram BI-RADS: 0 Indeterminate
[2021-11-02] MEDS ORDERED: DIAZEPAM 5 MG TABLET ONE (10:05)
[2021-11-02] MEDS ORDERED: MORPHINE 4 MG/ML SYR ONE (10:06)
[2021-11-02] MEDS ORDERED: ONDANSETRON 4 MG (ODT) TAB ONE (10:06)
--- NOTE | 2021-11-02 10:27 | RAD REPORT ---
EXAM DESCRIPTION: USExtremity Venous Uni Ltd11/02/2021 10:16 am CLINICAL HISTORY: left leg pain COMPARISON: July 2021 FINDINGS: Left common femoral, superficial femoral, popliteal and posterior tibial veins are compre ssible and demonstrate augmentation. Doppler demonstrates good flow. Grayscale, color and spectral analysis performed on all vessels IMPRESSION: No evidence of deep venous thrombosis involving the left lower extremity.
[2021-11-02] MEDS ORDERED: KETOROLAC 30 MG/ML INJ ONE (13:31)
--- NOTE | 2021-11-02 13:58 | EDPHYS ---
Physician Documentation [facility] Name: Neela Pizano Age: 61 yrs Sex: Female : 1960 Arrival Date: 11/02/2021 Time: 08:58 Bed 11 Private MD: ALEX Physician Omkar Nicole HPI: 11/02 09:47 This 61 yrs old Black Female presents to ER via Wheelchair with complaints of Back jmm Pain, Leg Pain. 09:47 The patient presents with pain that is acute. Onset: The symptoms/episode jmm began/occurred gradually, 2 week(s) ago. The pain radiates to the left leg. 81-year-old female with history of diabetes mellitus, hypertension, neuropathy the presents emerged part with complaints of left leg pain. Patient states that symptoms initially began approximately 2 weeks ago. Patient attributes this to her neuropathy. Patient denies any weakness or urinary issues.. Historical: - Allergies: 09:18 Iodine; ll1 09:18 Prednisone; (the orange one); ll1 - PMHx: 09:18 Diabetes - NIDDM; Hypertension; Asthma; neuropathy; ll1 - PSHx: 09:18 Left heel sx; Ligation of fallopian tube; Right foot sx; ll1 - Immunization history:: Client reports having NOT received the Covid vaccine. - Social history:: Smoking status: Patient denies any tobacco usage or history of. ROS: 09:47 Constitutional: Negative for fever, chills, and weight loss, Cardiovascular: Negative jmm for chest pain, palpitations, and edema, Respiratory: Negative for shortness of breath, cough, wheezing, and pleuritic chest pain. 09:47 MS/extremity: Positive for pain. 09:47 All other systems are negative. Exam: 09:47 Constitutional: This is a well developed, well nourished patient who is awake, alert, jmm and in no acute distress. Head/Face: atraumatic. Eyes: EOMI, no conjunctival erythema appreciated ENT: Moist Mucus Membranes Neck: Trachea midline, Supple Chest/axilla: Normal chest wall appearance and motion. Cardiovascular: Regular rate and rhythm. No edema appreciated Respiratory: Normal respirations, no respiratory distress appreciated Abdomen/GI: Non distended, soft Back: Normal ROM Skin: General appearance color normal 09:47 Musculoskeletal/extremity: Painful range of motion of the left leg, full dorsalis pedis pulse appreciated, compartments are soft, neurovascular intact. 09:47 Neuro: Orientation: is normal, Mentation: is normal, Memory: is normal, Extensor hallucis longus intact. 09:47 Psych: Behavior/mood is pleasant, cooperative. Vital Signs: 09:18 BP 132 / 79; Pulse 87; Resp 18; Temp 98.0; Pulse Ox 99% ; Weight 104.33 kg; Height 5 ll1 ft. 4 in. (162.56 cm); Pain 10; 09:18 Body Mass Index 39.48 (104.33 kg, 162.56 cm) ll1 MDM: 09:47 Patient medically screened. [facility] 13:56 Data reviewed: vital signs, nurses notes. Counseling: I had a detailed discussion with marla the patient and/or guardian regarding: the historical points, exam findings, and any diagnostic results supporting the discharge/admit diagnosis, radiology results, the need for outpatient follow up, to return to the emergency department if symptoms worsen or persist or if there are any questions or concerns that arise at home. ED course: Patient is alert and non toxic in appearance in the ED. I do not suspect cord compression or cauda equina. Patient advised to follow up with pcp and otherwise given strict return precautions. patient understood and agrees with the plan of care. . 11/02 09:51 Order name: US Extremity Venous Unilateral Ltd; Complete Time: 10:35 [facility] Administered Medications: 10:04 Drug: Zofran (Ondansetron) 4 mg Route: PO; ll1 14:10 Follow up: Response: No adverse reaction ll1 10:04 Drug: Valium (diazepam) 5 mg Route: PO; ll1 14:10 Follow up: Response: No adverse reaction ll1 10:05 Drug: morphine 4 mg Route: IM; Site: left vastus lateralis; ll1 14:10 Follow up: Response: No adverse reaction; Pain is decreased; RASS: Alert and Calm (0) ll1 13:30 Drug: Ketorolac 15 mg Route: IM; Site: left gluteus; eh3 14:10 Follow up: Response: No adverse reaction; Pain is decreased; RASS: Alert and Calm (0) ll1 Disposition Summary: 11/02/21 13:57 Discharge Ordered Location: Home [facility] Condition: Stable [facility] Diagnosis - Left Leg Pain [facility] Followup: [facility] - With: Private Physician - When: 2 - 3 days - Reason: Recheck today's complaints, Continuance of care, Re-evaluation by your physician Discharge Instructions: - Discharge Summary Sheet danna - [facility] Forms: - Medication Reconciliation Form [facility] - Thank You Letter [facility] - Antibiotic Education [facility] - Prescription Opioid Use [facility] Prescriptions: - orphenadrine citrate 100 mg Oral Tablet Sustained Release - take 1 tablet by ORAL route 2 times per day As needed; 20 tablet; Refills: 0, [facility] Product Selection Permitted - Pepcid 20 mg Oral Tablet - take 1 tablet by ORAL route every 12 hours for 10 days; 20 tablet; Refills: 0, [facility] Product Selection Permitted - Diclofenac Sodium 75 mg Oral Tablet Sustained Release - take 1 tablet by ORAL route 2 times per day; 30 tablet; Refills: 0, Product [facility] Selection Permitted - Tramadol 50 mg Oral Tablet - take 1 tablet by ORAL route every 8 hours as needed; 12 tablet; Refills: 0, [facility] Product Selection Permitted Signatures: Dispatcher [employer] Eduar Watson PA PA jmm Lewis, Lynsay, RN RN 1 [place], Hetal [facility]
--- NOTE | 2021-11-02 13:58 | ER ---
Nurse's Notes [facility] Name: Neela Pizano Age: 61 yrs Sex: Female : 1960 Arrival Date: 11/02/2021 Time: 08:58 Bed 11 Private MD: Diagnosis: Left Leg Pain Presentation: 11/02 09:18 Chief complaint: Patient states: Severe L leg pain for 2 weeks. Can barely walk on it ll1 now. No falls or trauma. Coronavirus screen: Vaccine status: Patient reports being unvaccinated. Client denies travel out of the [place] in the last 14 days. At this time, the client does not indicate any symptoms associated with coronavirus-19. Ebola Screen: Patient denies travel to an Ebola-affected area in the 21 days before illness onset. Initial Sepsis Screen: Does the patient meet any 2 criteria? No. Patient's initial sepsis screen is negative. Does the patient have a suspected source of infection? No. Patient's initial sepsis screen is negative. Risk Assessment: Do you want to hurt yourself or someone else? Patient reports no desire to harm self or others. Onset of symptoms was October 19, 2021. 09:18 Method Of Arrival: Wheelchair ll1 09:18 Acuity: MARVIN 3 ll1 Triage Assessment: 09:19 General: Appears uncomfortable, Behavior is cooperative, appropriate for age. Pain: ll1 Complains of pain in left leg Quality of pain is described as aching. Musculoskeletal: Circulation, motion, and sensation intact. Capillary refill < 3 seconds. Historical: - Allergies: 09:18 Iodine; ll1 09:18 Prednisone; (the orange one); ll1 - PMHx: 09:18 Diabetes - NIDDM; Hypertension; Asthma; neuropathy; ll1 - PSHx: 09:18 Left heel sx; Ligation of fallopian tube; Right foot sx; ll1 - Immunization history:: Client reports having NOT received the Covid vaccine. - Social history:: Smoking status: Patient denies any tobacco usage or history of. Screenin:18 Abuse screen: Denies threats or abuse. Nutritional screening: No deficits noted. ll1 Tuberculosis screening: No symptoms or risk factors identified. Fall Risk Ambulatory Aid- Crutches/Cane/Walker (15 pts). Gait- Impaired (20 pts.). Total Cadet Fall Scale indicates Low Risk Score (25-44 pts). Fall prevention measures have been instituted. Side Rails Up X 2 Placed close to Nursing Station Frequent Obs/Assesments occuring Family Present and informed to notify staff if they need to leave bedside As available Patient and Family Educated on Fall Prevention Program and strategies. Assessment: 10:04 Reassessment: No changes from previously documented assessment. Patient and/or family ll1 updated on plan of care and expected duration. Pain level reassessed. Patient is alert, oriented x 3, equal unlabored respirations, skin warm/dry/pink. 14:13 Neuro: Level of Consciousness is awake. ll1 Vital Signs: 09:18 BP 132 / 79; Pulse 87; Resp 18; Temp 98.0; Pulse Ox 99% ; Weight 104.33 kg; Height 5 ll1 ft. 4 in. (162.56 cm); Pain 10/10; 09:18 Body Mass Index 39.48 (104.33 kg, 162.56 cm) ll1 ED Course: 08:58 Patient arrived in ED. mr 09:06 Eduar Hernandez PA is PHCP. jmm 09:06 Omkar Nicole MD is Attending Physician. jmm 09:19 Triage completed. ll1 09:20 Arm band placed on. ll1 09:42 Patient placed in an exam room, on a stretcher. ll1 10:17 US Extremity Venous Unilateral Ltd In Process Unspecified. EDMS 14:13 Patient has correct armband on for positive identification. ll1 14:13 No provider procedures requiring assistance completed. Patient did not have IV access ll1 during this emergency room visit. Administered Medications: 10:04 Drug: Zofran (Ondansetron) 4 mg Route: PO; ll1 14:10 Follow up: Response: No adverse reaction ll1 10:04 Drug: Valium (diazepam) 5 mg Route: PO; ll1 14:10 Follow up: Response: No adverse reaction ll1 10:05 Drug: morphine 4 mg Route: IM; Site: left vastus lateralis; ll1 14:10 Follow up: Response: No adverse reaction; Pain is decreased; RASS: Alert and Calm (0) ll1 13:30 Drug: Ketorolac 15 mg Route: IM; Site: left gluteus; eh3 14:10 Follow up: Response: No adverse reaction; Pain is decreased; RASS: Alert and Calm (0) ll1 Medication: 15:22 VIS not applicable for this client. ll1 Outcome: 13:57 Discharge ordered by . marla 14:13 Patient left the ED. ll1 14:13 Discharged to home ambulatory. ll1 14:13 Condition: stable 14:13 Discharge instructions given to patient, Instructed on discharge instructions, follow up and referral plans. medication usage, Demonstrated understanding of instructions, follow-up care, medications, Prescriptions given X 3. 14:22 Patient left the ED. ld1 Signatures: Dispatcher [employer] EDMS Eduar Hernandez PA PA jmm Rivera, Mary mr Faiza Mathews RN RN ll1 Brianna Fritz RN RN ld1 Hetal Gaona 3 Corrections: (The following items were deleted from the chart) 15:19 15:19 Neuro: ll1 1
[2021-11-02 14:21] VITALS: BP 132/79; TEMP 98; O2SAT 99
== END 2021-11-02 14:22 | disposition home or self-care (01) ==
LOC: ER 08:58
DX: M79.605 Pain in left leg (principal); Z91.09 Other allergy status, other than to drugs and biological substances; Z88.8 Allergy status to other drugs, medicaments and biological substances; I10 Essential (primary) hypertension; J45.909 Unspecified asthma, uncomplicated; E11.40 Type 2 diabetes mellitus with diabetic neuropathy, unspecified
CPT/HCPCS: 93971; 96372; 99283

== ENCOUNTER 2022-06-07 06:48 | Emergency (ER) | payer OTHER ==
--- OUTSIDE RECORDS SUMMARY | 2022-06-07 06:52 | XMS REPORT | Continuity of Care Document ---
:1960 Author Organization [facility] t Address [address] [place] [address] Care Team Providers Name Role Phone Sara Dietrich DO Attending Clinician SARA DIETRICH Attending Clinician Unavailable Payers Payer Name Policy Type Policy Number Effective Date Expiration Date S ource Problems Condition Condition Condition Status Onset Resolution Last Treating Co mments Source Name Details Category Date Date Treatment Clinician Date HTN HTN Disease Active Univers (hypertens (hypertens 3-10 it y of ion) ion) 00:00: [place] 00 Medical Branch Asthma Asthma Disease Active Univers 3-10 ity of 00:00: [place] 00 Medical Branch Hyperlipid Hyperlipid Disease Active U nivers emia emia 3-10 ity of 00:00: [place] 00 Medical Branch Stiffness Stiffness Disease Active 2012-06 Uni [...] [place] left hand left hand 00 Med[place] Branch Diabetes Diabetes Disease Active 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 ity of type 2, type 2, 00:00: [place] controlled controlled 00 Me dical Branch Hand pain Hand pain Disease Active Uni vers 4-26 ity of 00:00: [place] 00 Medical Branch Range of Range of Disease [...] joint, 4-16 ity of shoulder shoulder 00:00: [place] region, region, 00 Medical right right Branch History of History of Disease Active U nivers hand hand 4-16 ity of fracture fracture 00:00: [place] Medical [facility] Personal Personal Disease Active Unive rs history of history of 4-16 [place] of [place]ce with 00 [facility] treatment, treatment, presenting presenting hazards to hazards to health health Difficulty Difficulty Disease Active U nivers with with 4-16 [place] of [place] of daily 00 [facility] living living [place] Limitation Limitation Disease Active U nivers of joint of joint 2-20 ity of motion motion 00:00: [place] [facility] Fracture, Fracture, Disease Active Uni vers metacarpal metacarpal 2-20 it y of , neck , neck 00:00: [place] [facility] Edema Edema Disease Active Univers 2-20 ity of 00:00: [place] [facility] Obesity Obesity Disease Active Univers (BMI (BMI ity of 30-39.9) 30-39.9) [facility] [facility] Allergies, Adverse Reactions, Alerts Allergy Allergy Status Severity Reaction(s) Onset Inactive Treating Comm ents Source Name Type Date Date Clinician PREDNISO DRUG Active ITCHING Univers NE INGREDI 5-21 ity of 00:00: [place] [address] Medical Branch Predniso Propensi Active Swelling "orange Uni vers ne ty to 5-21 tablets, ity of adverse 00:00: not the [place] reaction 00 white Medical s ones" Branch Social History Social Habit Start Date Stop Date Quantity Comments Source Exposure to Not sure [facility] SARS-CoV-2 [place] Medical (event) Branch Alcohol intake 2015-09-01 2015-09-01 Current University of 00:00:00 00:00:00 non-drinker of [facility] alcohol Branch (finding) Sex Assigned At [birth year] Universit y of 00:00:00 00:00:00 [facility] [facility] Smoking Status Start Date Stop Date Source Never smoker [facility] Medications Ordered Filled Start Stop Current Ordering Indication Dosage Frequency Signature Comments Components Source Medication Medication Date Date Medication? Clinician (SIG) Name Name ondansetron 2020- No 4mg 4 mg, Slow Univers (ZOFRAN 01-26 IV Push, ity of (PF)) 13:45: 12:49 ONCE, 1 [place] injection 4 00 :00 dose, Mon Med ical mg 01/26/21 at [place] [address], CARLOS morpHINE 2020- No 4mg 4 mg, Slow Un tere injection 4 01-26 IV Push, ity of mg 13:45: 12:49 ONCE, 1 [place] 00 :00 dose, Mon Medical 01/26/21 at [place] [address], STAT valACYclovi 2020- No [id number] 1g Take 1 Univers r (VALTREX) 01-26 tablet by it y of 1 gram 00:00: 04:59 mouth 3 [place] tablet 00 :00 (three) Medical times [place] daily for 7 days. valACYclovi 2020- No [id number] 1g Take 1 Univers r (VALTREX) 01-26 tablet by it y of 1 gram 00:00: 00:00 mouth 3 [place] tablet 00 :00 (three) Medical times Branch daily for 7 days. METFORMIN Yes 500mg Take 500 Uni vers HCL 3-10 mg by ity of (METFORMIN 16:54: mouth 2 [place] ORAL) (two) Medical times Branch daily. lisinopril Yes 20mg Take 20 mg U nivers (PRINIVIL,Z 3-10 by mouth ity of ESTRIL) 10 16:54: daily. [place] mg tablet [address] [place] [address] montelukast Yes 10mg Take 10 mg Univers (SINGULAIR) 3-10 by mouth ity of 10 mg 16:54: daily. [place] tablet [address] [place] [address] SIMVASTATIN Yes Take by Uni vers ORAL 3-10 mouth. ity of 16:54: [place] 34 Medical Branch COMBIVENT Yes INHALE TWO Un tere RESPIMAT 6-03 PUFFS 4 ity of 20-100 00:00: TIMES [place] mcg/actuati 00 DAILY Medi martita on inhaler NEEDED Branch fluticasone Yes 1{spray Use 1 Un tere (FLONASE) 4-15 } [place] in ity of 50 00:00: each [place] [...] Medical hours as Branch needed for Pain. Vital Signs Vital Name Observation Time Observation Value Comments Source Systolic blood 2021-01-26 12:33:00 136 mm[facility]Hg[facility] Diastolic blood 2021-01-26 12:33:00 93 mm[Hg] [facility] Heart rate 2021-01-26 12:33:00 94 /min [facility] Body temperature 2021-01-26 12:33:00 38.22 Carmela [facility] Respiratory rate 2021-01-26 12:33:00 20 /min [facility] Body weight 2021-01-26 12:33:00 95.709 kg [facility] BMI 2021-01-26 12:33:00 37.38 kg/m2 Universi ty [facility] Oxygen saturation in 2021-01-26 12:33:00 97 /min University of Arterial blood by [facility] Pulse oximetry Branch Systolic blood 2021-01-26 12:33:00 136 mm[Hg] Univer sity of pressure [facility] [facility] Diastolic blood 2021-01-26 12:33:00 93 mm[Hg] Unive rsity of pressure [facility] Heart rate 2021-01-26 12:33:00 94 /min Universi [facility] Body temperature 2021-01-26 12:33:00 38.22 Carmela [facility] Respiratory rate 2021-01-26 12:33:00 20 /min [facility] Body weight 2021-01-26 12:33:00 95.709 kg Universi [facility] BMI 2021-01-26 12:33:00 37.38 kg/m2 Universi [facility] Oxygen saturation in 2021-01-26 12:33:00 97 /min University of Arterial blood by [facility] Pulse oximetry Branch Procedures Procedure Date / Time Performed Performing Clinician Sourc e CT ABDOMEN PELVIS WO 2021-01-26 13:16:32 Sara Dietrich [facility] CBC WITH DIFF 2021-01-26 12:49:00 Sara Dietrich [facility] URINALYSIS 2021-01-26 12:49:00 Sara Dietrich [facility] CONSENT/REFUSAL FOR 2021-01-26 12:11:51 Doctor Unassigned, [facility] AND Name Medical Branch TREATMENT NOTICE OF PRIVACY 2021-01-26 12:11:18 Doctor Unassigned, No Univ [facility] PRACTICES Name Medical [place] Encounters Start End Encounter Admission Attending Care Care Encounter Source Date/Time Date/Time Type Type Clinicians Facility Department ID 2021-01-26 2021-01-26 Emergency ALICE Dietrich [id number] [facility] 07:40:00 09:22:00 Sara Acosta [id number] [place] [id number] [facility] [id number] [facility] 084 Branch 2021-01-26 2021-01-26 Emergency [facility] [id number] 07:40:00 09:22:00 Sara Acosta [id number] [place] [id number] [place] [id number] 2021-01-26 2021-01-26 Emergency [facility] [id number] Univers 07:40:00 07:40:00 SARA nicasuzette [facility] Results Test Description Test Time Test Comments Results Result Comments Source ALBUMIN/CREATININE RATIO, URINE, RANDOM 2021-12-08 03:13:21 Test Item Value Reference Range Interpretation Comme nts CREATININE, URINE, RANDOM 308.5 MG/DL NOT ESTAB (test code = 2072) ALBUMIN, URINE, RANDOM (test 0.7 MG/DL NOT ESTAB code = 10971) CALC ALBUMIN/CREAT, RND (test 2 MG/G <30 Note: Albumin/Creatinine ratio code = 61325) reference inte rval reflects ADA and NKF guideli mulu. UNLESS OTHERWISE INDIC ATED, ALL TESTING PERFORM ED ATCLINICAL PATHOLOGY [facility] Z[employer], [address] [place] [address] LABORATORY DIRE CTOR: ERIKA CHRISTIANSON M.D. CLIA NUMBER [id number] [place]. [id number] LIPID [id number] 01:00:18 Test Item Value Reference Range Interpretation Comments CHOLESTEROL (test 255 MG/DL <200 H code = 2210) TRIGLYCERIDES (test 153 MG/DL <150 H code = 2232) HDL CHOLESTEROL (test 63 MG/DL >39 code = 2220) CALC LDL CHOL (test 162 MG/DL <100 H NOTE: C ALCULATED LDL code = 2237) IS BASED ON DERICK-PERLA METHOD WHICHINCLUDES ADJUSTABLE TRIGLYCERIDE:VL DL CHOLESTEROL RAT IO.THIS FACTOR VARIES B Y MEASURED TRIGLY CERIDE AND NON-HDLCHOL ESTEROL CONCENTRATIONS WITH INCREASED CALCU LATED LDL SEENIN HIGH ER TRIGLYCERIDE OR LOWER NON-HDL SPECIME NS. FOR MOREINFORMATION , SEE CLIENT ANNOUNCE MENT AT [email or web address] RISK RATIO LDL/HDL 2.57 RATIO <3.22 (test code = 2238) COMPREHENSIVE METABOLIC [id number] 01:00:18 Test Item Value Reference Range Interpretation Comments GLUCOSE (test code = 108 MG/DL 70-99 H 2216) BUN (test code = 28 MG/DL 8-23 H 2207) CREATININE (test 1.65 MG/DL 0.60-1.30 H code = 221) eGFR (2020 CKD-EPI) 35 ML/MIN/1.73 >60 L (test code = 82297) CALC BUN/CREAT (test 17 RATIO 6-28 code = 2235) SODIUM (test code = 143 MEQ/L 586-316 3532) POTASSIUM (test code 4.9 MEQ/L 3.5-5.4 = 2227) CHLORIDE (test code 102 MEQ/L 95-107 = 2214) CARBON DIOXIDE (test 26 MEQ/L 19-31 code = 220) CALCIUM (test code = 10.0 MG/DL 8.5-10.5 2208) PROTEIN, TOTAL (test 7.5 G/DL 6.1-8.3 code = 222) ALBUMIN (test code = 4.6 G/DL 3.5-5.2 2200) CALC GLOBULIN (test 2.9 G/DL 1.9-3.7 code = 2240) CALC A/G RATIO (test 1.6 RATIO 1.0-2.6 code = 2234) BILIRUBIN, TOTAL <0.2 MG/DL See_Comment [Automated message] (test code = 2207) The syste m which generated this result transmit suman reference range : <=1.2. The refe rence range was not u sed to interpret th is result as normal/abnormal . ALKALINE PHOSPHATASE 109 U/L 40-140 (test code = 2204) AST (test code = 10 U/L 9-40 2217) ALT (test code = 8 U/L 5-40 2218) HEMOGLOBIN [id number] 04:14:33 Test Item Value Reference Range Interpretation Comments HEMOGLOBIN A1c (test 6.9 % 4.2-5.6 H AMERIC AN DIABETES code = 78494) ASSOCIATION IDELINES FOR HGB A1C: PREDIABETES/INC REASED RISK . . . . . . . 5.7 -6.4% DIAGNOSIS OF DI ABETES . . . . . . . . . >=6 .5% WITH CONFIRMATION OR APPROPRIATE SYMPTOMS NOTE: ASSAY MAY BE AFFECTED BY HEMOGLOBINOPATH IES (SICKLE CELL ANEMIA, S- C DISEASE, OTHERS) OR NICK FICIALLY LOWERED BY DECR EASED RED CELL SURVIVAL ( HEMOLYTIC ANEMIAS, BLOOD LOSS, ETC.). CONSIDER ALTERN ATE TESTING OR LABORATORY C ONSULTATION. CT ABDOMEN PELVIS WO [id number] 13:48:04 1. ?No acute intra-abdominal or pelvic abnormality. Limited study in theabsence of IV contrast. 2. ?Uterine [...] ?Normal contour. GALLBLADDER AND BILIARY TREE: No intraor extrahepatic biliary dilatation.No gallbladder wall thickening. SPLEEN: No splenomegaly PANCREAS:No ductal dilation or masses. ADRENAL GLANDS: No adrenal nodules. KIDNEYS: No hydronephrosis, stones, or masses. Multifocal scarring are seenbilaterally. GI TRACT: No dilation or abnormal wall thickening. Colonic diverticulosiswithout evidence of diverticulitis. Appendix is normal PERITONEUM AND RETROPERITONEUM: No free air or fluid. LYMPH NODES: No lymphadenopathy. PELVIS/BLADDER: Urinary bladder isempty. At least 2 uterine fibroids areseen. 5.6 cm uterine fibroid arising from the left side of theuterinefundus. Another one is arising from the anterior lower uterine segmentmeasuring 6.3 cm mike sing the urinary bladder. VESSELS: Unremarkable. BONES AND SOFT TISSUES: No suspicious lytic or sclerotic bony lesions.Grade 1 anterolisthesis of L4 over L5. Osteopenia. [facility], Radiant Results Inft User- 01/26/2021 8:49 AM CDT EXAM: CT ABDOMEN PELVIS WO CONTRASTHISTORY: 60 years-old Female Abdominal pain, acute, nonlocalized COMPARISON:TECHNIQUE AND FINDINGS: Contiguous axial imaging from the level of the lungbases through the pubic symphysis was performed. Coronal and sagittalreconstructions were obtained. Auto mA and/or iterative reconstr uctionwere used to reduce radiation dose.FINDINGS:Limited evaluation of solid organ without administration intravenouscontrast.LOWER THORAX: Small scattered areas of groundglass opacities are seen atthe right lung base. Paraseptal emphysematous changes are noted. Nocardiomegaly.LIVER: No focal hepaticlesions. Normal contour.GALLBLADDER AND BILIARY TREE: No intra or extrahepatic biliary dilatation.Nogallbladder wall thickening.SPLEEN: No splenomegaly PANCREAS: No ductal dilation or masses.ADRENAL GLANDS: No adrenal nodules.KIDNEYS: No hydronephrosis, stones, or masses. Multifocal scarring are seenbilaterally.GI TRACT: No dilation or abnormal wall thickening. Colonic diverticulosiswithout evidenceof diverticulitis. Appendix is normalPERITONEUM AND RETROPERITONEUM: No free air or fluid.LYMPH NODES: No lymphadenopathy.PELVIS/BLADDER: Urinary bladder is empty. At least 2 [...] reviewed this study and agree with theabove report.[facility] [id number] 13:31:39 Test Item Value Reference Range Interpretation Comments APPEARANCE (test code = Hazy Clear A 7019470818) COLOR (test code = Sandie Yellow A 9630285224) PH (test code = 4.8-8.0 5816240439) SP GRAVITY (test code = 1.003-1.030 H 5884612332) GLU U QUAL (test code = Normal Normal 3601149339) BLOOD (test code = Negative Negative 0854869362) KETONES (test code = 5 mg/dL Negative A 3528465816) PROTEIN (test code = 100 mg/dL Negative A 2887-8) UROBILIN (test code = 4.0 mg/dL Normal A 5068691374) BILIRUBIN (test code = 2 mg/dL Negative A 4387949739) NITRITE (test code = Negative Negative 3588729680) LEUK ESTEFANY (test code = Negative Negative 2230259726) RBC/HPF (test code = See_Comment [Autom ated message] 6444019534) The system [employer] generated this result transmit suman reference range : 0 - 3 HPF. The refe rence range was not u sed to interpret th is result as normal/abnormal . WBC/HPF (test code = See_Comment [Autom ated message] 3464762604) The system [employer] generated this result transmit suman reference range : 0 - 5 HPF. The refe rence range was not u sed to interpret th is result as normal/abnormal . BACTERIA (test code = Few Negative A 7386001524) MUCOUS (test code = Moderate Negative LPF A 5850149865) SQ EPITH (test code = HPF 3911100093) HYAL CAST (test code = See_Comment H [Aut omated message] 5000073157) The system [employer] generated this result transmit suman reference range : <=2 LPF. The refere nce range was not u sed to interpret th is result as normal/abnormal . Ictotest (test code = Positive 3731768331) Lab Interpretation (test Abnormal code = 62998-6) [facility] WITH [id number] 13:21:22 Test Item Value Reference Range Interpretation Comments WBC (test code = See_Comment [Automated 6690-2) message] The sy stem which generated this result transmitted reference range : 4.30 - 11.10 10*3/?L. The reference range was not used to interpret this result as normal/abnormal . RBC (test code = See_Comment [Automated 789-8) message] The sy stem which generated this [...] (test code = 50.0 fL 39.0-49.9 H 35029-1) RDW-CV (test code = 14.6 % 12.0-15.5 788-0) PLT (test code = See_Comment [Automated 777-3) message] The sy stem which generated this result transmitted reference range : 166 - 358 10*3/ ?L. The reference r nima was not used to interpret this result as normal/abnormal . MPV (test code = 10.2 fL 9.5-12.9 38309-7) NRBC/100 WBC (test See_Comment [Automat ed code = 7142778802) message] The system which generated this result transmitted reference range : 0.0 - 10.0 /100 WBCs. The refer ence range was not u sed to interpret th is result as normal/abnormal . NRBC x10^3 (test code <0.01 See_Comment [Auto mated = 5701257586) message] The s ystem which generated this result transmitted reference range : 10*3/?L. The reference range was not used to interpret this result as normal/abnormal . GRAN MAT (NEUT) % 67.0 % (test code = 770-8) IMM GRAN % (test code 0.30 % = 1458657000) LYMPH % (test code = 24.6 % 736-9) MONO % (test code = 7.7 % 5905-5) EOS % (test code = 0.2 % 713-8) BASO % (test code = 0.2 % 706-2) GRAN MAT x10^3(ANC) 3.93 10*3/uL 1.88-7.09 (test code = 1859771846) IMM GRAN x10^3 (test <0.03 0.00-0.06 code = 6125064777) LYMPH x10^3 (test code 1.44 10*3/uL 1.32-3.29 = 731-0) MONO x10^3 (test code 0.45 10*3/uL 0.33-0.92 = 742-7) EOS x10^3 (test code = <0.03 0.03-0.39 L 711-2) BASO x10^3 (test code <0.03 0.01-0.07 = 704-7) Lab Interpretation Abnormal (test code = 17324-5) [facility] [id number] 10:48:36 - SCR MAMM BILATERAL CAD DIGITALBILATERAL DIGITAL SCREENING MAMMOGRAM WITH CAD: 02/09/2019CLINICAL: Asymptomatic. Current mammographic images were evaluated by either a [employer] M-Vu or a [employer] [place] CAD (computer aided detection system). Comparison is made to exam dated 09/09/2014 mammogram - [facility]. The tissue of both [...] further evaluation.Carlos Eduardo Harrell M.D. rb/:02/12/2019 10:48:36 Culture Manager: Yenny Lawrence MM, [facility] sent: Additional Imaging Mammogram BI-RADS: 0 Indeterminate
[2022-06-07] MEDS ORDERED: KETOROLAC 30 MG/ML INJ ONE (07:17)
[2022-06-07] MEDS ORDERED: HYDROCODONE/APAP 5/325 MG TAB ONE (07:17)
[2022-06-07 07:35] LABS: Urine Blood Negative (Negative); Urine Glucose Negative (Negative); Urine Protein 1+ (Negative); Urine pH 7.5 (5.0-7.0)
[2022-06-07 08:07] LABS: Urine Bacteria <20 /HPF (<20); Urine Crystals Unidentified Few /HPF (None Seen); Urine Mucus Slight /HPF (None Seen)
[2022-06-07 08:14] LABS: SARS-COV-2 RT PCR NEGATIVE (NEGATIVE)
--- NOTE | 2022-06-07 08:17 | EDPHYS ---
Physician Documentation [facility] Name: Neela Pizano Age: 62 yrs Sex: Female : 1960 Arrival Date: 06/07/2022 Time: 06:53 Bed 6 Private MD: ED Physician Elias Orta HPI: 06/07 07:19 This 62 yrs old Black Female presents to ER via Ambulatory with complaints of Shooting snw Pain Down Right Side. 07:19 The patient or guardian reports pain. that occurred at home, sustained from unknown snw reason, The patient's discomfort radiates to the right lower back. The complaints affect the buttocks and right lower back. Onset: The symptoms/episode began/occurred acutely, 3 day(s) ago, and became persistent. Severity of symptoms: At their worst the symptoms were moderate, severe. The patient has not experienced similar symptoms in the past. The patient has not recently seen a physician. Historical: - Allergies: 07:11 Iodine; vc1 07:11 Prednisone; (the orange one); vc1 - Home Meds: 07:21 estradiol 0.5 mg Oral tab 1 tab once daily [Active]; divalproex 500 mg Oral TbEC 1 tab vc1 2 times per day [Active]; Combivent 18-103 mcg/actuation Inhl aero 2 puffs 4 times per day [Active]; gabapentin Oral [Active]; glimepiride 1 mg Oral tab 1 tab twice a day [Active]; lisinopril 40 mg oral tab [Active]; venlafaxine 225 mg Oral tr24 1 tab once daily [Active]; valacyclovir 1 gram Oral tab once daily [Active]; pantoprazole 40 mg oral TbEC 1 tab once daily [Active]; medroxyprogesterone 5 mg Oral tab 1 tab once daily [Active]; - PMHx: 07:11 Asthma; Diabetes - NIDDM; Hypertension; neuropathy; vc1 - PSHx: 07:11 Left heel sx; Ligation of fallopian tube; Right foot sx; vc1 - Immunization history:: Client reports having NOT received the Covid vaccine. Adult Immunizations unknown. - Social history:: Smoking status: Patient denies any tobacco usage or history of. ROS: 07:11 Constitutional: Negative for chills and weight loss, positive for subjective low grade snw temp Eyes: Negative for injury, pain, redness, and discharge, ENT: Negative for injury, pain, and discharge, Neck: Negative for injury, pain, and swelling, Cardiovascular: Negative for chest pain, palpitations, and edema, Respiratory: Negative for shortness of breath, cough, wheezing, and pleuritic chest pain, Abdomen/GI: Negative for abdominal pain, nausea, vomiting, diarrhea, and constipation, : Negative for injury, bleeding, discharge, and swelling, Skin: Negative for injury, rash, and discoloration, Neuro: Negative for headache, weakness, numbness, tingling, and seizure. 07:11 Back: Positive for radiated pain. 07:11 MS/extremity: Positive for pain, of the buttocks and right lower back/hip. Exam: 07:08 Head/Face: Normocephalic, atraumatic. Eyes: Pupils equal round and reactive to light, snw extra-ocular motions intact. Lids and lashes normal. Conjunctiva and sclera are non-icteric and not injected. Cornea within normal limits. Periorbital areas with no swelling, redness, or edema. 07:08 Neck: Trachea midline, no thyromegaly or masses palpated, and no cervical lymphadenopathy. Supple, full range of motion without nuchal rigidity, or vertebral point tenderness. No Meningismus. Chest/axilla: Normal chest wall appearance and motion. Nontender with no deformity. No lesions are appreciated. Cardiovascular: Regular rate and rhythm with a normal S1 and S2. No gallops, murmurs, or rubs. Normal PMI, no JVD. No pulse deficits. 07:08 Abdomen/GI: Soft, non-tender, with normal bowel sounds. No distension or tympany. No guarding or rebound. No evidence of tenderness throughout. Back: No spinal tenderness. No costovertebral tenderness. Full range of motion. Skin: Warm, dry with normal turgor. Normal color with no rashes, no lesions, and no evidence of cellulitis. Neuro: Awake and alert, GCS 15, oriented to person, place, time, and situation. Cranial nerves II-XII grossly intact. Motor strength 5/5 in all extremities. Sensory grossly intact. Cerebellar exam normal. Normal gait. Psych: Awake, alert, with orientation to person, place and time. Behavior, mood, and affect are within normal limits. 07:08 Constitutional: The patient appears alert, awake, tearful 07:08 ENT: Posterior pharynx: erythema, that is mild. 07:08 Respiratory: the patient does not display signs of respiratory distress, Respirations: normal, Breath sounds: wheezin:08 Musculoskeletal/extremity: Extremities: grossly normal except: noted in the right lower back to lateral hip: tenderness, Circulation is intact in all extremities. Sensation intact. Vital Signs: 07:07 Pulse 77; Resp 20; Temp 98.9; Pulse Ox 100% on R/A; Weight 102.06 kg; Height 5 ft. 4 vc1 in. (162.56 cm); Pain 10/10; 07:24 BP 131 / 74; vc1 07:48 BP 134 / 83; Pulse 66; Pulse Ox 100% on R/A; ko1 08:09 BP 127 / 54; Pulse 68; Pulse Ox 100% on R/A; ko1 07:07 Body Mass Index 38.62 (102.06 kg, 162.56 cm) vc1 MDM: 06:56 Patient medically screened. snw 08:18 Data reviewed: vital signs, nurses notes. Data interpreted: Pulse oximetry: on room air snw is 100 %. Interpretation: normal. Counseling: I had a detailed discussion with the patient and/or guardian regarding: the historical points, exam findings, and any diagnostic results supporting the discharge/admit diagnosis, lab results, the need for outpatient follow up, to return to the emergency department if symptoms worsen or persist or if there are any questions or concerns that arise at home. Special discussion: Based on the history and exam findings, there is no indication for further emergent testing or inpatient evaluation. I discussed with the patient/guardian the need to see the primary care provider for further evaluation of the symptoms. 06/07 07:08 Order name: COVID-19/FLU A+B/RSV; Complete Time: 08:16 snw 06/07 07:08 Order name: Urine Microscopic Only; Complete Time: 08:08 snw 06/07 07:08 Order name: Urine Dipstick-Ancillary (obtain specimen); Complete Time: 07:34 snw 06/07 07:35 Order name: Urine Dipstick-Ancillary; Complete Time: 07:41 EDMS Administered Medications: 07:25 Drug: Ketorolac 30 mg Route: IM; Site: right gluteus; ko1 07:25 Drug: [place] (HYDROcodone-acetaminophen) 5 mg-325 mg 1 tabs Route: PO; ko1 Disposition: 07:09 Co-signature as Attending Physician, Elias Orta DO PA/VIDEOTAPE EDITOR's history reviewed, patient ms3 interviewed, and examined. HPI: 62-year-old female presents for right-sided hip pain that radiates down her right leg for 2 days. Patient denies fevers, chills, bowel or bladder incontinence. My personal exam of patient reveals: On exam patient is alert and orient x4, in no apparent distress, nontoxic-appearing. Heart rate and rhythm are regular without murmurs rubs or gallops. Lungs are significant for diffuse wheezing. Abdomen nontender to palpation with bowel sounds present. Patient is ambulatory in the emergency department. Patient without numbness or decreased sensation. Disposition Summary: 06/07/22 08:17 Discharge Ordered Location: Home snw Condition: Stable snw Diagnosis - Radiculopathy, lumbosacral region snw Followup: snw - With: Emergency Department - When: As needed - Reason: Worsening of condition Followup: snw - With: Private Physician - When: 2 - 3 days - Reason: Recheck today's complaints, Continuance of care, Re-evaluation by your physician Discharge Instructions: - Discharge Summary Sheet snw - Lumbosacral Radiculopathy snw - Radicular Pain snw Forms: - Medication Reconciliation Form snw - Thank You Letter snw - Antibiotic Education snw - Prescription Opioid Use snw Prescriptions: - Mobic 7.5 mg Oral Tablet - take 1 tablet by ORAL route once daily take with food; 20 tablet; Refills: 0, snw Product Selection Permitted - orphenadrine citrate 100 mg Oral Tablet Sustained Release - take 1 tablet by ORAL route 2 times per day As needed; 20 tablet; Refills: 0, snw Product Selection Permitted Signatures: Dispatcher [employer] EDMelissa Ozuna FNP-C FNP-CsnElias Montez DO DO ms3 Margy Bee, RN RN vc1 Felicia Dodge, RN RN ko1
--- NOTE | 2022-06-07 08:17 | ER ---
Nurse's Notes [facility] Name: Neela Pizano Age: 62 yrs Sex: Female : 1960 Arrival Date: 06/07/2022 Time: 06:53 Bed 6 Private MD: Diagnosis: Radiculopathy, lumbosacral region Presentation: 06/07 07:07 Chief complaint: Patient states: "I have a really sharp pain shooting down my right vc1 side into my hip. I thought it would go away but it just hasn't". Coronavirus screen: Vaccine status: Patient reports being unvaccinated. Client denies travel out of the [place] in the last 14 days. cough unrelated to allergies, muscle pain, Client presents with at least one sign or symptom that may indicate coronavirus-19. Standard/surgical mask placed on the client. Provider contacted for isolation considerations. Ebola Screen: No symptoms or risks identified at this time. Initial Sepsis Screen: Does the patient meet any 2 criteria? No. Patient's initial sepsis screen is negative. Does the patient have a suspected source of infection? No. Patient's initial sepsis screen is negative. Risk Assessment: Do you want to hurt yourself or someone else? Patient reports no desire to harm self or others. Onset of symptoms was June 04, 2022. 07:07 Method Of Arrival: Ambulatory vc1 07:07 Acuity: MARVIN 3 vc1 Triage Assessment: 07:23 General: Appears in no apparent distress. uncomfortable, obese, Behavior is vc1 cooperative. Pain: Complains of pain in anterior aspect of right lateral abdomen and right lower back Pain radiates to right hip Pain currently is 10 out of 10 on a pain scale. EENT: No deficits noted. No signs and/or symptoms were reported regarding the EENT system. Neuro: Level of Consciousness is awake, alert, obeys commands, Oriented to person, place, time, situation, Appropriate for age. Cardiovascular: No deficits noted. Respiratory: Airway is patent Respiratory effort is even, unlabored, Respiratory pattern is regular, symmetrical. GI: No deficits noted. No signs and/or symptoms were reported involving the gastrointestinal system. : No deficits noted. No signs and/or symptoms were reported regarding the genitourinary system. Derm: No deficits noted. No signs and/or symptoms reported regarding the dermatologic system. Musculoskeletal: No deficits noted. No signs and/or symptoms reported regarding the musculoskeletal system. Historical: - Allergies: 07:11 Iodine; vc1 07:11 Prednisone; (the orange one); vc1 - Home Meds: 07:21 estradiol 0.5 mg Oral tab 1 tab once daily [Active]; divalproex 500 mg Oral TbEC 1 tab vc1 2 times per day [Active]; Combivent 18-103 mcg/actuation Inhl aero 2 puffs 4 times per day [Active]; gabapentin Oral [Active]; glimepiride 1 mg Oral tab 1 tab twice a day [Active]; lisinopril 40 mg oral tab [Active]; venlafaxine 225 mg Oral tr24 1 tab once daily [Active]; valacyclovir 1 gram Oral tab once daily [Active]; pantoprazole 40 mg oral TbEC 1 tab once daily [Active]; medroxyprogesterone 5 mg Oral tab 1 tab once daily [Active]; - PMHx: 07:11 Asthma; Diabetes - NIDDM; Hypertension; neuropathy; vc1 - PSHx: 07:11 Left heel sx; Ligation of fallopian tube; Right foot sx; vc1 - Immunization history:: Client reports having NOT received the Covid vaccine. Adult Immunizations unknown. - Social history:: Smoking status: Patient denies any tobacco usage or history of. Screenin:20 [facility] ED Fall Risk Assessment (Adult) History of falling in the last 3 months, vc1 including since admission No falls in past 3 months (0 pts) Confusion or Disorientation No (0 pts) Intoxicated or Sedated No (0 pts) Impaired Gait No (0 pts) Mobility Assist Device Used No (0 pt) Altered Elimination No (0 pt) Score/Fall Risk Level 0 - 2 = Low Risk Oriented to surroundings, Maintained a safe environment, Educated pt \\T\\ family on fall prevention, incl call for assistance when getting out of bed. Abuse screen: Denies threats or abuse. Nutritional screening: No deficits noted. Tuberculosis screening: No symptoms or risk factors identified. Fall Risk No fall in past 12 months (0 pts). Assessment: 07:20 General: Appears in no apparent distress. uncomfortable. Pain: Complains of pain in ko1 pelvis and right hip and abdomen and anterior aspect of right lateral abdomen and buttocks and right lower back. Neuro: No deficits noted. Cardiovascular: No deficits noted. Respiratory: No deficits noted. GI: No deficits noted. : No deficits noted. EENT: No deficits noted. Derm: No deficits noted. Musculoskeletal: No deficits noted. Vital Signs: 07:07 Pulse 77; Resp 20; Temp 98.9; Pulse Ox 100% on R/A; Weight 102.06 kg; Height 5 ft. 4 vc1 in. (162.56 cm); Pain 10/10; 07:24 BP 131 / 74; vc1 07:48 BP 134 / 83; Pulse 66; Pulse Ox 100% on R/A; ko1 08:09 BP 127 / 54; Pulse 68; Pulse Ox 100% on R/A; ko1 07:07 Body Mass Index 38.62 (102.06 kg, 162.56 cm) vc1 ED Course: 06:53 Patient arrived in ED. ja2 06:54 Melissa Caba [facility]-C [facility]. snw 06:54 Wolf Pino MD is Attending Physician. snw 06:56 Tree Verduzco, RN is Primary Nurse. ll3 07:07 Felicia Dodge, RN is Primary Nurse. ko1 07:11 Triage completed. vc1 07:25 COVID-19/FLU A+B/RSV Sent. ko1 07:34 Urine Microscopic Only Sent. ko1 07:48 Patient has correct armband on for positive identification. Placed in gown. Bed in low ko1 position. Call light in reach. Side rails up X 1. Pulse ox on. NIBP on. 08:00 Arm band placed on right wrist. ko1 08:17 Elias Orta DO is Attending Physician. snw 08:20 No provider procedures requiring assistance completed. Patient did not have IV access ko1 during this emergency room visit. Administered Medications: 07:25 Drug: Ketorolac 30 mg Route: IM; Site: right gluteus; ko1 07:25 Drug: [place] [address] (HYDROcodone-acetaminophen) 5 mg-325 mg 1 tabs Route: PO; ko1 Medication: 07:20 VIS not applicable for this client. vc1 Outcome: 08:17 Discharge ordered by . snw 08:20 Discharged to home ambulatory, with family. ko1 08:20 Condition: stable 08:20 Discharge instructions given to patient, family, Instructed on discharge instructions, follow up and referral plans. medication usage, Demonstrated understanding of instructions, follow-up care, medications, Prescriptions given X 2. 08:38 Patient left the ED. ko1 Signatures: Melissa Caba, JACKSPOOLER-C JACKSPOOLER-Csnw Sally Davila Lynsea, RN RN ll3 Margy Bee RN RN vc1 Felicia Dodge RN RN ko1
[2022-06-07 08:42] VITALS: TEMP 98.9; O2SAT 100
[2022-06-07 08:45] VITALS: BP 127/54
== END 2022-06-07 08:38 | disposition home or self-care (01) ==
LOC: ER 06:48
DX: M54.17 Radiculopathy, lumbosacral region (principal); E11.9 Type 2 diabetes mellitus without complications; I10 Essential (primary) hypertension; Z20.822 Contact with and (suspected) exposure to COVID-19; Z88.8 Allergy status to other drugs, medicaments and biological substances; Z91.048 Other nonmedicinal substance allergy status
CPT/HCPCS: 0241U; 81003; 81015; 96372; 99284

== ENCOUNTER 2023-02-07 11:54 | Inpatient (IN) | payer OTHER ==
--- OUTSIDE RECORDS SUMMARY | 2023-02-07 12:07 | XMS REPORT | Continuity of Care Document ---
:1960 Author Organization [facility] t Address [address] [place] [address] [place] [address] Care Team Providers Name Role Phone JERZY BOWLES Primary Care Physician Unavailable SARA DIETRICH Attending Clinician Unavailable Sara Dietrich DO Attending Clinician PEDRO PABLO CARR Attending Clinician Unavailable Pedro Pablo Zuñiga Attending Clinician PEDRO PABLO CARR Admitting Clinician Unavailable Payers Payer Name Policy Type Policy Number Effective Date Expiration Date Jeovanny mcrae [facility] [id number] 2021 00:00:00 PLUS Problems Condition Condition Condition Status Onset Resolution Last Treating Co mments Source Name Details Category Date Date Treatment Clinician Date HTN HTN Disease Active Univers (hypertens (hypertens 3-10 it y of ion) ion) 00:00: [place] [address] Medical Branch Asthma Asthma Disease Active Univers 3-10 ity of 00:00: [place] [address] Medical Branch Hyperlipid Hyperlipid Disease Active U nivers emia emia 3-10 ity of 00:00: [place] 00 Medical Branch Stiffness Stiffness Disease Active [...] [place] hand 00 [facility] Branch Diabetes Diabetes Disease Active 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 ity of type 2, type 2, 00:00: [place] controlled controlled 00 Id dical Branch Hand pain Hand pain Disease [...] joint, 4-16 ity of shoulder shoulder 00:00: [place] region, region, 00 Medical right right Branch History of History of Disease Active U nivers hand hand 4-16 ity of fracture fracture 00:00: [place] 00 Medical Branch Personal Personal Disease Active Unive rs history of history of 4-16 it [place] of [place]ce with 00 [facility] Branch treatment, treatment, presenting presenting hazards to hazards to health health Difficulty Difficulty Disease Active U nivers with with 4-16 [place] of activities activities [place] daily [facility] Limitation Limitation Disease Active U nivers of joint of joint 2-20 ity of motion motion 00:00: [place] 00 Medical Branch Fracture, Fracture, Disease Active Uni vers metacarpal metacarpal 2-20 it y of , neck , neck 00:00: [place] 00 Medical Branch Edema Edema Disease Active Univers 2-20 ity of 00:00: [place] Medical Branch Edema Edema Disease Active Univers 2-20 ity of 00:00: [place] [address] Medical Branch Obesity Obesity Disease Active Univers (BMI (BMI ity of 30-39.9) 30-39.9) [facility] [id number] Sciatica, Problem Comm on right side [facility] Arthritis Arthritis Problem Com mon of right of knee, [facility] knee right [facility] Arthritis Arthritis Problem Com mon of left of knee, [facility] knee left [facility] [id number] Pain in Problem Common joint of [facility] left knee [facility] [id number] Primary Problem Commo n [facility] Allergies, Adverse Reactions, Alerts Allergy Allergy Status Severity Reaction(s) Onset Inactive Treating Comm ents Source Name Type Date Date Clinician n Propensi Active ty to 6-06 adverse 00:00: reaction 00 to drug predniSO Propensi Active NE - ty to 3-04 Oral adverse 00:00: reaction 00 to drug Predniso Propensi Active ne ty to 2-28 adverse 00:00: reaction 00 to drug PREDNISO DRUG Active ITCHING Univers NE INGREDI 5-21 ity of 00:00: [address] Predniso Propensi Active Swelling "orange Uni vers ne ty to 5-21 tablets, ity of adverse 00:00: not the [place] reaction 00 white Medical s ones" Branch predniso predniso Active Unknown Commo n ne ne [facility] Social History Social Habit Start Date Stop Date Quantity Comments Source Gender identity Universit y of [facility] Sexual orientation Univer sity [facility] Exposure to Not sure University SARS-CoV-2 (event) [facility] History of Tobacco Common Spirit - Use [facility] Sex Assigned At Common Sp dali - [facility] Alcohol intake 2023-02-04 2023-02-04 Current University of 00:00:00 00:00:00 non-drinker of [facility] alcohol Branch (finding) History of Social 2023-02-04 2023-02-04 Univers ity of function 00:00:00 00:00:00 [facility] Smoking Status Start Date Stop Date Source Never Smoker Common [facility] Medications Ordered Filled Start Stop Current Ordering Indication Dosage Frequency Signature Comments Components Source Medication Medication Date Date Medication? Clinician (SIG) Name Name predniSONE 2022- Yes [id number] 50mg Take 5 U nivers 10 mg 8-19 tablets by ity of tablet 00:00: mouth in [place] 00 the Medical morning. Branch predniSONE 2022-0 2022- No [id number] 50mg Take 5 Univers 10 mg 8-19 -18 tablets by ity of tablet 00:00: 00:00 mouth in [place] 00 :00 the Medical morning Branch for 4 days. albuterol 2022- No 2.5mg 2.5 mg, Uni vers (PROVENTIL) 02-04 Inhalation i ty of 2.5 mg /3 15:45: 15:55 , [place]CE[place] 1 [place] (0.083 00 :00 dose, On Medica l %) [facility] nebulizer 02/04/23 at solution 1045, STAT 2.5 mg albuterol 2022- No 7.5mg 7.5 mg, Uni vers (PROVENTIL) 02-04 Inhalation i ty of 2.5 mg /3 14:45: 14:02 , [place]CE[place] 1 [place] (0.083 00 :00 dose, On Medica l %) [facility] nebulizer 02/04/23 at solution 0945, CARLOS 7.5 mg ipratropium 2022- No .5mg 0.5 mg, Un tere (ATROVENT) 02-04 Inhalation it y of 0.02 % 14:45: 14:03 , ONCE, 1 [place] nebulizer 00 :00 dose, On Medica l solution Fri Branch 0.5 mg 02/04/23 at 0945, CARLOS methylpredn 2022- No 125mg 125 mg, U nivers isolone sod 02-04 Slow IV ity of succ 14:45: 14:02 Push, ONCE [place] (SOLU-MEDRO 00 :00 NOW, 1 Medica l L) dose, On Branch injection Fri 125 mg 02/04/23 at 0945, CARLOS FENTanyl PF 2022- No 50ug 50 mcg, Un tere (SUBLIMAZE 11-22 Intramuscu it y of (PF)) 16:45: 16:41 lar, ONCE, [place] injection 00 :00 1 dose, On Medi martita 50 mcg 11/22/22 Branch at 1145, STAT ibuprofen 2022- No 800mg 800 mg, Uni vers (IBU) 11-22 Oral, ity of tablet 800 16:45: 16:39 ONCE, 1 [place] mg 00 :00 dose, On Medical 11/22/22 Branch at 1145, CARLOS methocarbam 2022-0 2022- No 1000mg 1,000 mg, Univers oL 11-22 Oral, ity of (ROBAXIN) 16:45: 16:39 ONCE, 1 [place] tablet 00 :00 dose, On Medical 1,000 mg 11/22/22 Branc h at 1145, CARLOS ibuprofen 2022-0 Yes [id number] 800mg Take 1 Univers 800 mg 6- 9107 tablet by ity of tablet 00:00: mouth [place] 00 every 6 Medical (six) Branch hours as needed for Pain (scale 4-6). methocarbam 2022-0 Yes [id number] 1000mg Take 2 Univers oL 500 mg 6- 9107 tablets by ity of tablet 00:00: mouth 00 (four) Medical times Branch daily as needed for Pain (scale 7-10) or Pain (scale 4-6). methylPREDN 2022-0 Yes [id number] Take by Univers ISolone 4 - 9107 mouth ity of mg tablets 00:00: [place]STRU [place] CTIONS. Medical follow Branch package directions ibuprofen 2022-0 Yes [id number] 800mg Take 1 Univers 800 mg 6-05 9107 tablet by ity of tablet 00:00: mouth [place] 00 every 6 Medical (six) Branch hours as needed for Pain (scale 4-6). methocarbam 202-0 Yes [id number] 1000mg Take 2 Univers oL 500 mg 6-05 9107 tablets by ity of tablet 00:00: mouth 4 [place] 00 (four) Medical times Branch daily as needed for Pain (scale 7-10) or Pain (scale 4-6). methylPREDN 2023-0 Yes [id number] Take by [facility] 4 11-22 9107 mouth ity of mg tablets 00:00: [place]STRU [place] CTIONS. Medical follow Branch package directions methocarbam 2022- No [id number] 1000mg Take 2 Univers oL 500 mg 11-22 9107 tablets by ity of tablet 00:00: 00:00 mouth 4 [place] 00 :00 (four) Medical times Branch daily as needed for Pain (scale 7-10) or Pain (scale 4-6). ibuprofen 2022- No [id number] 800mg Take 1 Univers 800 mg 11-22 9107 tablet by ity of tablet 00:00: 00:00 mouth [place] 00 :00 every 6 Medical (six) Branch hours as needed for Pain (scale 4-6). methylPREDN 2022- No [id number] Take by [facility] 4 11-22 9107 mouth ity of mg tablets 00:00: 00:00 SEE-INSTRU [place] 00 :00 CTIONS. Medical follow Branch package directions Bupivicaine Bupivicaine No 4mL [place] 5-01 Spirit 00:00: - [facility] 00 [facility] Bupivicaine Bupivicaine 0 No 4mL Common [place] 5-01 Spirit 00:00: - [facility] Kenalog Kenalog 0 No 1mL Common (Triamcinol (Triamcinol 5-01 S pirit one) one) 00:00: - [facility] Kenalog Kenalog 0 No 1mL Common (Triamcinol (Triamcinol 5-01 S pirit one) one) 00:00: - [facility] 00 [facility] ESTRADIOL 2021-06 No 0.5 MG TABS 1-19 00:00: 00 Dose 2021-06 No Unknown 1-18 00:00: 00 RISPERIDONE 2021- No 25 0.25 MG 1-17 TABS 00:00: 00 Dose 2021-06 No Unknown 1-15 00:00: 00 LISINOPRIL 2021- No 25 2.5 MG TABS 1-15 00:00: 00 TAKE 2021-06 No TABLET (20 1-15 MG) BY 00:00: MOUTH DAILY 00 Dose 2021-06 No Unknown 1-15 00:00: 00 LISINOPRIL 2021-06 No 25 2.5 MG TABS 1-15 00:00: 00 TAKE 2021-06 No TABLET (20 1-15 MG) BY 00:00: MOUTH DAILY 00 TAKE 2021-06 No TABLET 3 1-08 TIMES 00:00: DAILY. 00 TAKE 2021-06 No TABLET 3 1-08 TIMES 00:00: DAILY. 00 USE 2021-06 No APPLICATION 0-31 TOPICALLY 00:00: TO AFFECTED 00 AREA 3 TIMES PER DAY NEEDED USE 2021-06 No APPLICATION 0-31 TOPICALLY 00:00: TO AFFECTED 00 AREA 3 TIMES PER DAY NEEDED Dose 2021-06 No Unknown 0-28 00:00: 00 Dose 2021-06 No Unknown 0-28 00:00: 00 TAKE 2021-06 No 10 TABLET (10 0-27 MG) BY 00:00: MOUTH DAILY 00 Dose 2021-06 No Unknown 0-27 00:00: 00 DIVALPROEX 2021-[address] 0-27 500 MG TBEC 00:00: 00 TAKE 2021-06 No 10 TABLET (10 0-27 MG) BY 00:00: MOUTH DAILY 00 Dose 2021-06 No Unknown 0-27 00:00: 00 Dose 2021-06 No Unknown 0-27 00:00: 00 Dose 2021-06 No Unknown 0-17 00:00: 00 Dose 2021-06 No Unknown 0-17 00:00: 00 TAKE 2021-06 No 25 TABLET BY 0-13 MOUTH TWICE 00:00: DAILY 00 TAKE 2021-06 No 25 TABLET BY 0-13 MOUTH TWICE 00:00: DAILY 00 TAKE 2021-06 No 10 TABLET (10 0-10 MG) BY 00:00: MOUTH DAILY 00 TAKE 2021-06 No 10 TABLET (10 0-10 MG) BY 00:00: MOUTH DAILY 00 VENLAFAXINE 2021-06 No HYDROCHLORI 0-07 DE ER 225 00:00: MG TB24 00 VENLAFAXINE 2021-06 No HYDROCHLORI 0-07 DE ER 225 00:00: MG TB24 00 TAKE 2021-06 No TABLET BY 0-05 MOUTH EVERY 00:00: 6 HOURS 00 NEEDED TAKE 1 2021-1 No TABLET BY 0-05 MOUTH EVERY 00:00: 6 HOURS 00 NEEDED DIVALPROEX 2021-1 No DELAYED 0-04 RELEASE 00:00: 250MG TB 00 DIVALPROEX 2021-1 No DELAYED 0-04 RELEASE 00:00: 250MG TB 00 TAKE 1 2-0 No TABLET BY 9-20 MOUTH TWICE 00:00: DAILY 00 GABAPENTIN 2-0 No 800 MG TABS 9-20 00:00: 00 TAKE 1 2-0 No TABLET BY 9-20 MOUTH TWICE 00:00: DAILY 00 GABAPENTIN 2-0 No 800 MG TABS 9-20 00:00: 00 Kenalog Kenalog 2021-0 No 40mg Common (Triamcinol (Triamcinol 9-20 S pirit one) one) 00:00: - [facility] 00 [facility] Naropin Naropin 2-0 No 5mg Common (Ropivacain (Ropivacain 9-20 S pirit e HCl) e HCl) 00:00: - [facility] 00 [facility] Kenalog Kenalog 2021-0 No 40mg Common (Triamcinol (Triamcinol 9-20 S pirit one) one) 00:00: - [facility] 00 [facility] Naropin Naropin 2-0 No 5mg Common (Ropivacain (Ropivacain 9-20 S pirit e HCl) e HCl) 00:00: - [facility] 00 [facility] Kenalog Kenalog 2-0 No 40mg Common (Triamcinol (Triamcinol 9-20 S pirit one) one) 00:00: - [facility] 00 [facility] Naropin Naropin 2-0 No 5mg Common (Ropivacain (Ropivacain 9-20 S pirit e HCl) e HCl) 00:00: - [facility] 00 [facility] Naropin Naropin 2-0 No 5mg Common (Ropivacain (Ropivacain 9-20 S pirit e HCl) e HCl) 00:00: - [facility] 00 [facility] Kenalog Kenalog 2-0 No 40mg Common (Triamcinol (Triamcinol 9-20 S pirit one) one) 00:00: - [facility] 00 [facility] Kenalog Kenalog 2-0 No 40mg Common (Triamcinol (Triamcinol 9-20 S pirit one) one) 00:00: - [facility] 00 [facility] Naropin Naropin 2-0 No 5mg Common (Ropivacain (Ropivacain 9-20 S pirit e HCl) e HCl) 00:00: - [facility] 00 [facility] Kenalog Kenalog 2-0 No 40mg Common (Triamcinol (Triamcinol 9-20 S pirit one) one) 00:00: - [facility] 00 [facility] Naropin Naropin 2022-0 No 5mg Common (Ropivacain (Ropivacain 9-20 S pirit e HCl) e HCl) 00:00: - [facility] TAKE 1 2-0 No TABLET BY 9-15 MOUTH THREE 00:00: TIMES DAILY 00 TAKE 1 2-0 No TABLET BY 9-15 MOUTH THREE 00:00: TIMES DAILY 00 TAKE 1 2-0 No TABLET BY 9-09 MOUTH DAILY 00:00: 00 Dose 2022-0 No Unknown 9-09 00:00: 00 APPLY 2 2022-0 No GRAMS 9-08 TOPICALLY 00:00: TO AFFECTED 00 AREA 4 TIMES PER DAY APPLY 2 2022-0 No GRAMS 9-08 TOPICALLY 00:00: TO AFFECTED 00 AREA 4 TIMES PER DAY APPLY 2 2022-0 No GRAMS 9-08 TOPICALLY 00:00: TO AFFECTED 00 AREA 4 TIMES PER DAY APPLY 2 2022-0 No GRAMS 9-08 TOPICALLY 00:00: TO AFFECTED 00 AREA 4 TIMES PER DAY Dose 2022-0 No Unknown 02-12 00:00: 00 TAKE 1 2022-0 No TABLET BY 8-26 MOUTH EVERY 00:00: 6 HOURS 00 NEEDED Dose 2022-0 No Unknown 02-12 00:00: 00 TAKE 1 2022-0 No TABLET BY 8-26 MOUTH EVERY 00:00: 6 HOURS 00 NEEDED Dose 2022-0 No Unknown 02-12 00:00: 00 TAKE 1 2022-0 No TABLET BY 8-26 MOUTH EVERY 00:00: 6 HOURS 00 NEEDED Dose 2022-0 No Unknown 02-12 00:00: 00 TAKE 1 2022-0 No TABLET BY 8-26 MOUTH EVERY 00:00: 6 HOURS 00 NEEDED Dose 2022-0 No 10 Unknown 02-09 00:00: 00 Dose 2022-0 No 10 Unknown 02-09 00:00: 00 Dose 2022-0 No 10 Unknown 02-09 00:00: 00 Dose 2022-0 No 10 Unknown 02-09 00:00: 00 Dose 2022-0 No 5 Unknown 02-04 00:00: 00 ESTRADIOL 2022-0 No 5 0.5 MG TABS 02-04 00:00: 00 Dose 2022-0 No 5 Unknown 02-04 00:00: 00 ESTRADIOL 2022-0 No 5 0.5 MG TABS 02-04 00:00: 00 Dose 2022-0 No 5 Unknown 02-04 00:00: 00 ESTRADIOL 2022-0 No 5 0.5 MG TABS 02-04 00:00: 00 Dose 2022-0 No 5 Unknown 02-04 00:00: 00 ESTRADIOL 2022-0 No 5 0.5 MG TABS 02-04 00:00: 00 TAKE 1 2022-0 No 20 TABLET BY 8-16 MOUTH EVERY 00:00: 12 HOURS 00 FOR 10 DAYS. TAKE 1 2022-0 No 20 TABLET BY 8-16 MOUTH EVERY 00:00: 12 HOURS 00 FOR 10 DAYS. TAKE 1 2022-0 No 20 TABLET BY 8-16 MOUTH EVERY 00:00: 12 HOURS 00 FOR 10 DAYS. TAKE 1 2022-0 No 20 TABLET BY 8-16 MOUTH EVERY 00:00: 12 HOURS 00 FOR 10 DAYS. TAKE 1 2022-0 No 800 TABLET BY 8-15 MOUTH THREE 00:00: TIMES DAILY 00 TAKE 1 2022-0 No 600 TABLET (600 8-15 MG) BY 00:00: MOUTH 3 00 TIMES PER DAY WITH FOOD OR MILK NEEDED TAKE 1 2022-0 No 800 TABLET BY 8-15 MOUTH THREE 00:00: TIMES DAILY 00 TAKE 1 2022-0 No 600 TABLET (600 8-15 MG) BY 00:00: MOUTH 3 00 TIMES PER DAY WITH FOOD OR MILK NEEDED TAKE 1 2022-0 No 800 TABLET BY 8-15 MOUTH THREE 00:00: TIMES DAILY 00 TAKE 1 2022-0 No 600 TABLET (600 8-15 MG) BY 00:00: MOUTH 3 00 TIMES PER DAY WITH FOOD OR MILK NEEDED TAKE 1 2022-0 No 800 TABLET BY 8-15 MOUTH THREE 00:00: TIMES DAILY 00 TAKE 1 2022-0 No 600 TABLET (600 8-15 MG) BY 00:00: MOUTH 3 00 TIMES PER DAY WITH FOOD OR MILK NEEDED &lt 2022-0 No 8-12 00:00: 00 &lt 2022-0 No 800 8 00:00: 00 TAKE 1 2-0 No 10 TABLET (10 8-12 MG) BY 00:00: MOUTH DAILY 00 &lt 2022-0 No 20 8 00:00: 00 TAKE 1 2-0 No TABLET BY 8-12 MOUTH TWICE 00:00: DAILY 00 &lt 2022-0 No 250 01-29 00:00: 00 Dose 2022-0 No 600 Unknown 01-29 00:00: 00 INHALE 1 2-0 No PUFF BY 8-12 MOUTH FOUR 00:00: TIMES DAILY 00 &lt 2022-0 No 01-29 00:00: 00 &lt 2022-0 No 800 01-29 00:00: 00 TAKE 1 2-0 No 10 TABLET (10 8-12 MG) BY 00:00: MOUTH DAILY 00 &lt 2022-0 No 20 01-29 00:00: 00 TAKE 1 2-0 No TABLET BY 8-12 MOUTH TWICE 00:00: DAILY 00 &lt 2022-0 No 250 01-29 00:00: 00 Dose 2022-0 No 600 Unknown 01-29 00:00: 00 INHALE 1 2022-0 No PUFF BY 8-12 MOUTH FOUR 00:00: TIMES DAILY 00 &lt 2022-0 No 8- 00:00: 00 &lt 2022-0 No 800 01-29 00:00: 00 TAKE 1 2-0 No 10 TABLET (10 8-12 MG) BY 00:00: MOUTH DAILY 00 &lt 2022-0 No 20 01-29 00:00: 00 TAKE 1 2-0 No TABLET BY 8-12 MOUTH TWICE 00:00: DAILY 00 &lt 2022-0 No 250 01-29 00:00: 00 Dose 2022-0 No 600 Unknown 01-29 00:00: 00 INHALE 1 2-0 No PUFF BY 8-12 MOUTH FOUR 00:00: TIMES DAILY 00 &lt 2022-0 No 8- 00:00: 00 &lt 2022-0 No 800 01-29 00:00: 00 TAKE 1 2022-0 No 10 TABLET (10 8-12 MG) BY 00:00: MOUTH DAILY 00 &lt 2022-0 No 20 8 00:00: 00 TAKE 1 2022-0 No TABLET BY 8-12 MOUTH TWICE 00:00: DAILY 00 &lt 2022-0 No 250 01-29 00:00: 00 Dose 2022-0 No 600 Unknown 01-29 00:00: 00 INHALE 1 2022-0 No PUFF BY 8-12 MOUTH FOUR 00:00: TIMES DAILY 00 TAKE 1 2022-0 No 25 TABLET BY 8-11 MOUTH TWICE 00:00: DAILY 00 TAKE 1 2022-0 No 25 TABLET BY 8-11 MOUTH TWICE 00:00: DAILY 00 TAKE 1 2022-0 No 25 TABLET BY 8-11 MOUTH TWICE 00:00: DAILY 00 TAKE 1 2022-0 No 25 TABLET BY 8-11 MOUTH TWICE 00:00: DAILY 00 TAKE 1 2022-0 No 625 TABLET BY 8-10 MOUTH DAILY 00:00: 00 Dose 2022-0 No 1 Unknown 01-27 00:00: 00 Dose 2022-0 No 200 Unknown 01-27 00:00: 00 &lt 2022-0 No 500 01-27 00:00: 00 Dose 2022-0 No 800 Unknown 01-27 00:00: 00 TAKE 1 2022-0 No 625 TABLET BY 8-10 MOUTH DAILY 00:00: 00 Dose 2022-0 No 1 Unknown 01-27 00:00: 00 Dose 2022-0 No 200 Unknown 01-27 00:00: 00 &lt 2022-0 No 500 01-27 00:00: 00 Dose 2022-0 No 800 Unknown 01-27 00:00: 00 TAKE 1 2022-0 No 625 TABLET BY 8-10 MOUTH DAILY 00:00: 00 Dose 2022-0 No 1 Unknown 01-27 00:00: 00 Dose 2022-0 No 200 Unknown 01-27 00:00: 00 &lt 2022-0 No 500 8 00:00: 00 Dose 2022-0 No 800 Unknown 01-27 00:00: 00 TAKE 1 2022-0 No 625 TABLET BY 8-10 MOUTH DAILY 00:00: 00 Dose 2022-0 No 1 Unknown 01-27 00:00: 00 Dose 2022-0 No 200 Unknown 01-27 00:00: 00 &lt 2022-0 No 500 01-27 00:00: 00 Dose 2022-0 No 800 Unknown 01-27 00:00: 00 TAKE 1 2022-0 No 25 TABLET BY 8- MOUTH TWICE 00:00: DAILY 00 TAKE 1 2022-0 No TABLET BY 8- MOUTH TWICE 00:00: DAILY 00 TAKE 1 2022-0 No 225 TABLET BY 8- MOUTH DAILY 00:00: 00 Dose 2022-0 No 600 Unknown 01-26 00:00: 00 Dose 2022-0 No 250 Unknown 01-26 00:00: 00 &lt 2022-0 No 500 01-26 00:00: 00 Dose 2022-0 No 10 Unknown 01-26 00:00: 00 &lt 2022-0 No 500 01-26 00:00: 00 TAKE 1 2-0 No TABLET BY 8- MOUTH TWICE 00:00: DAILY 00 Dose 2022-0 No 600 Unknown 01-26 00:00: 00 TAKE 1 2-0 No 25 TABLET BY 01-26 MOUTH TWICE 00:00: DAILY 00 TAKE 1 2-0 No TABLET BY 01-26 MOUTH TWICE 00:00: DAILY 00 TAKE 1 2022-0 No 225 TABLET BY 8- MOUTH DAILY 00:00: 00 Dose 2022-0 No 600 Unknown 01-26 00:00: 00 Dose 2022-0 No 250 Unknown 01-26 00:00: 00 &lt 2022-0 No 500 01-26 00:00: 00 Dose 2022-0 No 10 Unknown 01-26 00:00: 00 &lt 2022-0 No 500 01-26 00:00: 00 TAKE 1 2-0 No TABLET BY 8- MOUTH TWICE 00:00: DAILY 00 Dose 2022-0 No 600 Unknown 01-26 00:00: 00 TAKE 1 2022-0 No 25 TABLET BY 8- MOUTH TWICE 00:00: DAILY 00 TAKE 1 2022-0 No TABLET BY 8- MOUTH TWICE 00:00: DAILY 00 TAKE 1 2022-0 No 225 TABLET BY 8- MOUTH DAILY 00:00: 00 Dose 2022-0 No 600 Unknown 01-26 00:00: 00 Dose 2022-0 No 250 Unknown 01-26 00:00: 00 &lt 2022-0 No 500 01-26 00:00: 00 Dose 2022-0 No 10 Unknown 01-26 00:00: 00 &lt 2022-0 No 500 01-26 00:00: 00 TAKE 1 2022-0 No TABLET BY 01-26 MOUTH TWICE 00:00: DAILY 00 Dose 2022-0 No 600 Unknown 01-26 00:00: 00 TAKE 1 2022-0 No 25 TABLET BY 01-26 MOUTH TWICE 00:00: DAILY 00 TAKE 1 2022-0 No TABLET BY 01-26 MOUTH TWICE 00:00: DAILY 00 TAKE 1 2022-0 No 225 TABLET BY 01-26 MOUTH DAILY 00:00: 00 Dose 2022-0 No 600 Unknown 01-26 00:00: 00 Dose 2022-0 No 250 Unknown 01-26 00:00: 00 &lt 2022-0 No 500 01-26 00:00: 00 Dose 2022-0 No 10 Unknown 01-26 00:00: 00 &lt 2022-0 No 500 01-26 00:00: 00 TAKE 1 2022-0 No TABLET BY 01-26 MOUTH TWICE 00:00: DAILY 00 Dose 2022-0 No 600 Unknown 01-26 00:00: 00 TAKE 1 2022-0 No 5 TABLET BY - MOUTH TWICE 00:00: DAILY 00 Dose 2022-0 No 800 Unknown 01-25 00:00: 00 TAKE 1 2022-0 No TABLET BY - MOUTH TWICE 00:00: DAILY 00 Dose 2022-0 No 600 Unknown 01-25 00:00: 00 TAKE 1 2022-0 No 5 TABLET BY - MOUTH TWICE 00:00: DAILY 00 Dose 2022-0 No 800 Unknown 01-25 00:00: 00 TAKE 1 2022-0 No TABLET BY - MOUTH TWICE 00:00: DAILY 00 Dose 2022-0 No 600 Unknown 01-25 00:00: 00 TAKE 1 2022-0 No 5 TABLET BY - MOUTH TWICE 00:00: DAILY 00 Dose 2022-0 No 800 Unknown 01-25 00:00: 00 TAKE 1 2022-0 No TABLET BY - MOUTH TWICE 00:00: DAILY 00 Dose 2022-0 No 600 Unknown 01-25 00:00: 00 TAKE 1 2022-0 No 5 TABLET BY 8-08 MOUTH TWICE 00:00: DAILY 00 Dose 2022-0 No 800 Unknown 01-25 00:00: 00 TAKE 1 2022-0 No TABLET BY 8-08 MOUTH TWICE 00:00: DAILY 00 Dose 2022-0 No 600 Unknown 01-25 00:00: 00 &lt 2022-0 No 500 8-05 00:00: 00 TAKE 1 2022-0 No 250 TABLET BY 8-05 MOUTH AT 00:00: BEDTIME. 00 ADD TO THE NIGHTLY DOSE FOR A TOTAL OF 750MG. &lt 2022-0 No 800 8-05 00:00: 00 &lt 2022-0 No 500 8-05 00:00: 00 TAKE 1 2022-0 No 250 TABLET BY 8-05 MOUTH AT 00:00: BEDTIME. 00 ADD TO THE NIGHTLY DOSE FOR A TOTAL OF 750MG. &lt 2022-0 No 800 8-05 00:00: 00 &lt 2022-0 No 500 8-05 00:00: 00 TAKE 1 2-0 No 250 TABLET BY 8-05 MOUTH AT 00:00: BEDTIME. 00 ADD TO THE NIGHTLY DOSE FOR A TOTAL OF 750MG. &lt 2022-0 No 800 8-05 00:00: 00 &lt 2022-0 No 500 8-05 00:00: 00 TAKE 1 2-0 No 250 TABLET BY 8-05 MOUTH AT 00:00: BEDTIME. 00 ADD TO THE NIGHTLY DOSE FOR A TOTAL OF 750MG. &lt 2022-0 No 800 8-05 00:00: 00 &lt 2022-0 No 250 7-27 00:00: 00 &lt 2022-0 No 250 7-27 00:00: 00 &lt 2022-0 No 250 7-27 00:00: 00 &lt 2022-0 No 250 7-27 00:00: 00 &lt 2022-0 No 800 7- 00:00: 00 TAKE 1 2022-0 No TABLET BY 7-26 MOUTH EVERY 00:00: 6 HOURS 00 NEEDED &lt 2022-0 No 800 7- 00:00: 00 TAKE 1 2022-0 No TABLET BY 7-26 MOUTH EVERY 00:00: 6 HOURS 00 NEEDED &lt 2022-0 No 800 7- 00:00: 00 TAKE 1 2022-0 No TABLET BY 7-26 MOUTH EVERY 00:00: 6 HOURS 00 NEEDED &lt 2022-0 No 800 01-12 00:00: 00 TAKE 1 2022-0 No TABLET BY 7-26 MOUTH EVERY 00:00: 6 HOURS 00 NEEDED &lt 2022-0 No 250 18 00:00: 00 TAKE 1 2022-0 No 800 TABLET BY 7-18 MOUTH EVERY 00:00: 8 HOURS 00 NEEDED FOR PAIN. TAKE WITH FOOD &lt 2022-0 No 250 18 00:00: 00 TAKE 1 2022-0 No 800 TABLET BY 7-18 MOUTH EVERY 00:00: 8 HOURS 00 NEEDED FOR PAIN. TAKE WITH FOOD &lt 2022-0 No 250 18 00:00: 00 TAKE 1 2022-0 No 800 TABLET BY 7-18 MOUTH EVERY 00:00: 8 HOURS 00 NEEDED FOR PAIN. TAKE WITH FOOD &lt 2022-0 No 250 18 00:00: 00 TAKE 1 2022-0 No 800 TABLET BY 7-18 MOUTH EVERY 00:00: 8 HOURS 00 NEEDED FOR PAIN. TAKE WITH FOOD &lt 2022-0 No 25 7-15 00:00: 00 &lt 2022-0 No 25 715 00:00: 00 &lt 2022-0 No 25 715 00:00: 00 &lt 2022-0 No 25 715 00:00: 00 TAKE 1 2022-0 No 225 TABLET BY 7-13 MOUTH DAILY 00:00: 00 &lt 2022-0 No 800 12-30 00:00: 00 &lt 2022-0 No 500 12-30 00:00: 00 Dose 2022-0 No 200 Unknown 12-30 00:00: 00 TAKE 1 2022-0 No TABLET BY 7-13 MOUTH TWICE 00:00: DAILY 00 &lt 2022-0 No 250 12-30 00:00: 00 TAKE 1 2022-0 No 800 TABLET BY 7-13 MOUTH EVERY 00:00: 8 HOURS 00 NEEDED FOR PAIN. TAKE WITH FOOD TAKE 1 2-0 No 10 TABLET (10 7-13 MG) BY 00:00: MOUTH DAILY 00 Dose 2022-0 No 25 Unknown 12-30 00:00: 00 Dose 2022-0 No 25 Unknown 12-30 00:00: 00 TAKE 1 2022-0 No 225 TABLET BY 7-13 MOUTH DAILY 00:00: 00 TAKE 1 2-0 No 1 TABLET BY 7-13 MOUTH TWICE 00:00: DAILY 30 00 MINUTES BEFORE BREAKFAST AND DINNER TAKE 1 2-0 No 800 TABLET (800 7-13 MG) BY 00:00: MOUTH 3 00 TIMES PER DAY WITH FOOD OR MILK NEEDED TAKE 1 2-0 No 250 TABLET BY 7-13 MOUTH AT 00:00: BEDTIME. 00 ADD TO THE NIGHTLY DOSE FOR A TOTAL OF 750MG. &lt 2022-0 No 20 12-30 00:00: 00 Dose 2022-0 No 100 Unknown 12-30 00:00: 00 TAKE 1 2-0 No 20 TABLET (20 7-13 MG) BY 00:00: MOUTH DAILY 00 Dose 2-0 No Unknown 12-30 00:00: 00 TAKE 1 2-0 No 800 TABLET (800 7-13 MG) BY 00:00: MOUTH 3 00 TIMES PER DAY WITH FOOD OR MILK NEEDED &lt 2022-0 No 800 12-30 00:00: 00 Dose 2022-0 No 800 Unknown 12-30 00:00: 00 TAKE 1 2-0 No 225 TABLET BY 13 MOUTH DAILY 00:00: 00 &lt 2022-0 No 800 12-30 00:00: 00 &lt 2022-0 No 500 12-30 00:00: 00 Dose 2022-0 No 200 Unknown 12-30 00:00: 00 TAKE 1 2-0 No TABLET BY 12-30 MOUTH TWICE 00:00: DAILY 00 &lt 2022-0 No 250 12-30 00:00: 00 TAKE 1 2-0 No 800 TABLET BY -13 MOUTH EVERY 00:00: 8 HOURS 00 NEEDED FOR PAIN. TAKE WITH FOOD TAKE 1 2-0 No 10 TABLET (10 7-13 MG) BY 00:00: MOUTH DAILY 00 Dose 2022-0 No 25 Unknown 12-30 00:00: 00 Dose 2022-0 No 25 Unknown 12-30 00:00: 00 TAKE 1 2-0 No 225 TABLET BY 7-13 MOUTH DAILY 00:00: 00 TAKE 1 2-0 No 1 TABLET BY 12-30 MOUTH TWICE 00:00: DAILY 30 00 MINUTES BEFORE BREAKFAST AND DINNER TAKE 1 2022-0 No 800 TABLET (800 7-13 MG) BY 00:00: MOUTH 3 00 TIMES PER DAY WITH FOOD OR MILK NEEDED TAKE 1 2-0 No 250 TABLET BY 7-13 MOUTH AT 00:00: BEDTIME. 00 ADD TO THE NIGHTLY DOSE FOR A TOTAL OF 750MG. &lt 2022-0 No 20 12-30 00:00: 00 Dose 2022-0 No 100 Unknown 12-30 00:00: 00 TAKE 1 2-0 No 20 TABLET (20 7-13 MG) BY 00:00: MOUTH DAILY 00 Dose 2022-0 No Unknown 12-30 00:00: 00 TAKE 1 2021-0 No 800 TABLET (800 7-13 MG) BY 00:00: MOUTH 3 00 TIMES PER DAY WITH FOOD OR MILK NEEDED &lt 2022-0 No 800 12-30 00:00: 00 Dose 2022-0 No 800 Unknown 12-30 00:00: 00 TAKE 1 2-0 No 225 TABLET BY 7-13 MOUTH DAILY 00:00: 00 &lt 2022-0 No 800 12-30 00:00: 00 &lt 2022-0 No 500 12-30 00:00: 00 Dose 2022-0 No 200 Unknown 12-30 00:00: 00 TAKE 1 2-0 No TABLET BY 7 MOUTH TWICE 00:00: DAILY 00 &lt 2022-0 No 250 12-30 00:00: 00 TAKE 1 2-0 No 800 TABLET BY 7-13 MOUTH EVERY 00:00: 8 HOURS 00 NEEDED FOR PAIN. TAKE WITH FOOD TAKE 1 2021-0 No 10 TABLET (10 7-13 MG) BY 00:00: MOUTH DAILY 00 Dose 2022-0 No 25 Unknown 12-30 00:00: 00 Dose 2022-0 No 25 Unknown 12-30 00:00: 00 TAKE 1 2-0 No 225 TABLET BY 7-13 MOUTH DAILY 00:00: 00 TAKE 1 2-0 No 1 TABLET BY 7-13 MOUTH TWICE 00:00: DAILY 30 00 MINUTES BEFORE BREAKFAST AND DINNER TAKE 1 2-0 No 800 TABLET (800 7-13 MG) BY 00:00: MOUTH 3 00 TIMES PER DAY WITH FOOD OR MILK NEEDED TAKE 1 2-0 No 250 TABLET BY 7-13 MOUTH AT 00:00: BEDTIME. 00 ADD TO THE NIGHTLY DOSE FOR A TOTAL OF 750MG. &lt 2-0 No 20 12-30 00:00: 00 Dose 2022-0 No 100 Unknown 12-30 00:00: 00 TAKE 1 2-0 No 20 TABLET (20 7-13 MG) BY 00:00: MOUTH DAILY 00 Dose 2022-0 No Unknown 12-30 00:00: 00 TAKE 1 2-0 No 800 TABLET (800 7-13 MG) BY 00:00: MOUTH 3 00 TIMES PER DAY WITH FOOD OR MILK NEEDED &lt 2-0 No 800 12-30 00:00: 00 Dose 2022-0 No 800 Unknown 12-30 00:00: 00 TAKE 1 2-0 No 225 TABLET BY 7-13 MOUTH DAILY 00:00: 00 &lt 2-0 No 800 12-30 00:00: 00 &lt 2-0 No 500 12-30 00:00: 00 Dose 2-0 No 200 Unknown 12-30 00:00: 00 TAKE 1 2021-0 No TABLET BY 713 MOUTH TWICE 00:00: DAILY 00 &lt 2-0 No 250 12-30 00:00: 00 TAKE 1 2021-0 No 800 TABLET BY 7-13 MOUTH EVERY 00:00: 8 HOURS 00 NEEDED FOR PAIN. TAKE WITH FOOD TAKE 1 2021-0 No 10 TABLET (10 7-13 MG) BY 00:00: MOUTH DAILY 00 Dose 2-0 No 25 Unknown 12-30 00:00: 00 Dose 2-0 No 25 Unknown 12-30 00:00: 00 TAKE 1 2-0 No 225 TABLET BY 7-13 MOUTH DAILY 00:00: 00 TAKE 1 2021-0 No 1 TABLET BY 7-13 MOUTH TWICE 00:00: DAILY 30 00 MINUTES BEFORE BREAKFAST AND DINNER TAKE 1 2021-0 No 800 TABLET (800 7-13 MG) BY 00:00: MOUTH 3 00 TIMES PER DAY WITH FOOD OR MILK NEEDED TAKE 1 2-0 No 250 TABLET BY 7-13 MOUTH AT 00:00: BEDTIME. 00 ADD TO THE NIGHTLY DOSE FOR A TOTAL OF 750MG. &lt 2-0 No 20 12-30 00:00: 00 Dose 2022-0 No 100 Unknown 12-30 00:00: 00 TAKE 1 2-0 No 20 TABLET (20 7-13 MG) BY 00:00: MOUTH DAILY 00 Dose 2022-0 No Unknown 7 00:00: 00 TAKE 1 2022-0 No 800 TABLET (800 7-13 MG) BY 00:00: MOUTH 3 00 TIMES PER DAY WITH FOOD OR MILK NEEDED &lt 2022-0 No 800 7 00:00: 00 Dose 2022-0 No 800 Unknown 12-30 00:00: 00 TAKE 1 2022-0 No 25 TABLET BY 7-12 MOUTH TWICE 00:00: DAILY 00 &lt 2022-0 No 250 12-29 00:00: 00 Dose 2022-0 No 25 Unknown 12-29 00:00: 00 TAKE 1 2022-0 No 25 TABLET BY 7-12 MOUTH TWICE 00:00: DAILY 00 &lt 2022-0 No 250 12-29 00:00: 00 Dose 2022-0 No 25 Unknown 12-29 00:00: 00 TAKE 1 2022-0 No 25 TABLET BY 7-12 MOUTH TWICE 00:00: DAILY 00 &lt 2022-0 No 250 12-29 00:00: 00 Dose 2022-0 No 25 Unknown 12-29 00:00: 00 TAKE 1 2022-0 No 25 TABLET BY 7-12 MOUTH TWICE 00:00: DAILY 00 &lt 2022-0 No 250 12-29 00:00: 00 Dose 2022-0 No 25 Unknown 12-29 00:00: 00 &lt 2022-0 No 25 7 00:00: 00 &lt 2022-0 No 25 7 00:00: 00 &lt 2022-0 No 25 7- 00:00: 00 &lt 2022-0 No 25 7- 00:00: 00 Dose 2022-0 No Unknown 12-22 00:00: 00 TAKE 1 2022-0 No TABLET AT 7-05 BEDTIME. 00:00: 00 TAKE 1 2022-0 No TABLET 3 7-05 TIMES 00:00: DAILY. 00 TAKE 1 2022-0 No TABLET AT 7-05 BEDTIME. 00:00: 00 &lt 2022-0 No 250 7-05 00:00: 00 TAKE 1 2022-0 No 225 TABLET BY 7-05 MOUTH DAILY 00:00: 00 &lt 2022-0 No 500 7-05 00:00: 00 TAKE 1 2022-0 No 800 TABLET BY 7-05 MOUTH THREE 00:00: TIMES DAILY 00 Dose 2022-0 No 500 Unknown 7-05 00:00: 00 TAKE 1 2022-0 No 20 TABLET (20 7-05 MG) BY 00:00: MOUTH DAILY 00 Dose 2022-0 No Unknown 7-05 00:00: 00 TAKE 1 2022-0 No TABLET AT 7-05 BEDTIME. 00:00: 00 TAKE 1 2022-0 No TABLET 3 7-05 TIMES 00:00: DAILY. 00 TAKE 1 2022-0 No TABLET AT 7-05 BEDTIME. 00:00: 00 &lt 2022-0 No 250 7-05 00:00: 00 TAKE 1 2022-0 No 225 TABLET BY 7-05 MOUTH DAILY 00:00: 00 &lt 2022-0 No 500 7-05 00:00: 00 TAKE 1 2022-0 No 800 TABLET BY 7-05 MOUTH THREE 00:00: TIMES DAILY 00 Dose 2022-0 No 500 Unknown 7-05 00:00: 00 TAKE 1 2-0 No 20 TABLET (20 7-05 MG) BY 00:00: MOUTH DAILY 00 venlafaxine 2022-0 No 1mg ER 225 mg 7-05 tablet,exte 00:00: nded 00 release 24 hr Depakote 2022-0 No 1mg 500 mg 7-05 tablet,mike 00:00: yed release 00 gabapentin 2022-0 No 1mg 800 mg 7-05 tablet 00:00: 00 Depakote 2022-0 No 1mg 250 mg 7-05 tablet,mike 00:00: yed release 00 &lt 2022-0 No 250 7-05 00:00: 00 TAKE 1 2022-0 No 225 TABLET BY 7-05 MOUTH DAILY 00:00: 00 &lt 2022-0 No 500 7-05 00:00: 00 TAKE 1 2022-0 No 800 TABLET BY 7-05 MOUTH THREE 00:00: TIMES DAILY 00 Dose 2022-0 No 500 Unknown 7-05 00:00: 00 TAKE 1 2022-0 No 20 TABLET (20 7-05 MG) BY 00:00: MOUTH DAILY 00 venlafaxine 2022-0 No 1mg ER 225 mg 7-05 tablet,exte 00:00: nded 00 release 24 hr Depakote 2022-0 No 1mg 500 mg 7-05 tablet,mike 00:00: yed release 00 gabapentin 2022-0 No 1mg 800 mg 7-05 tablet 00:00: 00 Depakote 2-0 No 1mg 250 mg 7-05 tablet,mike 00:00: yed release 00 &lt 2022-0 No 250 7-05 00:00: 00 TAKE 1 2-0 No 225 TABLET BY 7-05 MOUTH DAILY 00:00: 00 &lt 2022-0 No 500 7-05 00:00: 00 TAKE 1 2-0 No 800 TABLET BY 7-05 MOUTH THREE 00:00: TIMES DAILY 00 Dose 2-0 No 500 Unknown 7-05 00:00: 00 TAKE 1 2-0 No 20 TABLET (20 7-05 MG) BY 00:00: MOUTH DAILY 00 TAKE 1 2-0 No TABLET (20 6-21 MG) BY 00:00: MOUTH DAILY 00 TAKE 1 2-0 No CAPSULE 6-21 (100 MG) BY 00:00: MOUTH DAILY 00 NEEDED TAKE 1 2021-0 No TABLET (20 6-21 MG) BY 00:00: MOUTH DAILY 00 TAKE 1 2-0 No CAPSULE 6-21 (100 MG) BY 00:00: MOUTH DAILY 00 NEEDED TAKE 1 2-0 No TABLET (20 6-21 MG) BY 00:00: MOUTH DAILY 00 TAKE 1 2-0 No CAPSULE 6-21 (100 MG) BY 00:00: MOUTH DAILY 00 NEEDED TAKE 1 2-0 No TABLET (20 6-21 MG) BY 00:00: MOUTH DAILY 00 TAKE 1 2-0 No CAPSULE 6-21 (100 MG) BY 00:00: MOUTH DAILY 00 NEEDED lisinopril 2-0 No 1mg 20 mg 6-17 tablet 00:00: 00 Dose 2-0 No Unknown 6-17 00:00: 00 atorvastati 2-0 No 1mg n 80 mg 6-17 tablet 00:00: 00 Dose 2-0 No Unknown 6-17 00:00: 00 &lt 2022-0 No 6-17 00:00: 00 TAKE 1 2-0 No TABLET BY 6-17 MOUTH DAILY 00:00: 00 TAKE 1 2-0 No TABLET (600 6-17 MG) BY 00:00: MOUTH 3 00 TIMES PER DAY WITH FOOD OR MILK NEEDED TAKE 1 2-0 No TABLET BY 6-17 MOUTH TWICE 00:00: DAILY 00 TAKE 1 2-0 No TABLET BY 6-17 MOUTH TWICE 00:00: DAILY 00 TAKE 1 2-0 No TABLET (600 6-17 MG) BY 00:00: MOUTH 3 00 TIMES PER DAY WITH FOOD OR MILK NEEDED &lt 2022-0 No 6-17 00:00: 00 &lt 2022-0 No 6-17 00:00: 00 &lt 2022-0 No 6-17 00:00: 00 &lt 2022-0 No 6-17 00:00: 00 &lt 2022-0 No 6-17 00:00: 00 TAKE 1 2021-0 No TABLET (10 6-17 MG) BY 00:00: MOUTH DAILY 00 TAKE 1 2-0 No TABLET BY 6-17 MOUTH AT 00:00: BEDTIME. 00 ADD TO THE NIGHTLY DOSE FOR A TOTAL OF 750MG. TAKE 1 2021-0 No TABLET BY 6-17 MOUTH EVERY 00:00: DAY 00 1 TABLET 2021-0 No ORALLY 6-17 EVERY 6 00:00: HOURS 00 NEEDED &lt 2022-0 No 6-17 00:00: 00 &lt 2022-0 No 6-17 00:00: 00 TAKE 1 2021-0 No TABLET (800 6-17 MG) BY 00:00: MOUTH 3 00 TIMES PER DAY WITH FOOD OR MILK NEEDED lisinopril 2-0 No 1mg 20 mg 6-17 tablet 00:00: 00 Dose 2-0 No Unknown 6-17 00:00: 00 atorvastati 2-0 No 1mg n 80 mg 6-17 tablet 00:00: 00 Dose 2-0 No Unknown 6-17 00:00: 00 &lt 2022-0 No 6-17 00:00: 00 TAKE 1 2-0 No TABLET BY 6-17 MOUTH DAILY 00:00: 00 TAKE 1 2021-0 No TABLET (600 6-17 MG) BY 00:00: MOUTH 3 00 TIMES PER DAY WITH FOOD OR MILK NEEDED TAKE 1 2-0 No TABLET BY 6-17 MOUTH TWICE 00:00: DAILY 00 TAKE 1 2-0 No TABLET BY 6-17 MOUTH TWICE 00:00: DAILY 00 TAKE 1 2-0 No TABLET (600 6-17 MG) BY 00:00: MOUTH 3 00 TIMES PER DAY WITH FOOD OR MILK NEEDED &lt 2022-0 No 6-17 00:00: 00 &lt 2022-0 No 6-17 00:00: 00 &lt 2022-0 No 6-17 00:00: 00 &lt 2022-0 No 6-17 00:00: 00 &lt 2022-0 No 6-17 00:00: 00 TAKE 1 2-0 No TABLET (10 6-17 MG) BY 00:00: MOUTH DAILY 00 TAKE 1 2-0 No TABLET BY 6-17 MOUTH AT 00:00: BEDTIME. 00 ADD TO THE NIGHTLY DOSE FOR A TOTAL OF 750MG. TAKE 1 2021-0 No TABLET BY 6-17 MOUTH EVERY 00:00: DAY 00 1 TABLET 2-0 No ORALLY 6-17 EVERY 6 00:00: HOURS 00 NEEDED &lt 2022-0 No 6-17 00:00: 00 &lt 2022-0 No 6-17 00:00: 00 TAKE 1 2021-0 No TABLET (800 6-17 MG) BY 00:00: MOUTH 3 00 TIMES PER DAY WITH FOOD OR MILK NEEDED lisinopril 2-0 No 1mg 20 mg 6-17 tablet 00:00: 00 glimepiride 2-0 No 1mg 1 mg tablet 17 00:00: 00 atorvastati 2-0 No 1mg n 80 mg 6-17 tablet 00:00: 00 Dose 2-0 No Unknown 17 00:00: 00 &lt 2022-0 No 6-17 00:00: 00 TAKE 1 2-0 No TABLET BY 6-17 MOUTH DAILY 00:00: 00 TAKE 1 2-0 No TABLET (600 6-17 MG) BY 00:00: MOUTH 3 00 TIMES PER DAY WITH FOOD OR MILK NEEDED TAKE 1 2-0 No TABLET BY 6-17 MOUTH TWICE 00:00: DAILY 00 TAKE 1 2-0 No TABLET BY 6-17 MOUTH TWICE 00:00: DAILY 00 TAKE 1 2-0 No TABLET (600 6-17 MG) BY 00:00: MOUTH 3 00 TIMES PER DAY WITH FOOD OR MILK NEEDED &lt 2-0 No 6-17 00:00: 00 &lt 2022-0 No 6-17 00:00: 00 &lt 2022-0 No 6-17 00:00: 00 &lt 2022-0 No 6-17 00:00: 00 &lt 2022-0 No 6-17 00:00: 00 TAKE 1 2-0 No TABLET (10 6-17 MG) BY 00:00: MOUTH DAILY 00 TAKE 1 2-0 No TABLET BY 6-17 MOUTH AT 00:00: BEDTIME. 00 ADD TO THE NIGHTLY DOSE FOR A TOTAL OF 750MG. TAKE 1 2-0 No TABLET BY 6-17 MOUTH EVERY 00:00: DAY 00 1 TABLET 2022-0 No ORALLY 6-17 EVERY 6 00:00: HOURS 00 NEEDED &lt 2022-0 No 6-17 00:00: 00 &lt 2022-0 No 6-17 00:00: 00 TAKE 1 2-0 No TABLET (800 6-17 MG) BY 00:00: MOUTH 3 00 TIMES PER DAY WITH FOOD OR MILK NEEDED lisinopril 2-0 No 1mg 20 mg 6-17 tablet 00:00: 00 glimepiride 2-0 No 1mg 1 mg tablet 617 00:00: 00 atorvastati 2-0 No 1mg n 80 mg 6-17 tablet 00:00: 00 Dose 2022-0 No Unknown 6-17 00:00: 00 &lt 2022-0 No 6-17 00:00: 00 TAKE 1 2-0 No TABLET BY 6-17 MOUTH DAILY 00:00: 00 TAKE 1 2-0 No TABLET (600 6-17 MG) BY 00:00: MOUTH 3 00 TIMES PER DAY WITH FOOD OR MILK NEEDED TAKE 1 2-0 No TABLET BY 6-17 MOUTH TWICE 00:00: DAILY 00 TAKE 1 2-0 No TABLET BY 6-17 MOUTH TWICE 00:00: DAILY 00 TAKE 1 2-0 No TABLET (600 6-17 MG) BY 00:00: MOUTH 3 00 TIMES PER DAY WITH FOOD OR MILK NEEDED &lt 2022-0 No 6-17 00:00: 00 &lt 2022-0 No 6-17 00:00: 00 &lt 2022-0 No 6-17 00:00: 00 &lt 2022-0 No 6-17 00:00: 00 &lt 2022-0 No 6-17 00:00: 00 TAKE 1 2021-0 No TABLET (10 6-17 MG) BY 00:00: MOUTH DAILY 00 TAKE 1 2021-0 No TABLET BY 6-17 MOUTH AT 00:00: BEDTIME. 00 ADD TO THE NIGHTLY DOSE FOR A TOTAL OF 750MG. TAKE 1 2-0 No TABLET BY 6-17 MOUTH EVERY 00:00: DAY 00 1 TABLET 2-0 No ORALLY 6-17 EVERY 6 00:00: HOURS 00 NEEDED &lt 2022-0 No 6-17 00:00: 00 &lt 2022-0 No 6-17 00:00: 00 TAKE 1 2021-0 No TABLET (800 6-17 MG) BY 00:00: MOUTH 3 00 TIMES PER DAY WITH FOOD OR MILK NEEDED Faustnioalog Kenalog 2021-0 No 40mg Common (Triamcinol (Triamcinol 6-13 S pirit one) one) 00:00: - [facility] 00 [facility] Bupivicaine Bupivicaine 2-0 No 2.5mg [place] 6[place]13 Spirit 00:00: - [facility] 00 [facility] Kenalog Kenalog 2-0 No 40mg Common (Triamcinol (Triamcinol 6-13 S pirit one) one) 00:00: - [facility] 00 [facility] Bupivicaine Bupivicaine 2-0 No 2.5mg Common [place] 6-13 Spirit 00:00: - [facility] 00 [facility] Bupivicaine Bupivicaine 2-0 No 2.5mg Common [place] 6-13 Spirit 00:00: - [facility] 00 [facility] Kenalog Kenalog 2-0 No 40mg Common (Triamcinol (Triamcinol 6-13 S pirit one) one) 00:00: - [facility] 00 [facility] Kenalog Kenalog 2-0 No 40mg Common (Triamcinol (Triamcinol 6-13 S pirit one) one) 00:00: - [facility] 00 [facility] Bupivicaine Bupivicaine 2-0 No 2.5mg Common [place] 6-13 Spirit 00:00: - [facility] 00 [facility] venlafaxine 2022-0 No 1mg ER 225 mg 6-07 tablet,exte 00:00: nded 00 release 24 hr Depakote 2022-0 No 1mg 500 mg 6-07 tablet,mike 00:00: yed release 00 gabapentin 2022-0 No 1mg 800 mg 6-07 tablet 00:00: 00 Depakote 2022-0 No 1mg 250 mg 6-07 tablet,mike 00:00: yed release 00 &lt 2022-0 No 6-07 00:00: 00 &lt 2022-0 No 6-07 00:00: 00 &lt 2022-0 No 6-07 00:00: 00 TAKE 1 2022-0 No TABLET BY 6-07 MOUTH EVERY 00:00: 8 HOURS 00 NEEDED TAKE 1 2-0 No TABLET BY 6-07 MOUTH TWICE 00:00: DAILY 00 TAKE 1 2-0 No CAPSULE(S) 6-07 1 TIME A 00:00: DAY 00 TAKE 1 2-0 No TABLET BY 6-07 MOUTH EVERY 00:00: 6 HOURS 00 NEEDED USE 1 2022-0 No APPLICATION 6-07 TOPICALLY 00:00: TO AFFECTED 00 AREA 3 TIMES PER DAY NEEDED TAKE 1 2-0 No TABLET BY 6-07 MOUTH TWICE 00:00: DAILY 00 &lt 2022-0 No 6-07 00:00: 00 venlafaxine 2022-0 No 1mg ER 225 mg 6-07 tablet,exte 00:00: nded 00 release 24 hr Depakote 2022-0 No 1mg 500 mg 6-07 tablet,mike 00:00: yed release 00 gabapentin 2022-0 No 1mg 800 mg 6-07 tablet 00:00: 00 Depakote 2022-0 No 1mg 250 mg 6-07 tablet,mike 00:00: yed release 00 &lt 2022-0 No 6-07 00:00: 00 &lt 2022-0 No 6-07 00:00: 00 &lt 2022-0 No 6-07 00:00: 00 TAKE 1 2-0 No TABLET BY 6-07 MOUTH EVERY 00:00: 8 HOURS 00 NEEDED TAKE 1 2-0 No TABLET BY 6-07 MOUTH TWICE 00:00: DAILY 00 TAKE 1 2-0 No CAPSULE(S) 6-07 1 TIME A 00:00: DAY 00 TAKE 1 2022-0 No TABLET BY 6-07 MOUTH EVERY 00:00: 6 HOURS 00 NEEDED USE 1 2022-0 No APPLICATION 6-07 TOPICALLY 00:00: TO AFFECTED 00 AREA 3 TIMES PER DAY NEEDED TAKE 1 2022-0 No TABLET BY 6-07 MOUTH TWICE 00:00: DAILY 00 &lt 2022-0 No 6-07 00:00: 00 venlafaxine 2022-0 No 1mg ER 225 mg 6-07 tablet,exte 00:00: nded 00 release 24 hr Depakote 2022-0 No 1mg 500 mg 6-07 tablet,mike 00:00: yed release 00 gabapentin 2022-0 No 1mg 800 mg 6-07 tablet 00:00: 00 Depakote 2022-0 No 1mg 250 mg 6-07 tablet,mike 00:00: yed release 00 &lt 2022-0 No 6-07 00:00: 00 &lt 2022-0 No 6-07 00:00: 00 &lt 2022-0 No 6-07 00:00: 00 TAKE 1 2022-0 No TABLET BY 6-07 MOUTH EVERY 00:00: 8 HOURS 00 NEEDED TAKE 1 2-0 No TABLET BY 6-07 MOUTH TWICE 00:00: DAILY 00 TAKE 1 2-0 No CAPSULE(S) 6-07 1 TIME A 00:00: DAY 00 TAKE 1 2-0 No TABLET BY 6-07 MOUTH EVERY 00:00: 6 HOURS 00 NEEDED USE 1 2-0 No APPLICATION 6-07 TOPICALLY 00:00: TO AFFECTED 00 AREA 3 TIMES PER DAY NEEDED TAKE 1 2022-0 No TABLET BY 6-07 MOUTH TWICE 00:00: DAILY 00 &lt 2022-0 No 6-07 00:00: 00 venlafaxine 2022-0 No 1mg ER 225 mg 6-07 tablet,exte 00:00: nded 00 release 24 hr Depakote 2022-0 No 1mg 500 mg 6-07 tablet,mike 00:00: yed release 00 gabapentin 2022-0 No 1mg 800 mg 6-07 tablet 00:00: 00 Depakote 2022-0 No 1mg 250 mg 6-07 tablet,mike 00:00: yed release 00 &lt 2022-0 No 6-07 00:00: 00 &lt 2022-0 No 6-07 00:00: 00 &lt 2022-0 No 6-07 00:00: 00 TAKE 1 2022-0 No TABLET BY 6-07 MOUTH EVERY 00:00: 8 HOURS 00 NEEDED TAKE 1 2022-0 No TABLET BY 6-07 MOUTH TWICE 00:00: DAILY 00 TAKE 1 2022-0 No CAPSULE(S) -07 1 TIME A 00:00: DAY 00 TAKE 1 2022-0 No TABLET BY 6-07 MOUTH EVERY 00:00: 6 HOURS 00 NEEDED USE 1 2022-0 No APPLICATION - TOPICALLY 00:00: TO AFFECTED 00 AREA 3 TIMES PER DAY NEEDED TAKE 1 2022-0 No TABLET BY 6-07 MOUTH TWICE 00:00: DAILY 00 &lt 2022-0 No 6-07 00:00: 00 venlafaxine 2022-0 No 1mg ER 225 mg 5-03 tablet,exte 00:00: nded 00 release 24 hr Depakote 2022-0 No 1mg 500 mg 5-03 tablet,mike 00:00: yed release 00 gabapentin 2022-0 No 1mg 800 mg 5-03 tablet 00:00: 00 Depakote 2022-0 No 1mg 250 mg 5-03 tablet,mike 00:00: yed release 00 venlafaxine 2022-0 No 1mg ER 225 mg 5-03 tablet,exte 00:00: nded 00 release 24 hr Depakote 2022-0 No 1mg 500 mg 5-03 tablet,mike 00:00: yed release 00 gabapentin 2022-0 No 1mg 800 mg 5-03 tablet 00:00: 00 Depakote 2022-0 No 1mg 250 mg 5-03 tablet,mike 00:00: yed release 00 venlafaxine 2022-0 No 1mg ER 225 mg 5-03 tablet,exte 00:00: nded 00 release 24 hr Depakote 2022-0 No 1mg 500 mg 5-03 tablet,mike 00:00: yed release 00 gabapentin 2022-0 No 1mg 800 mg 5-03 tablet 00:00: 00 Depakote 2022-0 No 1mg 250 mg 5-03 tablet,mike 00:00: yed release 00 venlafaxine 2-0 No 1mg ER 225 mg 5-03 tablet,exte 00:00: nded 00 release 24 hr Depakote 2-0 No 1mg 500 mg 5-03 tablet,mike 00:00: yed release 00 gabapentin 2-0 No 1mg 800 mg 5-03 tablet 00:00: 00 Depakote 2022-0 No 1mg 250 mg 5-03 tablet,mike 00:00: yed release 00 Combivent 2-0 No 1mcg/ac Respimat 20 5-02 tuation mcg-100 00:00: mcg/actuati 00 on solution for inhalation Combivent 2-0 No 1mcg/ac Respimat 20 5-02 tuation mcg-100 00:00: mcg/actuati 00 on solution for inhalation Combivent 2-0 No 1mcg/ac Respimat 20 5-02 tuation mcg-100 00:00: mcg/actuati 00 on solution for inhalation Combivent 2-0 No 1mcg/ac Respimat 20 5-02 tuation mcg-100 00:00: mcg/actuati 00 on solution for inhalation lidocaine 4 2-0 No 1% % topical 4-22 patch 00:00: 00 Dose 2-0 No Unknown 4-22 00:00: 00 Dose 2-0 No Unknown 4-22 00:00: 00 Dose 2-0 No Unknown 4-22 00:00: 00 Dose 2-0 No Unknown 4-22 00:00: 00 lidocaine 4 2-0 No 1% % topical 4-22 patch 00:00: 00 Dose 2022-0 No Unknown 4-22 00:00: 00 Dose 2022-0 No Unknown 4-22 00:00: 00 Dose 2022-0 No Unknown 4-22 00:00: 00 Dose 2-0 No Unknown 4-22 00:00: 00 lidocaine 4 2-0 No 1% % topical 4-22 patch 00:00: 00 Dose 2-0 No Unknown 4-22 00:00: 00 Dose 2022-0 No Unknown 4-22 00:00: 00 Dose 2-0 No Unknown 4-22 00:00: 00 Dose 2-0 No Unknown 4-22 00:00: 00 lidocaine 4 2-0 No 1% % topical 4-22 patch 00:00: 00 Dose 2022-0 No Unknown 4-22 00:00: 00 Dose 2022-0 No Unknown 4-22 00:00: 00 Dose 2022-0 No Unknown 4-22 00:00: 00 Dose 2022-0 No Unknown 4-22 00:00: 00 Dose 2022-0 No Unknown 4-08 00:00: 00 buspirone 5 2-0 No 1mg mg tablet 4-08 00:00: 00 Dose 2022-0 No Unknown 4-08 00:00: 00 Dose 2022-0 No Unknown 4-08 00:00: 00 Dose 2-0 No Unknown 4-08 00:00: 00 Dose 2022-0 No Unknown 4-08 00:00: 00 buspirone 5 2-0 No 1mg mg tablet 4-08 00:00: 00 Dose 2022-0 No Unknown 4-08 00:00: 00 Dose 2022-0 No Unknown 4-08 00:00: 00 Dose 2022-0 No Unknown 4-08 00:00: 00 Dose 2022-0 No Unknown 4-08 00:00: 00 buspirone 5 2-0 No 1mg mg tablet 4-08 00:00: 00 Dose 2-0 No Unknown 4-08 00:00: 00 Dose 2022-0 No Unknown 4-08 00:00: 00 Dose 2022-0 No Unknown 4-08 00:00: 00 Dose 2022-0 No Unknown 4-08 00:00: 00 buspirone 5 2-0 No 1mg mg tablet 4-08 00:00: 00 Dose 2022-0 No Unknown 4-08 00:00: 00 Dose 2022-0 No Unknown 4-08 00:00: 00 Dose 2022-0 No Unknown 4-08 00:00: 00 Dose 2022-0 No Unknown 3-23 00:00: 00 Dose 2-0 No Unknown 3-23 00:00: 00 Dose 2022-0 No Unknown 3-23 00:00: 00 Dose 2022-0 No Unknown 3-23 00:00: 00 Dose 2022-0 No Unknown 3-22 00:00: 00 Dose 2022-0 No Unknown 3-22 00:00: 00 Dose 2022-0 No Unknown 3-22 00:00: 00 Dose 2022-0 No Unknown 3-22 00:00: 00 Dose 2022-0 No Unknown 3-22 00:00: 00 Dose 2022-0 No Unknown 3-22 00:00: 00 Dose 2022-0 No Unknown 3-22 00:00: 00 Dose 2022-0 No Unknown 3-22 00:00: 00 Dose 2022-0 No Unknown 3-22 00:00: 00 Dose 2022-0 No Unknown 3-22 00:00: 00 Dose 2022-0 No Unknown 3-22 00:00: 00 Dose 2022-0 No Unknown 3-22 00:00: 00 Dose 2022-0 No Unknown 3-22 00:00: 00 Dose 2022-0 No Unknown 3-22 00:00: 00 Dose 2022-0 No Unknown 3-22 00:00: 00 Dose 2022-0 No Unknown 3-22 00:00: 00 Dose 2022-0 No Unknown 3-22 00:00: 00 Dose 2022-0 No Unknown 3-22 00:00: 00 Dose 2022-0 No Unknown 3-22 00:00: 00 Dose 2022-0 No Unknown 3-22 00:00: 00 Dose 2022-0 No Unknown 3-17 00:00: 00 Dose 2022-0 No Unknown 3-17 00:00: 00 Dose 2022-0 No Unknown 3-17 00:00: 00 Dose 2022-0 No Unknown 3-17 00:00: 00 Dose 2022-0 No Unknown 3-09 00:00: 00 Dose 2022-0 No Unknown 3-09 00:00: 00 Dose 2022-0 No Unknown 3-09 00:00: 00 Dose 2022-0 No Unknown 3-09 00:00: 00 Dose 2022-0 No Unknown 3-09 00:00: 00 Dose 2022-0 No Unknown 3-09 00:00: 00 Dose 2022-0 No Unknown 3-09 00:00: 00 Dose 2022-0 No Unknown 3-09 00:00: 00 Dose 2022-0 No Unknown 3-09 00:00: 00 Dose 2022-0 No Unknown 3-09 00:00: 00 Dose 2022-0 No Unknown 3-09 00:00: 00 Dose 2022-0 No Unknown 3-09 00:00: 00 Augmentin 2022-0 No 1mg 500 mg-125 3-08 mg tablet 00:00: 00 Dose 2022-0 No Unknown 3-08 00:00: 00 Augmentin 2022-0 No 1mg 500 mg-125 3-08 mg tablet 00:00: 00 Dose 2022-0 No Unknown 3-08 00:00: 00 Augmentin 2022-0 No 1mg 500 mg-125 3-08 mg tablet 00:00: 00 Dose 2022-0 No Unknown 3-08 00:00: 00 Augmentin 2022-0 No 1mg 500 mg-125 3-08 mg tablet 00:00: 00 Dose 2022-0 No Unknown 3-08 00:00: 00 Dose 2022-0 No Unknown 2-22 00:00: 00 Dose 2022-0 No Unknown 2-22 00:00: 00 Dose 2022-0 No Unknown 2-22 00:00: 00 Dose 2022-0 No Unknown 2-22 00:00: 00 Dose 2022-0 No Unknown 2-22 00:00: 00 Dose 2022-0 No Unknown 2-22 00:00: 00 Dose 2022-0 No Unknown 2-22 00:00: 00 Dose 2022-0 No Unknown 2-22 00:00: 00 Dose 2022-0 No Unknown 2-22 00:00: 00 Dose 2022-0 No Unknown 2-22 00:00: 00 Dose 2022-0 No Unknown 2-22 00:00: 00 Dose 2022-0 No Unknown 2-22 00:00: 00 Dose 2022-0 No Unknown 2-22 00:00: 00 Dose 2022-0 No Unknown 2-22 00:00: 00 Dose 2022-0 No Unknown 2-22 00:00: 00 Dose 2022-0 No Unknown 2-22 00:00: 00 Dose 2022-0 No Unknown 2-22 00:00: 00 Dose 2022-0 No Unknown 2-22 00:00: 00 Dose 2022-0 No Unknown 2-22 00:00: 00 Dose 2022-0 No Unknown 2-22 00:00: 00 Bupivicaine Bupivicaine 2-0 No [place] [facility] 00:00: - [facility] 00 [facility] Bupivicaine Bupivicaine 2021-0 No [facility] [place] [facility] 00:00: - [facility]I 00 [facility] Deepali Kenalog 2021-0 No 40mg Common (Triamcinol (Triamcinol 2-17 S pirit one) one) 00:00: - CHI 00 [facility] Faustinoalog Kenalog 2021-0 No 40mg Common (Triamcinol (Triamcinol 2-17 S pirit one) one) 00:00: - CHI 00 [facility] Deepali Kenalog 2021-0 No 40mg Common (Triamcinol (Triamcinol 2-17 S pirit one) one) 00:00: - CHI 00 [facility] Bupivicaine Bupivicaine 2021-0 No 2.5mg [facility] [place] [facility]17 [facility] 00:00: - [facility]I 00 [facility] Bupivicaine Bupivicaine 2021-0 No 2.5mg [facility] [place] 2[facility]17 [facility] 00:00: - [facility]I 00 [facility] Deepali Kenalog 2021-0 No 40mg Common (Triamcinol (Triamcinol 2-17 S pirit one) one) 00:00: - CHI 00 [facility] Deepali Kenalog 2021-0 No 40mg Common (Triamcinol (Triamcinol 2-17 S pirit one) one) 00:00: - CHI 00 [facility] Bupivicaine Bupivicaine 2021-0 No 2.5mg [facility] [place] 2[facility]17 [facility] 00:00: - CHI 00 [facility] Bupivicaine Bupivicaine 2021-0 No 2.5mg [facility] [place] 2[facility]17 [facility] 00:00: - CHI 00 [facility] Kenalog Kenalog 2021-0 No 40mg Common (Triamcinol (Triamcinol 2-17 S pirit one) one) 00:00: - CHI 00 [facility] Kenalog Kenalog 2021-0 No 40mg Common (Triamcinol (Triamcinol 2-17 S pirit one) one) 00:00: - CHI 00 [facility] Bupivicaine Bupivicaine 2021-0 No 2.5mg [facility] [place] 2[facility]17 [facility] 00:00: - CHI 00 [facility] Bupivicaine Bupivicaine 2-0 No 2.5mg [facility] [place] 2[facility]17 [facility] 00:00: - CHI 00 [facility] Kenalog Kenalog 2-0 No 40mg Common (Triamcinol (Triamcinol 2-17 S pirit one) one) 00:00: - CHI 00 [facility] Kenalog Kenalog 2-0 No 40mg Common (Triamcinol (Triamcinol 2-17 S pirit one) one) 00:00: - CHI 00 [facility] Bupivicaine Bupivicaine 2-0 No 2.5mg [facility] [place] 2[facility]17 [facility] 00:00: - CHI 00 [facility] Bupivicaine Bupivicaine 2-0 No 2.5mg [facility] [place] 2[facility]17 [facility] 00:00: - CHI 00 [facility] Kenalog Kenalog 2-0 No 40mg Common (Triamcinol (Triamcinol 2-17 S pirit one) one) 00:00: - [facility]I 00 [facility] Dose 2022-0 No Unknown 1-12 00:00: 00 Dose 2022-0 No Unknown 1-12 00:00: 00 Dose 2022-0 No Unknown 1-12 00:00: 00 Dose 2022-0 No Unknown 1-12 00:00: 00 Dose 2022-0 No Unknown 1-06 00:00: 00 Dose 2022-0 No Unknown 1-06 00:00: 00 Dose 2022-0 No Unknown 1-06 00:00: 00 Dose 2022-0 No Unknown 1-06 00:00: 00 Dose 2022-0 No Unknown 1-06 00:00: 00 Dose 2022-0 No Unknown 1-06 00:00: 00 Dose 2022-0 No Unknown 1-06 00:00: 00 Dose 2022-0 No Unknown 1-06 00:00: 00 Dose 2022-0 No Unknown 1-06 00:00: 00 Dose 2022-0 No Unknown 1-06 00:00: 00 Dose 2022-0 No Unknown 1-06 00:00: 00 divalproex 2022-0 No 1mg 500 mg 1-06 tablet,mike 00:00: yed release 00 Dose 2022-0 No Unknown 1-06 00:00: 00 Dose 2022-0 No Unknown 1-06 00:00: 00 Dose 2022-0 No Unknown 1-06 00:00: 00 Dose 2022-0 No Unknown 1-06 00:00: 00 divalproex 2022-0 No 1mg 500 mg 1-06 tablet,mike 00:00: yed release 00 Dose 2022-0 No Unknown 1-06 00:00: 00 Dose 2022-0 No Unknown 1-06 00:00: 00 Dose 2022-0 No Unknown 1-06 00:00: 00 Advair 2020-1 No 1mcg/do Diskus 500 2-07 se mcg-50 00:00: mcg/dose 00 powder for inhalation venlafaxine 2020- No 1mg ER 225 mg 2-07 tablet,exte 00:00: nded 00 release 24 hr estradiol 2020-1 No 1mg 0.5 mg 2-07 tablet 00:00: 00 buspirone 5 2020-1 No 1mg mg tablet 2-07 00:00: 00 divalproex 2020-1 No 1mg 500 mg 2-07 tablet,mike 00:00: yed release 00 Dose 2020-1 No Unknown 2-07 00:00: 00 gabapentin 2020-1 No 1mg 800 mg 2-07 tablet 00:00: 00 Depakote 2020-1 No 1mg 250 mg 2-07 tablet,mike 00:00: yed release 00 atorvastati 2020-1 No 1mg n 80 mg 2-07 tablet 00:00: 00 Dose 2020-1 No Unknown 2-07 00:00: 00 Advair 2020-1 No 1mcg/do Diskus 500 2-07 se mcg-50 00:00: mcg/dose 00 powder for inhalation venlafaxine 2020-1 No 1mg ER 225 mg 2-07 tablet,exte 00:00: nded 00 release 24 hr estradiol 2020-1 No 1mg 0.5 mg 2-07 tablet 00:00: 00 buspirone 5 2020-1 No 1mg mg tablet 2-07 00:00: 00 divalproex 2020-1 No 1mg 500 mg 2-07 tablet,mike 00:00: yed release 00 Dose 2020- No Unknown 2-07 00:00: 00 gabapentin 2020- No 1mg 800 mg 2-07 tablet 00:00: 00 Depakote 2020-06 No 1mg 250 mg 2-07 tablet,mike 00:00: yed release 00 atorvastati 2020-06 No 1mg n 80 mg 2-07 tablet 00:00: 00 Dose 2020- No Unknown 2-07 00:00: 00 Advair 2020-06 No 1mcg/do Diskus 500 2-07 se mcg-50 00:00: mcg/dose 00 powder for inhalation venlafaxine 2020-06 No 1mg ER 225 mg 2-07 tablet,exte 00:00: nded 00 release 24 hr estradiol 2020-06 No 1mg 0.5 mg 2-07 tablet 00:00: 00 buspirone 5 2020-06 No 1mg mg tablet 2-07 00:00: 00 divalproex 2020-06 No 1mg 500 mg 2-07 tablet,mike 00:00: yed release 00 glimepiride 2020-06 No 1mg 1 mg tablet 2-07 00:00: 00 gabapentin 2020-06 No 1mg 800 mg 2-07 tablet 00:00: 00 Depakote 2020-06 No 1mg 250 mg 2-07 tablet,mike 00:00: yed release 00 atorvastati 2020-06 No 1mg n 80 mg 2-07 tablet 00:00: 00 Dose 2020- No Unknown 2-07 00:00: 00 Advair 2020-06 No 1mcg/do Diskus 500 2-07 se mcg-50 00:00: mcg/dose 00 powder for inhalation venlafaxine 2020-06 No 1mg ER 225 mg 2-07 tablet,exte 00:00: nded 00 release 24 hr estradiol 2020-06 No 1mg 0.5 mg 2-07 tablet 00:00: 00 buspirone 5 2020-06 No 1mg mg tablet 2-07 00:00: 00 divalproex 2020-06 No 1mg 500 mg 2-07 tablet,mike 00:00: yed release 00 glimepiride 2020-06 No 1mg 1 mg tablet 2-07 00:00: 00 gabapentin 2020-1 No 1mg 800 mg 2-07 tablet 00:00: 00 Depakote 2020- No 1mg 250 mg 2-07 tablet,mike 00:00: yed release 00 atorvastati 2020-06 No 1mg n 80 mg 2-07 tablet 00:00: 00 Dose 2020-1 No Unknown 2-07 00:00: 00 venlafaxine 2020- No 1mg ER 225 mg 2-01 tablet,exte 00:00: nded 00 release 24 hr divalproex 2020- No 1mg 500 mg 2-01 tablet,mike 00:00: yed release 00 buspirone 5 2020- No 1mg mg tablet 2- 00:00: 00 gabapentin 2020- No 1mg 800 mg 2-01 tablet 00:00: 00 Depakote 2020- No 1mg 250 mg 2-01 tablet,mike 00:00: yed release 00 venlafaxine 2020- No 1mg ER 225 mg 2-01 tablet,exte 00:00: nded 00 release 24 hr divalproex 2020- No 1mg 500 mg 2-01 tablet,mike 00:00: yed release 00 buspirone 5 2020- No 1mg mg tablet 2- 00:00: 00 gabapentin 2020-1 No 1mg 800 mg 2-01 tablet 00:00: 00 Depakote 2020- No 1mg 250 mg 2-01 tablet,mike 00:00: yed release 00 venlafaxine 2020- No 1mg ER 225 mg 2-01 tablet,exte 00:00: nded 00 release 24 hr divalproex 2020- No 1mg 500 mg 2-01 tablet,mike 00:00: yed release 00 buspirone 5 2020- No 1mg mg tablet 2- 00:00: 00 gabapentin 2020-1 No 1mg 800 mg 2-01 tablet 00:00: 00 Depakote 2020- No 1mg 250 mg 2-01 tablet,mike 00:00: yed release 00 venlafaxine 2020- No 1mg ER 225 mg 2-01 tablet,exte 00:00: nded 00 release 24 hr divalproex 2020- No 1mg 500 mg 2-01 tablet,mike 00:00: yed release 00 buspirone 5 2020- No 1mg mg tablet 2-01 00:00: 00 gabapentin 2020- No 1mg 800 mg 2-01 tablet 00:00: 00 Depakote 2020- No 1mg 250 mg 2-01 tablet,mike 00:00: yed release 00 venlafaxine 2020- No 1mg ER 225 mg 0-15 tablet,exte 00:00: nded 00 release 24 hr buspirone 5 2020- No 1mg mg tablet 0-15 00:00: 00 divalproex 2020- No 1mg 500 mg 0-15 tablet,mike 00:00: yed release 00 gabapentin 2020- No 1mg 800 mg 0-15 tablet 00:00: 00 Depakote 2020- No 1mg 250 mg 0-15 tablet,mike 00:00: yed release 00 venlafaxine 2020- No 1mg ER 225 mg 0-15 tablet,exte 00:00: nded 00 release 24 hr buspirone 5 2020- No 1mg mg tablet 0-15 00:00: 00 divalproex 2020- No 1mg 500 mg 0-15 tablet,mike 00:00: yed release 00 gabapentin 2020- No 1mg 800 mg 0-15 tablet 00:00: 00 Depakote 2020- No 1mg 250 mg 0-15 tablet,mike 00:00: yed release 00 venlafaxine 2020- No 1mg ER 225 mg 0-15 tablet,exte 00:00: nded 00 release 24 hr buspirone 5 2020- No 1mg mg tablet 0-15 00:00: 00 divalproex 2020- No 1mg 500 mg 0-15 tablet,mike 00:00: yed release 00 gabapentin 2020- No 1mg 800 mg 0-15 tablet 00:00: 00 Depakote 2020- No 1mg 250 mg 0-15 tablet,mike 00:00: yed release 00 venlafaxine 2020- No 1mg ER 225 mg 0-15 tablet,exte 00:00: nded 00 release 24 hr buspirone 5 1-1 No 1mg mg tablet 0-15 00:00: 00 divalproex 1-1 No 1mg 500 mg 0-15 tablet,mike 00:00: yed release 00 gabapentin 1-1 No 1mg 800 mg 0-15 tablet 00:00: 00 Depakote 1-1 No 1mg 250 mg 0-15 tablet,mike 00:00: yed release 00 Dose 1-0 No Unknown 9-21 00:00: 00 venlafaxine 1-0 No 1mg ER 225 mg 9-21 tablet,exte 00:00: nded 00 release 24 hr estradiol 1-0 No 1mg 0.5 mg 9-21 tablet 00:00: 00 Dose 1-0 No Unknown 21 00:00: 00 divalproex 1-0 No 1mg 500 mg 9-21 tablet,mike 00:00: yed release 00 buspirone 5 1-0 No 1mg mg tablet 03-10 00:00: 00 glimepiride 1-0 No 1mg 1 mg tablet 03-10 00:00: 00 gabapentin 1-0 No 1mg 800 mg 9-21 tablet 00:00: 00 Depakote 1-0 No 1mg 250 mg 9-21 tablet,mike 00:00: yed release 00 atorvastati 1-0 No 1mg n 80 mg 9-21 tablet 00:00: 00 valacyclovi 1-0 No 1gram r 1 gram 9-21 tablet 00:00: 00 Dose 1-0 No Unknown 03-10 00:00: 00 venlafaxine 1-0 No 1mg ER 225 mg 9-21 tablet,exte 00:00: nded 00 release 24 hr estradiol 1-0 No 1mg 0.5 mg 9-21 tablet 00:00: 00 Dose 1-0 No Unknown 03-10 00:00: 00 divalproex 2021-0 No 1mg 500 mg 9-21 tablet,mike 00:00: yed release 00 buspirone 5 1-0 No 1mg mg tablet 03-10 00:00: 00 glimepiride 2021-0 No 1mg 1 mg tablet 21 00:00: 00 gabapentin 2021-0 No 1mg 800 mg 9-21 tablet 00:00: 00 Depakote 2021-0 No 1mg 250 mg 9-21 tablet,mike 00:00: yed release 00 atorvastati 1-0 No 1mg n 80 mg 9-21 tablet 00:00: 00 valacyclovi 2021-0 No 1gram r 1 gram 9-21 tablet 00:00: 00 Dose 2021-0 No Unknown - 00:00: 00 venlafaxine 2021-0 No 1mg ER 225 mg 9-21 tablet,exte 00:00: nded 00 release 24 hr estradiol 2021-0 No 1mg 0.5 mg 9-21 tablet 00:00: 00 risperidone 2021-0 No 1mg 0.25 mg 9-21 tablet 00:00: 00 divalproex 2021-0 No 1mg 500 mg 9-21 tablet,mike 00:00: yed release 00 buspirone 5 1-0 No 1mg mg tablet 03-10 00:00: 00 glimepiride 1-0 No 1mg 1 mg tablet 03-10 00:00: 00 gabapentin 2021-0 No 1mg 800 mg 9-21 tablet 00:00: 00 Depakote 1-0 No 1mg 250 mg 9-21 tablet,mike 00:00: yed release 00 atorvastati 1-0 No 1mg n 80 mg 9-21 tablet 00:00: 00 valacyclovi 1-0 No 1gram r 1 gram 9-21 tablet 00:00: 00 Dose 2021-0 No Unknown 03-10 00:00: 00 venlafaxine 2021-0 No 1mg ER 225 mg 9-21 tablet,exte 00:00: nded 00 release 24 hr estradiol 2021-0 No 1mg 0.5 mg 9-21 tablet 00:00: 00 risperidone 2021-0 No 1mg 0.25 mg 9-21 tablet 00:00: 00 divalproex 2021-0 No 1mg 500 mg 9-21 tablet,mike 00:00: yed release 00 buspirone 5 1-0 No 1mg mg tablet 03-10 00:00: 00 glimepiride 2021-0 No 1mg 1 mg tablet 9- 00:00: 00 gabapentin 2021-0 No 1mg 800 mg 9-21 tablet 00:00: 00 Depakote 2021-0 No 1mg 250 mg 9-21 tablet,mike 00:00: yed release 00 atorvastati 2021-0 No 1mg n 80 mg 9-21 tablet 00:00: 00 valacyclovi 2021-0 No 1gram r 1 gram 9-21 tablet 00:00: 00 venlafaxine 2021-0 No 1mg ER 225 mg 8-18 tablet,exte 00:00: nded 00 release 24 hr buspirone 5 2021-0 No 1mg mg tablet 8-18 00:00: 00 divalproex 2021-0 No 1mg 500 mg 8-18 tablet,mike 00:00: yed release 00 risperidone 2021-0 No 1mg 0.25 mg 8-18 tablet 00:00: 00 gabapentin 2021-0 No 1mg 800 mg 8-18 tablet 00:00: 00 Depakote 2021-0 No 1mg 250 mg 8-18 tablet,mike 00:00: yed release 00 venlafaxine 2021-0 No 1mg ER 225 mg 8-18 tablet,exte 00:00: nded 00 release 24 hr buspirone 5 1-0 No 1mg mg tablet 8-18 00:00: 00 divalproex 2021-0 No 1mg 500 mg 8-18 tablet,mike 00:00: yed release 00 risperidone 2021-0 No 1mg 0.25 mg 8-18 tablet 00:00: 00 gabapentin 2021-0 No 1mg 800 mg 8-18 tablet 00:00: 00 Depakote 2021-0 No 1mg 250 mg 8-18 tablet,mike 00:00: yed release 00 venlafaxine 2021-0 No 1mg ER 225 mg 8-18 tablet,exte 00:00: nded 00 release 24 hr buspirone 5 2021-0 No 1mg mg tablet 8-18 00:00: 00 divalproex 2021-0 No 1mg 500 mg 8-18 tablet,mike 00:00: yed release 00 risperidone 2021-0 No 1mg 0.25 mg 8-18 tablet 00:00: 00 gabapentin 1-0 No 1mg 800 mg 8-18 tablet 00:00: 00 Depakote 2021-0 No 1mg 250 mg 8-18 tablet,mike 00:00: yed release 00 venlafaxine 2020-0 No 1mg ER 225 mg 8-18 tablet,exte 00:00: nded 00 release 24 hr buspirone 5 2020-0 No 1mg mg tablet 818 00:00: 00 divalproex 2021-0 No 1mg 500 mg 8-18 tablet,mike 00:00: yed release 00 risperidone 1-0 No 1mg 0.25 mg 8-18 tablet 00:00: 00 gabapentin 1-0 No 1mg 800 mg 8-18 tablet 00:00: 00 Depakote 2020-0 No 1mg 250 mg 8-18 tablet,mike 00:00: yed release 00 ondansetron 2020-0 2020- No 4mg 4 mg, Slow [facility] (ZOFRAN 01-26 IV Push, ity of (PF)) 13:45: 12:49 ONCE, 1 [place] injection 4 00 :00 dose, Mon Med ical mg 01/26/21 at [facility] 08[facility], CARLOS morpHINE 2020-0 2020- No 4mg 4 mg, Slow [facility] te[facility] injection 4 01-26 IV Push, ity of mg 13:45: 12:49 ONCE, 1 [place] 00 :00 dose, [facility] 01/26/21 at [facility] 0845, STAT valACYclovi 2020-2020- No [id number] 1g Take 1 Univers r (VALTREX) 01-26 tablet by it y of 1 gram 00:00: 04:59 mouth 3 [place] tablet 00 :00 (three) Medical times [facility] daily for 7 days. valACYclovi 2020-0 2020- No [id number] 1g Take 1 [facility] (VALTREX) 01-26 tablet by it y of 1 gram 00:00: 00:00 mouth 3 [place] tablet 00 :00 (three) Medical times [facility] daily for 7 days. venlafaxine 2020-0 No 1mg ER 225 mg 7-15 tablet,exte 00:00: nded 00 release 24 hr buspirone 5 2021-0 No 1mg mg tablet 7-15 00:00: 00 divalproex 2021-0 No 1mg 500 mg 7-15 tablet,mike 00:00: yed release 00 risperidone 2021-0 No 1mg 0.25 mg 7-15 tablet 00:00: 00 gabapentin 2021-0 No 1mg 800 mg 7-15 tablet 00:00: 00 Depakote 2021-0 No 1mg 250 mg 7-15 tablet,mike 00:00: yed release 00 venlafaxine 2021-0 No 1mg ER 225 mg 7-15 tablet,exte 00:00: nded 00 release 24 hr buspirone 5 2021-0 No 1mg mg tablet 7-15 00:00: 00 divalproex 2021-0 No 1mg 500 mg 7-15 tablet,mike 00:00: yed release 00 venlafaxine 2021-0 No 1mg ER 225 mg 7-15 tablet,exte 00:00: nded 00 release 24 hr buspirone 5 2021-0 No 1mg mg tablet 7-15 00:00: 00 divalproex 2021-0 No 1mg 500 mg 7-15 tablet,mike 00:00: yed release 00 risperidone 2021-0 No 1mg 0.25 mg 7-15 tablet 00:00: 00 gabapentin 2021-0 No 1mg 800 mg 7-15 tablet 00:00: 00 Depakote 2021-0 No 1mg 250 mg 7-15 tablet,mike 00:00: yed release 00 risperidone 2021-0 No 1mg 0.25 mg 7-15 tablet 00:00: 00 gabapentin 2021-0 No 1mg 800 mg 7-15 tablet 00:00: 00 Depakote 2021-0 No 1mg 250 mg 7-15 tablet,mike 00:00: yed release 00 venlafaxine 2021-0 No 1mg ER 225 mg 7-15 tablet,exte 00:00: nded 00 release 24 hr buspirone 5 2021-0 No 1mg mg tablet 7-15 00:00: 00 divalproex 2021-0 No 1mg 500 mg 7-15 tablet,mike 00:00: yed release 00 risperidone 2021-0 No 1mg 0.25 mg 7-15 tablet 00:00: 00 gabapentin 2021-0 No 1mg 800 mg 7-15 tablet 00:00: 00 Depakote 2021-0 No 1mg 250 mg 7-15 tablet,mike 00:00: yed release 00 lisinopril 2021-0 No 1mg 2.5 mg 6-24 tablet 00:00: 00 atorvastati 2021-0 No 1mg n 80 mg 6-24 tablet 00:00: 00 lisinopril 2021-0 No 1mg 2.5 mg 6-24 tablet 00:00: 00 atorvastati 2021-0 No 1mg n 80 mg 6-24 tablet 00:00: 00 lisinopril 2021-0 No 1mg 2.5 mg 6-24 tablet 00:00: 00 atorvastati 2021-0 No 1mg n 80 mg 6-24 tablet 00:00: 00 lisinopril 2021-0 No 1mg 2.5 mg 6-24 tablet 00:00: 00 atorvastati 2021-0 No 1mg n 80 mg 6-24 tablet 00:00: 00 venlafaxine 2021-0 No 1mg ER 225 mg 6-16 tablet,exte 00:00: nded 00 release 24 hr divalproex 2021-0 No 1mg 500 mg 6-16 tablet,mike 00:00: yed release 00 risperidone 2021-0 No 1mg 0.25 mg 6-16 tablet 00:00: 00 buspirone 5 2021-0 No 1mg mg tablet 6-16 00:00: 00 gabapentin 2021-0 No 1mg 800 mg 6-16 tablet 00:00: 00 Depakote 2021-0 No 1mg 250 mg 6-16 tablet,mike 00:00: yed release 00 venlafaxine 2021-0 No 1mg ER 225 mg 6-16 tablet,exte 00:00: nded 00 release 24 hr divalproex 2021-0 No 1mg 500 mg 6-16 tablet,mike 00:00: yed release 00 risperidone 2021-0 No 1mg 0.25 mg 6-16 tablet 00:00: 00 buspirone 5 2021-0 No 1mg mg tablet 6-16 00:00: 00 gabapentin 2021-0 No 1mg 800 mg 6-16 tablet 00:00: 00 Depakote 2021-0 No 1mg 250 mg 6-16 tablet,mike 00:00: yed release 00 venlafaxine 2021-0 No 1mg ER 225 mg 6-16 tablet,exte 00:00: nded 00 release 24 hr divalproex 2021-0 No 1mg 500 mg 6-16 tablet,mike 00:00: yed release 00 risperidone 2021-0 No 1mg 0.25 mg 6-16 tablet 00:00: 00 buspirone 5 2021-0 No 1mg mg tablet 6-16 00:00: 00 gabapentin 2021-0 No 1mg 800 mg 6-16 tablet 00:00: 00 Depakote 2021-0 No 1mg 250 mg 6-16 tablet,mike 00:00: yed release 00 venlafaxine 1-0 No 1mg ER 225 mg 6-16 tablet,exte 00:00: nded 00 release 24 hr divalproex 1-0 No 1mg 500 mg 6-16 tablet,mike 00:00: yed release 00 risperidone 1-0 No 1mg 0.25 mg 6-16 tablet 00:00: 00 buspirone 5 1-0 No 1mg mg tablet 6-16 00:00: 00 gabapentin 2021-0 No 1mg 800 mg 6-16 tablet 00:00: 00 Depakote 2021-0 No 1mg 250 mg 6-16 tablet,mike 00:00: yed release 00 Combivent 1-0 No 1mcg/ac Respimat 20 5-20 tuation mcg-100 00:00: mcg/actuati 00 on solution for inhalation venlafaxine 1-0 No 1mg ER 225 mg 5-20 tablet,exte 00:00: nded 00 release 24 hr hydroxyzine 2021-0 No 1mg HCl 50 mg 5-20 tablet 00:00: 00 estradiol 2021-0 No 1mg 0.5 mg 5-20 tablet 00:00: 00 risperidone 2021-0 No 1mg 0.25 mg 5-20 tablet 00:00: 00 divalproex 2021-0 No 1mg 500 mg 5-20 tablet,mike 00:00: yed release 00 glimepiride 2021-0 No 1mg 1 mg tablet 5-20 00:00: 00 gabapentin 2021-0 No 1mg 800 mg 5-20 tablet 00:00: 00 Depakote 2021-0 No 1mg 250 mg 5-20 tablet,mike 00:00: yed release 00 ibuprofen 2021-0 No 1mg 800 mg 5-20 tablet 00:00: 00 valacyclovi 2021-0 No 1gram r 1 gram 5-20 tablet 00:00: 00 Combivent 2021-0 No 1mcg/ac Respimat 20 5-20 tuation mcg-100 00:00: mcg/actuati 00 on solution for inhalation venlafaxine 1-0 No 1mg ER 225 mg 5-20 tablet,exte 00:00: nded 00 release 24 hr hydroxyzine 1-0 No 1mg HCl 50 mg 5-20 tablet 00:00: 00 estradiol 2021-0 No 1mg 0.5 mg 5-20 tablet 00:00: 00 risperidone 2021-0 No 1mg 0.25 mg 5-20 tablet 00:00: 00 divalproex 2021-0 No 1mg 500 mg 5-20 tablet,mike 00:00: yed release 00 glimepiride 2021-0 No 1mg 1 mg tablet 5-20 00:00: 00 gabapentin 2021-0 No 1mg 800 mg 5-20 tablet 00:00: 00 Depakote 2021-0 No 1mg 250 mg 5-20 tablet,mike 00:00: yed release 00 ibuprofen 2021-0 No 1mg 800 mg 5-20 tablet 00:00: 00 valacyclovi 2021-0 No 1gram r 1 gram 5-20 tablet 00:00: 00 Combivent 2021-0 No 1mcg/ac Respimat 20 5-20 tuation mcg-100 00:00: mcg/actuati 00 on solution for inhalation venlafaxine 2021-0 No 1mg ER 225 mg 5-20 tablet,exte 00:00: nded 00 release 24 hr hydroxyzine 2021-0 No 1mg HCl 50 mg 5-20 tablet 00:00: 00 estradiol 2021-0 No 1mg 0.5 mg 5-20 tablet 00:00: 00 risperidone 2021-0 No 1mg 0.25 mg 5-20 tablet 00:00: 00 divalproex 2021-0 No 1mg 500 mg 5-20 tablet,mike 00:00: yed release 00 glimepiride 2021-0 No 1mg 1 mg tablet 5-20 00:00: 00 gabapentin 2021-0 No 1mg 800 mg 5-20 tablet 00:00: 00 Depakote 2021-0 No 1mg 250 mg 5-20 tablet,mike 00:00: yed release 00 ibuprofen 2021-0 No 1mg 800 mg 5-20 tablet 00:00: 00 valacyclovi 2021-0 No 1gram r 1 gram 5-20 tablet 00:00: 00 Combivent 1-0 No 1mcg/ac Respimat 20 5-20 tuation mcg-100 00:00: mcg/actuati 00 on solution for inhalation venlafaxine 1-0 No 1mg ER 225 mg 5-20 tablet,exte 00:00: nded 00 release 24 hr hydroxyzine 1-0 No 1mg HCl 50 mg 5-20 tablet 00:00: 00 estradiol 2021-0 No 1mg 0.5 mg 5-20 tablet 00:00: 00 risperidone 2021-0 No 1mg 0.25 mg 5-20 tablet 00:00: 00 divalproex 2021-0 No 1mg 500 mg 5-20 tablet,mike 00:00: yed release 00 glimepiride 1-0 No 1mg 1 mg tablet 5-20 00:00: 00 gabapentin 2021-0 No 1mg 800 mg 5-20 tablet 00:00: 00 Depakote 2021-0 No 1mg 250 mg 5-20 tablet,mike 00:00: yed release 00 ibuprofen 2021-0 No 1mg 800 mg 5-20 tablet 00:00: 00 valacyclovi 2021-0 No 1gram r 1 gram 5-20 tablet 00:00: 00 hydroxyzine 2021-0 No 1mg HCl 50 mg 4-22 tablet 00:00: 00 venlafaxine 2021-0 No 1mg ER 225 mg 4-22 tablet,exte 00:00: nded 00 release 24 hr risperidone 2021-0 No 1mg 0.25 mg 4-22 tablet 00:00: 00 divalproex 2021-0 No 1mg 500 mg 4-22 tablet,mike 00:00: yed release 00 gabapentin 2021-0 No 1mg 800 mg 4-22 tablet 00:00: 00 Depakote 2021-0 No 1mg 250 mg 4-22 tablet,mike 00:00: yed release 00 hydroxyzine 2021-0 No 1mg HCl 50 mg 4-22 tablet 00:00: 00 venlafaxine 2021-0 No 1mg ER 225 mg 4-22 tablet,exte 00:00: nded 00 release 24 hr risperidone 2021-0 No 1mg 0.25 mg 4-22 tablet 00:00: 00 divalproex 2021-0 No 1mg 500 mg 4-22 tablet,mike 00:00: yed release 00 gabapentin 2021-0 No 1mg 800 mg 4-22 tablet 00:00: 00 Depakote 2021-0 No 1mg 250 mg 4-22 tablet,mike 00:00: yed release 00 hydroxyzine 2021-0 No 1mg HCl 50 mg 4-22 tablet 00:00: 00 venlafaxine 2021-0 No 1mg ER 225 mg 4-22 tablet,exte 00:00: nded 00 release 24 hr risperidone 2021-0 No 1mg 0.25 mg 4-22 tablet 00:00: 00 divalproex 2021-0 No 1mg 500 mg 4-22 tablet,mike 00:00: yed release 00 gabapentin 2021-0 No 1mg 800 mg 4-22 tablet 00:00: 00 Depakote 2021-0 No 1mg 250 mg 4-22 tablet,mike 00:00: yed release 00 hydroxyzine 2021-0 No 1mg HCl 50 mg 4-22 tablet 00:00: 00 venlafaxine 2021-0 No 1mg ER 225 mg 4-22 tablet,exte 00:00: nded 00 release 24 hr risperidone 2021-0 No 1mg 0.25 mg 4-22 tablet 00:00: 00 divalproex 2021-0 No 1mg 500 mg 4-22 tablet,mike 00:00: yed release 00 gabapentin 2021-0 No 1mg 800 mg 4-22 tablet 00:00: 00 Depakote 2021-0 No 1mg 250 mg 4-22 tablet,mike 00:00: yed release 00 Bupivicaine Bupivicaine 2020-0 No [place] [facility] 00:00: - [facility] 00 [facility] Bupivicaine Bupivicaine 2020-0 No [facility] [place] [facility] 00:00: - [facility] 00 [facility] Kenalog Kenalog 2020-0 No 40mg Common (Triamcinol (Triamcinol 4-13 S pirit one) one) 00:00: - [facility] 00 [facility] Kenalog Kenalog 2020-0 No 40mg Common (Triamcinol (Triamcinol 4-13 S pirit one) one) 00:00: - [facility] 00 [facility] Kenalog Kenalog 2020-0 No 40mg Common (Triamcinol (Triamcinol 4-13 S pirit one) one) 00:00: - [facility] 00 [facility] Bupivicaine Bupivicaine 2020-0 No 2.5mg [facility] [place] [facility] 00:00: - [facility] 00 [facility] Bupivicaine Bupivicaine 2020-0 No 2.5mg [facility] [place] [facility] 00:00: - [facility] 00 [facility] Kenalog Kenalog 2020-0 No 40mg Common (Triamcinol (Triamcinol 4-13 S pirit one) one) 00:00: - [facility] 00 [facility] Kenalog Kenalog 2020-0 No 40mg Common (Triamcinol (Triamcinol 4-13 S pirit one) one) 00:00: - [facility] 00 [facility] Bupivicaine Bupivicaine 2020-0 No 2.5mg [facility] [place] [facility] 00:00: - [facility] 00 [facility] Bupivicaine Bupivicaine 2020-0 No 2.5mg [facility] [place] [facility] 00:00: - [facility] 00 [facility] Kenalog Kenalog 2020-0 No 40mg [facility] (Triamcinol (Triamcinol 4-13 S pirit one) one) 00:00: - [facility] 00 [facility] Bupivicaine Bupivicaine 2020-0 No 2.5mg [facility] [place] [facility] 00:00: - [facility] 00 [facility] Kenalog Kenalog 1-0 No 40mg [facility] (Triamcinol (Triamcinol 4-13 S pirit one) one) 00:00: - [facility] 00 [facility] Bupivicaine Bupivicaine 1-0 No 2.5mg [facility] [place] [facility] 00:00: - [facility] 00 [facility] Kenalog Kenalog 1-0 No 40mg Common (Triamcinol (Triamcinol 4-13 S pirit one) one) 00:00: - [facility] 00 [facility] Kenalog Kenalog 1-0 No 40mg Common (Triamcinol (Triamcinol 4-13 S pirit one) one) 00:00: - [facility] 00 [facility] Bupivicaine Bupivicaine 1-0 No 2.5mg [facility] [place] [facility] 00:00: - [facility] Bupivicaine Bupivicaine 1-0 No 2.5mg [facility] [place] [facility] 00:00: - [facility] 00 [facility] Kenalog Kenalog 1-0 No 40mg Common (Triamcinol (Triamcinol 4-13 S pirit one) one) 00:00: - [facility] 00 [facility] hydroxyzine 1-0 No 1mg HCl 50 mg 3-30 tablet 00:00: 00 venlafaxine 2021-0 No 1mg ER 225 mg 3-30 tablet,exte 00:00: nded 00 release 24 hr divalproex 2021-0 No 1mg 500 mg 3-30 tablet,mike 00:00: yed release 00 gabapentin 2021-0 No 1mg 800 mg 3-30 tablet 00:00: 00 Depakote 2021-0 No 1mg 250 mg 3-30 tablet,mike 00:00: yed release 00 hydroxyzine 2021-0 No 1mg HCl 50 mg 3-30 tablet 00:00: 00 venlafaxine 2021-0 No 1mg ER 225 mg 3-30 tablet,exte 00:00: nded 00 release 24 hr divalproex 2021-0 No 1mg 500 mg 3-30 tablet,mike 00:00: yed release 00 gabapentin 2021-0 No 1mg 800 mg 3-30 tablet 00:00: 00 Depakote 2021-0 No 1mg 250 mg 3-30 tablet,mike 00:00: yed release 00 hydroxyzine 2021-0 No 1mg HCl 50 mg 3-30 tablet 00:00: 00 venlafaxine 2021-0 No 1mg ER 225 mg 3-30 tablet,exte 00:00: nded 00 release 24 hr divalproex 2021-0 No 1mg 500 mg 3-30 tablet,mike 00:00: yed release 00 gabapentin 2021-0 No 1mg 800 mg 3-30 tablet 00:00: 00 Depakote 2021-0 No 1mg 250 mg 3-30 tablet,mike 00:00: yed release 00 hydroxyzine 2021-0 No 1mg HCl 50 mg 3-30 tablet 00:00: 00 venlafaxine 2021-0 No 1mg ER 225 mg 3-30 tablet,exte 00:00: nded 00 release 24 hr divalproex 2021-0 No 1mg 500 mg 3-30 tablet,mike 00:00: yed release 00 gabapentin 2021-0 No 1mg 800 mg 3-30 tablet 00:00: 00 Depakote 2021-0 No 1mg 250 mg 3-30 tablet,mike 00:00: yed release 00 venlafaxine 2021-0 No 1mg ER 225 mg 3-11 tablet,exte 00:00: nded 00 release 24 hr hydroxyzine 2021-0 No 1mg HCl 50 mg 3-11 tablet 00:00: 00 divalproex 2021-0 No 1mg 500 mg 3-11 tablet,mike 00:00: yed release 00 risperidone 2021-0 No 1mg 0.25 mg 3-11 tablet 00:00: 00 gabapentin 2021-0 No 1mg 800 mg 3-11 tablet 00:00: 00 Depakote 2021-0 No 1mg 250 mg 3-11 tablet,mike 00:00: yed release 00 venlafaxine 2021-0 No 1mg ER 225 mg 3-11 tablet,exte 00:00: nded 00 release 24 hr hydroxyzine 2021-0 No 1mg HCl 50 mg 3-11 tablet 00:00: 00 divalproex 2021-0 No 1mg 500 mg 3-11 tablet,mike 00:00: yed release 00 risperidone 2021-0 No 1mg 0.25 mg 3-11 tablet 00:00: 00 gabapentin 2021-0 No 1mg 800 mg 3-11 tablet 00:00: 00 Depakote 2021-0 No 1mg 250 mg 3-11 tablet,mike 00:00: yed release 00 venlafaxine 2021-0 No 1mg ER 225 mg 3-11 tablet,exte 00:00: nded 00 release 24 hr hydroxyzine 2021-0 No 1mg HCl 50 mg 3-11 tablet 00:00: 00 divalproex 2021-0 No 1mg 500 mg 3-11 tablet,mike 00:00: yed release 00 risperidone 2021-0 No 1mg 0.25 mg 3-11 tablet 00:00: 00 gabapentin 2021-0 No 1mg 800 mg 3-11 tablet 00:00: 00 Depakote 2021-0 No 1mg 250 mg 3-11 tablet,mike 00:00: yed release 00 venlafaxine 2021-0 No 1mg ER 225 mg 3-11 tablet,exte 00:00: nded 00 release 24 hr hydroxyzine 2021-0 No 1mg HCl 50 mg 3-11 tablet 00:00: 00 divalproex 2021-0 No 1mg 500 mg 3-11 tablet,mike 00:00: yed release 00 risperidone 2021-0 No 1mg 0.25 mg 3-11 tablet 00:00: 00 gabapentin 2021-0 No 1mg 800 mg 3-11 tablet 00:00: 00 Depakote 2021-0 No 1mg 250 mg 3-11 tablet,mike 00:00: yed release 00 Combivent 1-0 No 1mcg/ac Respimat 20 2-22 tuation mcg-100 00:00: mcg/actuati 00 on solution for inhalation Combivent 2021-0 No 1mcg/ac Respimat 20 2-22 tuation mcg-100 00:00: mcg/actuati 00 on solution for inhalation Combivent 1-0 No 1mcg/ac Respimat 20 2-22 tuation mcg-100 00:00: mcg/actuati 00 on solution for inhalation Combivent 1-0 No 1mcg/ac Respimat 20 2-22 tuation mcg-100 00:00: mcg/actuati 00 on solution for inhalation venlafaxine 2021-0 No 1mg ER 225 mg 2-11 tablet,exte 00:00: nded 00 release 24 hr hydroxyzine 2021-0 No 1mg HCl 50 mg 2-11 tablet 00:00: 00 divalproex 2021-0 No 1mg 500 mg 2-11 tablet,mike 00:00: yed release 00 gabapentin 2021-0 No 1mg 800 mg 2-11 tablet 00:00: 00 Depakote 2021-0 No 1mg 250 mg 2-11 tablet,mike 00:00: yed release 00 venlafaxine 2021-0 No 1mg ER 225 mg 2-11 tablet,exte 00:00: nded 00 release 24 hr hydroxyzine 2021-0 No 1mg HCl 50 mg 2-11 tablet 00:00: 00 divalproex 2021-0 No 1mg 500 mg 2-11 tablet,mike 00:00: yed release 00 gabapentin 2021-0 No 1mg 800 mg 2-11 tablet 00:00: 00 Depakote 2021-0 No 1mg 250 mg 2-11 tablet,mike 00:00: yed release 00 venlafaxine 2021-0 No 1mg ER 225 mg 2-11 tablet,exte 00:00: nded 00 release 24 hr hydroxyzine 2021-0 No 1mg HCl 50 mg 2-11 tablet 00:00: 00 divalproex 2021-0 No 1mg 500 mg 2-11 tablet,mike 00:00: yed release 00 gabapentin 2021-0 No 1mg 800 mg 2-11 tablet 00:00: 00 Depakote 2021-0 No 1mg 250 mg 2-11 tablet,mike 00:00: yed release 00 venlafaxine 2021-0 No 1mg ER 225 mg 2-11 tablet,exte 00:00: nded 00 release 24 hr hydroxyzine 2021-0 No 1mg HCl 50 mg 2-11 tablet 00:00: 00 divalproex 2021-0 No 1mg 500 mg 2-11 tablet,mike 00:00: yed release 00 gabapentin 2021-0 No 1mg 800 mg 2-11 tablet 00:00: 00 Depakote 2021-0 No 1mg 250 mg 2-11 tablet,mike 00:00: yed release 00 hydroxyzine 2021-0 No 1mg HCl 50 mg 1-07 tablet 00:00: 00 venlafaxine 2021-0 No 1mg ER 225 mg 1-07 tablet,exte 00:00: nded 00 release 24 hr divalproex 2021-0 No 1mg 500 mg 1-07 tablet,mike 00:00: yed release 00 gabapentin 2021-0 No 1mg 800 mg 1-07 tablet 00:00: 00 Depakote 2021-0 No 1mg 250 mg 1-07 tablet,mike 00:00: yed release 00 hydroxyzine 2021-0 No 1mg HCl 50 mg 1-07 tablet 00:00: 00 venlafaxine 2021-0 No 1mg ER 225 mg 1-07 tablet,exte 00:00: nded 00 release 24 hr divalproex 2021-0 No 1mg 500 mg 1-07 tablet,mike 00:00: yed release 00 gabapentin 2021-0 No 1mg 800 mg 1-07 tablet 00:00: 00 Depakote 2021-0 No 1mg 250 mg 1-07 tablet,mike 00:00: yed release 00 hydroxyzine 2021-0 No 1mg HCl 50 mg 1-07 tablet 00:00: 00 venlafaxine 2021-0 No 1mg ER 225 mg 1-07 tablet,exte 00:00: nded 00 release 24 hr divalproex 2021-0 No 1mg 500 mg 1-07 tablet,mike 00:00: yed release 00 gabapentin 2021-0 No 1mg 800 mg 1-07 tablet 00:00: 00 Depakote 2021-0 No 1mg 250 mg 1-07 tablet,mike 00:00: yed release 00 hydroxyzine 2021-0 No 1mg HCl 50 mg 1-07 tablet 00:00: 00 venlafaxine 2021-0 No 1mg ER 225 mg 1-07 tablet,exte 00:00: nded 00 release 24 hr divalproex 2021-0 No 1mg 500 mg 1-07 tablet,mike 00:00: yed release 00 gabapentin 1-0 No 1mg 800 mg 1-07 tablet 00:00: 00 Depakote 1-0 No 1mg 250 mg 1-07 tablet,mike 00:00: yed release 00 hydroxyzine 2020-1 No 1mg HCl 50 mg 2-10 tablet 00:00: 00 venlafaxine 2020-1 No 1mg ER 225 mg 2-10 tablet,exte 00:00: nded 00 release 24 hr divalproex 2020-1 No 1mg 500 mg 2-10 tablet,mike 00:00: yed release 00 gabapentin 2020-1 No 1mg 800 mg 2-10 tablet 00:00: 00 Depakote 2020-1 No 1mg 250 mg 2-10 tablet,mike 00:00: yed release 00 hydroxyzine 2020-1 No 1mg HCl 50 mg 2-10 tablet 00:00: 00 venlafaxine 2020-1 No 1mg ER 225 mg 2-10 tablet,exte 00:00: nded 00 release 24 hr divalproex 2020-1 No 1mg 500 mg 2-10 tablet,mike 00:00: yed release 00 gabapentin 2020-1 No 1mg 800 mg 2-10 tablet 00:00: 00 Depakote 2020-1 No 1mg 250 mg 2-10 tablet,mike 00:00: yed release 00 hydroxyzine 2020-1 No 1mg HCl 50 mg 2-10 tablet 00:00: 00 venlafaxine 2020-1 No 1mg ER 225 mg 2-10 tablet,exte 00:00: nded 00 release 24 hr divalproex 2020-1 No 1mg 500 mg 2-10 tablet,mike 00:00: yed release 00 gabapentin 2020-1 No 1mg 800 mg 2-10 tablet 00:00: 00 Depakote 2020-1 No 1mg 250 mg 2-10 tablet,mike 00:00: yed release 00 hydroxyzine 2020-1 No 1mg HCl 50 mg 2-10 tablet 00:00: 00 venlafaxine 2020-1 No 1mg ER 225 mg 2-10 tablet,exte 00:00: nded 00 release 24 hr divalproex 2020-1 No 1mg 500 mg 2-10 tablet,mike 00:00: yed release 00 gabapentin 2019- No 1mg 800 mg 2-10 tablet 00:00: 00 Depakote 2019- No 1mg 250 mg 2-10 tablet,mike 00:00: yed release 00 Combivent 2019-06 No 1mcg/ac Respimat 20 1-20 tuation mcg-100 00:00: mcg/actuati 00 on solution for inhalation estradiol 2019-06 No 1mg 0.5 mg 1-20 tablet 00:00: 00 glimepiride 2019-06 No 1mg 1 mg tablet 1-20 00:00: 00 Combivent 2019-06 No 1mcg/ac Respimat 20 1-20 tuation mcg-100 00:00: mcg/actuati 00 on solution for inhalation estradiol 2019-06 No 1mg 0.5 mg 1-20 tablet 00:00: 00 glimepiride 2019-06 No 1mg 1 mg tablet 1-20 00:00: 00 gabapentin 2019-06 No 1mg 800 mg 1-20 tablet 00:00: 00 ibuprofen 2019-06 No 1mg 800 mg 1-20 tablet 00:00: 00 valacyclovi 2019-06 No 1gram r 1 gram 1-20 tablet 00:00: 00 gabapentin 2019-06 No 1mg 800 mg 1-20 tablet 00:00: 00 ibuprofen 2019-06 No 1mg 800 mg 1-20 tablet 00:00: 00 valacyclovi 2019-06 No 1gram r 1 gram 1-20 tablet 00:00: 00 Combivent 2019-06 No 1mcg/ac Respimat 20 1-20 tuation mcg-100 00:00: mcg/actuati 00 on solution for inhalation estradiol 2019-06 No 1mg 0.5 mg 1-20 tablet 00:00: 00 glimepiride 2019-06 No 1mg 1 mg tablet 1-20 00:00: 00 gabapentin 2019-06 No 1mg 800 mg 1-20 tablet 00:00: 00 ibuprofen 2019-06 No 1mg 800 mg 1-20 tablet 00:00: 00 valacyclovi 2019-06 No 1gram r 1 gram 1-20 tablet 00:00: 00 Combivent 2019-06 No 1mcg/ac Respimat 20 1-20 tuation mcg-100 00:00: mcg/actuati 00 on solution for inhalation estradiol 2019-06 No 1mg 0.5 mg 1-20 tablet 00:00: 00 glimepiride 2019-1 No 1mg 1 mg tablet 1-20 00:00: 00 gabapentin 2019-1 No 1mg 800 mg 1-20 tablet 00:00: 00 ibuprofen 2019-1 No 1mg 800 mg 1-20 tablet 00:00: 00 valacyclovi 2019-1 No 1gram r 1 gram 1-20 tablet 00:00: 00 hydroxyzine 2019- No 1mg HCl 50 mg 1-11 tablet 00:00: 00 venlafaxine 2019-1 No 1mg ER 225 mg 1-11 tablet,exte 00:00: nded 00 release 24 hr divalproex 2019- No 1mg 500 mg 1-11 tablet,mike 00:00: yed release 00 Depakote 2019- No 1mg 250 mg 1-11 tablet,mike 00:00: yed release 00 hydroxyzine 2019- No 1mg HCl 50 mg 1-11 tablet 00:00: 00 venlafaxine 2019- No 1mg ER 225 mg 1-11 tablet,exte 00:00: nded 00 release 24 hr divalproex 2019-1 No 1mg 500 mg 1-11 tablet,mike 00:00: yed release 00 Depakote 2019-1 No 1mg 250 mg 1-11 tablet,mike 00:00: yed release 00 hydroxyzine 2019-1 No 1mg HCl 50 mg 1-11 tablet 00:00: 00 venlafaxine 2019-1 No 1mg ER 225 mg 1-11 tablet,exte 00:00: nded 00 release 24 hr divalproex 2019-1 No 1mg 500 mg 1-11 tablet,mike 00:00: yed release 00 Depakote 2020-1 No 1mg 250 mg 1-11 tablet,mike 00:00: yed release 00 hydroxyzine 2019-1 No 1mg HCl 50 mg 1-11 tablet 00:00: 00 venlafaxine 2020-1 No 1mg ER 225 mg 1-11 tablet,exte 00:00: nded 00 release 24 hr divalproex 2019-1 No 1mg 500 mg 1-11 tablet,mike 00:00: yed release 00 Depakote 2019-1 No 1mg 250 mg 1-11 tablet,mike 00:00: yed release 00 glimepiride 2020-1 No 1mg 1 mg tablet 0-16 00:00: 00 gabapentin 2020-1 No 1mg 800 mg 0-16 tablet 00:00: 00 ibuprofen 2020-1 No 1mg 800 mg 0-16 tablet 00:00: 00 glimepiride 2020-1 No 1mg 1 mg tablet 0-16 00:00: 00 gabapentin 2020-1 No 1mg 800 mg 0-16 tablet 00:00: 00 ibuprofen 2020-1 No 1mg 800 mg 0-16 tablet 00:00: 00 glimepiride 2020-1 No 1mg 1 mg tablet 0-16 00:00: 00 gabapentin 2020-1 No 1mg 800 mg 0-16 tablet 00:00: 00 ibuprofen 2020-1 No 1mg 800 mg 0-16 tablet 00:00: 00 glimepiride 2020-1 No 1mg 1 mg tablet 0-16 00:00: 00 gabapentin 2020-1 No 1mg 800 mg 0-16 tablet 00:00: 00 ibuprofen 2020-1 No 1mg 800 mg 0-16 tablet 00:00: 00 estradiol 2020-0 No 1mg 0.5 mg 9-29 tablet 00:00: 00 metformin 2020-0 No 1mg 1,000 mg 9-29 tablet 00:00: 00 estradiol 2020-0 No 1mg 0.5 mg 9-29 tablet 00:00: 00 metformin 2020-0 No 1mg 1,000 mg 9-29 tablet 00:00: 00 estradiol 2020-0 No 1mg 0.5 mg 9-29 tablet 00:00: 00 metformin 2020-0 No 1mg 1,000 mg 9-29 tablet 00:00: 00 estradiol 2020-0 No 1mg 0.5 mg 9-29 tablet 00:00: 00 metformin 2020-0 No 1mg 1,000 mg 9-29 tablet 00:00: 00 hydroxyzine 2020-0 No 1mg HCl 50 mg 9-16 tablet 00:00: 00 venlafaxine 2020-0 No 1mg ER 225 mg 9-16 tablet,exte 00:00: nded 00 release 24 hr divalproex 2020-0 No 1mg 500 mg 9-16 tablet,mike 00:00: yed release 00 Depakote 2020-0 No 1mg 250 mg 9-16 tablet,mike 00:00: yed release 00 hydroxyzine 2020-0 No 1mg HCl 50 mg 9-16 tablet 00:00: 00 venlafaxine 2020-0 No 1mg ER 225 mg 9-16 tablet,exte 00:00: nded 00 release 24 hr divalproex 2020-0 No 1mg 500 mg 9-16 tablet,mike 00:00: yed release 00 Depakote 2020-0 No 1mg 250 mg 9-16 tablet,mike 00:00: yed release 00 hydroxyzine 2020-0 No 1mg HCl 50 mg 9-16 tablet 00:00: 00 venlafaxine 2020-0 No 1mg ER 225 mg 9-16 tablet,exte 00:00: nded 00 release 24 hr divalproex 2020-0 No 1mg 500 mg 9-16 tablet,mike 00:00: yed release 00 Depakote 2020-0 No 1mg 250 mg 9-16 tablet,mike 00:00: yed release 00 hydroxyzine 2020-0 No 1mg HCl 50 mg 9-16 tablet 00:00: 00 venlafaxine 2020-0 No 1mg ER 225 mg 9-16 tablet,exte 00:00: nded 00 release 24 hr divalproex 2020-0 No 1mg 500 mg 9-16 tablet,mike 00:00: yed release 00 Depakote 2020-0 No 1mg 250 mg 9-16 tablet,mike 00:00: yed release 00 Depakote 2020-0 No 1mg 250 mg 8-06 tablet,mike 00:00: yed release 00 hydroxyzine 2020-0 No 1mg HCl 50 mg 8-06 tablet 00:00: 00 venlafaxine 2020-0 No 1mg ER 225 mg 8-06 tablet,exte 00:00: nded 00 release 24 hr divalproex 2020-0 No 1mg 500 mg 8-06 tablet,mike 00:00: yed release 00 Depakote 2020-0 No 1mg 250 mg 8-06 tablet,mike 00:00: yed release 00 hydroxyzine 2020-0 No 1mg HCl 50 mg 8-06 tablet 00:00: 00 venlafaxine 2020-0 No 1mg ER 225 mg 8-06 tablet,exte 00:00: nded 00 release 24 hr divalproex 2020-0 No 1mg 500 mg 8-06 tablet,mkie 00:00: yed release 00 Depakote 2020-0 No 1mg 250 mg 8-06 tablet,mike 00:00: yed release 00 hydroxyzine 2020-0 No 1mg HCl 50 mg 8-06 tablet 00:00: 00 venlafaxine 2020-0 No 1mg ER 225 mg 8-06 tablet,exte 00:00: nded 00 release 24 hr divalproex 2020-0 No 1mg 500 mg 8-06 tablet,miek 00:00: yed release 00 Depakote 2020-0 No 1mg 250 mg 8-06 tablet,mike 00:00: yed release 00 hydroxyzine 2020-0 No 1mg HCl 50 mg 8-06 tablet 00:00: 00 venlafaxine 2020-0 No 1mg ER 225 mg 8-06 tablet,exte 00:00: nded 00 release 24 hr divalproex 2020-0 No 1mg 500 mg 8-06 tablet,mike 00:00: yed release 00 glimepiride 2020-0 No 1mg 1 mg tablet 7-30 00:00: 00 glimepiride 2020-0 No 1mg 1 mg tablet 7-30 00:00: 00 glimepiride 2020-0 No 1mg 1 mg tablet 7-30 00:00: 00 glimepiride 2020-0 No 1mg 1 mg tablet 7-30 00:00: 00 Depakote 2020-0 No 1mg 250 mg 7-19 tablet,mike 00:00: yed release 00 Depakote 2020-0 No 1mg 250 mg 7-19 tablet,mike 00:00: yed release 00 Depakote 2020-0 No 1mg 250 mg 7-19 tablet,mike 00:00: yed release 00 Depakote 2020-0 No 1mg 250 mg 7-19 tablet,mike 00:00: yed release 00 gabapentin 2020-0 No 1mg 800 mg 7-14 tablet 00:00: 00 ibuprofen 2020-0 No 1mg 800 mg 7-14 tablet 00:00: 00 gabapentin 2020-0 No 1mg 800 mg 7-14 tablet 00:00: 00 ibuprofen 2020-0 No 1mg 800 mg 7-14 tablet 00:00: 00 gabapentin 2020-0 No 1mg 800 mg 7-14 tablet 00:00: 00 ibuprofen 2020-0 No 1mg 800 mg 7-14 tablet 00:00: 00 gabapentin 2020-0 No 1mg 800 mg 7-14 tablet 00:00: 00 ibuprofen 2020-0 No 1mg 800 mg 7-14 tablet 00:00: 00 hydroxyzine 2020-0 No 1mg HCl 50 mg 7-06 tablet 00:00: 00 venlafaxine 2020-0 No 1mg ER 225 mg 7-06 tablet,exte 00:00: nded 00 release 24 hr divalproex 2020-0 No 1mg 500 mg 7-06 tablet,mike 00:00: yed release 00 hydroxyzine 2020-0 No 1mg HCl 50 mg 7-06 tablet 00:00: 00 venlafaxine 2020-0 No 1mg ER 225 mg 7-06 tablet,exte 00:00: nded 00 release 24 hr divalproex 2020-0 No 1mg 500 mg 7-06 tablet,mike 00:00: yed release 00 hydroxyzine 2020-0 No 1mg HCl 50 mg 7-06 tablet 00:00: 00 venlafaxine 2020-0 No 1mg ER 225 mg 7-06 tablet,exte 00:00: nded 00 release 24 hr divalproex 2020-0 No 1mg 500 mg 7-06 tablet,mike 00:00: yed release 00 hydroxyzine 2020-0 No 1mg HCl 50 mg 7-06 tablet 00:00: 00 venlafaxine 2020-0 No 1mg ER 225 mg 7-06 tablet,exte 00:00: nded 00 release 24 hr divalproex 2020-0 No 1mg 500 mg 7-06 tablet,mike 00:00: yed release 00 hydrochloro 2020-0 No 1mg thiazide 6-02 12.5 mg 00:00: capsule 00 hydrochloro 2020-0 No 1mg thiazide 6-02 12.5 mg 00:00: capsule 00 hydrochloro 2020-0 No 1mg thiazide 6-02 12.5 mg 00:00: capsule 00 hydrochloro 2020-0 No 1mg thiazide 6-02 12.5 mg 00:00: capsule 00 ibuprofen 2020-0 No 1mg 800 mg 4-25 tablet 00:00: 00 ibuprofen 2020-0 No 1mg 800 mg 4-25 tablet 00:00: 00 ibuprofen 2020-0 No 1mg 800 mg 4-25 tablet 00:00: 00 ibuprofen 2020-0 No 1mg 800 mg 4-25 tablet 00:00: 00 hydroxyzine 2020-0 No 1mg HCl 50 mg 4-23 tablet 00:00: 00 venlafaxine 2020-0 No 1mg ER 225 mg 4-23 tablet,exte 00:00: nded 00 release 24 hr divalproex 2020-0 No 1mg 500 mg 4-23 tablet,mike 00:00: yed release 00 azithromyci 2020-0 No mg n 250 mg 4-23 tablet 00:00: 00 hydroxyzine 2020-0 No 1mg HCl 50 mg 4-23 tablet 00:00: 00 venlafaxine 2020-0 No 1mg ER 225 mg 4-23 tablet,exte 00:00: nded 00 release 24 hr divalproex 2020-0 No 1mg 500 mg 4-23 tablet,mike 00:00: yed release 00 azithromyci 2020-0 No mg n 250 mg 4-23 tablet 00:00: 00 hydroxyzine 2020-0 No 1mg HCl 50 mg 4-23 tablet 00:00: 00 venlafaxine 2020-0 No 1mg ER 225 mg 4-23 tablet,exte 00:00: nded 00 release 24 hr divalproex 2020-0 No 1mg 500 mg 4-23 tablet,mike 00:00: yed release 00 azithromyci 2020-0 No mg n 250 mg 4-23 tablet 00:00: 00 hydroxyzine 2020-0 No 1mg HCl 50 mg 4-23 tablet 00:00: 00 venlafaxine 2020-0 No 1mg ER 225 mg 4-23 tablet,exte 00:00: nded 00 release 24 hr divalproex 2020-0 No 1mg 500 mg 4-23 tablet,mike 00:00: yed release 00 azithromyci 2020-0 No mg n 250 mg 4-23 tablet 00:00: 00 venlafaxine 2020-0 No 1mg ER 225 mg 4-09 tablet,exte 00:00: nded 00 release 24 hr valacyclovi 2020-0 No 1gram r 1 gram 4-09 tablet 00:00: 00 venlafaxine 2020-0 No 1mg ER 225 mg 4-09 tablet,exte 00:00: nded 00 release 24 hr valacyclovi 2020-0 No 1gram r 1 gram 4-09 tablet 00:00: 00 venlafaxine 2020-0 No 1mg ER 225 mg 4-09 tablet,exte 00:00: nded 00 release 24 hr valacyclovi 2020-0 No 1gram r 1 gram 4-09 tablet 00:00: 00 venlafaxine 2020-0 No 1mg ER 225 mg 4-09 tablet,exte 00:00: nded 00 release 24 hr valacyclovi 2020-0 No 1gram r 1 gram 4-09 tablet 00:00: 00 estradiol 2020-0 No 1mg 0.5 mg 4-07 tablet 00:00: 00 metformin 2020-0 No 1mg 1,000 mg 4-07 tablet 00:00: 00 estradiol 2020-0 No 1mg 0.5 mg 4-07 tablet 00:00: 00 metformin 2020-0 No 1mg 1,000 mg 4-07 tablet 00:00: 00 estradiol 2020-0 No 1mg 0.5 mg 4-07 tablet 00:00: 00 metformin 2020-0 No 1mg 1,000 mg 4-07 tablet 00:00: 00 estradiol 2020-0 No 1mg 0.5 mg 4-07 tablet 00:00: 00 metformin 2020-0 No 1mg 1,000 mg 4-07 tablet 00:00: 00 hydroxyzine 2020-0 No 1mg HCl 50 mg 3-13 tablet 00:00: 00 venlafaxine 2020-0 No 1mg ER 225 mg 3-13 tablet,exte 00:00: nded 00 release 24 hr divalproex 2020-0 No 1mg 500 mg 3-13 tablet,mike 00:00: yed release 00 hydroxyzine 2020-0 No 1mg HCl 50 mg 3-13 tablet 00:00: 00 venlafaxine 2020-0 No 1mg ER 225 mg 3-13 tablet,exte 00:00: nded 00 release 24 hr divalproex 2020-0 No 1mg 500 mg 3-13 tablet,mike 00:00: yed release 00 hydroxyzine 2020-0 No 1mg HCl 50 mg 3-13 tablet 00:00: 00 venlafaxine 2020-0 No 1mg ER 225 mg 3-13 tablet,exte 00:00: nded 00 release 24 hr divalproex 2020-0 No 1mg 500 mg 3-13 tablet,mike 00:00: yed release 00 hydroxyzine 2020-0 No 1mg HCl 50 mg 3-13 tablet 00:00: 00 venlafaxine 2020-0 No 1mg ER 225 mg 3-13 tablet,exte 00:00: nded 00 release 24 hr divalproex 2020-0 No 1mg 500 mg 3-13 tablet,mike 00:00: yed release 00 glimepiride 2020-0 No 1mg 1 mg tablet 3-07 00:00: 00 gabapentin 2020-0 No 1mg 800 mg 3-07 tablet 00:00: 00 glimepiride 2020-0 No 1mg 1 mg tablet 3-07 00:00: 00 gabapentin 2020-0 No 1mg 800 mg 3-07 tablet 00:00: 00 glimepiride 2020-0 No 1mg 1 mg tablet 3-07 00:00: 00 gabapentin 2020-0 No 1mg 800 mg 3-07 tablet 00:00: 00 glimepiride 2020-0 No 1mg 1 mg tablet 3-07 00:00: 00 gabapentin 2020-0 No 1mg 800 mg 3-07 tablet 00:00: 00 Bromfed DM 2020-0 No 10mg/5 2 mg-30 2-12 mL mg-10 mg/5 00:00: mL oral 00 syrup Bromfed DM 2020-0 No 10mg/5 2 mg-30 2-12 mL mg-10 mg/5 00:00: mL oral 00 syrup Bromfed DM 2020-0 No 10mg/5 2 mg-30 2-12 mL mg-10 mg/5 00:00: mL oral 00 syrup Bromfed DM 2020-0 No 10mg/5 2 mg-30 2-12 mL mg-10 mg/5 00:00: mL oral 00 syrup Januvia 50 2020-0 No 1mg mg tablet 130 00:00: 00 cefuroxime 2020-0 No 1mg axetil 500 1-30 mg tablet 00:00: 00 Januvia 50 2020-0 No 1mg mg tablet 130 00:00: 00 cefuroxime 2020-0 No 1mg axetil 500 1-30 mg tablet 00:00: 00 Januvia 50 2020-0 No 1mg mg tablet 1-30 00:00: 00 cefuroxime 2020-0 No 1mg axetil 500 1-30 mg tablet 00:00: 00 Januvia 50 2020-0 No 1mg mg tablet 1-30 00:00: 00 cefuroxime 2020-0 No 1mg axetil 500 1-30 mg tablet 00:00: 00 Advair 2019- No 1mcg/do Diskus 500 2-10 se mcg-50 00:00: mcg/dose 00 powder for inhalation ibuprofen 2018- No 1mg 800 mg 2-10 tablet 00:00: 00 prednisone 2019-1 No mg 20 mg 2-10 tablet 00:00: 00 prednisone 2019-1 No mg 5 mg tablet 2-10 00:00: 00 azithromyci 2018-1 No mg n 250 mg 2-10 tablet 00:00: 00 hydrochloro 2018-1 No 1mg thiazide 2-10 12.5 mg 00:00: capsule 00 Advair 2018-06 No 1mcg/do Diskus 500 2-10 se mcg-50 00:00: mcg/dose 00 powder for inhalation ibuprofen 2018- No 1mg 800 mg 2-10 tablet 00:00: 00 prednisone 2019-1 No mg 20 mg 2-10 tablet 00:00: 00 prednisone 2019-1 No mg 5 mg tablet 2-10 00:00: 00 azithromyci 2019- No mg n 250 mg 2-10 tablet 00:00: 00 hydrochloro 2019-1 No 1mg thiazide 2-10 12.5 mg 00:00: capsule 00 Advair 2018-06 No 1mcg/do Diskus 500 2-10 se mcg-50 00:00: mcg/dose 00 powder for inhalation ibuprofen 2018-1 No 1mg 800 mg 2-10 tablet 00:00: 00 prednisone 2019-1 No mg 20 mg 2-10 tablet 00:00: 00 prednisone 2019-1 No mg 5 mg tablet 2-10 00:00: 00 azithromyci 2018-1 No mg n 250 mg 2-10 tablet 00:00: 00 hydrochloro 2019-1 No 1mg thiazide 2-10 12.5 mg 00:00: capsule 00 Advair 2018- No 1mcg/do Diskus 500 2-10 se mcg-50 00:00: mcg/dose 00 powder for inhalation ibuprofen 2018- No 1mg 800 mg 2-10 tablet 00:00: 00 prednisone 2018- No mg 20 mg 2-10 tablet 00:00: 00 prednisone 2018- No mg 5 mg tablet 2-10 00:00: 00 azithromyci 2018- No mg n 250 mg 2-10 tablet 00:00: 00 hydrochloro 2018- No 1mg thiazide 2-10 12.5 mg 00:00: capsule 00 venlafaxine 2018- No 1mg ER 225 mg 0-28 tablet,exte 00:00: nded 00 release 24 hr hydroxyzine 2018-06 No 1mg HCl 50 mg 0-28 tablet 00:00: 00 divalproex 2018-06 No 1mg 500 mg 0-28 tablet,mike 00:00: yed release 00 venlafaxine 2018- No 1mg ER 225 mg 0-28 tablet,exte 00:00: nded 00 release 24 hr hydroxyzine 2018-06 No 1mg HCl 50 mg 0-28 tablet 00:00: 00 divalproex 2018-06 No 1mg 500 mg 0-28 tablet,mike 00:00: yed release 00 venlafaxine 2018- No 1mg ER 225 mg 0-28 tablet,exte 00:00: nded 00 release 24 hr hydroxyzine 2018-06 No 1mg HCl 50 mg 0-28 tablet 00:00: 00 divalproex 2018-06 No 1mg 500 mg 0-28 tablet,mike 00:00: yed release 00 venlafaxine 2018- No 1mg ER 225 mg 0-28 tablet,exte 00:00: nded 00 release 24 hr hydroxyzine 2018-06 No 1mg HCl 50 mg 0-28 tablet 00:00: 00 divalproex 2018-06 No 1mg 500 mg 0-28 tablet,mike 00:00: yed release 00 estradiol 2018- No 1mg 0.5 mg 0-24 tablet 00:00: 00 metformin 2018- No 1mg 1,000 mg 0-24 tablet 00:00: 00 Mucinex DM 2018-06 No 1mg 30 mg-600 0-24 mg 00:00: tablet,exte 00 nded release 12 hr gabapentin 2018- No 1mg 800 mg 0-24 tablet 00:00: 00 ibuprofen 2019-1 No 1mg 800 mg 0-24 tablet 00:00: 00 valacyclovi 2019- No 1gram r 1 gram 0-24 tablet 00:00: 00 tizanidine 2018-1 No 1mg 4 mg 0-24 capsule 00:00: 00 estradiol 2019-1 No 1mg 0.5 mg 0-24 tablet 00:00: 00 metformin 2019-1 No 1mg 1,000 mg 0-24 tablet 00:00: 00 Mucinex DM 2018-1 No 1mg 30 mg-600 0-24 mg 00:00: tablet,exte 00 nded release 12 hr gabapentin 2018- No 1mg 800 mg 0-24 tablet 00:00: 00 ibuprofen 2018- No 1mg 800 mg 0-24 tablet 00:00: 00 valacyclovi 2018- No 1gram r 1 gram 0-24 tablet 00:00: 00 tizanidine 2018- No 1mg 4 mg 0-24 capsule 00:00: 00 estradiol 2018- No 1mg 0.5 mg 0-24 tablet 00:00: 00 metformin 2018-1 No 1mg 1,000 mg 0-24 tablet 00:00: 00 Mucinex DM 2018- No 1mg 30 mg-600 0-24 mg 00:00: tablet,exte 00 nded release 12 hr gabapentin 2018- No 1mg 800 mg 0-24 tablet 00:00: 00 ibuprofen 2018- No 1mg 800 mg 0-24 tablet 00:00: 00 valacyclovi 2018- No 1gram r 1 gram 0-24 tablet 00:00: 00 estradiol 2018-1 No 1mg 0.5 mg 0-24 tablet 00:00: 00 metformin 2019-1 No 1mg 1,000 mg 0-24 tablet 00:00: 00 Mucinex DM 2019-1 No 1mg 30 mg-600 0-24 mg 00:00: tablet,exte 00 nded release 12 hr gabapentin 2018- No 1mg 800 mg 0-24 tablet 00:00: 00 tizanidine 2018- No 1mg 4 mg 0-24 capsule 00:00: 00 ibuprofen 2019-1 No 1mg 800 mg 0-24 tablet 00:00: 00 valacyclovi 2018- No 1gram r 1 gram 0-24 tablet 00:00: 00 tizanidine 2019-1 No 1mg 4 mg 0-24 capsule 00:00: 00 hydroxyzine 2019-0 No 1mg pamoate 25 9-23 mg capsule 00:00: 00 hydroxyzine 2019-0 No 1mg pamoate 25 9-23 mg capsule 00:00: 00 hydroxyzine 2019-0 No 1mg pamoate 25 9-23 mg capsule 00:00: 00 hydroxyzine 2019-0 No 1mg pamoate 25 9-23 mg capsule 00:00: 00 Depo Medrol Depo Medrol 2019-0 No 1mL [facility] (40mg) (40mg) 03-08 [facility] 00:00: - [facility] Depo Medrol Depo Medrol 2019-0 No 1mg Common (40mg) (40mg) 03-08 [facility] 00:00: - [facility] Bupivicaine Bupivicaine 2019-0 No 5mL [place] [facility] 00:00: - [facility] Bupivicaine Bupivicaine 2019-0 No 5mL [place] 03[facility] 00:00: - [facility] Depo Medrol Depo Medrol 2019-0 No 1mg [facility] (40mg) (40mg) 03-08 [facility] 00:00: - [facility] Bupivicaine Bupivicaine 2019-0 No 5mL [place] 03[facility] 00:00: - [facility] Depo Medrol Depo Medrol 2019-0 No 1mL [facility] (40mg) (40mg) 03-08 [facility] 00:00: - [facility] Bupivicaine Bupivicaine 2019-0 No 5mL [place] 03[facility]08 [facility] 00:00: - [facility] Bupivicaine Bupivicaine 2019-0 No 5mL [place] 03-08 [facility] 00:00: - [facility] Bupivicaine Bupivicaine 2019-0 No 5mL [place] 03-08 [facility] 00:00: - [facility] Depo Medrol Depo Medrol 2019-0 No 1mL [facility] (40mg) (40mg) 03-08 [facility] 00:00: - [facility] Depo Medrol Depo Medrol 2019-0 No 1mg Common (40mg) (40mg) 03-08 [facility] 00:00: - [facility] Bupivicaine Bupivicaine 2019-0 No 5mL [place] 03-08 [facility] 00:00: - [facility] Bupivicaine Bupivicaine 2019-0 No 5mL [facility] [place] 03-08 [facility] 00:00: - [facility] Depo Medrol Depo Medrol 2019-0 No 1mL Common (40mg) (40mg) 03-08 [facility] 00:00: - [facility] Depo Medrol Depo Medrol 2019-0 No 1mg Common (40mg) (40mg) 03-08 [facility] 00:00: - [facility] Bupivicaine Bupivicaine 2019-0 No 5mL [facility] [place] 03-08 [facility] 00:00: - [facility] Bupivicaine Bupivicaine 2019-0 No 5mL [facility] [place] 03-08 [facility] 00:00: - [facility] Depo Medrol Depo Medrol 2019-0 No 1mL Common (40mg) (40mg) 03-08 [facility] 00:00: - [facility] Depo Medrol Depo Medrol 2019-0 No 1mg Common (40mg) (40mg) 03-08 [facility] 00:00: - [facility] ibuprofen 2019-0 No 1mg 800 mg 9 tablet 00:00: 00 ibuprofen 2019-0 No 1mg 800 mg 9 tablet 00:00: 00 ibuprofen 2019-0 No 1mg 800 mg 9- tablet 00:00: 00 ibuprofen 2019-0 No 1mg 800 mg 9- tablet 00:00: 00 hydroxyzine 2019-0 No 5mg HCl 50 mg 8- tablet 00:00: 00 hydroxyzine 2019-0 No 5mg HCl 50 mg 8- tablet 00:00: 00 hydroxyzine 2019-0 No 5mg HCl 50 mg 8- tablet 00:00: 00 hydroxyzine 2019-0 No 5mg HCl 50 mg 8- tablet 00:00: 00 Combivent 2019-0 No 2mcg/ac 18 mcg-103 8-13 tuation mcg/actuati 00:00: on aerosol 00 inhaler gabapentin 2019-0 No 1mg 800 mg 8-13 tablet 00:00: 00 gabapentin 2019-0 No 1mg 800 mg 8-13 tablet 00:00: 00 ipratropium 2019-0 No 25% bromide 8-13 0.02 % 00:00: solution 00 for inhalation Combivent 2019-0 No 2mcg/ac 18 mcg-103 8-13 tuation mcg/actuati 00:00: on aerosol 00 inhaler gabapentin 2019-0 No 1mg 800 mg 8-13 tablet 00:00: 00 gabapentin 2019-0 No 1mg 800 mg 8-13 tablet 00:00: 00 ipratropium 2019-0 No 25% bromide 8-13 0.02 % 00:00: solution 00 for inhalation Combivent 2019-0 No 2mcg/ac 18 mcg-103 8-13 tuation mcg/actuati 00:00: on aerosol 00 inhaler gabapentin 2019-0 No 1mg 800 mg 8-13 tablet 00:00: 00 gabapentin 2019-0 No 1mg 800 mg 8-13 tablet 00:00: 00 ipratropium 2019-0 No 25% bromide 8-13 0.02 % 00:00: solution 00 for inhalation Combivent 2019-0 No 2mcg/ac 18 mcg-103 8-13 tuation mcg/actuati 00:00: on aerosol 00 inhaler gabapentin 2019-0 No 1mg 800 mg 8-13 tablet 00:00: 00 gabapentin 2019-0 No 1mg 800 mg 8-13 tablet 00:00: 00 ipratropium 2019-0 No 25% bromide 8-13 0.02 % 00:00: solution 00 for inhalation hydroxyzine 2019-0 No 5mg HCl 50 mg 7-18 tablet 00:00: 00 hydroxyzine 2019-0 No 5mg HCl 50 mg 7-18 tablet 00:00: 00 hydroxyzine 2019-0 No 5mg HCl 50 mg 7-18 tablet 00:00: 00 hydroxyzine 2019-0 No 5mg HCl 50 mg 7-18 tablet 00:00: 00 hydroxyzine 2019-0 No 1mg pamoate 25 7-15 mg capsule 00:00: 00 hydroxyzine 2019-0 No 1mg pamoate 25 7-15 mg capsule 00:00: 00 hydroxyzine 2019-0 No 1mg pamoate 25 7-15 mg capsule 00:00: 00 hydroxyzine 2019-0 No 1mg pamoate 25 7-15 mg capsule 00:00: 00 metronidazo 2019-0 No 1mg le 500 mg 7-09 tablet 00:00: 00 metronidazo 2019-0 No 1mg le 500 mg 7-09 tablet 00:00: 00 metronidazo 2019-0 No 1mg le 500 mg 7-09 tablet 00:00: 00 metronidazo 2019-0 No 1mg le 500 mg 7-09 tablet 00:00: 00 estradiol 2019-0 No 1mg 0.5 mg 6-28 tablet 00:00: 00 metformin 2019-0 No 1mg 1,000 mg 6-28 tablet 00:00: 00 estradiol 2019-0 No 1mg 0.5 mg 6-28 tablet 00:00: 00 metformin 2019-0 No 1mg 1,000 mg 6-28 tablet 00:00: 00 estradiol 2019-0 No 1mg 0.5 mg 6-28 tablet 00:00: 00 metformin 2019-0 No 1mg 1,000 mg 6-28 tablet 00:00: 00 estradiol 2019-0 No 1mg 0.5 mg 6-28 tablet 00:00: 00 metformin 2019-0 No 1mg 1,000 mg 6-28 tablet 00:00: 00 Combivent 2019-0 No 2mcg/ac 18 mcg-103 6-10 tuation mcg/actuati 00:00: on aerosol 00 inhaler Combivent 2019-0 No 2mcg/ac 18 mcg-103 6-10 tuation mcg/actuati 00:00: on aerosol 00 inhaler Combivent 2019-0 No 2mcg/ac 18 mcg-103 6-10 tuation mcg/actuati 00:00: on aerosol 00 inhaler Combivent 2019-0 No 2mcg/ac 18 mcg-103 6-10 tuation mcg/actuati 00:00: on aerosol 00 inhaler mupirocin 2 2019-0 No 1% % topical 5-20 ointment 00:00: 00 estradiol 2019-0 No 1mg 0.5 mg 5-20 tablet 00:00: 00 pantoprazol 2019-0 No 1mg e 40 mg 5-20 tablet,mike 00:00: yed release 00 hydrochloro 2019-0 No 1mg thiazide 25 5-20 mg tablet 00:00: 00 metformin 2019-0 No 1mg 1,000 mg 5-20 tablet 00:00: 00 tramadol 50 2019-0 No 1mg mg tablet 5-20 00:00: 00 hydroxyzine 2019-0 No 1mg HCl 25 mg 5-20 tablet 00:00: 00 gabapentin 2019-0 No 1mg 800 mg 5-20 tablet 00:00: 00 alprazolam 2019-0 No 1mg 1 mg tablet 5-20 00:00: 00 gabapentin 2019-0 No 1mg 800 mg 5-20 tablet 00:00: 00 hydroxyzine 2019-0 No 1mg pamoate 25 5-20 mg capsule 00:00: 00 mupirocin 2 2019-0 No 1% % topical 5-20 ointment 00:00: 00 estradiol 2019-0 No 1mg 0.5 mg 5-20 tablet 00:00: 00 pantoprazol 2019-0 No 1mg e 40 mg 5-20 tablet,mike 00:00: yed release 00 hydrochloro 2019-0 No 1mg thiazide 25 5-20 mg tablet 00:00: 00 metformin 2019-0 No 1mg 1,000 mg 5-20 tablet 00:00: 00 tramadol 50 2019-0 No 1mg mg tablet 5-20 00:00: 00 hydroxyzine 2019-0 No 1mg HCl 25 mg 5-20 tablet 00:00: 00 gabapentin 2019-0 No 1mg 800 mg 5-20 tablet 00:00: 00 alprazolam 2019-0 No 1mg 1 mg tablet 5-20 00:00: 00 gabapentin 2019-0 No 1mg 800 mg 5-20 tablet 00:00: 00 hydroxyzine 2019-0 No 1mg pamoate 25 5-20 mg capsule 00:00: 00 mupirocin 2 2019-0 No 1% % topical 5-20 ointment 00:00: 00 estradiol 2019-0 No 1mg 0.5 mg 5-20 tablet 00:00: 00 pantoprazol 2019-0 No 1mg e 40 mg 5-20 tablet,mike 00:00: yed release 00 hydrochloro 2019-0 No 1mg thiazide 25 5-20 mg tablet 00:00: 00 metformin 2019-0 No 1mg 1,000 mg 5-20 tablet 00:00: 00 tramadol 50 2019-0 No 1mg mg tablet 5-20 00:00: 00 hydroxyzine 2019-0 No 1mg HCl 25 mg 5-20 tablet 00:00: 00 gabapentin 2019-0 No 1mg 800 mg 5-20 tablet 00:00: 00 alprazolam 2019-0 No 1mg 1 mg tablet 5-20 00:00: 00 gabapentin 2019-0 No 1mg 800 mg 5-20 tablet 00:00: 00 hydroxyzine 2019-0 No 1mg pamoate 25 5-20 mg capsule 00:00: 00 mupirocin 2 2019-0 No 1% % topical 5-20 ointment 00:00: 00 estradiol 2019-0 No 1mg 0.5 mg 5-20 tablet 00:00: 00 pantoprazol 2019-0 No 1mg e 40 mg 5-20 tablet,mike 00:00: yed release 00 hydrochloro 2018-0 No 1mg thiazide 25 5-20 mg tablet 00:00: 00 metformin 2019-0 No 1mg 1,000 mg 5-20 tablet 00:00: 00 tramadol 50 2019-0 No 1mg mg tablet 5-20 00:00: 00 hydroxyzine 2019-0 No 1mg HCl 25 mg 5-20 tablet 00:00: 00 gabapentin 2019-0 No 1mg 800 mg 5-20 tablet 00:00: 00 alprazolam 2019-0 No 1mg 1 mg tablet 5-20 00:00: 00 gabapentin 2019-0 No 1mg 800 mg 5-20 tablet 00:00: 00 hydroxyzine 2019-0 No 1mg pamoate 25 5-20 mg capsule 00:00: 00 METFORMIN Yes 500mg Take 500 Uni vers HCL 3-10 mg by [facility]y [place] (METFORMIN [place] (two) Medical times Branch daily. lisinopril Yes 20mg Take 20 mg U nivers (PRINIVIL,Z 3-10 by mouth ity of ESTRIL) 10 16:54: daily. [place] mg tablet Medical Branch montelukast 0 Yes 10mg Take 10 mg Univers (SINGULAIR) 3-10 by mouth ity of 10 mg 16:54: daily. [place] tablet Medical Branch SIMVASTATIN Yes Take by Uni vers ORAL 3-10 mouth. ity of 16:54: [place] [address] [place] [address] METFORMIN Yes 500mg Take 500 Uni vers HCL 3-10 mg by ity of (METFORMIN 10:54: mouth 2 [place] 34 (two) Medical times Branch daily. lisinopril Yes 20mg Take 20 mg U nivers (PRINIVIL,Z 3-10 by mouth ity of ESTRIL) 10 10:54: daily. [place] mg tablet [address] [place] [address] montelukast Yes 10mg Take 10 mg Univers (SINGULAIR) 3-10 by mouth ity of 10 mg 10:54: daily. [place] tablet [address] [place] [address] SIMVASTATIN Yes Take by Uni vers ORAL 3-10 mouth. ity of 10:54: [address] METFORMIN Yes 500mg Take 500 Uni vers HCL 3-10 mg by ity of (METFORMIN 10:54: mouth [place] (two) Medical times Branch daily. lisinopril Yes 20mg Take 20 mg U nivers (PRINIVIL,Z 3-10 by mouth ity of ESTRIL) 10 10:54: daily. [place] mg tablet [address] [place] [address] montelukast Yes 10mg Take 10 mg Univers (SINGULAIR) 3-10 by mouth ity of 10 mg 10:54: daily. [address] SIMVASTATIN Yes Take by Uni vers ORAL 3-10 mouth. ity of 10:54: [address] Combivent No 2mcg/ac 18 mcg-103 -28 tuation mcg/actuati 00:00: on aerosol 00 inhaler Symbicort No 2mcg/ac 80 mcg-4.5 28 tuation mcg/actuati 00:00: on HFA 00 aerosol inhaler Ventolin No 2mcg/ac HFA 90 28 tuation mcg/actuati 00:00: on aerosol 00 inhaler Advair No 2mcg/do Diskus 500 10-15 se mcg-50 00:00: mcg/dose 00 powder for inhalation Zyrtec 10 No 1mg mg tablet 10-15 00:00: 00 lisinopril No 1mg 20 mg 10-15 tablet 00:00: 00 gabapentin No 1mg 600 mg 4-28 tablet 00:00: 00 metformin 2015-0 No 1mg 500 mg 4-28 tablet 00:00: 00 simvastatin 2015-0 No 1mg 20 mg 4-28 tablet 00:00: 00 tramadol 50 2015-0 No 1mg mg tablet 10-15 00:00: 00 Bromfed DM 2015-0 No 10mg/5 2 mg-30 4-28 mL mg-10 mg/5 00:00: mL oral 00 syrup Combivent 2015-0 No 2mcg/ac 18 mcg-103 4-28 tuation mcg/actuati 00:00: on aerosol inhaler Symbicort 2015-0 No 2mcg/ac 80 mcg-4.5 4-28 tuation mcg/actuati 00:00: on HFA aerosol inhaler Ventolin 2014-0 No 2mcg/ac HFA 90 4-28 tuation mcg/actuati 00:00: on aerosol inhaler Advair 2014-0 No 2mcg/do Diskus 500 4-28 se mcg-50 00:00: mcg/dose 00 powder for inhalation Zyrtec 10 2014-0 No 1mg mg tablet 10-15 00:00: 00 lisinopril 2015-0 No 1mg 20 mg 4-28 tablet 00:00: 00 gabapentin 2015-0 No 1mg 600 mg 4-28 tablet 00:00: 00 metformin 2015-0 No 1mg 500 mg 4-28 tablet 00:00: 00 simvastatin 2015-0 No 1mg 20 mg 4-28 tablet 00:00: 00 tramadol 50 2015-0 No 1mg mg tablet 10-15 00:00: 00 Bromfed DM 2015-0 No 10mg/5 2 mg-30 4-28 mL mg-10 mg/5 00:00: mL oral 00 syrup Combivent 2015-0 No 2mcg/ac 18 mcg-103 4-28 tuation mcg/actuati 00:00: on aerosol 00 inhaler Symbicort 2015-0 No 2mcg/ac 80 mcg-4.5 4-28 tuation mcg/actuati 00:00: on HFA 00 aerosol inhaler Ventolin 2015-0 No 2mcg/ac HFA 90 4-28 tuation mcg/actuati 00:00: on aerosol inhaler Advair 2014-0 No 2mcg/do Diskus 500 4-28 se mcg-50 00:00: mcg/dose 00 powder for inhalation Zyrtec 10 2014-0 No 1mg mg tablet 10-15 00:00: 00 lisinopril 2015-0 No 1mg 20 mg -28 tablet 00:00: 00 gabapentin 2015-0 No 1mg 600 mg - tablet 00:00: 00 metformin 2015-0 No 1mg 500 mg - tablet 00:00: 00 simvastatin 2015-0 No 1mg 20 mg - tablet 00:00: 00 tramadol 50 2014-0 No 1mg mg tablet 10-15 00:00: 00 Bromfed DM 2014-0 No 10mg/5 2 mg-30 4-28 mL mg-10 mg/5 00:00: mL oral 00 syrup Combivent 2014-0 No 2mcg/ac 18 mcg-103 4-28 tuation mcg/actuati 00:00: on aerosol 00 inhaler Symbicort 2014-0 No 2mcg/ac 80 mcg-4.5 4-28 tuation mcg/actuati 00:00: on HFA 00 aerosol inhaler Ventolin 2014-0 No 2mcg/ac HFA 90 -28 tuation mcg/actuati 00:00: on aerosol 00 inhaler Advair 2014-0 No 2mcg/do Diskus 500 10-15 se mcg-50 00:00: mcg/dose 00 powder for inhalation Zyrtec 10 2014-0 No 1mg mg tablet 10-15 00:00: 00 lisinopril 2014-0 No 1mg 20 mg - tablet 00:00: 00 gabapentin 2014-0 No 1mg 600 mg - tablet 00:00: 00 metformin 2015-0 No 1mg 500 mg - tablet 00:00: 00 simvastatin 2015-0 No 1mg 20 mg -28 tablet 00:00: 00 tramadol 50 2014-0 No 1mg mg tablet 10-15 00:00: 00 Bromfed DM 2015-0 No 10mg/5 2 mg-30 4-28 mL mg-10 mg/5 00:00: mL oral 00 syrup Combivent 2014-0 No 2mcg/ac 18 mcg-103 3-31 tuation mcg/actuati 00:00: on aerosol 00 inhaler Symbicort 2014-0 No 2mcg/ac 80 mcg-4.5 3-31 tuation mcg/actuati 00:00: on HFA 00 aerosol inhaler Ventolin 90 2015-0 No 2mcg/ac mcg/actuati 3-31 tuation on aerosol 00:00: inhaler 00 Combivent 2015-0 No 2mcg/ac 18 mcg-103 3-31 tuation mcg/actuati 00:00: on aerosol 00 inhaler Combivent 2015-0 No 2mcg/ac 18 mcg-103 3-31 tuation mcg/actuati 00:00: on aerosol 00 inhaler Ventolin 90 2015-0 No 2mcg/ac mcg/actuati 3-31 tuation on aerosol 00:00: inhaler 00 Symbicort 2015-0 No 2mcg/ac 80 mcg-4.5 3-31 tuation mcg/actuati 00:00: on HFA 00 aerosol inhaler Advair 2015-0 No 2mcg/do Diskus 500 3-31 se mcg-50 00:00: mcg/dose 00 powder for inhalation Advair 2014-0 No 2mcg/do Diskus 500 3-31 se mcg-50 00:00: mcg/dose 00 powder for inhalation lisinopril 2015-0 No 1mg 20 mg 3-31 tablet 00:00: 00 Prempro 0.3 2015-0 No 1mg mg-1.5 mg 3-31 tablet 00:00: 00 gabapentin 2015-0 No 1mg 600 mg 3-31 tablet 00:00: 00 metformin 2015-0 No 1mg 500 mg 3-31 tablet 00:00: 00 metformin 2015-0 No 1mg 500 mg 3-31 tablet 00:00: 00 gabapentin 2015-0 No 1mg 600 mg 3-31 tablet 00:00: 00 Ventolin 90 2015-0 No 2mcg/ac mcg/actuati 3-31 tuation on aerosol 00:00: inhaler 00 Symbicort 2015-0 No 2mcg/ac 80 mcg-4.5 3-31 tuation mcg/actuati 00:00: on HFA 00 aerosol inhaler Advair 2015-0 No 2mcg/do Diskus 500 3-31 se mcg-50 00:00: mcg/dose 00 powder for inhalation Advair 2014-0 No 2mcg/do Diskus 500 3-31 se mcg-50 00:00: mcg/dose 00 powder for inhalation lisinopril 2015-0 No 1mg 20 mg 3-31 tablet 00:00: 00 Symbicort 2015-0 No 2mcg/ac 80 mcg-4.5 3-31 tuation mcg/actuati 00:00: on HFA 00 aerosol inhaler Ventolin 90 2015-0 No 2mcg/ac mcg/actuati 3-31 tuation on aerosol 00:00: inhaler 00 Combivent 2015-0 No 2mcg/ac 18 mcg-103 3-31 tuation mcg/actuati 00:00: on aerosol 00 inhaler Combivent 2015-0 No 2mcg/ac 18 mcg-103 3-31 tuation mcg/actuati 00:00: on aerosol 00 inhaler Ventolin 90 2015-0 No 2mcg/ac mcg/actuati 3-31 tuation on aerosol 00:00: inhaler 00 Symbicort 2015-0 No 2mcg/ac 80 mcg-4.5 3-31 tuation mcg/actuati 00:00: on HFA 00 aerosol inhaler Advair 2015-0 No 2mcg/do Diskus 500 3-31 se mcg-50 00:00: mcg/dose 00 powder for inhalation Advair 2015-0 No 2mcg/do Diskus 500 3-31 se mcg-50 00:00: mcg/dose 00 powder for inhalation lisinopril 2015-0 No 1mg 20 mg 3-31 tablet 00:00: 00 Prempro 0.3 2015-0 No 1mg mg-1.5 mg 3-31 tablet 00:00: 00 gabapentin 2015-0 No 1mg 600 mg 3-31 tablet 00:00: 00 metformin 2015-0 No 1mg 500 mg 3-31 tablet 00:00: 00 metformin 2015-0 No 1mg 500 mg 3-31 tablet 00:00: 00 gabapentin 2015-0 No 1mg 600 mg 3-31 tablet 00:00: 00 Prempro 0.3 2015-0 No 1mg mg-1.5 mg 3-31 tablet 00:00: 00 gabapentin 2015-0 No 1mg 600 mg 3-31 tablet 00:00: 00 metformin 2015-0 No 1mg 500 mg 3-31 tablet 00:00: 00 metformin 2015-0 No 1mg 500 mg 3-31 tablet 00:00: 00 gabapentin 2015-0 No 1mg 600 mg 3-31 tablet 00:00: 00 Symbicort 2015-0 No 2mcg/ac 80 mcg-4.5 3-31 tuation mcg/actuati 00:00: on HFA 00 aerosol inhaler Ventolin 90 2015-0 No 2mcg/ac mcg/actuati 3-31 tuation on aerosol 00:00: inhaler 00 Combivent 2015-0 No 2mcg/ac 18 mcg-103 3-31 tuation mcg/actuati 00:00: on aerosol 00 inhaler Combivent 2015-0 No 2mcg/ac 18 mcg-103 3-31 tuation mcg/actuati 00:00: on aerosol 00 inhaler Ventolin 90 2015-0 No 2mcg/ac mcg/actuati 3-31 tuation on aerosol 00:00: inhaler 00 Symbicort 2015-0 No 2mcg/ac 80 mcg-4.5 3-31 tuation mcg/actuati 00:00: on HFA 00 aerosol inhaler Advair 2015-0 No 2mcg/do Diskus 500 3-31 se mcg-50 00:00: mcg/dose 00 powder for inhalation Advair 2015-0 No 2mcg/do Diskus 500 3-31 se mcg-50 00:00: mcg/dose 00 powder for inhalation lisinopril 2015-0 No 1mg 20 mg 3-31 tablet 00:00: 00 Prempro 0.3 2015-0 No 1mg mg-1.5 mg 3-31 tablet 00:00: 00 gabapentin 2015-0 No 1mg 600 mg 3-31 tablet 00:00: 00 metformin 2015-0 No 1mg 500 mg 3-31 tablet 00:00: 00 metformin 2015-0 No 1mg 500 mg 3-31 tablet 00:00: 00 gabapentin 2015-0 No 1mg 600 mg 3-31 tablet 00:00: 00 Symbicort 2015-0 No 2mcg/ac 80 mcg-4.5 3-31 tuation mcg/actuati 00:00: on HFA 00 aerosol inhaler Ventolin 90 2015-0 No 2mcg/ac mcg/actuati 3-31 tuation on aerosol 00:00: inhaler 00 Combivent 2015-0 No 2mcg/ac 18 mcg-103 3-31 tuation mcg/actuati 00:00: on aerosol 00 inhaler Prempro 0.3 2014-0 No 1mg mg-1.5 mg 3-24 tablet 00:00: 00 Prempro 0.3 2014-0 No 1mg mg-1.5 mg 3-24 tablet 00:00: 00 Prempro 0.3 2014-0 No 1mg mg-1.5 mg 3-24 tablet 00:00: 00 Prempro 0.3 2014-0 No 1mg mg-1.5 mg 3-24 tablet 00:00: 00 COMBIVENT 2013-0 Yes INHALE TWO [place] RESPIMAT 6-03 PUFFS 4 ity of 20-100 00:00: TIMES [place] mcg/actuati 00 DAILY Medi martita on inhaler NEEDED Branch COMBIVENT Yes INHALE TWO [place] RESPIMAT 6-03 PUFFS 4 ity of 20-100 00:00: TIMES [place] mcg/actuati 00 DAILY Medi martita on inhaler NEEDED Branch COMBIVENT Yes INHALE TWO Un te[place] RESPIMAT 6-03 PUFFS 4 ity of 20-100 00:00: TIMES [place] mcg/actuati 00 DAILY Medi martita on inhaler NEEDED Branch fluticasone Yes 1{spray Use 1 Un tere (FLONASE) 4-15 } [place] in ity of 50 00:00: each [place] mcg/actuati 00 nostril 2 Med ical on nasal (two) Branch spray times daily. diphenhydrA Yes 25mg Take 1 Cap Univers MINE 4-15 by mouth ity of (BENADRYL) 00:00: every 6 [place] 25 mg 00 (six) Medical capsule hours as Branch needed for Allergies. fluticasone Yes 1{spray Use 1 Un tere (FLONASE) 4-15 } [place] in ity of 50 00:00: each [place] mcg/actuati 00 nostril 2 Med ical on nasal (two) Branch spray times daily. diphenhydrA 2013-0 Yes 25mg Take 1 Cap [facility] MINE 4-15 by mouth ity of (BENADRYL) 00:00: every 6 [place] 25 mg 00 (six) Medical capsule hours as Branch needed for Allergies. fluticasone 2013- Yes 1{spray Use 1 Un tere (FLONASE) 4-15 } [place] in ity of 50 00:00: each [place] [...] as Branch needed for Pain (scale 4-6). ibuprofen Yes 800mg Take 1 Tab U nivers (MOTRIN) 8-13 by mouth ity of 800 mg 00:00: every 6 [place] tablet 00 (six) Medical hours as Branch needed for Pain (scale 4-6). ibuprofen Yes 800mg Take 1 Tab U [...] Pain unrelieved by non-narcot ic analgesics . HYDROcodone Yes 1{tbl} Take 1 Tab Univers -acetaminop 2-22 by mouth ity of hen (NORCO) 00:00: every 6 [place] 5-325 mg 00 (six) Medical tablet hours as Branch needed for Pain (scale 7-10) or Pain unrelieved by non-narcot ic analgesics . HYDROcodone Yes 1{tbl} Take 1 Tab Univers [...] Medical hours as Branch needed for Pain. traMADOL Yes 50mg Take 1 Tab Uni vers (ULTRAM) 50 7-20 by mouth ity of mg tablet 00:00: every 6 [place] 00 (six) Medical hours as Branch needed for Pain. traMADOL Yes 50mg Take 1 Tab Uni vers (ULTRAM) 50 7-20 by mouth ity of mg tablet 00:00: every 6 [place] 00 (six) Medical hours as Branch needed for Pain. Gabapentin Gabapentin Yes Wild not C ommon [facility] defined [facility] Hydrochloro Hydrochloro Yes Wild not Common thiazide thiazide [facility] defined Sp [facility] Metronidazo Metronidazo Yes Wild 1 tablet Common le le Mccain [facility] Symbicort Symbicort Yes Wild 2 puffs Common [facility] Claritin Claritin Yes Wild 1 tablet C ommon [facility] Venlafaxine Venlafaxine Yes Wild not Common HCl ER HCl ER [facility] defined [facility] Ventolin Ventolin Yes Wild 2 puffs as Common HFA HFA [facility] needed [facility] Mupirocin Mupirocin Yes Wild 1 Com mon [facility] applicatio Spirit n to - [facility] affected [facility] Metformin Metformin Yes Wild not Com mon HCl HCl [facility] defined [facility] Advair Advair Yes Wild 1 puff Common Diskus Diskus [facility] Montelukast Montelukast Yes Wild 1 tablet Common Sodium Sodium [facility] Ibuprofen Ibuprofen Yes Wild 1 tablet Common [facility] with food Spirit or milk as - [facility] needed [facility] HydrOXYzine HydrOXYzine Yes Wild not Common HCl HCl [facility] defined [facility] Combivent Combivent Yes Wild not Com mon Respimat Respimat [facility] defined Sp [facility] Benadryl Benadryl Yes Wild 1 tablet C ommon Allergy Allergy [facility] as needed [facility] Estradiol Estradiol Yes Wild not Com mon [facility] defined [facility] Divalproex Divalproex Yes Wild not C ommon Sodium Sodium [facility] defined [facility] Flonase Flonase Yes Wild 1 spray in C ommon Allergy Allergy [facility] each [facility] Relief Relief nostril [facility] Tramadol Tramadol Yes Wild 1 tablet C ommon HCl HCl [facility] as needed [facility] metFORMIN metFORMIN No metFORMIN HCl 1000 MG HCl 1000 MG HCl 1000 MG Dicyclomine Dicyclomine No Dicyclomin HCl HCl e HCl Ventolin Ventolin No 2{puffs QID Ventolin HFA 108 (90 HFA 108 (90 _as_nee HFA 108 Base) Base) ded} (90 Base) MCG/ACT MCG/ACT MCG/ACT Ibuprofen Ibuprofen No TID Ibuprofen 800 MG 800 MG 800 MG Advair Advair No 1{puff} BID Advair Diskus Diskus Diskus 500-50 500-50 500-50 MCG/DOSE MCG/DOSE MCG/DOSE Symbicort Symbicort No 2{puffs BID Symbicort 80-4.5 80-4.5 } 80-4.5 MCG/ACT MCG/ACT MCG/ACT Benadryl Benadryl No 1{table TID Benadryl Allergy 25 Allergy 25 t_as_ne Allergy 25 MG MG eded} MG traMADol traMADol No 1{table QID traMADol HCl 50 MG HCl 50 MG t_as_ne HCl 50 MG eded} Glimepiride Glimepiride No Glimepirid e Estradiol Estradiol No Estradiol 0.5 MG 0.5 MG 0.5 MG OneTouch OneTouch No OneTouch Verio Verio Verio Ondansetron Ondansetron No Ondansetro HCl HCl n HCl Advair Advair No 1{puff} BID Advair Diskus Diskus Diskus 500-50 500-50 500-50 MCG/DOSE MCG/DOSE MCG/DOSE Venlafaxine Venlafaxine No Venlafaxin HCl ER 225 HCl ER 225 e HCl ER MG MG 225 MG Gabapentin Gabapentin No Gabapentin 800 MG 800 MG 800 MG Dicyclomine Dicyclomine No Dicyclomin HCl HCl e HCl Symbicort Symbicort No 2{puffs BID Symbicort 80-4.5 80-4.5 } 80-4.5 MCG/ACT MCG/ACT MCG/ACT Benadryl Benadryl No 1{table TID Benadryl Allergy 25 Allergy 25 t_as_ne Allergy 25 MG MG eded} MG traMADol traMADol No 1{table QID traMADol HCl 50 MG HCl 50 MG t_as_ne HCl 50 MG eded} hydroCHLORO hydroCHLORO No hydroCHLOR thiazide 25 thiazide 25 Othiazide MG MG 25 MG methylPREDN methylPREDN No methylPRED ISolone ISolone NISolone risperiDONE risperiDONE No risperiDON E Flonase Flonase No 1{spray QD Flonase Allergy Allergy _in_eac Allergy Relief 50 Relief 50 h_nostr Relief 50 MCG/ACT MCG/ACT il} MCG/ACT valACYclovi valACYclovi No valACYclov r HCl r HCl ir HCl Ventolin Ventolin No 2{puffs QID Ventolin HFA 108 (90 HFA 108 (90 _as_nee HFA 108 Base) Base) ded} (90 Base) MCG/ACT MCG/ACT MCG/ACT metFORMIN metFORMIN No metFORMIN HCl 1000 MG HCl 1000 MG HCl 1000 MG Metronidazo Metronidazo No 1{table Metronidaz le 500 MG le 500 MG t} ole 500 MG Divalproex Divalproex No Divalproex Sodium 500 Sodium 500 Sodium 500 MG MG MG Mupirocin 2 Mupirocin 2 No 1{appli TID Mupirocin % % cation_ 2 % to_affe cted_ar ea} hydrOXYzine hydrOXYzine No hydrOXYzin HCl 50 MG HCl 50 MG e HCl 50 MG Montelukast Montelukast No 1{table QD Montelukas Sodium 10 Sodium 10 t} t Sodium MG MG 10 MG Combivent Combivent No Combivent Respimat Respimat Respimat 20-100 20-100 20-100 MCG/ACT MCG/ACT MCG/ACT Ibuprofen Ibuprofen No TID Ibuprofen 800 MG 800 MG 800 MG Claritin 10 Claritin 10 No 1{table QD Claritin MG MG t} 10 MG metFORMIN metFORMIN No metFORMIN HCl 1000 MG HCl 1000 MG HCl 1000 MG Advair Advair No 1{puff} BID Advair Diskus Diskus Diskus 500-50 500-50 500-50 MCG/DOSE MCG/DOSE MCG/DOSE risperiDONE risperiDONE No risperiDON E Montelukast Montelukast No 1{table QD Montelukas Sodium 10 Sodium 10 t} t Sodium MG MG 10 MG Ventolin Ventolin No 2{puffs QID Ventolin HFA 108 (90 HFA 108 (90 _as_nee HFA 108 Base) Base) ded} (90 Base) MCG/ACT MCG/ACT MCG/ACT Ibuprofen Ibuprofen No TID Ibuprofen 800 MG 800 MG 800 MG Symbicort Symbicort No 2{puffs BID Symbicort 80-4.5 80-4.5 } 80-4.5 MCG/ACT MCG/ACT MCG/ACT Claritin 10 Claritin 10 No 1{table QD Claritin MG MG t} 10 MG Ondansetron Ondansetron No Ondansetro HCl HCl n HCl Gabapentin Gabapentin No Gabapentin 800 MG 800 MG 800 MG Combivent Combivent No Combivent Respimat Respimat Respimat 20-100 20-100 20-100 MCG/ACT MCG/ACT MCG/ACT traMADol traMADol No 1{table QID traMADol HCl 50 MG HCl 50 MG t_as_ne HCl 50 MG eded} Divalproex Divalproex No Divalproex Sodium 500 Sodium 500 Sodium 500 MG MG MG Venlafaxine Venlafaxine No Venlafaxin HCl ER 225 HCl ER 225 e HCl ER MG MG 225 MG valACYclovi valACYclovi No valACYclov r HCl r HCl ir HCl methylPREDN methylPREDN No methylPRED ISolone ISolone NISolone Estradiol Estradiol No Estradiol 0.5 MG 0.5 MG 0.5 MG Benadryl Benadryl No 1{table TID Benadryl Allergy 25 Allergy 25 t_as_ne Allergy 25 MG MG eded} MG Dicyclomine Dicyclomine No Dicyclomin HCl HCl e HCl OneTouch OneTouch No OneTouch Verio Verio Verio Glimepiride Glimepiride No Glimepirid e Mupirocin 2 Mupirocin 2 No 1{appli TID Mupirocin % % cation_ 2 % to_affe cted_ar ea} hydrOXYzine hydrOXYzine No hydrOXYzin HCl 50 MG HCl 50 MG e HCl 50 MG hydroCHLORO hydroCHLORO No hydroCHLOR thiazide 25 thiazide 25 Othiazide MG MG 25 MG Flonase Flonase No 1{spray QD Flonase Allergy Allergy _in_eac Allergy Relief 50 Relief 50 h_nostr Relief 50 MCG/ACT MCG/ACT il} MCG/ACT Metronidazo Metronidazo No 1{table Metronidaz le 500 MG le 500 MG t} ole 500 MG Venlafaxine Venlafaxine No Venlafaxin HCl ER 225 HCl ER 225 e HCl ER MG MG 225 MG Combivent Combivent No Combivent Respimat Respimat Respimat 20-100 20-100 20-100 MCG/ACT MCG/ACT MCG/ACT Gabapentin Gabapentin No Gabapentin 800 MG 800 MG 800 MG Mupirocin 2 Mupirocin 2 No 1{appli TID Mupirocin % % cation_ 2 % to_affe cted_ar ea} Montelukast Montelukast No 1{table QD Montelukas Sodium 10 Sodium 10 t} t Sodium MG MG 10 MG hydrOXYzine hydrOXYzine No hydrOXYzin HCl 50 MG HCl 50 MG e HCl 50 MG Glimepiride Glimepiride No Glimepirid e hydroCHLORO hydroCHLORO No hydroCHLOR thiazide 25 thiazide 25 Othiazide MG MG 25 MG Divalproex Divalproex No Divalproex Sodium 500 Sodium 500 Sodium 500 MG MG MG Symbicort Symbicort No 2{puffs BID Symbicort 80-4.5 80-4.5 } 80-4.5 MCG/ACT MCG/ACT MCG/ACT Dicyclomine Dicyclomine No Dicyclomin HCl HCl e HCl methylPREDN methylPREDN No methylPRED ISolone ISolone NISolone risperiDONE risperiDONE No risperiDON E Metronidazo Metronidazo No 1{table Metronidaz le 500 MG le 500 MG t} ole 500 MG metFORMIN metFORMIN No metFORMIN HCl 1000 MG HCl 1000 MG HCl 1000 MG Advair Advair No 1{puff} BID Advair Diskus Diskus Diskus 500-50 500-50 500-50 MCG/DOSE MCG/DOSE MCG/DOSE Flonase Flonase No 1{spray QD Flonase Allergy Allergy _in_eac Allergy Relief 50 Relief 50 h_nostr Relief 50 MCG/ACT MCG/ACT il} MCG/ACT traMADol traMADol No 1{table QID traMADol HCl 50 MG HCl 50 MG t_as_ne HCl 50 MG eded} Ondansetron Ondansetron No Ondansetro HCl HCl n HCl Ventolin Ventolin No 2{puffs QID Ventolin HFA 108 (90 HFA 108 (90 _as_nee HFA 108 Base) Base) ded} (90 Base) MCG/ACT MCG/ACT MCG/ACT valACYclovi valACYclovi No valACYclov r HCl r HCl ir HCl Estradiol Estradiol No Estradiol 0.5 MG 0.5 MG 0.5 MG Ibuprofen Ibuprofen No TID Ibuprofen 800 MG 800 MG 800 MG OneTouch OneTouch No OneTouch Verio Verio Verio Benadryl Benadryl No 1{table TID Benadryl Allergy 25 Allergy 25 t_as_ne Allergy 25 MG MG eded} MG Claritin 10 Claritin 10 No 1{table QD Claritin MG MG t} 10 MG metFORMIN metFORMIN No metFORMIN HCl 1000 MG HCl 1000 MG HCl 1000 MG Advair Advair No 1{puff} BID Advair Diskus Diskus Diskus 500-50 500-50 500-50 MCG/DOSE MCG/DOSE MCG/DOSE risperiDONE risperiDONE No risperiDON E Montelukast Montelukast No 1{table QD Montelukas Sodium 10 Sodium 10 t} t Sodium MG MG 10 MG Ventolin Ventolin No 2{puffs QID Ventolin HFA 108 (90 HFA 108 (90 _as_nee HFA 108 Base) Base) ded} (90 Base) MCG/ACT MCG/ACT MCG/ACT Ibuprofen Ibuprofen No TID Ibuprofen 800 MG 800 MG 800 MG Symbicort Symbicort No 2{puffs BID Symbicort 80-4.5 80-4.5 } 80-4.5 MCG/ACT MCG/ACT MCG/ACT Claritin 10 Claritin 10 No 1{table QD Claritin MG MG t} 10 MG Ondansetron Ondansetron No Ondansetro HCl HCl n HCl Gabapentin Gabapentin No Gabapentin 800 MG 800 MG 800 MG Combivent Combivent No Combivent Respimat Respimat Respimat 20-100 20-100 20-100 MCG/ACT MCG/ACT MCG/ACT traMADol traMADol No 1{table QID traMADol HCl 50 MG HCl 50 MG t_as_ne HCl 50 MG eded} Divalproex Divalproex No Divalproex Sodium 500 Sodium 500 Sodium 500 MG MG MG Venlafaxine Venlafaxine No Venlafaxin HCl ER 225 HCl ER 225 e HCl ER MG MG 225 MG valACYclovi valACYclovi No valACYclov r HCl r HCl ir HCl methylPREDN methylPREDN No methylPRED ISolone ISolone NISolone Estradiol Estradiol No Estradiol 0.5 MG 0.5 MG 0.5 MG Benadryl Benadryl No 1{table TID Benadryl Allergy 25 Allergy 25 t_as_ne Allergy 25 MG MG eded} MG Dicyclomine Dicyclomine No Dicyclomin HCl HCl e HCl OneTouch OneTouch No OneTouch Verio Verio Verio Glimepiride Glimepiride No Glimepirid e Mupirocin 2 Mupirocin 2 No 1{appli TID Mupirocin % % cation_ 2 % to_affe cted_ar ea} hydrOXYzine hydrOXYzine No hydrOXYzin HCl 50 MG HCl 50 MG e HCl 50 MG hydroCHLORO hydroCHLORO No hydroCHLOR thiazide 25 thiazide 25 Othiazide MG MG 25 MG Flonase Flonase No 1{spray QD Flonase Allergy Allergy _in_eac Allergy Relief 50 Relief 50 h_nostr Relief 50 MCG/ACT MCG/ACT il} MCG/ACT Metronidazo Metronidazo No 1{table Metronidaz le 500 MG le 500 MG t} ole 500 MG Combivent Combivent No Combivent Respimat Respimat Respimat 20-100 20-100 20-100 MCG/ACT MCG/ACT MCG/ACT Metronidazo Metronidazo No 1{table Metronidaz le 500 MG le 500 MG t} ole 500 MG Venlafaxine Venlafaxine No Venlafaxin HCl ER 225 HCl ER 225 e HCl ER MG MG 225 MG hydroCHLORO hydroCHLORO No hydroCHLOR thiazide 25 thiazide 25 Othiazide MG MG 25 MG Divalproex Divalproex No Divalproex Sodium 500 Sodium 500 Sodium 500 MG MG MG methylPREDN methylPREDN No methylPRED ISolone ISolone NISolone hydrOXYzine hydrOXYzine No hydrOXYzin HCl 50 MG HCl 50 MG e HCl 50 MG valACYclovi valACYclovi No valACYclov r HCl r HCl ir HCl OneTouch OneTouch No OneTouch Verio Verio Verio Claritin 10 Claritin 10 No 1{table QD Claritin MG MG t} 10 MG risperiDONE risperiDONE No risperiDON E Montelukast Montelukast No 1{table QD Montelukas Sodium 10 Sodium 10 t} t Sodium MG MG 10 MG Estradiol Estradiol No Estradiol 0.5 MG 0.5 MG 0.5 MG Flonase Flonase No 1{spray QD Flonase Allergy Allergy _in_eac Allergy Relief 50 Relief 50 h_nostr Relief 50 MCG/ACT MCG/ACT il} MCG/ACT Ondansetron Ondansetron No Ondansetro HCl HCl n HCl Gabapentin Gabapentin No Gabapentin 800 MG 800 MG 800 MG Glimepiride Glimepiride No Glimepirid e Mupirocin 2 Mupirocin 2 No 1{appli TID Mupirocin % % cation_ 2 % to_affe cted_ar ea} Vital Signs Vital Name Observation Time Observation Value Comments Source Systolic blood 2023-02-04 16:00:00 135 mm[facility]Hg[facility] Diastolic blood 2023-02-04 16:00:00 85 mm[Hg] [facility] Heart rate 2023-02-04 16:00:00 86 /min [facility] Respiratory rate 2023-02-04 16:00:00 23 /min [facility] Oxygen saturation in 2023-02-04 16:00:00 100 /min [facility] Arterial blood by [facility] Pulse oximetry Branch Body temperature 2023-02-04 13:52:00 37.28 Carmela [facility] Body height 2023-02-04 13:52:00 162.6 cm [facility] Body weight 2023-02-04 13:52:00 142.883 kg [facility] BMI 2023-02-04 13:52:00 54.07 kg/m2 [facility] Body temperature 2022-11-22 16:02:00 36.83 Carmela [facility] Respiratory rate 2022-11-22 16:02:00 16 /min [facility] Body height 2022-11-22 16:02:00 162.6 cm Universi ty [facility] Body weight 2022-11-22 16:02:00 102.059 kg Universi ty [facility] BMI 2022-11-22 16:02:00 38.62 kg/m2 [facility] Oxygen saturation in 2022-11-22 16:02:00 100 /min University Arterial blood by [facility] Pulse oximetry Branch Systolic blood 2022-11-22 16:02:00 135 mm[Hg] Univer sity of pressure [facility] Diastolic blood 2022-11-22 16:02:00 89 mm[Hg] Unive rsity of pressure [facility] Heart rate 2022-11-22 16:02:00 76 /min Universi ty [facility] height 2022-03-09 13:30:00 64 [in_i] Common [facility] weight 2022-03-09 13:30:00 224 [lb_av] Common [facility] temperature 2022-03-09 13:30:00 97.2 [degF] Common [facility] bmi 2022-03-09 13:30:00 38.45 kg/m2 [facility] blood pressure 2022-03-09 13:30:00 112 mm[Hg] [facility] blood pressure 2022-03-09 13:30:00 76 mm[Hg] [facility] height 2021-11-30 11:00:00 64 [in_i] Common [facility] weight 2021-11-30 11:00:00 222 [lb_av] Common [facility] temperature 2021-11-30 11:00:00 98.3 [degF] Common [facility] bmi 2021-11-30 11:00:00 38.1 kg/m2 [facility] blood pressure 2021-11-30 11:00:00 142 mm[Hg] [facility] blood pressure 2021-11-30 11:00:00 86 mm[Hg] [facility] height 2021-08-06 09:45:00 64 [in_i] Common [facility] weight 2021-08-06 09:45:00 222 [lb_av] Common [facility] temperature 2021-08-06 09:45:00 98.2 [degF] Common [facility] bmi 2021-08-06 09:45:00 38.1 kg/m2 [facility] blood pressure 2021-08-06 09:45:00 142 mm[Hg] [facility] blood pressure 2021-08-06 09:45:00 88 mm[Hg] Common [facility] - diastolic [facility] Systolic blood 2021-01-26 12:33:00 136 mm[Hg] Univer sity of [facility] Diastolic blood 2021-01-26 12:33:00 93 mm[Hg] Unive rsity of [facility] Heart rate 2021-01-26 12:33:00 94 /min Universi [facility] Body temperature 2021-01-26 12:33:00 38.22 Carmela [facility] Respiratory rate 2021-01-26 12:33:00 20 /min [facility] Body weight 2021-01-26 12:33:00 [facility]709 [facility] 2021-01-26 12:33:00 37.38 kg/m2 [facility] Oxygen saturation in 2021-01-26 12:33:00 97 /min [facility] Arterial blood by [facility] Pulse oximetry Branch Systolic blood 2021-01-26 12:33:00 136 mm[Hg] Univer sity of [facility] Diastolic blood 2021-01-26 12:33:00 93 mm[Hg] Unive rsity of [facility] Heart rate 2021-01-26 12:33:00 94 /min Universi ty [facility] Body temperature 2021-01-26 12:33:00 38.22 [facility] 2021-01-26 12:33:00 20 /min [facility] Body weight 2021-01-26 12:33:00 95.709 kg [facility] BMI 2021-01-26 12:33:00 37.38 kg/m2 [facility] Oxygen saturation in 2021-01-26 12:33:00 97 /min University Arterial blood by [facility] Pulse oximetry Branch BP Systolic 2022-05-08 10:30:00 128 mm[Hg] BP Diastolic 2022-05-08 10:30:00 86 mm[Hg] Weight Measured 2022-05-08 10:30:00 231.00 pounds Height Measured 2022-05-08 10:30:00 65.00 inches Body Temperature 2022-05-08 10:30:00 98.00 degrees Heart Rate 2022-05-08 10:30:00 88.00 /min Respiratory Rate 2022-05-08 10:30:00 19.00 /min BP Systolic 2022-05-04 08:26:00 135 mm[Hg] BP Diastolic 2022-05-04 08:26:00 86 mm[Hg] Weight Measured 2022-05-04 08:26:00 230.20 pounds Height Measured 2022-05-04 08:26:00 65.00 inches Body Temperature 2022-05-04 08:26:00 98.30 degrees Heart Rate 2022-05-04 08:26:00 85.00 /min Respiratory Rate 2022-05-04 08:26:00 17.00 /min BP Systolic 2022-02-25 14:54:00 151 mm[Hg] BP Diastolic 2022-02-25 14:54:00 87 mm[Hg] Weight Measured 2022-02-25 14:54:00 217.60 pounds Height Measured 2022-02-25 14:54:00 65.00 inches Body Temperature 2022-02-25 14:54:00 98.30 degrees Heart Rate 2022-02-25 14:54:00 113.00 /min Respiratory Rate 2022-02-25 14:54:00 20.00 /min BP Systolic 2022-02-09 10:23:00 153 mm[Hg] BP Diastolic 2022-02-09 10:23:00 99 mm[Hg] Weight Measured 2022-02-09 10:23:00 219.80 pounds Height Measured 2022-02-09 10:23:00 65.00 inches Body Temperature 2022-02-09 10:23:00 97.40 degrees Heart Rate 2022-02-09 10:23:00 91.00 /min Respiratory Rate 2022-02-09 10:23:00 18.00 /min BP Systolic 2021-12-04 15:11:00 117 mm[Hg] BP Diastolic 2021-12-04 15:11:00 82 mm[Hg] Weight Measured 2021-12-04 15:11:00 223.20 pounds Height Measured 2021-12-04 15:11:00 65.00 inches Body Temperature 2021-12-04 15:11:00 98.40 degrees Heart Rate 2021-12-04 15:11:00 86.00 /min Respiratory Rate 2021-12-04 15:11:00 BP Systolic 2021-10-09 15:31:00 118 mm[Hg] BP Diastolic 2021-10-09 15:31:00 77 mm[Hg] Weight Measured 2021-10-09 15:31:00 231.00 pounds Height Measured 2021-10-09 15:31:00 65.00 inches Body Temperature 2021-10-09 15:31:00 98.00 degrees Heart Rate 2021-10-09 15:31:00 92.00 /min Respiratory Rate 2021-10-09 15:31:00 BP Systolic 2021-08-25 09:23:00 146 mm[Hg] BP Diastolic 2021-08-25 09:23:00 92 mm[Hg] Weight Measured 2021-08-25 09:23:00 222.80 pounds Height Measured 2021-08-25 09:23:00 65.00 inches Body Temperature 2021-08-25 09:23:00 97.70 degrees Heart Rate 2021-08-25 09:23:00 89.00 /min Respiratory Rate 2021-08-25 09:23:00 16.00 /min BP Systolic 2021-08-17 16:23:00 133 mm[Hg] BP Diastolic 2021-08-17 16:23:00 88 mm[Hg] Weight Measured 2021-08-17 16:23:00 219.00 pounds Height Measured 2021-08-17 16:23:00 65.00 inches Body Temperature 2021-08-17 16:23:00 97.90 degrees Heart Rate 2021-08-17 16:23:00 84.00 /min Respiratory Rate 2021-08-17 16:23:00 17.00 /min BP Systolic 2021-08-11 10:42:00 151 mm[Hg] BP Diastolic 2021-08-11 10:42:00 96 mm[Hg] Weight Measured 2021-08-11 10:42:00 221.80 pounds Height Measured 2021-08-11 10:42:00 65.00 inches Body Temperature 2021-08-11 10:42:00 98.60 degrees Heart Rate 2021-08-11 10:42:00 86.00 /min Respiratory Rate 2021-08-11 10:42:00 17.00 /min BP Systolic 2021-05-26 10:06:00 125 mm[Hg] BP Diastolic 2021-05-26 10:06:00 90 mm[Hg] Weight Measured 2021-05-26 10:06:00 225.00 pounds Height Measured 2021-05-26 10:06:00 65.00 inches Body Temperature 2021-05-26 10:06:00 Heart Rate 2021-05-26 10:06:00 Respiratory Rate 2021-05-26 10:06:00 BP Systolic 2021-04-01 09:54:00 119 mm[Hg] BP Diastolic 2021-04-01 09:54:00 76 mm[Hg] Weight Measured 2021-04-01 09:54:00 229.60 pounds Height Measured 2021-04-01 09:54:00 65.00 inches Body Temperature 2021-04-01 09:54:00 98.10 degrees Heart Rate 2021-04-01 09:54:00 92.00 /min Respiratory Rate 2021-04-01 09:54:00 16.00 /min BP Systolic 2021-03-10 09:33:00 121 mm[Hg] BP Diastolic 2021-03-10 09:33:00 81 mm[Hg] Weight Measured 2021-03-10 09:33:00 225.80 pounds Height Measured 2021-03-10 09:33:00 65.00 inches Body Temperature 2021-03-10 09:33:00 98.30 degrees Heart Rate 2021-03-10 09:33:00 103.00 /min Respiratory Rate 2021-03-10 09:33:00 16.00 /min Procedures Procedure Date / Time Performed Performing Clinician Formerly [facility] e EKG-12 LEAD 2023-02-04 16:14:01 Sara Dietrich [facility] CBC WITH DIFF 2023-02-04 15:05:00 Sara Dietrich [facility] XR CHEST 1 VW 2023-02-04 14:30:37 Sara Dietrich [facility] TROPONIN I 2023-02-04 14:21:00 Sara Dietrich [facility] COMP. METABOLIC PANEL 2023-02-04 14:21:00 Sara Dietrich [facility] ([id number]) [facility] N-TERMINAL PRO-BNP 2023-02-04 14:21:00 Sara Dietrich [facility] COVID-19 (ID NOW RAPID 2023-02-04 14:21:00 Sara Dietrich Un [facility] TESTING) [facility] CONSENT/REFUSAL FOR 2023-02-04 13:51:01 [facility] TREATMENT CT HIP RIGHT WO 2022-11-22 17:50:13 Pedro Pablo [facility] [place] [facility] [place] CONTRAST [facility] ASSIGNMENT OF BENEFITS 2022-11-22 17:26:18 Doctor Unassigned, No [facility] Name [facility] XR FEMUR 2 VW RIGHT 2022-11-22 17:08:58 Pedro Pablo Carr [facility] XR HIPS 3 VW RIGHT 2022-11-22 17:08:22 Pedro Pablo Carr [facility] CONSENT/REFUSAL FOR 2022-11-22 15:57:30 Doctor Unassigned, [facility] Name [facility] TREATMENT 11858 Ekg W/ At Least 2022-05-04 00:00:00 12 Leads W/ I r CT ABDOMEN PELVIS WO 2021-01-26 13:16:32 Sara Dietrich [facility] CBC WITH DIFF 2021-01-26 12:49:00 Sara Dietrich [facility] URINALYSIS 2021-01-26 12:49:00 Sara Dietrich [facility] CONSENT/REFUSAL FOR 2021-01-26 12:11:51 Doctor Unassigned, [facility] AND Name [facility] TREATMENT NOTICE OF PRIVACY 2021-01-26 12:11:18 Doctor Unassigned, No [facility] [place] PR[facility] Name [facility] Plan of Care Planned Activity Planned Date Details Comments Source Goal Plan of Care Note [code = 38063-4] Goal Plan of Care Note [code = 28659-7] Goal Plan of Care Note [code = 49953-3] Goal Plan of Care Note [code = 97898-2] Goal Plan of Care Note [code = 13204-5] Goal Plan of Care Note [code = 95946-0] Goal Plan of Care Note [code = 59535-3] Goal Plan of Care Note [code = 33017-2] Goal Plan of Care Note [code = 77275-2] Goal Plan of Care Note [code = 79584-3] Goal Plan of Care Note [code = 97670-9] Goal Plan of Care Note [code = 18440-6] Goal Plan of Care Note [code = 42229-8] Goal Plan of Care Note [code = 13461-2] Goal Plan of Care Note [code = 83410-9] Goal Plan of Care Note [code = 04591-7] Goal Plan of Care Note [code = 02898-8] Goal Plan of Care Note [code = 99709-7] Goal Plan of Care Note [code = 67881-3] Goal Plan of Care Note [code = 01953-1] Goal Plan of Care Note [code = 69535-7] Goal Plan of Care Note [code = 96506-0] Goal Plan of Care Note [code = 88420-0] Goal Plan of Care Note [code = 88240-6] Goal Plan of Care Note [code = 01376-4] Goal Plan of Care Note [code = 52912-1] Goal Plan of Care Note [code = 76121-9] Goal Plan of Care Note [code = 30457-5] Goal Plan of Care Note [code = 82850-0] Goal Plan of Care Note [code = 83737-5] Goal Plan of Care Note [code = 51410-4] Goal Plan of Care Note [code = 55101-8] Goal Plan of Care Note [code = 17077-3] Goal Plan of Care Note [code = 96064-5] Goal Plan of Care Note [code = 87433-9] Goal Plan of Care Note [code = 29208-4] Goal Plan of Care Note [code = 60363-9] Goal Plan of Care Note [code = 25516-6] Goal Plan of Care Note [code = 84685-3] Goal Plan of Care Note [code = 24922-5] Goal Plan of Care Note [code = 14317-5] Goal Plan of Care Note [code = 02016-7] Goal Plan of Care Note [code = 89196-5] Goal Plan of Care Note [code = 35018-6] Goal Plan of Care Note [code = 82822-4] Goal Plan of Care Note [code = 52659-3] Goal Plan of Care Note [code = 73373-1] Goal Plan of Care Note [code = 09551-7] Goal Plan of Care Note [code = 18679-8] Goal Plan of Care Note [code = 71873-6] Goal Plan of Care Note [code = 46549-8] Goal Plan of Care Note [code = 29547-7] Goal Plan of Care Note [code = 50802-6] Goal Plan of Care Note [code = 64273-4] Goal Plan of Care Note [code = 75376-8] Goal Plan of Care Note [code = 71296-0] Goal Plan of Care Note [code = 87967-9] Goal Plan of Care Note [code = 59363-8] Goal Plan of Care Note [code = 54663-8] Goal Plan of Care Note [code = 51654-5] Goal Plan of Care Note [code = 86975-4] Goal Plan of Care Note [code = 83630-7] Goal Plan of Care Note [code = 81207-0] Goal Plan of Care Note [code = 17565-4] Goal Plan of Care Note [code = 69945-5] Goal Plan of Care Note [code = 69528-0] Goal Plan of Care Note [code = 43055-5] Goal Plan of Care Note [code = 24100-6] Goal Plan of Care Note [code = 71533-5] Goal Plan of Care Note [code = 98386-9] Goal Plan of Care Note [code = 67321-8] Goal Plan of Care Note [code = 59460-9] Goal Plan of Care Note [code = 21469-8] Goal Plan of Care Note [code = 89129-9] Goal Plan of Care Note [code = 77471-3] Goal Plan of Care Note [code = 92910-4] Goal Plan of Care Note [code = 49832-6] Goal Plan of Care Note [code = 86488-8] Goal Plan of Care Note [code = 79848-4] Goal Plan of Care Note [code = 94408-9] Goal Plan of Care Note [code = 25114-3] Goal Plan of Care Note [code = 19254-2] Goal Plan of Care Note [code = 03034-6] Goal Plan of Care Note [code = 55798-5] Goal Plan of Care Note [code = 58256-9] Goal Plan of Care Note [code = 17807-0] Goal Plan of Care Note [code = 81054-7] Goal Plan of Care Note [code = 86519-1] Goal Plan of Care Note [code = 97546-8] Goal Plan of Care Note [code = 51023-9] Goal Plan of Care Note [code = 77269-2] Goal Plan of Care Note [code = 33543-5] Goal Plan of Care Note [code = 72024-7] Goal Plan of Care Note [code = 38754-3] Goal Plan of Care Note [code = 94269-6] Goal Plan of Care Note [code = 19625-2] Goal Plan of Care Note [code = 02679-4] Goal Plan of Care Note [code = 49938-6] Goal Plan of Care Note [code = 94564-5] Goal Plan of Care Note [code = 02774-0] Goal Plan of Care Note [code = 50221-4] Goal Plan of Care Note [code = 45940-1] Goal Plan of Care Note [code = 60308-4] Goal Plan of Care Note [code = 70823-0] Goal Plan of Care Note [code = 24130-1] Goal Plan of Care Note [code = 48337-1] Goal Plan of Care Note [code = 32662-0] Goal Plan of Care Note [code = 87910-4] Goal Plan of Care Note [code = 07943-8] Goal Plan of Care Note [code = 97421-3] Goal Plan of Care Note [code = 02830-2] Goal Plan of Care Note [code = 05578-1] Goal Plan of Care Note [code = 49009-5] Goal Plan of Care Note [code = 85857-3] Goal Plan of Care Note [code = 20295-7] Goal Plan of Care Note [code = 85995-4] Goal Plan of Care Note [code = 95636-2] Goal Plan of Care Note [code = 36586-7] Goal Plan of Care Note [code = 31656-2] Goal Plan of Care Note [code = 61366-5] Goal Plan of Care Note [code = 50923-7] Goal Plan of Care Note [code = 34122-1] Goal Plan of Care Note [code = 18411-4] Goal Plan of Care Note [code = 30779-2] Goal Plan of Care Note [code = 77690-8] Goal Plan of Care Note [code = 42382-2] Goal Plan of Care Note [code = 25495-6] Goal Plan of Care Note [code = 50583-4] Goal Plan of Care Note [code = 90169-7] Goal Plan of Care Note [code = 39823-5] Goal Plan of Care Note [code = 80814-5] Goal Plan of Care Note [code = 81247-7] Goal Plan of Care Note [code = 87239-5] Goal Plan of Care Note [code = 23024-8] Goal Plan of Care Note [code = 15638-8] Goal Plan of Care Note [code = 68333-2] Goal Plan of Care Note [code = 68573-2] Goal Plan of Care Note [code = 61759-0] Goal Plan of Care Note [code = 65924-1] Goal Plan of Care Note [code = 13567-8] Goal Plan of Care Note [code = 21757-6] Goal Plan of Care Note [code = 85053-8] Goal Plan of Care Note [code = 57734-1] Goal Plan of Care Note [code = 02004-0] Goal Plan of Care Note [code = 48909-3] Goal Plan of Care Note [code = 88665-2] Goal Plan of Care Note [code = 55909-4] Goal Plan of Care Note [code = 83207-6] Goal Plan of Care Note [code = 67011-9] Goal Plan of Care Note [code = 91044-6] Goal Plan of Care Note [code = 84893-5] Goal Plan of Care Note [code = 52560-3] Goal Plan of Care Note [code = 76217-1] Goal Plan of Care Note [code = 34651-8] Goal Plan of Care Note [code = 91131-1] Goal Plan of Care Note [code = 24337-6] Goal Plan of Care Note [code = 67579-4] Goal Plan of Care Note [code = 06172-6] Goal Plan of Care Note [code = 14155-9] Goal Plan of Care Note [code = 18414-3] Goal Plan of Care Note [code = 64856-8] Goal Plan of Care Note [code = 36646-7] Goal Plan of Care Note [code = 24856-6] Goal Plan of Care Note [code = 47851-4] Goal Plan of Care Note [code = 09943-4] Goal Plan of Care Note [code = 97500-3] Goal Plan of Care Note [code = 52853-3] Goal Plan of Care Note [code = 91336-9] Goal Plan of Care Note [code = 37366-0] Goal Plan of Care Note [code = 41842-3] Goal Plan of Care Note [code = 30348-3] Goal Plan of Care Note [code = 08354-1] Goal Plan of Care Note [code = 22854-8] Goal Plan of Care Note [code = 81635-1] Goal Plan of Care Note [code = 58751-5] Goal Plan of Care Note [code = 17641-1] Goal Plan of Care Note [code = 15527-8] Goal Plan of Care Note [code = 18056-2] Encounters Start End Encounter Admission Attending Care Care Encounter Source Date/Time Date/Time Type Type Clinicians Facility Department ID 2022-10-18 Outpatient STLMLC STLMLC [id number] Common 11:39:00 [id number] [facility] 2022-09-23 Outpatient STLMLC STLMLC [id number] Common 13:57:00 [id number] [facility] 2022-03-09 Outpatient STLMLC STLMLC [id number] Common 13:48:00 [facility] 2021-11-10 Outpatient STLMLC STLMLC [id number] Common 08:52:00 [facility] 2021-08-06 Outpatient STLMLC STLMLC [id number] Common 11:56:01 [facility] 2021-08-05 Outpatient STLMLC STLMLC [id number] Common 13:42:01 [facility] 2021-07-15 Outpatient STLMLC STLMLC [id number] Common 12:51:16 [id number] [facility] 2021-07-15 Outpatient STLMLC STLMLC [id number] Common 12:41:44 [id number] [facility] 2023-02-04 2023-02-04 Emergency [facility] [id number] Univers 08:50:00 11:23:00 SARA almeida [facility] 2023-02-04 2023-02-04 [facility] [id number] Univers 08:50:00 11:23:00 Sara HAMPTON [id number] elle [facility] [id number] [facility] [id number] [address] 2023-01-25 2023-01-25 Outpatient SFA SFA [id number] 023 Umair 10:08:42 10:08:42 [id number] F Kevin 2023-01-06 2023-01-06 Outpatient SFA SFA [id number] Umair 14:04:15 14:04:15 0720 F Kevin 2022-12-31 2022-12-31 Outpatient SFA SFA [id number] Umair 10:06:17 10:06:17 0714 F Kevin 2022-11-22 2022-11-22 Emergency X LILLY ILLADONNA ERT [id number] Univers 11:05:00 13:41:00 PEDRO PABLO almeida of [facility] 2022-11-22 2022-11-22 Emergency Lilly [facility] [id number] Univers 11:05:00 13:41:00 Pedro Pablo HAMPTON 350.1.13.10 i [facility] 4.2.7.2.686 [facility] [id number] [address] 2022-11-19 2022-11-19 Outpatient SFA SFA [id number] Muair 08:23:17 08:23:17 [id number] [facility] 2022-11-02 2022-11-02 Outpatient SFA SFA [id number] Umair 13:50:04 13:50:04 0516 [place] 2022-10-05 2022-10-05 Outpatient SFA SFA [id number] 023 Umair 09:18:54 09:18:54 0418 [facility] 2022-09-15 2022-09-15 Outpatient SFA SFA [id number] 023 Umair 13:49:37 13:49:37 0329 [facility] [place] 2022-09-01 2022-09-01 Outpatient SFA SFA [id number] 023 Umair 11:38:09 11:38:09 [id number] [facility] 2022-08-26 2022-08-26 Outpatient SFA SFA [id number] 023 Umair 09:23:21 09:23:21 [id number] [facility] 2022-05-25 2022-05-25 Outpatient SFA SFA [id number] 022 Umair 09:14:29 09:14:29 [id number] [facility] 2022-05-18 2022-05-18 Outpatient SFA SFA [id number] 022 Umair 08:14:49 08:14:49 [id number] [facility] 2022-05-08 2022-05-08 Outpatient SFA SFA [id number] 022 Umair 10:20:45 10:20:45 1119 F [place] 2022-05-08 2022-05-08 Outpatient [id number] 00:00:00 00:00:00 Visit [id number] 2022-05-04 2022-05-04 Outpatient SFA RADHA [id number] 022 Umair 08:12:15 08:12:15 1115 F Kevin 2022-05-04 2022-05-04 Outpatient [id number] 00:00:00 00:00:00 Visit [id number]-8 -4l88-0d6 [id number] 2022-03-09 2022-03-09 OFFICE [facility]C STLMLC [id number] Co mmon 00:00:00 00:00:00 VISIT [facility] - [facility] LEVEL 4 [facility] 2022-02-25 2022-02-25 Outpatient [id number] 00:00:00 00:00:00 Visit 1004-3624 [id number]-b -bdd9-80a [id number] [id number] [id number] 2022-02-09 2022-02-09 Outpatient [id number] [id number] 00:00:00 00:00:00 Visit [address]c-4072 47c-4072-a -bn6m-26v f6q-52bh45 [id number] 9eab00 2021-11-30 2021-11-30 OFFICE [facility]LMLC STLMLC [id number] Co mmon 00:00:00 00:00:00 VISIT Spirit ESTAB PT - [facility] L[facility] 2021-11-09 2021-11-09 (TEL) STLMLC STLMLC [id number] Co mmon 00:00:00 00:00:00 [facility] 2021-08-06 2021-08-06 OFFICE STLMLC STLMLC [id number] Co mmon 00:00:00 00:00:00 VISIT Spirit ESTAB PT - [facility] LEV[facility] 4 [facility] 2021-01-26 2021-01-26 Emergency ALICE Dietrich [id number] 07:40:00 09:22:00 Sara Hampton [id number] Leo 4.2.7.2.686 Yoder [id number] 2021-01-26 2021-01-26 Emergency [facility] [id number] Univers 07:40:00 09:22:00 Sara Hampton 350.1.13.10 ity [facility] 4.2.7.2.686 [facility] [id number] [facility] [address] 2021-01-26 2021-01-26 Emergency X [facility] ERT [id number] Univers 07:40:00 07:40:00 SARA itsuzette [facility] 2020-09-30 2020-09-30 Outpatient STLMLC STLMLC [id number] Common 00:00:00 00:00:00 [facility] 2019-03-08 2019-03-08 Outpatient [facility] [id number] Common 10:30:00 10:30:00 [facility] Results Test Description Test Time Test Comments Results Result Comments Source CBC WITH DIFF 2023-02-04 15:12:19 Test Item Value Reference Range Interpretation Comme nts WBC (test code = 6690-2) 9.23 See_Comment [A utomated message] The system which generated this result transmitted ref erence range: 4.30 - 11.10 10*3/?L . The reference range was not u sed to interpret this result as normal/abnormal. RBC (test code = 789-8) 3.97 See_Comment [Au tomated message] The system which generated this result transmitted ref erence range: 3.93 - 5.25 10*6/?L. The reference range was not u sed to interpret this result as normal/abnormal. HGB (test code = 718-7) 12.0 g/dL 11.6-15.0 HCT (test code = 4544-3) 37.3 % 35.7-45.2 MCV (test code = 787-2) 94.0 fL 80.6-95.5 MCH (test code = 785-6) 30.2 pg 25.9-32.8 MCHC (test code = 786-4) 32.2 g/dL 31.6-35.1 RDW-SD (test code = 48.9 fL 39.0-49.9 92696-9) RDW-CV (test code = 14.2 % 12.0-15.5 788-0) PLT (test code = 777-3) 230 See_Comment [Au tomated message] The system which generated this result transmitted ref erence range: 166 - 358 10*3/?L. The reference range was not u sed to interpret this result as normal/abnormal. MPV (test code = 89549-5) 10.2 fL 9.5-12.9 NRBC/100 WBC (test code = 0.0 See_Comment [ Automated message] The system [id number]) which generated this result transmitted ref erence range: 0.0 - 10.0 /100 WBC s. The reference range was not u sed to interpret this result as normal/abnormal. NRBC x10^3 (test code = See_Comment [Au tomated message] The system [id number]) which generated this result transmitted ref erence range: 10*3/?L. The re ference range was not used to int erpret this result as normal/abnor mal. GRAN MAT (NEUT) % (test 61.3 % code = 770-8) IMM GRAN % (test code = 0.30 % 0493343698) LYMPH % (test code = 28.5 % 736-9) MONO % (test code = 8.2 % 5905-5) EOS % (test code = 713-8) 1.5 % BASO % (test code = 0.2 % 706-2) GRAN MAT x10^3(ANC) (test 5.65 10*3/uL 1.88-7.09 code = 0702248396) IMM GRAN x10^3 (test code 0.03 10*3/uL 0.00-0.06 = 8448650540) LYMPH x10^3 (test code = 2.63 10*3/uL 1.32-3.29 731-0) MONO x10^3 (test code = 0.76 10*3/uL 0.33-0.92 742-7) EOS x10^3 (test code = 0.14 10*3/uL 0.03-0.39 711-2) BASO x10^3 (test code = 0.01-0.07 704-7) [id number] 14:59:14 Test Item Value Reference Range Interpretation Comments TROPONIN I (test code = 0.006 ng/mL <=0.034 [id number]) CATHY (test code = CATHY) Reference (Normal) Range (defined by the 99th percentile reference limit): <= 0.034 ng/mL Note: Cardiac troponin begins to rise 3-4 hours after the onset of ischemia. Repeat in 4-6 hours if the sample was drawn within 3-4 hours of the onset of the symptom and found normal. Diagnosis of myocardial injury is made with acute changes in cTn concentrations with at least one serial sample above the 99th percentile upper reference limit (URL), taken together with the patient's clinical presentation. Biotin has been reported to cause a negative bias, interpret results relative to patient's use of biotin. Lab Interpretation Normal (test code = 73774-8) [facility] [id number] 14:56:38 Test Item Value Reference Range Interpretation Comments NT-proBNP (test code = 51643-9) 43 pg/mL <=125 Lab Interpretation (test code = Normal 28953-2) [facility]OLIC PANEL ([id number])2023-02-04 14:48:52 Test Item Value Reference Range Interpretation Comments NA (test code = 138 mmol/L 135-145 1574417029) K (test code = 4.3 mmol/L 3.5-5.0 5422683493) CL (test code = 101 mmol/L 98-108 1306446286) CO2 TOTAL (test code = 29 mmol/L 23-31 1360952661) AGAP (test code = 8 2-16 6871295501) BUN (test code = 25 mg/dL 7-23 H 1317337306) GLUCOSE (test code = 144 mg/dL 70-110 H 8775413809) CREATININE (test code = 1.30 mg/dL 0.50-1.04 H 6340773237) TOTAL BILI (test code = 0.6 mg/dL 0.1-1.8 1561390202) CALCIUM (test code = 9.3 mg/dL 8.6-10.6 5213935258) T PROTEIN (test code = 7.9 g/dL 6.3-8.2 0188316368) ALBUMIN (test code = 4.1 g/dL 3.5-5.0 4832020603) ALK PHOS (test code = 114 U/L 34-122 3096575853) ALTv (test code = 15 U/L 5-35 1742-6) AST(SGOT) (test code = 50 U/L 13-40 H 1447561691) eGFR (test code = 41.2 mL/min/1.73m2 3097118027) CATHY (test code = CATHY) Association of Glomerular Filtration Rate (GFR) and Staging of Kidney Disease* + --+ --+ ------+| GFR (mL/min/1.73 m2) ?| With Kidney Damage ?| ?Without Kidney Damage+ --------+ --------+ +| ?>90 ?| ?Stage one ?| ? Normal ?+ ---+ ---+ -------+| ?60-89 ?| ?Stage two ?| ? Decreased GFR ? + --+ --+ ------+| ?30-59 ?| ?Stage three ?| ? Stage three ? + --+ --+ ------+| ?15-29 ?| ?Stage four ? | ? Stage four ?+ ---+ ---+ -------+| ?<15 (or dialysis) ? ?| ?Stage five ? | ? Stage five ?+ ---+ ---+ -------+ *Each stage assumes the associated GFR level has been in effect for at least three months. ?Stages 1 to 5, with or without kidney disease, indicate chronic kidney disease. Notes: Determination of stages one and two (with eGFR >59mL/min/1.73 m2) requires estimation of kidney damage for at least three months as defined by structural or functional abnormalities of the kidney, manifested by either:Pathological abnormalities or Markers of kidney damage (including abnormalities in the composition of the blood or urine or abnormalities in imaging tests). Lab Interpretation Abnormal (test code = 22133-0) [facility] [id number] 06:52:13 Test Item Value Reference Range Interpretation Comments GLUCOSE (test code = 77 MG/DL 70-99 2216) BUN (test code = 39 MG/DL 8-23 H 2207) CREATININE (test 1.35 MG/DL 0.60-1.30 H code = 221) eGFR (2020 CKD-EPI) 44 ML/MIN/1.73 >60 L (test code = 55782) CALC BUN/CREAT (test 29 RATIO 6-28 H code = 2235) SODIUM (test code = 144 MEQ/L 622-858 3241) POTASSIUM (test code 4.7 MEQ/L 3.5-5.4 = 2227) CHLORIDE (test code 101 MEQ/L 95-107 = 2214) CARBON DIOXIDE (test 31 MEQ/L 19-31 code = 2205) CALCIUM (test code = 9.7 MG/DL 8.5-10.5 2208) PROTEIN, TOTAL (test 7.1 G/DL 6.1-8.3 code = 2228) ALBUMIN (test code = 4.2 G/DL 3.5-5.2 2200) CALC GLOBULIN (test 2.9 G/DL 1.9-3.7 code = 224) CALC A/G RATIO (test 1.4 RATIO 1.0-2.6 code = 223) BILIRUBIN, TOTAL <0.2 MG/DL See_Comment [Automated message] (test code = 220) The syste m which generated this result transmit suman reference range : <=1.2. The refe rence range was not u sed to interpret th is result as normal/abnormal . ALKALINE PHOSPHATASE 83 U/L 40-140 (test code = 220) AST (test code = 13 U/L 9-40 2217) ALT (test code = 12 U/L 5-40 2218) LIPID [id number] 06:52:13 Test Item Value Reference Range Interpretation Comments CHOLESTEROL (test 245 MG/DL <200 H code = 2210) TRIGLYCERIDES (test 96 MG/DL <150 code = 2232) HDL CHOLESTEROL (test 79 MG/DL >39 code = 2220) CALC LDL CHOL (test 146 MG/DL <100 H NOTE: C ALCULATED LDL code = 2237) IS BASED ON DERICK-PERLA METHOD WHICHINCLUDES ADJUSTABLE TRIGLYCERIDE:VL DL CHOLESTEROL RAT IO.THIS FACTOR VARIES B Y MEASURED TRIGLY CERIDE AND NON-HDLCHOL ESTEROL CONCENTRATIONS WITH INCREASED CALCU LATED LDL SEENIN HIGH ER TRIGLYCERIDE OR LOWER NON-HDL SPECIME NS. FOR MOREINFORMATION , SEE CLIENT ANNOUNCE MENT AT [email or web address] [email or web address] RATIO LDL/HDL 1.85 RATIO <3.22 UNLESS O THERWISE (test code = 2238) INDICATED , ALL TESTING [facility] [address] [place] [address] [facility] DIRECTOR: Grecia OCONNOR RICKI NUMBER [id number] CAP ACCREDITATION N O. [id number] VITAMIN D, 25 [id number] 06:48:08 Test Item Value Reference Range Interpretation Comments VITAMIN D, 25 45 NG/ML SEE BELOW EFFECTIVE 06/28/2022, [place] (test code PLEASE NOTE NE W METHODOLOGY = 4958) IS ELECTROCH EMILUMINESCENCE BINDING ASSAY. NOTE: 25-HYDROXYVITAM IN D ASSAY INCLUDES 25-HYD ROXYVITAMIN D2 AND D3. I NTERPRETIVE RANGES PED IATRIC (<17 YEARS) . . . . . . . . . . . NG/ML 20-100ADU LT: INSUFFICIENT . . . . . . . . . . . . . . NG/ML <20 SUBO PTIMAL . . . . . . . . . . . . . . . NG/ML 20-29 OPTIMAL . . . . . . . . . . . . . . . . . NG/ML 30-100 TSH, THIRD [id number] 06:47:41 Test Item Value Reference Range Interpretation Comments TSH, THIRD GENERATION (test code 1.260 UIU/ML 0.400-4.100 = 2821) HEPATIC FUNCTION [id number] 04:26:59 Test Item Value Reference Range Interpretation Comments PROTEIN, TOTAL (test 7.1 G/DL 6.1-8.3 code = 2229) ALBUMIN (test code = 4.2 G/DL 3.5-5.2 2200) BILIRUBIN, TOTAL 0.2 MG/DL See_Comment [Automated message] (test code = 2207) The [employer] which generated this result transmitted ref erence range: <=1.2. T he reference range was not used to interpr et this result as normal/abnormal . BILIRUBIN, DIRECT 0.1 MG/DL 0.0-0.3 (test code = 2021) ALKALINE PHOSPHATASE 85 U/L 40-140 (test code = 2203) AST (test code = 14 U/L 9-40 2217) ALT (test code = 11 U/L 5-40 UNLESS OTH ERWISE 9) INDICATED, ALL TESTING PERFORMED [facility] [employer] [address] [place] [address] 4 LABORATORY DIRE CTOR: MIGUELITO MCGUIRE M.D. [place] NUMBER [id number] [place] [id number] VALPROIC [id number] 04:26:35 Test Item Value Reference Range Interpretation Comments VALPROIC ACID (test 26.9 UG/ML 50.0-125.0 L R EFERENCE code = 3025) RANGES EP ILEPSY . . . . . . . . . . . . . .UG/ML 50.0 -100.0 ARIN. . . . . . . . . . . . . . . .UG /ML 50.0-125.0 POSS IBLE TOXICITY. . . . . . . . . .UG/ML >125 .0 HEMOGLOBIN [id number] 03:09:12 Test Item Value Reference Range Interpretation Comments HEMOGLOBIN A1c (test 6.7 % 4.2-5.6 H AMERIC AN DIABETES code = 84028) ASSOCIATION IDELINES FOR HGB A1C: PREDIABETES/INC REASED [...] ALTERN ATE TESTING OR LABORATORY C ONSULTATION. CBC W/AUTO DIFF WITH [id number] 02:10:02 Test Item Value Reference Range Interpretation Comments WBC (test code = 7.0 K/UL 3.5-11.0 1001) RBC (test code = 3.55 M/UL 3.80-5.40 L 1002) HEMOGLOBIN (test code 10.4 G/DL 11.5-15.5 L = 1003) HEMATOCRIT (test code 32.8 % 34.0-45.0 L = 1004) MCV (test code = 92.4 fL 80.0-99.0 1005) MCH (test code = 29.3 PG 25.0-33.0 1006) MCHC (test code = 31.7 G/DL 31.0-36.0 1007) RDW (test code = 15.9 % 11.5-15.0 H 1038) NEUTROPHILS (test 65.4 % code = 1008) LYMPHOCYTES (test 24.3 % code = 1010) MONOCYTES (test code 6.7 % = 1011) EOSINOPHILS (test 2.9 % code = 1012) BASOPHILS (test code 0.3 % = 1013) IMMATURE GRANULOCYTES 0.4 % (test code = 1036) NUCLEATED RBCS (test 0.0 /100 WBC'S See_Comment [Aut omated code = 1065) message] The sy stem which generated this result transmitted reference range : 0.0. The refere nce range was not u sed to interpret th is result as normal/abnormal . PLATELET COUNT (test 235 K/UL 130-400 code = 1015) ABSOLUTE NEUTROPHILS 4.57 K/UL 1.50-7.50 (test code = 1066) ABSOLUTE LYMPHOCYTES 1.70 K/UL 1.00-4.00 (test code = 1067) ABSOLUTE MONOCYTES 0.47 K/UL 0.20-1.00 (test code = 1068) ABSOLUTE EOSINOPHILS 0.20 K/UL 0.00-0.50 (test code = 1040) ABSOLUTE BASOPHILS 0.02 K/UL 0.00-0.20 (test code = 1069) ABS IMMATURE 0.03 K/UL 0.00-0.10 GRANULOCYTES (test code = 1020) ABS NUCLEATED RBCS 0.00 K/UL 0.00-0.11 (test code = 57554) CBC W/AUTO DIFF WITH [id number] 02:10:02 Test Item Value Reference Range Interpretation Comments WBC (test code = 7.2 K/UL 3.5-11.0 1001) RBC (test code = 3.72 M/UL 3.80-5.40 L 1002) HEMOGLOBIN (test code 11.1 G/DL 11.5-15.5 L = 1003) HEMATOCRIT (test code 34.0 % 34.0-45.0 = 1004) MCV (test code = 91.4 fL 80.0-99.0 1005) MCH (test code = 29.8 PG 25.0-33.0 1006) MCHC (test code = 32.6 G/DL 31.0-36.0 1007) RDW (test code = 15.7 % 11.5-15.0 H 1038) NEUTROPHILS (test 66.1 % code = 1008) LYMPHOCYTES (test 24.3 % code = 1010) MONOCYTES (test code 6.4 % = 1011) EOSINOPHILS (test 2.5 % code = 1012) BASOPHILS (test code 0.4 % = 1013) IMMATURE GRANULOCYTES 0.3 % (test code = 1036) NUCLEATED RBCS (test 0.0 /100 WBC'S See_Comment [Aut omated code = 1065) message] The sy stem which generated this result transmitted reference range : 0.0. The refere nce range was not u sed to interpret th is result as normal/abnormal . PLATELET COUNT (test 261 K/UL 130-400 code = 1015) ABSOLUTE NEUTROPHILS 4.73 K/UL 1.50-7.50 (test code = 1066) ABSOLUTE LYMPHOCYTES 1.74 K/UL 1.00-4.00 (test code = 1067) ABSOLUTE MONOCYTES 0.46 K/UL 0.20-1.00 (test code = 1068) ABSOLUTE EOSINOPHILS 0.18 K/UL 0.00-0.50 (test code = 1040) ABSOLUTE BASOPHILS 0.03 K/UL 0.00-0.20 (test code = 1069) ABS IMMATURE 0.02 K/UL 0.00-0.10 GRANULOCYTES (test code = 1020) ABS NUCLEATED RBCS 0.00 K/UL 0.00-0.11 (test code = 24815) OCCULT BLD,FECAL,IMMUNOASSAY [id number] 10:42:40 Test Item Value Reference Range Interpretation Comments OCCULT BLD, FECAL NEGATIVE NEGATIVE CPL h as important (test code = 82183) patholog y staff changes effective 08/18. New pathology s taff will provide uninter rupted, excellent patie nt care and clinical consul tation. See URL: [email or web address] UNLESS OT HERWISE INDICATED, ALL TESTING PERFORMED AT [facility] [employer] [address] [place], [place] [address] [place] [address] DIRECTOR: Grecia OCONNOR RICKI NUMBER [id number] CAP ACCREDITATION N O. [id number] LIPID [id number] 06:52:36 Test Item Value Reference Range Interpretation Comments CHOLESTEROL (test 236 MG/DL <200 H code = 2210) TRIGLYCERIDES (test 95 MG/DL <150 code = 2232) HDL CHOLESTEROL (test 68 MG/DL >39 code = 2220) CALC LDL CHOL (test 148 MG/DL <100 H NOTE: C ALCULATED LDL code = 2237) IS BASED ON DERICK-PERLA METHOD WHICHINCLUDES ADJUSTABLE TRIGLYCERIDE:VL DL CHOLESTEROL RAT IO.THIS FACTOR VARIES B Y MEASURED TRIGLY CERIDE AND NON-HDLCHOL ESTEROL CONCENTRATIONS WITH INCREASED CALCU LATED LDL SEENIN HIGH ER TRIGLYCERIDE OR LOWER NON-HDL SPECIME NS. FOR MOREINFORMATION , SEE CLIENT ANNOUNCE MENT AT [email or web address] [email or web address] RATIO LDL/HDL 2.18 RATIO <3.22 (test code = 2238) COMPREHENSIVE METABOLIC [id number] 06:52:36 Test Item Value Reference Range Interpretation Comments GLUCOSE (test code = 48 MG/DL 70-99 L 2216) BUN (test code = 23 MG/DL 8-2207) CREATININE (test 1.64 MG/DL 0.60-1.30 H code = 2214) eGFR (2020 CKD-EPI) 35 >60 L (test code = 89633) ML/MIN/1.73 CALC BUN/CREAT (test 14 RATIO 6-28 code = 2235) SODIUM (test code = 142 MEQ/L 856-448 4500) POTASSIUM (test code 4.9 MEQ/L 3.5-5.4 = 2228) CHLORIDE (test code 102 MEQ/L 95-107 = 2215) CARBON DIOXIDE (test 26 MEQ/L 19-31 code = 2206) CALCIUM (test code = 10.1 MG/DL 8.5-10.5 2208) PROTEIN, TOTAL (test 7.7 G/DL 6.1-8.3 code = 222) ALBUMIN (test code = 4.7 G/DL 3.5-5.2 2200) CALC GLOBULIN (test 3.0 G/DL 1.9-3.7 code = 2240) CALC A/G RATIO (test 1.6 RATIO 1.0-2.6 code = 223) BILIRUBIN, TOTAL 0.3 MG/DL See_Comment [Automated message] (test code = 2206) The [employer] which generated this result transmitted ref erence range: <=1.2. T he reference range was not used to int erpret this result as normal/abnormal . ALKALINE PHOSPHATASE 89 U/L 40-140 (test code = 2203) AST (test code = 17 U/L 9-40 2217) ALT (test code = 16 U/L 5-40 [facility] [place] 2218) important patho logy staff changes effective 08/18. New patholo gy staff will prov maria m uninterrupted, excellent patie nt care and clinic al consultation. S ee URL: [email or web address]. UNLE SS OTHERWISE INDIC ATED, ALL TESTING PER FORMED AT [facility] [employer] [facility], [address] [address] [place] DIRECTOR: Grecia OCONNOR RICKI NUMBER [id number] CAP ACCREDITATION N O. [id number] HEMOGLOBIN [id number] 02:54:04 Test Item Value Reference Range Interpretation Comments HEMOGLOBIN A1c (test 6.5 % 4.2-5.6 H AMERIC AN DIABETES code = 69392) ASSOCIATION IDELINES FOR HGB A1C: PREDIABETES/INC REASED [...] ALTERN ATE TESTING OR LABORATORY C ONSULTATION. CBC W/AUTO DIFF WITH [id number] 01:57:35 Test Item Value Reference Range Interpretation Comments WBC (test code = 8.2 K/UL 3.5-11.0 1001) RBC (test code = 3.93 M/UL 3.80-5.40 1002) HEMOGLOBIN (test code 11.8 G/DL 11.5-15.5 = 1003) HEMATOCRIT (test code 36.2 % 34.0-45.0 = 1004) MCV (test code = 92.1 fL 80.0-99.0 1005) MCH (test code = 30.0 PG 25.0-33.0 1006) MCHC (test code = 32.6 G/DL 31.0-36.0 1007) RDW (test code = 13.2 % 11.5-15.0 1038) NEUTROPHILS (test 53.5 % code = 1008) LYMPHOCYTES (test 34.5 % code = 1010) MONOCYTES (test code 8.2 % = 1011) EOSINOPHILS (test 2.9 % code = 1012) BASOPHILS (test code 0.5 % = 1013) IMMATURE GRANULOCYTES 0.4 % (test code = 1036) NUCLEATED RBCS (test 0.0 /100 WBC'S See_Comment [Aut omated code = 1065) message] The sy stem which generated this result transmitted reference range : 0.0. The refere nce range was not u sed to interpret th is result as normal/abnormal . PLATELET COUNT (test 337 K/UL 130-400 code = 1015) ABSOLUTE NEUTROPHILS 4.40 K/UL 1.50-7.50 (test code = 1066) ABSOLUTE LYMPHOCYTES 2.83 K/UL 1.00-4.00 (test code = 1067) ABSOLUTE MONOCYTES 0.67 K/UL 0.20-1.00 (test code = 1068) ABSOLUTE EOSINOPHILS 0.24 K/UL 0.00-0.50 (test code = 1040) ABSOLUTE BASOPHILS 0.04 K/UL 0.00-0.20 (test code = 1069) ABS IMMATURE 0.03 K/UL 0.00-0.10 GRANULOCYTES (test code = 1020) ABS NUCLEATED RBCS 0.00 K/UL 0.00-0.11 (test code = 70260) TROPONIN [id number] 00:00:00 Test Item Value Reference Range Interpretation Comments TROPONIN T (test code = 4017) 12 NG/L TROPONIN [id number] 00:00:00 Test Item Value Reference Range Interpretation Comments TROPONIN T (test code = 4017) 12 NG/L CK, [id number] 00:00:00 Test Item Value Reference Range Interpretation Comments CK, TOTAL (test code = 2013) 172 U/L CK, [id number] 00:00:00 Test Item Value Reference Range Interpretation Comments CK, TOTAL (test code = 2013) 172 U/L HEMOGLOBIN [id number] 00:00:00 Test Item Value Reference Range Interpretation Comments HEMOGLOBIN A1c (test code = 14038) 7.0 % HEMOGLOBIN [id number] 00:00:00 Test Item Value Reference Range Interpretation Comments HEMOGLOBIN A1c (test code = 46638) 7.0 % HEMOGLOBIN [id number] 00:00:00 Test Item Value Reference Range Interpretation Comments HEMOGLOBIN A1c (test code = 92392) 7.0 % CBC W/AUTO [id number] 00:00:00 Test Item Value Reference Range Interpretation Comments WBC (test code = 1001) 6.6 K/UL RBC (test code = 1002) 4.06 M/UL HEMOGLOBIN (test code = 1003) 12.1 G/DL HEMATOCRIT (test code = 1004) 37.2 % MCV (test code = 1005) 91.6 fL MCH (test code = 1006) 29.8 PG MCHC (test code = 1007) 32.5 G/DL RDW (test code = 1038) 14.3 % NEUTROPHILS (test code = 1008) 60.0 % LYMPHOCYTES (test code = 1010) 28.4 % MONOCYTES (test code = 1011) 8.4 % EOSINOPHILS (test code = 1012) 2.3 % BASOPHILS (test code = 1013) 0.6 % IMMATURE GRANULOCYTES (test 0.3 % code = 1036) NUCLEATED RBCS (test code = 0.0 /100WBC'S 1065) PLATELET COUNT (test code = 250 K/UL 1015) ABSOLUTE NEUTROPHILS (test code 3.95 K/UL = 1066) ABSOLUTE LYMPHOCYTES (test code 1.87 K/UL = 1067) ABSOLUTE MONOCYTES (test code = 0.55 K/UL 1068) ABSOLUTE EOSINOPHILS (test code 0.15 K/UL = 1040) ABSOLUTE BASOPHILS (test code = 0.04 K/UL 1069) ABS IMMATURE GRANULOCYTES (test 0.02 K/UL code = 1020) ABS NUCLEATED RBCS (test code = 0.00 K/UL 71973) CBC W/AUTO [id number] 00:00:00 Test Item Value Reference Range Interpretation Comments WBC (test code = 1001) 6.6 K/UL RBC (test code = 1002) 4.06 M/UL HEMOGLOBIN (test code = 1003) 12.1 G/DL HEMATOCRIT (test code = 1004) 37.2 % MCV (test code = 1005) 91.6 fL MCH (test code = 1006) 29.8 PG MCHC (test code = 1007) 32.5 G/DL RDW (test code = 1038) 14.3 % NEUTROPHILS (test code = 1008) 60.0 % LYMPHOCYTES (test code = 1010) 28.4 % MONOCYTES (test code = 1011) 8.4 % EOSINOPHILS (test code = 1012) 2.3 % BASOPHILS (test code = 1013) 0.6 % IMMATURE GRANULOCYTES (test 0.3 % code = 1036) NUCLEATED RBCS (test code = 0.0 /100WBC'S 1065) PLATELET COUNT (test code = 250 K/UL 1015) ABSOLUTE NEUTROPHILS (test code 3.95 K/UL = 1066) ABSOLUTE LYMPHOCYTES (test code 1.87 K/UL = 1067) ABSOLUTE MONOCYTES (test code = 0.55 K/UL 1068) ABSOLUTE EOSINOPHILS (test code 0.15 K/UL = 1040) ABSOLUTE BASOPHILS (test code = 0.04 K/UL 1069) ABS IMMATURE GRANULOCYTES (test 0.02 K/UL code = 1020) ABS NUCLEATED RBCS (test code = 0.00 K/UL 01201) CBC W/AUTO [id number] 00:00:00 Test Item Value Reference Range Interpretation Comments WBC (test code = 1001) 6.6 K/UL RBC (test code = 1002) 4.06 M/UL HEMOGLOBIN (test code = 1003) 12.1 G/DL HEMATOCRIT (test code = 1004) 37.2 % MCV (test code = 1005) 91.6 fL MCH (test code = 1006) 29.8 PG MCHC (test code = 1007) 32.5 G/DL RDW (test code = 1038) 14.3 % NEUTROPHILS (test code = 1008) 60.0 % LYMPHOCYTES (test code = 1010) 28.4 % MONOCYTES (test code = 1011) 8.4 % EOSINOPHILS (test code = 1012) 2.3 % BASOPHILS (test code = 1013) 0.6 % IMMATURE GRANULOCYTES (test 0.3 % code = 1036) NUCLEATED RBCS (test code = 0.0 /100WBC'S 1065) PLATELET COUNT (test code = 250 K/UL 1015) ABSOLUTE NEUTROPHILS (test code 3.95 K/UL = 1066) ABSOLUTE LYMPHOCYTES (test code 1.87 K/UL = 1067) ABSOLUTE MONOCYTES (test code = 0.55 K/UL 1068) ABSOLUTE EOSINOPHILS (test code 0.15 K/UL = 1040) ABSOLUTE BASOPHILS (test code = 0.04 K/UL 1069) ABS IMMATURE GRANULOCYTES (test 0.02 K/UL code = 1020) ABS NUCLEATED RBCS (test code = 0.00 K/UL 09417) LIPID [id number] 00:00:00 Test Item Value Reference Range Interpretation Comments CHOLESTEROL (test code = 2210) 281 MG/DL TRIGLYCERIDES (test code = 2232) 107 MG/DL HDL CHOLESTEROL (test code = 2220) 65 MG/DL CALC LDL CHOL (test code = 2237) 193 MG/DL RISK RATIO LDL/HDL (test code = 2.97 RATIO 2238) LIPID [id number] 00:00:00 Test Item Value Reference Range Interpretation Comments CHOLESTEROL (test code = 2210) 281 MG/DL TRIGLYCERIDES (test code = 2232) 107 MG/DL HDL CHOLESTEROL (test code = 2220) 65 MG/DL CALC LDL CHOL (test code = 2237) 193 MG/DL RISK RATIO LDL/HDL (test code = 2.97 RATIO 2238) COMPREHENSIVE METABOLIC [id number] 00:00:00 Test Item Value Reference Range Interpretation Comments GLUCOSE (test code = 2217) 63 MG/DL BUN (test code = 2208) 29 MG/DL CREATININE (test code = 2214) 1.44 MG/DL eGFR (2020 CKD-EPI) (test code 41 ML/MIN/1.73 = 93601) CALC BUN/CREAT (test code = 20 RATIO 2235) SODIUM (test code = 2231) 145 MEQ/L POTASSIUM (test code = 2228) 4.9 MEQ/L CHLORIDE (test code = 2215) 105 MEQ/L CARBON DIOXIDE (test code = 25 MEQ/L 2206) CALCIUM (test code = 2209) 9.4 MG/DL PROTEIN, TOTAL (test code = 7.5 G/DL 222) ALBUMIN (test code = 2201) 4.6 G/DL CALC GLOBULIN (test code = 2.9 G/DL 2240) CALC A/G RATIO (test code = 1.6 RATIO 2234) BILIRUBIN, TOTAL (test code = <0.2 MG/DL 2206) ALKALINE PHOSPHATASE (test 100 U/L code = 2204) AST (test code = 2218) 16 U/L ALT (test code = 2219) 14 U/L COMPREHENSIVE METABOLIC [id number] 00:00:00 Test Item Value Reference Range Interpretation Comments GLUCOSE (test code = 2216) 63 MG/DL BUN (test code = 2208) 29 MG/DL CREATININE (test code = 2214) 1.44 MG/DL eGFR (2020 CKD-EPI) (test code 41 ML/MIN/1.73 = 97965) CALC BUN/CREAT (test code = 20 RATIO 2235) SODIUM (test code = 2231) 145 MEQ/L POTASSIUM (test code = 2228) 4.9 MEQ/L CHLORIDE (test code = 2215) 105 MEQ/L CARBON DIOXIDE (test code = 25 MEQ/L 2205) CALCIUM (test code = 2209) 9.4 MG/DL PROTEIN, TOTAL (test code = 7.5 G/DL 2228) ALBUMIN (test code = 2201) 4.6 G/DL CALC GLOBULIN (test code = 2.9 G/DL 2240) CALC A/G RATIO (test code = 1.6 RATIO 2234) BILIRUBIN, TOTAL (test code = <0.2 MG/DL 2206) ALKALINE PHOSPHATASE (test 100 U/L code = 2204) AST (test code = 2218) 16 U/L ALT (test code = 2219) 14 U/L ALBUMIN/CREATININE RATIO, URINE, [id number] 03:13:21 Test Item Value Reference Range Interpretation Comments CREATININE, URINE, 308.5 MG/DL NOT ESTAB RANDOM (test code = 2072) ALBUMIN, URINE, 0.7 MG/DL NOT ESTAB RANDOM (test code = 57872) CALC 2 MG/G <30 Note: ALBUMIN/CREAT, RND Albumin/C reatinine ratio (test code = reference inter humaira 00324) reflects ADA an d NKF guidelines. UNL ESS OTHERWISE INDIC ATED, ALL TESTING PERFORM ED [facility], I [address] [place] [address] LABORATORY DIRE CTOR: ERIKA BOWER M.D. CLIA NUMBER [id number] [place] [id number] MICROALBUMIN/CREATININE, RANDOM AND [id number] 00:00:00 Test Item Value Reference Range Interpretation Comments CREATININE, URINE, RANDOM (test 308.5 MG/DL code = 2072) ALBUMIN, URINE, RANDOM (test code 0.7 MG/DL = 63672) CALC ALBUMIN/CREAT, RND (test 2 MG/G code = 87668) MICROALBUMIN/CREATININE, RANDOM AND [id number] 00:00:00 Test Item Value Reference Range Interpretation Comments CREATININE, URINE, RANDOM (test 308.5 MG/DL code = 2072) ALBUMIN, URINE, RANDOM (test code 0.7 MG/DL = 33304) CALC ALBUMIN/CREAT, RND (test 2 MG/G code = 07261) MICROALBUMIN/CREATININE, RANDOM AND [id number] 00:00:00 Test Item Value Reference Range Interpretation Comments CREATININE, URINE, RANDOM (test 308.5 MG/DL code = 2072) ALBUMIN, URINE, RANDOM (test code 0.7 MG/DL = 25818) CALC ALBUMIN/CREAT, RND (test 2 MG/G code = 12233) MICROALBUMIN/CREATININE, RANDOM AND [id number] 00:00:00 Test Item Value Reference Range Interpretation Comments CREATININE, URINE, RANDOM (test 308.5 MG/DL code = 2072) ALBUMIN, URINE, RANDOM (test code 0.7 MG/DL = 53129) CALC ALBUMIN/CREAT, RND (test 2 MG/G code = 12662) MICROALBUMIN/CREATININE, RANDOM AND [id number] 00:00:00 Test Item Value Reference Range Interpretation Comments CREATININE, URINE, RANDOM (test 308.5 MG/DL code = 2072) ALBUMIN, URINE, RANDOM (test code 0.7 MG/DL = 25434) CALC ALBUMIN/CREAT, RND (test 2 MG/G code = 00844) MICROALBUMIN/CREATININE, RANDOM AND [id number] 00:00:00 Test Item Value Reference Range Interpretation Comments CREATININE, URINE, RANDOM (test 308.5 MG/DL code = 2072) ALBUMIN, URINE, RANDOM (test code 0.7 MG/DL = 67969) CALC ALBUMIN/CREAT, RND (test 2 MG/G code = 31619) MICROALBUMIN/CREATININE, RANDOM AND [id number] 00:00:00 Test Item Value Reference Range Interpretation Comments CREATININE, URINE, RANDOM (test 308.5 MG/DL code = 2072) ALBUMIN, URINE, RANDOM (test code 0.7 MG/DL = 22780) CALC ALBUMIN/CREAT, RND (test 2 MG/G code = 31974) MICROALBUMIN/CREATININE, RANDOM AND [id number] 00:00:00 Test Item Value Reference Range Interpretation Comments CREATININE, URINE, RANDOM (test 308.5 MG/DL code = 2072) ALBUMIN, URINE, RANDOM (test code 0.7 MG/DL = 88659) CALC ALBUMIN/CREAT, RND (test 2 MG/G code = 81552) LIPID [id number] 01:00:18 Test Item Value Reference Range Interpretation [...] , SEE CLIENT ANNOUNCE MENT AT [email or web address] RISK RATIO LDL/HDL 2.57 RATIO <3.22 (test code = 2238) COMPREHENSIVE METABOLIC [id number] 01:00:18 Test Item Value Reference Range Interpretation Comments GLUCOSE (test code = 108 MG/DL 70-99 H 2216) BUN (test code = 28 MG/DL 8-23 H 2207) CREATININE (test 1.65 MG/DL 0.60-1.30 H code = 2214) eGFR (2020 CKD-EPI) 35 ML/MIN/1.73 >60 L (test code = 38377) CALC BUN/CREAT (test 17 RATIO 6-28 code = 2235) SODIUM (test code = 143 MEQ/L 139-229 9303) POTASSIUM (test code 4.9 MEQ/L 3.5-5.4 = [...] (test code = 8 U/L 5-40 2218) COMPREHENSIVE METABOLIC [id number] 00:00:00 Test Item Value Reference Range Interpretation Comments GLUCOSE (test code = 221) 108 MG/DL BUN (test code = 2208) 28 MG/DL CREATININE (test code = 2214) 1.65 MG/DL eGFR (2020 CKD-EPI) (test code 35 ML/MIN/1.73 = 05617) CALC BUN/CREAT (test code = 17 RATIO 2235) SODIUM (test code = 2231) 143 MEQ/L POTASSIUM (test code = 2228) 4.9 MEQ/L CHLORIDE (test code = 2215) 102 MEQ/L CARBON DIOXIDE (test code = 26 MEQ/L 2206) CALCIUM (test code = 2209) 10.0 MG/DL PROTEIN, TOTAL (test code = 7.5 G/DL 2228) ALBUMIN (test code = 2201) 4.6 G/DL CALC GLOBULIN (test code = 2.9 G/DL 2240) CALC A/G RATIO (test code = 1.6 RATIO 2234) BILIRUBIN, TOTAL (test code = <0.2 MG/DL 2206) ALKALINE PHOSPHATASE (test 109 U/L code = 2204) AST (test code = 2218) 10 U/L ALT (test code = 2219) 8 U/L COMPREHENSIVE METABOLIC [id number] 00:00:00 Test Item Value Reference Range Interpretation Comments GLUCOSE (test code = 2217) 108 MG/DL BUN (test code = 2208) 28 MG/DL CREATININE (test code = 2214) 1.65 MG/DL eGFR (2020 CKD-EPI) (test code 35 ML/MIN/1.73 = 23629) CALC BUN/CREAT (test code = 17 RATIO 2235) SODIUM (test code = 2231) 143 MEQ/L POTASSIUM (test code = 2228) 4.9 MEQ/L CHLORIDE (test code = 2215) 102 MEQ/L CARBON DIOXIDE (test code = 26 MEQ/L 2205) CALCIUM (test code = 2209) 10.0 MG/DL PROTEIN, TOTAL (test code = 7.5 G/DL 2228) ALBUMIN (test code = 2201) 4.6 G/DL CALC GLOBULIN (test code = 2.9 G/DL 2240) CALC A/G RATIO (test code = 1.6 RATIO 2234) BILIRUBIN, TOTAL (test code = <0.2 MG/DL 2206) ALKALINE PHOSPHATASE (test 109 U/L code = 2204) AST (test code = 2218) 10 U/L ALT (test code = 2219) 8 U/L LIPID [id number] 00:00:00 Test Item Value Reference Range Interpretation Comments CHOLESTEROL (test code = 2210) 255 MG/DL TRIGLYCERIDES (test code = 2232) 153 MG/DL HDL CHOLESTEROL (test code = 2220) 63 MG/DL CALC LDL CHOL (test code = 2237) 162 MG/DL RISK RATIO LDL/HDL (test code = 2.57 RATIO 2238) LIPID [id number] 00:00:00 Test Item Value Reference Range Interpretation Comments CHOLESTEROL (test code = 2210) 255 MG/DL TRIGLYCERIDES (test code = 2232) 153 MG/DL HDL CHOLESTEROL (test code = 2220) 63 MG/DL CALC LDL CHOL (test code = 2237) 162 MG/DL RISK RATIO LDL/HDL (test code = 2.57 RATIO 2238) COMPREHENSIVE METABOLIC [id number] 00:00:00 Test Item Value Reference Range Interpretation Comments GLUCOSE (test code = 2217) 108 MG/DL BUN (test code = 2208) 28 MG/DL CREATININE (test code = 2214) 1.65 MG/DL eGFR (2020 CKD-EPI) (test code 35 ML/MIN/1.73 = 93406) CALC BUN/CREAT (test code = 17 RATIO 2235) SODIUM (test code = 2231) 143 MEQ/L POTASSIUM (test code = 2228) 4.9 MEQ/L CHLORIDE (test code = 2215) 102 MEQ/L CARBON DIOXIDE (test code = 26 MEQ/L 2205) CALCIUM (test code = 2209) 10.0 MG/DL PROTEIN, TOTAL (test code = 7.5 G/DL 2228) ALBUMIN (test code = 2201) 4.6 G/DL CALC GLOBULIN (test code = 2.9 G/DL 2240) CALC A/G RATIO (test code = 1.6 RATIO 2233) BILIRUBIN, TOTAL (test code = <0.2 MG/DL 2206) ALKALINE PHOSPHATASE (test 109 U/L code = 2204) AST (test code = 2218) 10 U/L ALT (test code = 2219) 8 U/L COMPREHENSIVE METABOLIC [id number] 00:00:00 Test Item Value Reference Range Interpretation Comments GLUCOSE (test code = 2217) 108 MG/DL BUN (test code = 2208) 28 MG/DL CREATININE (test code = 2214) 1.65 MG/DL eGFR (2020 CKD-EPI) (test code 35 ML/MIN/1.73 = 47659) CALC BUN/CREAT (test code = 17 RATIO 2235) SODIUM (test code = 2231) 143 MEQ/L POTASSIUM (test code = 2228) 4.9 MEQ/L CHLORIDE (test code = 2215) 102 MEQ/L CARBON DIOXIDE (test code = 26 MEQ/L 2205) CALCIUM (test code = 2209) 10.0 MG/DL PROTEIN, TOTAL (test code = 7.5 G/DL 2228) ALBUMIN (test code = 2201) 4.6 G/DL CALC GLOBULIN (test code = 2.9 G/DL 224) CALC A/G RATIO (test code = 1.6 RATIO 2234) BILIRUBIN, TOTAL (test code = <0.2 MG/DL 2206) ALKALINE PHOSPHATASE (test 109 U/L code = 2204) AST (test code = 2218) 10 U/L ALT (test code = 2219) 8 U/L LIPID [id number] 00:00:00 Test Item Value Reference Range Interpretation Comments CHOLESTEROL (test code = 2210) 255 MG/DL TRIGLYCERIDES (test code = 2232) 153 MG/DL HDL CHOLESTEROL (test code = 2220) 63 MG/DL CALC LDL CHOL (test code = 2237) 162 MG/DL RISK RATIO LDL/HDL (test code = 2.57 RATIO 2238) LIPID [id number] 00:00:00 Test Item Value Reference Range Interpretation Comments CHOLESTEROL (test code = 2210) 255 MG/DL TRIGLYCERIDES (test code = 2232) 153 MG/DL HDL CHOLESTEROL (test code = 2220) 63 MG/DL CALC LDL CHOL (test code = 2237) 162 MG/DL RISK RATIO LDL/HDL (test code = 2.57 RATIO 2238) COMPREHENSIVE METABOLIC [id number] 00:00:00 Test Item Value Reference Range Interpretation Comments GLUCOSE (test code = 2217) 108 MG/DL BUN (test code = 2208) 28 MG/DL CREATININE (test code = 2214) 1.65 MG/DL eGFR (2020 CKD-EPI) (test code 35 ML/MIN/1.73 = 26080) CALC BUN/CREAT (test code = 17 RATIO 2235) SODIUM (test code = 2231) 143 MEQ/L POTASSIUM (test code = 2228) 4.9 MEQ/L CHLORIDE (test code = 2215) 102 MEQ/L CARBON DIOXIDE (test code = 26 MEQ/L 2205) CALCIUM (test code = 2209) 10.0 MG/DL PROTEIN, TOTAL (test code = 7.5 G/DL 2228) ALBUMIN (test code = 2201) 4.6 G/DL CALC GLOBULIN (test code = 2.9 G/DL 2240) CALC A/G RATIO (test code = 1.6 RATIO 2234) BILIRUBIN, TOTAL (test code = <0.2 MG/DL 2206) ALKALINE PHOSPHATASE (test 109 U/L code = 2204) AST (test code = 2218) 10 U/L ALT (test code = 2219) 8 U/L COMPREHENSIVE METABOLIC [id number] 00:00:00 Test Item Value Reference Range Interpretation Comments GLUCOSE (test code = 2216) 108 MG/DL BUN (test code = 2208) 28 MG/DL CREATININE (test code = 2214) 1.65 MG/DL eGFR (2020 CKD-EPI) (test code 35 ML/MIN/1.73 = 48211) CALC BUN/CREAT (test code = 17 RATIO 2235) SODIUM (test code = 2231) 143 MEQ/L POTASSIUM (test code = 2228) 4.9 MEQ/L CHLORIDE (test code = 2215) 102 MEQ/L CARBON DIOXIDE (test code = 26 MEQ/L 2205) CALCIUM (test code = 2209) 10.0 MG/DL PROTEIN, TOTAL (test code = 7.5 G/DL 2228) ALBUMIN (test code = 2201) 4.6 G/DL CALC GLOBULIN (test code = 2.9 G/DL 2240) CALC A/G RATIO (test code = 1.6 RATIO 2234) BILIRUBIN, TOTAL (test code = <0.2 MG/DL 2206) ALKALINE PHOSPHATASE (test 109 U/L code = 2204) AST (test code = 2218) 10 U/L ALT (test code = 2219) 8 U/L LIPID [id number] 00:00:00 Test Item Value Reference Range Interpretation Comments CHOLESTEROL (test code = 2210) 255 MG/DL TRIGLYCERIDES (test code = 2232) 153 MG/DL HDL CHOLESTEROL (test code = 2220) 63 MG/DL CALC LDL CHOL (test code = 2237) 162 MG/DL RISK RATIO LDL/HDL (test code = 2.57 RATIO 2238) LIPID [id number] 00:00:00 Test Item Value Reference Range Interpretation Comments CHOLESTEROL (test code = 2210) 255 MG/DL TRIGLYCERIDES (test code = 2232) 153 MG/DL HDL CHOLESTEROL (test code = 2220) 63 MG/DL CALC LDL CHOL (test code = 2237) 162 MG/DL RISK RATIO LDL/HDL (test code = 2.57 RATIO 2238) COMPREHENSIVE METABOLIC [id number] 00:00:00 Test Item Value Reference Range Interpretation Comments GLUCOSE (test code = 2217) 108 MG/DL BUN (test code = 2208) 28 MG/DL CREATININE (test code = 2214) 1.65 MG/DL eGFR (2020 CKD-EPI) (test code 35 ML/MIN/1.73 = 82389) CALC BUN/CREAT (test code = 17 RATIO 2235) SODIUM (test code = 2231) 143 MEQ/L POTASSIUM (test code = 2228) 4.9 MEQ/L CHLORIDE (test code = 2215) 102 MEQ/L CARBON DIOXIDE (test code = 26 MEQ/L 2205) CALCIUM (test code = 2209) 10.0 MG/DL PROTEIN, TOTAL (test code = 7.5 G/DL 2228) ALBUMIN (test code = 2201) 4.6 G/DL CALC GLOBULIN (test code = 2.9 G/DL 2240) CALC A/G RATIO (test code = 1.6 RATIO 2234) BILIRUBIN, TOTAL (test code = <0.2 MG/DL 2206) ALKALINE PHOSPHATASE (test 109 U/L code = 2204) AST (test code = 2218) 10 U/L ALT (test code = 2219) 8 U/L COMPREHENSIVE METABOLIC [id number] 00:00:00 Test Item Value Reference Range Interpretation Comments GLUCOSE (test code = 2217) 108 MG/DL BUN (test code = 2208) 28 MG/DL CREATININE (test code = 2214) 1.65 MG/DL eGFR (2020 CKD-EPI) (test code 35 ML/MIN/1.73 = 95395) CALC BUN/CREAT (test code = 17 RATIO 2235) SODIUM (test code = 2231) 143 MEQ/L POTASSIUM (test code = 2228) 4.9 MEQ/L CHLORIDE (test code = 2215) 102 MEQ/L CARBON DIOXIDE (test code = 26 MEQ/L 2205) CALCIUM (test code = 2209) 10.0 MG/DL PROTEIN, TOTAL (test code = 7.5 G/DL 2228) ALBUMIN (test code = 2201) 4.6 G/DL CALC GLOBULIN (test code = 2.9 G/DL 2240) CALC A/G RATIO (test code = 1.6 RATIO 2234) BILIRUBIN, TOTAL (test code = <0.2 MG/DL 2206) ALKALINE PHOSPHATASE (test 109 U/L code = 2204) AST (test code = 2218) 10 U/L ALT (test code = 2219) 8 U/L LIPID [id number] 00:00:00 Test Item Value Reference Range Interpretation Comments CHOLESTEROL (test code = 2210) 255 MG/DL TRIGLYCERIDES (test code = 2232) 153 MG/DL HDL CHOLESTEROL (test code = 2220) 63 MG/DL CALC LDL CHOL (test code = 2237) 162 MG/DL RISK RATIO LDL/HDL (test code = 2.57 RATIO 2238) LIPID [id number] 00:00:00 Test Item Value Reference Range Interpretation Comments CHOLESTEROL (test code = 2210) 255 MG/DL TRIGLYCERIDES (test code = 2232) 153 MG/DL HDL CHOLESTEROL (test code = 2220) 63 MG/DL CALC LDL CHOL (test code = 2237) 162 MG/DL RISK RATIO LDL/HDL (test code = 2.57 RATIO 2238) HEMOGLOBIN [id number] 04:14:33 Test Item Value Reference Range Interpretation Comments HEMOGLOBIN A1c (test 6.9 % 4.2-5.6 H AMERIC AN DIABETES code = 25068) ASSOCIATION IDELINES FOR HGB A1C: PREDIABETES/INC REASED [...] ALTERN ATE TESTING OR LABORATORY C ONSULTATION. HEMOGLOBIN [id number] 00:00:00 Test Item Value Reference Range Interpretation Comments HEMOGLOBIN A1c (test code = 57594) 6.9 % HEMOGLOBIN [id number] 00:00:00 Test Item Value Reference Range Interpretation Comments HEMOGLOBIN A1c (test code = 55483) 6.9 % HEMOGLOBIN [id number] 00:00:00 Test Item Value Reference Range Interpretation Comments HEMOGLOBIN A1c (test code = 25881) 6.9 % HEMOGLOBIN [id number] 00:00:00 Test Item Value Reference Range Interpretation Comments HEMOGLOBIN A1c (test code = 77755) 6.9 % HEMOGLOBIN [id number] 00:00:00 Test Item Value Reference Range Interpretation Comments HEMOGLOBIN A1c (test code = 90293) 6.9 % HEMOGLOBIN [id number] 00:00:00 Test Item Value Reference Range Interpretation Comments HEMOGLOBIN A1c (test code = 82701) 6.9 % HEMOGLOBIN [id number] 00:00:00 Test Item Value Reference Range Interpretation Comments HEMOGLOBIN A1c (test code = 19176) 6.9 % HEMOGLOBIN [id number] 00:00:00 Test Item Value Reference Range Interpretation Comments HEMOGLOBIN A1c (test code = 20404) 6.9 % HEMOGLOBIN [id number] 00:00:00 Test Item Value Reference Range Interpretation Comments HEMOGLOBIN A1c (test code = 76328) 6.9 % HEMOGLOBIN [id number] 00:00:00 Test Item Value Reference Range Interpretation Comments HEMOGLOBIN A1c (test code = 39045) 6.9 % HEMOGLOBIN [id number] 00:00:00 Test Item Value Reference Range Interpretation Comments HEMOGLOBIN A1c (test code = 80453) 6.9 % HEMOGLOBIN [id number] 00:00:00 Test Item Value Reference Range Interpretation Comments HEMOGLOBIN A1c (test code = 23582) 6.9 % CT ABDOMEN PELVIS WO [id number] 13:48:04 1. ?No acute intra-abdominal or pelvic abnormality. Limited study in theabsence of IV contrast. 2. ?Uterine leiomyomas, one arising from the anterior lower uterine segmentmeasuring 6.2 cm compressing the urinary bladder. 3. ?Osteopenia. Diverticulosis. Obese body habitus. Preliminary Report Dictated by Resident: Shania Carrington MD., have reviewed this study and agree [...] reviewed this study and agree with theabove report.[facility] [id number] 13:31:39 Test Item Value Reference Range Interpretation Comments APPEARANCE (test code = Hazy Clear A 5325430016) COLOR (test code = Sandie Yellow A 9879453873) PH (test code = 4.8-8.0 7995738763) SP GRAVITY (test code = 1.003-1.030 H 9373774808) GLU U QUAL (test code = Normal Normal 4004199509) BLOOD (test code = Negative Negative 7869610671) KETONES (test code = 5 mg/dL Negative A 2736835846) PROTEIN (test code = 100 mg/dL Negative A 2887-8) UROBILIN (test code = 4.0 mg/dL Normal A 5374452873) BILIRUBIN (test code = 2 mg/dL Negative A 9649022305) NITRITE (test code = Negative Negative 3217893756) LEUK ESTEFANY (test code = Negative Negative 2212945418) RBC/HPF (test code = See_Comment [Autom ated message] 2912761884) The system [employer] generated this result transmit suman reference range : 0 - 3 HPF. The refe rence range was not u sed to interpret th is result as normal/abnormal . WBC/HPF (test code = See_Comment [Autom ated message] 6273271884) The system [employer] generated this result transmit suman reference range : 0 - 5 HPF. The refe rence range was not u sed to interpret th is result as normal/abnormal . BACTERIA (test code = Few Negative A 1957829364) MUCOUS (test code = Moderate Negative LPF A 0810454684) SQ EPITH (test code = HPF 8154904839) HYAL CAST (test code = See_Comment H [Aut omated message] 7866717001) The system [employer] generated this result transmit suman reference range : <=2 LPF. The refere nce range was not u sed to interpret th is result as normal/abnormal . Ictotest (test code = Positive 3118815511) Lab Interpretation (test Abnormal code = 80160-1) [facility] WITH [id number] 13:21:22 Test Item Value Reference Range Interpretation [...] (test code = 50.0 fL 39.0-49.9 H 43724-7) RDW-CV (test code = 14.6 % 12.0-15.5 788-0) PLT (test code = See_Comment [Automated 777-3) message] The sy stem which generated this result transmitted reference range : 166 - 358 10*3/ ?L. The reference r nima was not used to interpret this result as normal/abnormal . MPV (test code = 10.2 fL 9.5-12.9 18632-5) NRBC/100 WBC (test See_Comment [Automat ed code = 5721660090) message] The system which generated this result transmitted reference range : 0.0 - 10.0 /100 WBCs. The refer ence range was not u sed to interpret th is result as normal/abnormal . NRBC x10^3 (test code <0.01 See_Comment [Auto mated = 6126930179) message] The s ystem which generated this result transmitted reference range : 10*3/?L. The reference range was not used to interpret this result as normal/abnormal . GRAN MAT (NEUT) % 67.0 % (test code = 770-8) IMM GRAN % (test code 0.30 % = 4057988588) LYMPH % (test code = 24.6 % 736-9) MONO % (test code = 7.7 % 5905-5) EOS % (test code = 0.2 % 713-8) BASO % (test code = 0.2 % 706-2) GRAN MAT x10^3(ANC) 3.93 10*3/uL 1.88-7.09 (test code = 0546901672) IMM GRAN x10^3 (test <0.03 0.00-0.06 code = 7910339613) LYMPH x10^3 (test code 1.44 10*3/uL 1.32-3.29 = 731-0) MONO x10^3 (test code 0.45 10*3/uL 0.33-0.92 = 742-7) EOS x10^3 (test code = <0.03 0.03-0.39 L 711-2) BASO x10^3 (test code <0.03 0.01-0.07 = 704-7) Lab Interpretation Abnormal (test code = 35352-4) [facility] [id number] 00:00:00 Test Item Value Reference Range Interpretation Comments CHOLESTEROL (test code = 2210) 213 MG/DL TRIGLYCERIDES (test code = 2232) 115 MG/DL HDL CHOLESTEROL (test code = 2220) 66 MG/DL CALC LDL CHOL (test code = 2237) 124 MG/DL RISK RATIO LDL/HDL (test code = 1.88 RATIO 2238) LIPID [id number] 00:00:00 Test Item Value Reference Range Interpretation Comments CHOLESTEROL (test code = 2210) 213 MG/DL TRIGLYCERIDES (test code = 2232) 115 MG/DL HDL CHOLESTEROL (test code = 2220) 66 MG/DL CALC LDL CHOL (test code = 2237) 124 MG/DL RISK RATIO LDL/HDL (test code = 1.88 RATIO 2238) HEMOGLOBIN [id number] 00:00:00 Test Item Value Reference Range Interpretation Comments HEMOGLOBIN A1c (test code = 12063) 6.7 % HEMOGLOBIN [id number] 00:00:00 Test Item Value Reference Range Interpretation Comments HEMOGLOBIN A1c (test code = 87831) 6.7 % HEMOGLOBIN [id number] 00:00:00 Test Item Value Reference Range Interpretation Comments HEMOGLOBIN A1c (test code = 70286) 6.7 % COMPREHENSIVE METABOLIC [id number] 00:00:00 Test Item Value Reference Range Interpretation Comments GLUCOSE (test code = 2217) 99 MG/DL BUN (test code = 2208) 20 MG/DL CREATININE (test code = 2214) 1.37 MG/DL eGFR AMER. (test code 48 ML/MIN/1.73 = 66837) eGFR NON- AMER. (test 41 ML/MIN/1.73 code = 69841) CALC BUN/CREAT (test code = 15 RATIO 2235) SODIUM (test code = 2231) 143 MEQ/L POTASSIUM (test code = 2228) 4.3 MEQ/L CHLORIDE (test code = 2215) 103 MEQ/L CARBON DIOXIDE (test code = 25 MEQ/L 2205) CALCIUM (test code = 2209) 9.2 MG/DL PROTEIN, TOTAL (test code = 7.2 G/DL 2228) ALBUMIN (test code = 220) 4.1 G/DL CALC GLOBULIN (test code = 3.1 G/DL 2240) CALC A/G RATIO (test code = 1.3 RATIO 2234) BILIRUBIN, TOTAL (test code = 0.2 MG/DL 2207) ALKALINE PHOSPHATASE (test 79 U/L code = 2204) AST (test code = 2218) 20 U/L ALT (test code = 2219) 13 U/L COMPREHENSIVE METABOLIC [id number] 00:00:00 Test Item Value Reference Range Interpretation Comments GLUCOSE (test code = 2217) 99 MG/DL BUN (test code = 2208) 20 MG/DL CREATININE (test code = 2214) 1.37 MG/DL eGFR AMER. (test code 48 ML/MIN/1.73 = 96610) eGFR NON- AMER. (test 41 ML/MIN/1.73 code = 61641) CALC BUN/CREAT (test code = 15 RATIO 2235) SODIUM (test code = 2231) 143 MEQ/L POTASSIUM (test code = 2228) 4.3 MEQ/L CHLORIDE (test code = 2215) 103 MEQ/L CARBON DIOXIDE (test code = 25 MEQ/L 2205) CALCIUM (test code = 2209) 9.2 MG/DL PROTEIN, TOTAL (test code = 7.2 G/DL 2229) ALBUMIN (test code = 2201) 4.1 G/DL CALC GLOBULIN (test code = 3.1 G/DL 2240) CALC A/G RATIO (test code = 1.3 RATIO 2234) BILIRUBIN, TOTAL (test code = 0.2 MG/DL 2207) ALKALINE PHOSPHATASE (test 79 U/L code = 2204) AST (test code = 2218) 20 U/L ALT (test code = 2219) 13 U/L CBC W/AUTO [id number] 00:00:00 Test Item Value Reference Range Interpretation Comments WBC (test code = 1001) 7.6 K/UL RBC (test code = 1002) 3.72 M/UL HEMOGLOBIN (test code = 1003) 11.4 G/DL HEMATOCRIT (test code = 1004) 34.4 % MCV (test code = 1005) 92.5 fL MCH (test code = 1006) 30.6 PG MCHC (test code = 1007) 33.1 G/DL RDW (test code = 1038) 14.3 % NEUTROPHILS (test code = 1008) 65.8 % LYMPHOCYTES (test code = 1010) 25.1 % MONOCYTES (test code = 1011) 6.9 % EOSINOPHILS (test code = 1012) 1.5 % BASOPHILS (test code = 1013) 0.4 % IMMATURE GRANULOCYTES (test 0.3 % code = 1036) NUCLEATED RBCS (test code = 0.0 /100WBC'S 1065) PLATELET COUNT (test code = 270 K/UL 1015) ABSOLUTE NEUTROPHILS (test code 5.00 K/UL = 1066) ABSOLUTE LYMPHOCYTES (test code 1.90 K/UL = 1067) ABSOLUTE MONOCYTES (test code = 0.52 K/UL 1068) ABSOLUTE EOSINOPHILS (test code 0.11 K/UL = 1040) ABSOLUTE BASOPHILS (test code = 0.03 K/UL 1069) ABS IMMATURE GRANULOCYTES (test 0.02 K/UL code = 1020) ABS NUCLEATED RBCS (test code = 0.00 K/UL 60135) CBC W/AUTO [id number] 00:00:00 Test Item Value Reference Range Interpretation Comments WBC (test code = 1001) 7.6 K/UL RBC (test code = 1002) 3.72 M/UL HEMOGLOBIN (test code = 1003) 11.4 G/DL HEMATOCRIT (test code = 1004) 34.4 % MCV (test code = 1005) 92.5 fL MCH (test code = 1006) 30.6 PG MCHC (test code = 1007) 33.1 G/DL RDW (test code = 1038) 14.3 % NEUTROPHILS (test code = 1008) 65.8 % LYMPHOCYTES (test code = 1010) 25.1 % MONOCYTES (test code = 1011) 6.9 % EOSINOPHILS (test code = 1012) 1.5 % BASOPHILS (test code = 1013) 0.4 % IMMATURE GRANULOCYTES (test 0.3 % code = 1036) NUCLEATED RBCS (test code = 0.0 /100WBC'S 1065) PLATELET COUNT (test code = 270 K/UL 1015) ABSOLUTE NEUTROPHILS (test code 5.00 K/UL = 1066) ABSOLUTE LYMPHOCYTES (test code 1.90 K/UL = 1067) ABSOLUTE MONOCYTES (test code = 0.52 K/UL 1068) ABSOLUTE EOSINOPHILS (test code 0.11 K/UL = 1040) ABSOLUTE BASOPHILS (test code = 0.03 K/UL 1069) ABS IMMATURE GRANULOCYTES (test 0.02 K/UL code = 1020) ABS NUCLEATED RBCS (test code = 0.00 K/UL 59670) CBC W/AUTO [id number] 00:00:00 Test Item Value Reference Range Interpretation Comments WBC (test code = 1001) 7.6 K/UL RBC (test code = 1002) 3.72 M/UL HEMOGLOBIN (test code = 1003) 11.4 G/DL HEMATOCRIT (test code = 1004) 34.4 % MCV (test code = 1005) 92.5 fL MCH (test code = 1006) 30.6 PG MCHC (test code = 1007) 33.1 G/DL RDW (test code = 1038) 14.3 % NEUTROPHILS (test code = 1008) 65.8 % LYMPHOCYTES (test code = 1010) 25.1 % MONOCYTES (test code = 1011) 6.9 % EOSINOPHILS (test code = 1012) 1.5 % BASOPHILS (test code = 1013) 0.4 % IMMATURE GRANULOCYTES (test 0.3 % code = 1036) NUCLEATED RBCS (test code = 0.0 /100WBC'S 1065) PLATELET COUNT (test code = 270 K/UL 1015) ABSOLUTE NEUTROPHILS (test code 5.00 K/UL = 1066) ABSOLUTE LYMPHOCYTES (test code 1.90 K/UL = 1067) ABSOLUTE MONOCYTES (test code = 0.52 K/UL 1068) ABSOLUTE EOSINOPHILS (test code 0.11 K/UL = 1040) ABSOLUTE BASOPHILS (test code = 0.03 K/UL 1069) ABS IMMATURE GRANULOCYTES (test 0.02 K/UL code = 1020) ABS NUCLEATED RBCS (test code = 0.00 K/UL 10922) LIPID [id number] 00:00:00 Test Item Value Reference Range Interpretation Comments CHOLESTEROL (test code = 2210) 213 MG/DL TRIGLYCERIDES (test code = 2232) 115 MG/DL HDL CHOLESTEROL (test code = 2220) 66 MG/DL CALC LDL CHOL (test code = 2237) 124 MG/DL RISK RATIO LDL/HDL (test code = 1.88 RATIO 2238) LIPID [id number] 00:00:00 Test Item Value Reference Range Interpretation Comments CHOLESTEROL (test code = 2210) 213 MG/DL TRIGLYCERIDES (test code = 2232) 115 MG/DL HDL CHOLESTEROL (test code = 2220) 66 MG/DL CALC LDL CHOL (test code = 2237) 124 MG/DL RISK RATIO LDL/HDL (test code = 1.88 RATIO 2238) HEMOGLOBIN [id number] 00:00:00 Test Item Value Reference Range Interpretation Comments HEMOGLOBIN A1c (test code = 13518) 6.7 % HEMOGLOBIN [id number] 00:00:00 Test Item Value Reference Range Interpretation Comments HEMOGLOBIN A1c (test code = 01063) 6.7 % HEMOGLOBIN [id number] 00:00:00 Test Item Value Reference Range Interpretation Comments HEMOGLOBIN A1c (test code = 76544) 6.7 % COMPREHENSIVE METABOLIC [id number] 00:00:00 Test Item Value Reference Range Interpretation Comments GLUCOSE (test code = 2217) 99 MG/DL BUN (test code = 2208) 20 MG/DL CREATININE (test code = 2214) 1.37 MG/DL eGFR AMER. (test code 48 ML/MIN/1.73 = 28739) eGFR NON- AMER. (test 41 ML/MIN/1.73 code = 53199) CALC BUN/CREAT (test code = 15 RATIO 2235) SODIUM (test code = 2231) 143 MEQ/L POTASSIUM (test code = 2228) 4.3 MEQ/L CHLORIDE (test code = 2215) 103 MEQ/L CARBON DIOXIDE (test code = 25 MEQ/L 2205) CALCIUM (test code = 2209) 9.2 MG/DL PROTEIN, TOTAL (test code = 7.2 G/DL 2228) ALBUMIN (test code = 2201) 4.1 G/DL CALC GLOBULIN (test code = 3.1 G/DL 0) CALC A/G RATIO (test code = 1.3 RATIO 2234) BILIRUBIN, TOTAL (test code = 0.2 MG/DL 2206) ALKALINE PHOSPHATASE (test 79 U/L code = 2204) AST (test code = 2218) 20 U/L ALT (test code = 2219) 13 U/L COMPREHENSIVE METABOLIC [id number] 00:00:00 Test Item Value Reference Range Interpretation Comments GLUCOSE (test code = 2217) 99 MG/DL BUN (test code = 2208) 20 MG/DL CREATININE (test code = 2214) 1.37 MG/DL eGFR AMER. (test code 48 ML/MIN/1.73 = 94096) eGFR NON- AMER. (test 41 ML/MIN/1.73 code = 79415) CALC BUN/CREAT (test code = 15 RATIO 2235) SODIUM (test code = 2231) 143 MEQ/L POTASSIUM (test code = 2228) 4.3 MEQ/L CHLORIDE (test code = 2215) 103 MEQ/L CARBON DIOXIDE (test code = 25 MEQ/L 2205) CALCIUM (test code = 2209) 9.2 MG/DL PROTEIN, TOTAL (test code = 7.2 G/DL 2228) ALBUMIN (test code = 2201) 4.1 G/DL CALC GLOBULIN (test code = 3.1 G/DL 224) CALC A/G RATIO (test code = 1.3 RATIO 2233) BILIRUBIN, TOTAL (test code = 0.2 MG/DL 2206) ALKALINE PHOSPHATASE (test 79 U/L code = 2204) AST (test code = 2218) 20 U/L ALT (test code = 2219) 13 U/L CBC W/AUTO [id number] 00:00:00 Test Item Value Reference Range Interpretation Comments WBC (test code = 1001) 7.6 K/UL RBC (test code = 1002) 3.72 M/UL HEMOGLOBIN (test code = 1003) 11.4 G/DL HEMATOCRIT (test code = 1004) 34.4 % MCV (test code = 1005) 92.5 fL MCH (test code = 1006) 30.6 PG MCHC (test code = 1007) 33.1 G/DL RDW (test code = 1038) 14.3 % NEUTROPHILS (test code = 1008) 65.8 % LYMPHOCYTES (test code = 1010) 25.1 % MONOCYTES (test code = 1011) 6.9 % EOSINOPHILS (test code = 1012) 1.5 % BASOPHILS (test code = 1013) 0.4 % IMMATURE GRANULOCYTES (test 0.3 % code = 1036) NUCLEATED RBCS (test code = 0.0 /100WBC'S 1065) PLATELET COUNT (test code = 270 K/UL 1015) ABSOLUTE NEUTROPHILS (test code 5.00 K/UL = 1066) ABSOLUTE LYMPHOCYTES (test code 1.90 K/UL = 1067) ABSOLUTE MONOCYTES (test code = 0.52 K/UL 1068) ABSOLUTE EOSINOPHILS (test code 0.11 K/UL = 1040) ABSOLUTE BASOPHILS (test code = 0.03 K/UL 1069) ABS IMMATURE GRANULOCYTES (test 0.02 K/UL code = 1020) ABS NUCLEATED RBCS (test code = 0.00 K/UL 62559) CBC W/AUTO [id number] 00:00:00 Test Item Value Reference Range Interpretation Comments WBC (test code = 1001) 7.6 K/UL RBC (test code = 1002) 3.72 M/UL HEMOGLOBIN (test code = 1003) 11.4 G/DL HEMATOCRIT (test code = 1004) 34.4 % MCV (test code = 1005) 92.5 fL MCH (test code = 1006) 30.6 PG MCHC (test code = 1007) 33.1 G/DL RDW (test code = 1038) 14.3 % NEUTROPHILS (test code = 1008) 65.8 % LYMPHOCYTES (test code = 1010) 25.1 % MONOCYTES (test code = 1011) 6.9 % EOSINOPHILS (test code = 1012) 1.5 % BASOPHILS (test code = 1013) 0.4 % IMMATURE GRANULOCYTES (test 0.3 % code = 1036) NUCLEATED RBCS (test code = 0.0 /100WBC'S 1065) PLATELET COUNT (test code = 270 K/UL 1015) ABSOLUTE NEUTROPHILS (test code 5.00 K/UL = 1066) ABSOLUTE LYMPHOCYTES (test code 1.90 K/UL = 1067) ABSOLUTE MONOCYTES (test code = 0.52 K/UL 1068) ABSOLUTE EOSINOPHILS (test code 0.11 K/UL = 1040) ABSOLUTE BASOPHILS (test code = 0.03 K/UL 1069) ABS IMMATURE GRANULOCYTES (test 0.02 K/UL code = 1020) ABS NUCLEATED RBCS (test code = 0.00 K/UL 72952) CBC W/AUTO [id number] 00:00:00 Test Item Value Reference Range Interpretation Comments WBC (test code = 1001) 7.6 K/UL RBC (test code = 1002) 3.72 M/UL HEMOGLOBIN (test code = 1003) 11.4 G/DL HEMATOCRIT (test code = 1004) 34.4 % MCV (test code = 1005) 92.5 fL MCH (test code = 1006) 30.6 PG MCHC (test code = 1007) 33.1 G/DL RDW (test code = 1038) 14.3 % NEUTROPHILS (test code = 1008) 65.8 % LYMPHOCYTES (test code = 1010) 25.1 % MONOCYTES (test code = 1011) 6.9 % EOSINOPHILS (test code = 1012) 1.5 % BASOPHILS (test code = 1013) 0.4 % IMMATURE GRANULOCYTES (test 0.3 % code = 1036) NUCLEATED RBCS (test code = 0.0 /100WBC'S 1065) PLATELET COUNT (test code = 270 K/UL 1015) ABSOLUTE NEUTROPHILS (test code 5.00 K/UL = 1066) ABSOLUTE LYMPHOCYTES (test code 1.90 K/UL = 1067) ABSOLUTE MONOCYTES (test code = 0.52 K/UL 1068) ABSOLUTE EOSINOPHILS (test code 0.11 K/UL = 1040) ABSOLUTE BASOPHILS (test code = 0.03 K/UL 1069) ABS IMMATURE GRANULOCYTES (test 0.02 K/UL code = 1020) ABS NUCLEATED RBCS (test code = 0.00 K/UL 88519) LIPID [id number] 00:00:00 Test Item Value Reference Range Interpretation Comments CHOLESTEROL (test code = 2210) 213 MG/DL TRIGLYCERIDES (test code = 2232) 115 MG/DL HDL CHOLESTEROL (test code = 2220) 66 MG/DL CALC LDL CHOL (test code = 2237) 124 MG/DL RISK RATIO LDL/HDL (test code = 1.88 RATIO 2238) LIPID [id number] 00:00:00 Test Item Value Reference Range Interpretation Comments CHOLESTEROL (test code = 2210) 213 MG/DL TRIGLYCERIDES (test code = 2232) 115 MG/DL HDL CHOLESTEROL (test code = 2220) 66 MG/DL CALC LDL CHOL (test code = 2237) 124 MG/DL RISK RATIO LDL/HDL (test code = 1.88 RATIO 2238) HEMOGLOBIN [id number] 00:00:00 Test Item Value Reference Range Interpretation Comments HEMOGLOBIN A1c (test code = 33522) 6.7 % HEMOGLOBIN [id number] 00:00:00 Test Item Value Reference Range Interpretation Comments HEMOGLOBIN A1c (test code = 13210) 6.7 % HEMOGLOBIN [id number] 00:00:00 Test Item Value Reference Range Interpretation Comments HEMOGLOBIN A1c (test code = 38744) 6.7 % COMPREHENSIVE METABOLIC [id number] 00:00:00 Test Item Value Reference Range Interpretation Comments GLUCOSE (test code = 2217) 99 MG/DL BUN (test code = 2208) 20 MG/DL CREATININE (test code = 2214) 1.37 MG/DL eGFR AMER. (test code 48 ML/MIN/1.73 = 42661) eGFR NON- AMER. (test 41 ML/MIN/1.73 code = 32836) CALC BUN/CREAT (test code = 15 RATIO 2235) SODIUM (test code = 2231) 143 MEQ/L POTASSIUM (test code = 2228) 4.3 MEQ/L CHLORIDE (test code = 2215) 103 MEQ/L CARBON DIOXIDE (test code = 25 MEQ/L 2205) CALCIUM (test code = 2209) 9.2 MG/DL PROTEIN, TOTAL (test code = 7.2 G/DL 2228) ALBUMIN (test code = 2201) 4.1 G/DL CALC GLOBULIN (test code = 3.1 G/DL 0) CALC A/G RATIO (test code = 1.3 RATIO 4) BILIRUBIN, TOTAL (test code = 0.2 MG/DL 2206) ALKALINE PHOSPHATASE (test 79 U/L code = 2204) AST (test code = 2218) 20 U/L ALT (test code = 2219) 13 U/L COMPREHENSIVE METABOLIC [id number] 00:00:00 Test Item Value Reference Range Interpretation Comments GLUCOSE (test code = 2217) 99 MG/DL BUN (test code = 2208) 20 MG/DL CREATININE (test code = 2214) 1.37 MG/DL eGFR AMER. (test code 48 ML/MIN/1.73 = 21012) eGFR NON- AMER. (test 41 ML/MIN/1.73 code = 41090) CALC BUN/CREAT (test code = 15 RATIO 2235) SODIUM (test code = 2231) 143 MEQ/L POTASSIUM (test code = 2228) 4.3 MEQ/L CHLORIDE (test code = 2215) 103 MEQ/L CARBON DIOXIDE (test code = 25 MEQ/L 2205) CALCIUM (test code = 2209) 9.2 MG/DL PROTEIN, TOTAL (test code = 7.2 G/DL 2229) ALBUMIN (test code = 2201) 4.1 G/DL CALC GLOBULIN (test code = 3.1 G/DL 2240) CALC A/G RATIO (test code = 1.3 RATIO 2234) BILIRUBIN, TOTAL (test code = 0.2 MG/DL 2207) ALKALINE PHOSPHATASE (test 79 U/L code = 2204) AST (test code = 2218) 20 U/L ALT (test code = 2219) 13 U/L CBC W/AUTO [id number] 00:00:00 Test Item Value Reference Range Interpretation Comments WBC (test code = 1001) 7.6 K/UL RBC (test code = 1002) 3.72 M/UL HEMOGLOBIN (test code = 1003) 11.4 G/DL HEMATOCRIT (test code = 1004) 34.4 % MCV (test code = 1005) 92.5 fL MCH (test code = 1006) 30.6 PG MCHC (test code = 1007) 33.1 G/DL RDW (test code = 1038) 14.3 % NEUTROPHILS (test code = 1008) 65.8 % LYMPHOCYTES (test code = 1010) 25.1 % MONOCYTES (test code = 1011) 6.9 % EOSINOPHILS (test code = 1012) 1.5 % BASOPHILS (test code = 1013) 0.4 % IMMATURE GRANULOCYTES (test 0.3 % code = 1036) NUCLEATED RBCS (test code = 0.0 /100WBC'S 1065) PLATELET COUNT (test code = 270 K/UL 1015) ABSOLUTE NEUTROPHILS (test code 5.00 K/UL = 1066) ABSOLUTE LYMPHOCYTES (test code 1.90 K/UL = 1067) ABSOLUTE MONOCYTES (test code = 0.52 K/UL 1068) ABSOLUTE EOSINOPHILS (test code 0.11 K/UL = 1040) ABSOLUTE BASOPHILS (test code = 0.03 K/UL 1069) ABS IMMATURE GRANULOCYTES (test 0.02 K/UL code = 1020) ABS NUCLEATED RBCS (test code = 0.00 K/UL 62471) CBC W/AUTO [id number] 00:00:00 Test Item Value Reference Range Interpretation Comments WBC (test code = 1001) 7.6 K/UL RBC (test code = 1002) 3.72 M/UL HEMOGLOBIN (test code = 1003) 11.4 G/DL HEMATOCRIT (test code = 1004) 34.4 % MCV (test code = 1005) 92.5 fL MCH (test code = 1006) 30.6 PG MCHC (test code = 1007) 33.1 G/DL RDW (test code = 1038) 14.3 % NEUTROPHILS (test code = 1008) 65.8 % LYMPHOCYTES (test code = 1010) 25.1 % MONOCYTES (test code = 1011) 6.9 % EOSINOPHILS (test code = 1012) 1.5 % BASOPHILS (test code = 1013) 0.4 % IMMATURE GRANULOCYTES (test 0.3 % code = 1036) NUCLEATED RBCS (test code = 0.0 /100WBC'S 1065) PLATELET COUNT (test code = 270 K/UL 1015) ABSOLUTE NEUTROPHILS (test code 5.00 K/UL = 1066) ABSOLUTE LYMPHOCYTES (test code 1.90 K/UL = 1067) ABSOLUTE MONOCYTES (test code = 0.52 K/UL 1068) ABSOLUTE EOSINOPHILS (test code 0.11 K/UL = 1040) ABSOLUTE BASOPHILS (test code = 0.03 K/UL 1069) ABS IMMATURE GRANULOCYTES (test 0.02 K/UL code = 1020) ABS NUCLEATED RBCS (test code = 0.00 K/UL 72512) CBC W/AUTO [id number] 00:00:00 Test Item Value Reference Range Interpretation Comments WBC (test code = 1001) 7.6 K/UL RBC (test code = 1002) 3.72 M/UL HEMOGLOBIN (test code = 1003) 11.4 G/DL HEMATOCRIT (test code = 1004) 34.4 % MCV (test code = 1005) 92.5 fL MCH (test code = 1006) 30.6 PG MCHC (test code = 1007) 33.1 G/DL RDW (test code = 1038) 14.3 % NEUTROPHILS (test code = 1008) 65.8 % LYMPHOCYTES (test code = 1010) 25.1 % MONOCYTES (test code = 1011) 6.9 % EOSINOPHILS (test code = 1012) 1.5 % BASOPHILS (test code = 1013) 0.4 % IMMATURE GRANULOCYTES (test 0.3 % code = 1036) NUCLEATED RBCS (test code = 0.0 /100WBC'S 1065) PLATELET COUNT (test code = 270 K/UL 1015) ABSOLUTE NEUTROPHILS (test code 5.00 K/UL = 1066) ABSOLUTE LYMPHOCYTES (test code 1.90 K/UL = 1067) ABSOLUTE MONOCYTES (test code = 0.52 K/UL 1068) ABSOLUTE EOSINOPHILS (test code 0.11 K/UL = 1040) ABSOLUTE BASOPHILS (test code = 0.03 K/UL 1069) ABS IMMATURE GRANULOCYTES (test 0.02 K/UL code = 1020) ABS NUCLEATED RBCS (test code = 0.00 K/UL 19631) LIPID [id number] 00:00:00 Test Item Value Reference Range Interpretation Comments CHOLESTEROL (test code = 2210) 213 MG/DL TRIGLYCERIDES (test code = 2232) 115 MG/DL HDL CHOLESTEROL (test code = 2220) 66 MG/DL CALC LDL CHOL (test code = 2237) 124 MG/DL RISK RATIO LDL/HDL (test code = 1.88 RATIO 2238) LIPID [id number] 00:00:00 Test Item Value Reference Range Interpretation Comments CHOLESTEROL (test code = 2210) 213 MG/DL TRIGLYCERIDES (test code = 2232) 115 MG/DL HDL CHOLESTEROL (test code = 2220) 66 MG/DL CALC LDL CHOL (test code = 2237) 124 MG/DL RISK RATIO LDL/HDL (test code = 1.88 RATIO 2238) HEMOGLOBIN [id number] 00:00:00 Test Item Value Reference Range Interpretation Comments HEMOGLOBIN A1c (test code = 06231) 6.7 % HEMOGLOBIN [id number] 00:00:00 Test Item Value Reference Range Interpretation Comments HEMOGLOBIN A1c (test code = 15686) 6.7 % HEMOGLOBIN [id number] 00:00:00 Test Item Value Reference Range Interpretation Comments HEMOGLOBIN A1c (test code = 50826) 6.7 % COMPREHENSIVE METABOLIC [id number] 00:00:00 Test Item Value Reference Range Interpretation Comments GLUCOSE (test code = 2217) 99 MG/DL BUN (test code = 2208) 20 MG/DL CREATININE (test code = 2214) 1.37 MG/DL eGFR AMER. (test code 48 ML/MIN/1.73 = 39272) eGFR NON- AMER. (test 41 ML/MIN/1.73 code = 38383) CALC BUN/CREAT (test code = 15 RATIO 2235) SODIUM (test code = 2231) 143 MEQ/L POTASSIUM (test code = 2228) 4.3 MEQ/L CHLORIDE (test code = 2215) 103 MEQ/L CARBON DIOXIDE (test code = 25 MEQ/L 2205) CALCIUM (test code = 2209) 9.2 MG/DL PROTEIN, TOTAL (test code = 7.2 G/DL 222) ALBUMIN (test code = 2201) 4.1 G/DL CALC GLOBULIN (test code = 3.1 G/DL 2240) CALC A/G RATIO (test code = 1.3 RATIO 2234) BILIRUBIN, TOTAL (test code = 0.2 MG/DL 2206) ALKALINE PHOSPHATASE (test 79 U/L code = 2204) AST (test code = 2218) 20 U/L ALT (test code = 2219) 13 U/L COMPREHENSIVE METABOLIC [id number] 00:00:00 Test Item Value Reference Range Interpretation Comments GLUCOSE (test code = 2217) 99 MG/DL BUN (test code = 2208) 20 MG/DL CREATININE (test code = 2214) 1.37 MG/DL eGFR AMER. (test code 48 ML/MIN/1.73 = 04740) eGFR NON- AMER. (test 41 ML/MIN/1.73 code = 87520) CALC BUN/CREAT (test code = 15 RATIO 2235) SODIUM (test code = 2231) 143 MEQ/L POTASSIUM (test code = 2228) 4.3 MEQ/L CHLORIDE (test code = 2215) 103 MEQ/L CARBON DIOXIDE (test code = 25 MEQ/L 2205) CALCIUM (test code = 2209) 9.2 MG/DL PROTEIN, TOTAL (test code = 7.2 G/DL 2228) ALBUMIN (test code = 2201) 4.1 G/DL CALC GLOBULIN (test code = 3.1 G/DL 2240) CALC A/G RATIO (test code = 1.3 RATIO 2234) BILIRUBIN, TOTAL (test code = 0.2 MG/DL 2206) ALKALINE PHOSPHATASE (test 79 U/L code = 2204) AST (test code = 2218) 20 U/L ALT (test code = 2219) 13 U/L CBC W/AUTO [id number] 00:00:00 Test Item Value Reference Range Interpretation Comments WBC (test code = 1001) 7.6 K/UL RBC (test code = 1002) 3.72 M/UL HEMOGLOBIN (test code = 1003) 11.4 G/DL HEMATOCRIT (test code = 1004) 34.4 % MCV (test code = 1005) 92.5 fL MCH (test code = 1006) 30.6 PG MCHC (test code = 1007) 33.1 G/DL RDW (test code = 1038) 14.3 % NEUTROPHILS (test code = 1008) 65.8 % LYMPHOCYTES (test code = 1010) 25.1 % MONOCYTES (test code = 1011) 6.9 % EOSINOPHILS (test code = 1012) 1.5 % BASOPHILS (test code = 1013) 0.4 % IMMATURE GRANULOCYTES (test 0.3 % code = 1036) NUCLEATED RBCS (test code = 0.0 /100WBC'S 1065) PLATELET COUNT (test code = 270 K/UL 1015) ABSOLUTE NEUTROPHILS (test code 5.00 K/UL = 1066) ABSOLUTE LYMPHOCYTES (test code 1.90 K/UL = 1067) ABSOLUTE MONOCYTES (test code = 0.52 K/UL 1068) ABSOLUTE EOSINOPHILS (test code 0.11 K/UL = 1040) ABSOLUTE BASOPHILS (test code = 0.03 K/UL 1069) ABS IMMATURE GRANULOCYTES (test 0.02 K/UL code = 1020) ABS NUCLEATED RBCS (test code = 0.00 K/UL 20582) CBC W/AUTO [id number] 00:00:00 Test Item Value Reference Range Interpretation Comments WBC (test code = 1001) 7.6 K/UL RBC (test code = 1002) 3.72 M/UL HEMOGLOBIN (test code = 1003) 11.4 G/DL HEMATOCRIT (test code = 1004) 34.4 % MCV (test code = 1005) 92.5 fL MCH (test code = 1006) 30.6 PG MCHC (test code = 1007) 33.1 G/DL RDW (test code = 1038) 14.3 % NEUTROPHILS (test code = 1008) 65.8 % LYMPHOCYTES (test code = 1010) 25.1 % MONOCYTES (test code = 1011) 6.9 % EOSINOPHILS (test code = 1012) 1.5 % BASOPHILS (test code = 1013) 0.4 % IMMATURE GRANULOCYTES (test 0.3 % code = 1036) NUCLEATED RBCS (test code = 0.0 /100WBC'S 1065) PLATELET COUNT (test code = 270 K/UL 1015) ABSOLUTE NEUTROPHILS (test code 5.00 K/UL = 1066) ABSOLUTE LYMPHOCYTES (test code 1.90 K/UL = 1067) ABSOLUTE MONOCYTES (test code = 0.52 K/UL 1068) ABSOLUTE EOSINOPHILS (test code 0.11 K/UL = 1040) ABSOLUTE BASOPHILS (test code = 0.03 K/UL 1069) ABS IMMATURE GRANULOCYTES (test 0.02 K/UL code = 1020) ABS NUCLEATED RBCS (test code = 0.00 K/UL 98218) CBC W/AUTO [id number] 00:00:00 Test Item Value Reference Range Interpretation Comments WBC (test code = 1001) 7.6 K/UL RBC (test code = 1002) 3.72 M/UL HEMOGLOBIN (test code = 1003) 11.4 G/DL HEMATOCRIT (test code = 1004) 34.4 % MCV (test code = 1005) 92.5 fL MCH (test code = 1006) 30.6 PG MCHC (test code = 1007) 33.1 G/DL RDW (test code = 1038) 14.3 % NEUTROPHILS (test code = 1008) 65.8 % LYMPHOCYTES (test code = 1010) 25.1 % MONOCYTES (test code = 1011) 6.9 % EOSINOPHILS (test code = 1012) 1.5 % BASOPHILS (test code = 1013) 0.4 % IMMATURE GRANULOCYTES (test 0.3 % code = 1036) NUCLEATED RBCS (test code = 0.0 /100WBC'S 1065) PLATELET COUNT (test code = 270 K/UL 1015) ABSOLUTE NEUTROPHILS (test code 5.00 K/UL = 1066) ABSOLUTE LYMPHOCYTES (test code 1.90 K/UL = 1067) ABSOLUTE MONOCYTES (test code = 0.52 K/UL 1068) ABSOLUTE EOSINOPHILS (test code 0.11 K/UL = 1040) ABSOLUTE BASOPHILS (test code = 0.03 K/UL 1069) ABS IMMATURE GRANULOCYTES (test 0.02 K/UL code = 1020) ABS NUCLEATED RBCS (test code = 0.00 K/UL 21627) HEMOGLOBIN [id number] 00:00:00 Test Item Value Reference Range Interpretation Comments HEMOGLOBIN A1c (test code = 60526) 6.6 % HEMOGLOBIN [id number] 00:00:00 Test Item Value Reference Range Interpretation Comments HEMOGLOBIN A1c (test code = 33963) 6.6 % HEMOGLOBIN [id number] 00:00:00 Test Item Value Reference Range Interpretation Comments HEMOGLOBIN A1c (test code = 14890) 6.6 % COMPREHENSIVE METABOLIC [id number] 00:00:00 Test Item Value Reference Range Interpretation Comments GLUCOSE (test code = 2217) 114 MG/DL BUN (test code = 2208) 28 MG/DL CREATININE (test code = 2214) 1.82 MG/DL eGFR AMER. (test code 34 ML/MIN/1.73 = 40048) eGFR NON- AMER. (test 29 ML/MIN/1.73 code = 27620) CALC BUN/CREAT (test code = 15 RATIO 2235) SODIUM (test code = 2231) 143 MEQ/L POTASSIUM (test code = 2228) 5.2 MEQ/L CHLORIDE (test code = 2215) 103 MEQ/L CARBON DIOXIDE (test code = 29 MEQ/L 2206) CALCIUM (test code = 2209) 9.6 MG/DL PROTEIN, TOTAL (test code = 7.6 G/DL 2228) ALBUMIN (test code = 2201) 4.4 G/DL CALC GLOBULIN (test code = 3.2 G/DL 2240) CALC A/G RATIO (test code = 1.4 RATIO 2234) BILIRUBIN, TOTAL (test code = <0.2 MG/DL 2206) ALKALINE PHOSPHATASE (test 112 U/L code = 2204) AST (test code = 2218) 14 U/L ALT (test code = 2219) 9 U/L COMPREHENSIVE METABOLIC [id number] 00:00:00 Test Item Value Reference Range Interpretation Comments GLUCOSE (test code = 2217) 114 MG/DL BUN (test code = 2208) 28 MG/DL CREATININE (test code = 2214) 1.82 MG/DL eGFR AMER. (test code 34 ML/MIN/1.73 = 47730) eGFR NON- AMER. (test 29 ML/MIN/1.73 code = 11271) CALC BUN/CREAT (test code = 15 RATIO 2235) SODIUM (test code = 2231) 143 MEQ/L POTASSIUM (test code = 2228) 5.2 MEQ/L CHLORIDE (test code = 2215) 103 MEQ/L CARBON DIOXIDE (test code = 29 MEQ/L 2205) CALCIUM (test code = 2209) 9.6 MG/DL PROTEIN, TOTAL (test code = 7.6 G/DL 2228) ALBUMIN (test code = 2201) 4.4 G/DL CALC GLOBULIN (test code = 3.2 G/DL 2239) CALC A/G RATIO (test code = 1.4 RATIO 2233) BILIRUBIN, TOTAL (test code = <0.2 MG/DL 2206) ALKALINE PHOSPHATASE (test 112 U/L code = 2204) AST (test code = 2218) 14 U/L ALT (test code = 2219) 9 U/L LIPID [id number] 00:00:00 Test Item Value Reference Range Interpretation Comments CHOLESTEROL (test code = 2210) 265 MG/DL TRIGLYCERIDES (test code = 2232) 131 MG/DL HDL CHOLESTEROL (test code = 2220) 61 MG/DL CALC LDL CHOL (test code = 2237) 177 MG/DL RISK RATIO LDL/HDL (test code = 2.90 RATIO 2238) LIPID [id number] 00:00:00 Test Item Value Reference Range Interpretation Comments CHOLESTEROL (test code = 2210) 265 MG/DL TRIGLYCERIDES (test code = 2232) 131 MG/DL HDL CHOLESTEROL (test code = 2220) 61 MG/DL CALC LDL CHOL (test code = 2237) 177 MG/DL RISK RATIO LDL/HDL (test code = 2.90 RATIO 2238) HEMOGLOBIN [id number] 00:00:00 Test Item Value Reference Range Interpretation Comments HEMOGLOBIN A1c (test code = 17086) 6.6 % HEMOGLOBIN [id number] 00:00:00 Test Item Value Reference Range Interpretation Comments HEMOGLOBIN A1c (test code = 15213) 6.6 % HEMOGLOBIN [id number] 00:00:00 Test Item Value Reference Range Interpretation Comments HEMOGLOBIN A1c (test code = 66332) 6.6 % COMPREHENSIVE METABOLIC [id number] 00:00:00 Test Item Value Reference Range Interpretation Comments GLUCOSE (test code = 2217) 114 MG/DL BUN (test code = 2208) 28 MG/DL CREATININE (test code = 2214) 1.82 MG/DL eGFR AMER. (test code 34 ML/MIN/1.73 = 78427) eGFR NON- AMER. (test 29 ML/MIN/1.73 code = 43384) CALC BUN/CREAT (test code = 15 RATIO 2235) SODIUM (test code = 2231) 143 MEQ/L POTASSIUM (test code = 2228) 5.2 MEQ/L CHLORIDE (test code = 2215) 103 MEQ/L CARBON DIOXIDE (test code = 29 MEQ/L 2205) CALCIUM (test code = 2209) 9.6 MG/DL PROTEIN, TOTAL (test code = 7.6 G/DL 2228) ALBUMIN (test code = 2201) 4.4 G/DL CALC GLOBULIN (test code = 3.2 G/DL 2240) CALC A/G RATIO (test code = 1.4 RATIO 2234) BILIRUBIN, TOTAL (test code = <0.2 MG/DL 2206) ALKALINE PHOSPHATASE (test 112 U/L code = 2204) AST (test code = 2218) 14 U/L ALT (test code = 2219) 9 U/L COMPREHENSIVE METABOLIC [id number] 00:00:00 Test Item Value Reference Range Interpretation Comments GLUCOSE (test code = 2217) 114 MG/DL BUN (test code = 2208) 28 MG/DL CREATININE (test code = 2214) 1.82 MG/DL eGFR AMER. (test code 34 ML/MIN/1.73 = 86502) eGFR NON- AMER. (test 29 ML/MIN/1.73 code = 22710) CALC BUN/CREAT (test code = 15 RATIO 2235) SODIUM (test code = 2231) 143 MEQ/L POTASSIUM (test code = 2228) 5.2 MEQ/L CHLORIDE (test code = 2215) 103 MEQ/L CARBON DIOXIDE (test code = 29 MEQ/L 220) CALCIUM (test code = 2209) 9.6 MG/DL PROTEIN, TOTAL (test code = 7.6 G/DL 2228) ALBUMIN (test code = 2201) 4.4 G/DL CALC GLOBULIN (test code = 3.2 G/DL 2240) CALC A/G RATIO (test code = 1.4 RATIO 2234) BILIRUBIN, TOTAL (test code = <0.2 MG/DL 2206) ALKALINE PHOSPHATASE (test 112 U/L code = 2204) AST (test code = 2218) 14 U/L ALT (test code = 2219) 9 U/L LIPID [id number] 00:00:00 Test Item Value Reference Range Interpretation Comments CHOLESTEROL (test code = 2210) 265 MG/DL TRIGLYCERIDES (test code = 2232) 131 MG/DL HDL CHOLESTEROL (test code = 2220) 61 MG/DL CALC LDL CHOL (test code = 2237) 177 MG/DL RISK RATIO LDL/HDL (test code = 2.90 RATIO 2238) LIPID [id number] 00:00:00 Test Item Value Reference Range Interpretation Comments CHOLESTEROL (test code = 2210) 265 MG/DL TRIGLYCERIDES (test code = 2232) 131 MG/DL HDL CHOLESTEROL (test code = 2220) 61 MG/DL CALC LDL CHOL (test code = 2237) 177 MG/DL RISK RATIO LDL/HDL (test code = 2.90 RATIO 2238) HEMOGLOBIN [id number] 00:00:00 Test Item Value Reference Range Interpretation Comments HEMOGLOBIN A1c (test code = 02537) 6.6 % HEMOGLOBIN [id number] 00:00:00 Test Item Value Reference Range Interpretation Comments HEMOGLOBIN A1c (test code = 15800) 6.6 % HEMOGLOBIN [id number] 00:00:00 Test Item Value Reference Range Interpretation Comments HEMOGLOBIN A1c (test code = 60697) 6.6 % COMPREHENSIVE METABOLIC [id number] 00:00:00 Test Item Value Reference Range Interpretation Comments GLUCOSE (test code = 7) 114 MG/DL BUN (test code = 2208) 28 MG/DL CREATININE (test code = 2214) 1.82 MG/DL eGFR AMER. (test code 34 ML/MIN/1.73 = 37328) eGFR NON- AMER. (test 29 ML/MIN/1.73 code = 60388) CALC BUN/CREAT (test code = 15 RATIO 2235) SODIUM (test code = 2231) 143 MEQ/L POTASSIUM (test code = 2228) 5.2 MEQ/L CHLORIDE (test code = 2215) 103 MEQ/L CARBON DIOXIDE (test code = 29 MEQ/L 2205) CALCIUM (test code = 2209) 9.6 MG/DL PROTEIN, TOTAL (test code = 7.6 G/DL 222) ALBUMIN (test code = 2201) 4.4 G/DL CALC GLOBULIN (test code = 3.2 G/DL 2240) CALC A/G RATIO (test code = 1.4 RATIO 2234) BILIRUBIN, TOTAL (test code = <0.2 MG/DL 2206) ALKALINE PHOSPHATASE (test 112 U/L code = 2204) AST (test code = 2218) 14 U/L ALT (test code = 2219) 9 U/L COMPREHENSIVE METABOLIC [id number] 00:00:00 Test Item Value Reference Range Interpretation Comments GLUCOSE (test code = 2217) 114 MG/DL BUN (test code = 2208) 28 MG/DL CREATININE (test code = 2214) 1.82 MG/DL eGFR AMER. (test code 34 ML/MIN/1.73 = 64881) eGFR NON- AMER. (test 29 ML/MIN/1.73 code = 79073) CALC BUN/CREAT (test code = 15 RATIO 2235) SODIUM (test code = 2231) 143 MEQ/L POTASSIUM (test code = 2228) 5.2 MEQ/L CHLORIDE (test code = 2215) 103 MEQ/L CARBON DIOXIDE (test code = 29 MEQ/L 2205) CALCIUM (test code = 2209) 9.6 MG/DL PROTEIN, TOTAL (test code = 7.6 G/DL 2228) ALBUMIN (test code = 2201) 4.4 G/DL CALC GLOBULIN (test code = 3.2 G/DL 2240) CALC A/G RATIO (test code = 1.4 RATIO 2234) BILIRUBIN, TOTAL (test code = <0.2 MG/DL 2206) ALKALINE PHOSPHATASE (test 112 U/L code = 2204) AST (test code = 2218) 14 U/L ALT (test code = 2219) 9 U/L LIPID [id number] 00:00:00 Test Item Value Reference Range Interpretation Comments CHOLESTEROL (test code = 2210) 265 MG/DL TRIGLYCERIDES (test code = 2232) 131 MG/DL HDL CHOLESTEROL (test code = 2220) 61 MG/DL CALC LDL CHOL (test code = 2237) 177 MG/DL RISK RATIO LDL/HDL (test code = 2.90 RATIO 2238) LIPID [id number] 00:00:00 Test Item Value Reference Range Interpretation Comments CHOLESTEROL (test code = 2210) 265 MG/DL TRIGLYCERIDES (test code = 2232) 131 MG/DL HDL CHOLESTEROL (test code = 2220) 61 MG/DL CALC LDL CHOL (test code = 2237) 177 MG/DL RISK RATIO LDL/HDL (test code = 2.90 RATIO 2238) HEMOGLOBIN [id number] 00:00:00 Test Item Value Reference Range Interpretation Comments HEMOGLOBIN A1c (test code = 82612) 6.6 % HEMOGLOBIN [id number] 00:00:00 Test Item Value Reference Range Interpretation Comments HEMOGLOBIN A1c (test code = 55561) 6.6 % HEMOGLOBIN [id number] 00:00:00 Test Item Value Reference Range Interpretation Comments HEMOGLOBIN A1c (test code = 04954) 6.6 % COMPREHENSIVE METABOLIC [id number] 00:00:00 Test Item Value Reference Range Interpretation Comments GLUCOSE (test code = 2217) 114 MG/DL BUN (test code = 2208) 28 MG/DL CREATININE (test code = 2214) 1.82 MG/DL eGFR AMER. (test code 34 ML/MIN/1.73 = 48773) eGFR NON- AMER. (test 29 ML/MIN/1.73 code = 66391) CALC BUN/CREAT (test code = 15 RATIO 2235) SODIUM (test code = 2231) 143 MEQ/L POTASSIUM (test code = 2228) 5.2 MEQ/L CHLORIDE (test code = 2215) 103 MEQ/L CARBON DIOXIDE (test code = 29 MEQ/L 2205) CALCIUM (test code = 2209) 9.6 MG/DL PROTEIN, TOTAL (test code = 7.6 G/DL 2228) ALBUMIN (test code = 2201) 4.4 G/DL CALC GLOBULIN (test code = 3.2 G/DL 0) CALC A/G RATIO (test code = 1.4 RATIO 4) BILIRUBIN, TOTAL (test code = <0.2 MG/DL 2206) ALKALINE PHOSPHATASE (test 112 U/L code = 2204) AST (test code = 2218) 14 U/L ALT (test code = 2219) 9 U/L COMPREHENSIVE METABOLIC [id number] 00:00:00 Test Item Value Reference Range Interpretation Comments GLUCOSE (test code = 2217) 114 MG/DL BUN (test code = 2208) 28 MG/DL CREATININE (test code = 2214) 1.82 MG/DL eGFR AMER. (test code 34 ML/MIN/1.73 = 66532) eGFR NON- AMER. (test 29 ML/MIN/1.73 code = 50909) CALC BUN/CREAT (test code = 15 RATIO 2235) SODIUM (test code = 2231) 143 MEQ/L POTASSIUM (test code = 2228) 5.2 MEQ/L CHLORIDE (test code = 2215) 103 MEQ/L CARBON DIOXIDE (test code = 29 MEQ/L 2205) CALCIUM (test code = 2209) 9.6 MG/DL PROTEIN, TOTAL (test code = 7.6 G/DL 2228) ALBUMIN (test code = 2201) 4.4 G/DL CALC GLOBULIN (test code = 3.2 G/DL 2239) CALC A/G RATIO (test code = 1.4 RATIO 2234) BILIRUBIN, TOTAL (test code = <0.2 MG/DL 2206) ALKALINE PHOSPHATASE (test 112 U/L code = 2204) AST (test code = 2218) 14 U/L ALT (test code = 2219) 9 U/L LIPID [id number] 00:00:00 Test Item Value Reference Range Interpretation Comments CHOLESTEROL (test code = 2210) 265 MG/DL TRIGLYCERIDES (test code = 2232) 131 MG/DL HDL CHOLESTEROL (test code = 2220) 61 MG/DL CALC LDL CHOL (test code = 2237) 177 MG/DL RISK RATIO LDL/HDL (test code = 2.90 RATIO 2238) LIPID [id number] 00:00:00 Test Item Value Reference Range Interpretation Comments CHOLESTEROL (test code = 2210) 265 MG/DL TRIGLYCERIDES (test code = 2232) 131 MG/DL HDL CHOLESTEROL (test code = 2220) 61 MG/DL CALC LDL CHOL (test code = 2237) 177 MG/DL RISK RATIO LDL/HDL (test code = 2.90 RATIO 2238) THYROID II PROFILE (T3U, T4, T7, TSH)[id number] 00:00:00 Test Item Value Reference Range Interpretation Comments T-UPTAKE (test code = 2817) 33.1 % THYROX. BIND. CAPAC. (test code 1.0 = 23688) T4 (THYROXINE) (test code = 6.7 UG/DL 2819) CORRECTED T4 (FTI) (test code = 6.7 UG/DL 2820) TSH, THIRD GENERATION (test code 0.700 UIU/ML = 2821) THYROID II PROFILE (T3U, T4, T7, TSH)2019-12-26 00:00:00 Test Item Value Reference Range Interpretation Comments T-UPTAKE (test code = 2817) 33.1 % THYROX. BIND. CAPAC. (test code 1.0 = 98946) T4 (THYROXINE) (test code = 6.7 UG/DL 2819) CORRECTED T4 (FTI) (test code = 6.7 UG/DL 2820) TSH, THIRD GENERATION (test code 0.700 UIU/ML = 2821) CBC W/AUTO [id number] 00:00:00 Test Item Value Reference Range Interpretation Comments WBC (test code = 1001) 5.8 K/UL RBC (test code = 1002) 4.15 M/UL HEMOGLOBIN (test code = 1003) 12.7 G/DL HEMATOCRIT (test code = 1004) 37.7 % MCV (test code = 1005) 90.8 fL MCH (test code = 1006) 30.6 PG MCHC (test code = 1007) 33.7 G/DL RDW (test code = 1038) 14.5 % NEUTROPHILS (test code = 1008) 54.3 % LYMPHOCYTES (test code = 1010) 34.7 % MONOCYTES (test code = 1011) 7.4 % EOSINOPHILS (test code = 1012) 2.9 % BASOPHILS (test code = 1013) 0.7 % PLATELET COUNT (test code = 1015) 319 K/UL CBC W/AUTO [id number] 00:00:00 Test Item Value Reference Range Interpretation Comments WBC (test code = 1001) 5.8 K/UL RBC (test code = 1002) 4.15 M/UL HEMOGLOBIN (test code = 1003) 12.7 G/DL HEMATOCRIT (test code = 1004) 37.7 % MCV (test code = 1005) 90.8 fL MCH (test code = 1006) 30.6 PG MCHC (test code = 1007) 33.7 G/DL RDW (test code = 1038) 14.5 % NEUTROPHILS (test code = 1008) 54.3 % LYMPHOCYTES (test code = 1010) 34.7 % MONOCYTES (test code = 1011) 7.4 % EOSINOPHILS (test code = 1012) 2.9 % BASOPHILS (test code = 1013) 0.7 % PLATELET COUNT (test code = 1015) 319 K/UL CBC W/AUTO [id number] 00:00:00 Test Item Value Reference Range Interpretation Comments WBC (test code = 1001) 5.8 K/UL RBC (test code = 1002) 4.15 M/UL HEMOGLOBIN (test code = 1003) 12.7 G/DL HEMATOCRIT (test code = 1004) 37.7 % MCV (test code = 1005) 90.8 fL MCH (test code = 1006) 30.6 PG MCHC (test code = 1007) 33.7 G/DL RDW (test code = 1038) 14.5 % NEUTROPHILS (test code = 1008) 54.3 % LYMPHOCYTES (test code = 1010) 34.7 % MONOCYTES (test code = 1011) 7.4 % EOSINOPHILS (test code = 1012) 2.9 % BASOPHILS (test code = 1013) 0.7 % PLATELET COUNT (test code = 1015) 319 K/UL VALPROIC [id number] 00:00:00 Test Item Value Reference Range Interpretation Comments VALPROIC ACID (test code = 3025) 29.8 UG/ML VALPROIC [id number] 00:00:00 Test Item Value Reference Range Interpretation Comments VALPROIC ACID (test code = 3025) 29.8 UG/ML LIVER (HEPATIC) FUNCTION [id number] 00:00:00 Test Item Value Reference Range Interpretation Comments PROTEIN, TOTAL (test code = 2229) 7.5 G/DL ALBUMIN (test code = 2201) 4.5 G/DL BILIRUBIN, TOTAL (test code = 2207) 0.3 MG/DL BILIRUBIN, DIRECT (test code = 0.1 MG/DL 2021) ALKALINE PHOSPHATASE (test code = 106 U/L 2203) AST (test code = 2218) 16 U/L ALT (test code = 2219) 12 U/L LIVER (HEPATIC) FUNCTION [id number] 00:00:00 Test Item Value Reference Range Interpretation Comments PROTEIN, TOTAL (test code = 2229) 7.5 G/DL ALBUMIN (test code = 2201) 4.5 G/DL BILIRUBIN, TOTAL (test code = 2207) 0.3 MG/DL BILIRUBIN, DIRECT (test code = 0.1 MG/DL 2021) ALKALINE PHOSPHATASE (test code = 106 U/L 2203) AST (test code = 2218) 16 U/L ALT (test code = 2219) 12 U/L THYROID II PROFILE (T3U, T4, T7, TSH)2019-12-26 00:00:00 Test Item Value Reference Range Interpretation Comments T-UPTAKE (test code = 2817) 33.1 % THYROX. BIND. CAPAC. (test code 1.0 = 31471) T4 (THYROXINE) (test code = 6.7 UG/DL 2819) CORRECTED T4 (FTI) (test code = 6.7 UG/DL 2820) TSH, THIRD GENERATION (test code 0.700 UIU/ML = 2821) THYROID II PROFILE (T3U, T4, T7, TSH)2019-12-26 00:00:00 Test Item Value Reference Range Interpretation Comments T-UPTAKE (test code = 7) 33.1 % THYROX. BIND. CAPAC. (test code 1.0 = 06925) T4 (THYROXINE) (test code = 6.7 UG/DL 2819) CORRECTED T4 (FTI) (test code = 6.7 UG/DL 2820) TSH, THIRD GENERATION (test code 0.700 UIU/ML = 2821) CBC W/AUTO [id number] 00:00:00 Test Item Value Reference Range Interpretation Comments WBC (test code = 1001) 5.8 K/UL RBC (test code = 1002) 4.15 M/UL HEMOGLOBIN (test code = 1003) 12.7 G/DL HEMATOCRIT (test code = 1004) 37.7 % MCV (test code = 1005) 90.8 fL MCH (test code = 1006) 30.6 PG MCHC (test code = 1007) 33.7 G/DL RDW (test code = 1038) 14.5 % NEUTROPHILS (test code = 1008) 54.3 % LYMPHOCYTES (test code = 1010) 34.7 % MONOCYTES (test code = 1011) 7.4 % EOSINOPHILS (test code = 1012) 2.9 % BASOPHILS (test code = 1013) 0.7 % PLATELET COUNT (test code = 1015) 319 K/UL CBC W/AUTO [id number] 00:00:00 Test Item Value Reference Range Interpretation Comments WBC (test code = 1001) 5.8 K/UL RBC (test code = 1002) 4.15 M/UL HEMOGLOBIN (test code = 1003) 12.7 G/DL HEMATOCRIT (test code = 1004) 37.7 % MCV (test code = 1005) 90.8 fL MCH (test code = 1006) 30.6 PG MCHC (test code = 1007) 33.7 G/DL RDW (test code = 1038) 14.5 % NEUTROPHILS (test code = 1008) 54.3 % LYMPHOCYTES (test code = 1010) 34.7 % MONOCYTES (test code = 1011) 7.4 % EOSINOPHILS (test code = 1012) 2.9 % BASOPHILS (test code = 1013) 0.7 % PLATELET COUNT (test code = 1015) 319 K/UL CBC W/AUTO [id number] 00:00:00 Test Item Value Reference Range Interpretation Comments WBC (test code = 1001) 5.8 K/UL RBC (test code = 1002) 4.15 M/UL HEMOGLOBIN (test code = 1003) 12.7 G/DL HEMATOCRIT (test code = 1004) 37.7 % MCV (test code = 1005) 90.8 fL MCH (test code = 1006) 30.6 PG MCHC (test code = 1007) 33.7 G/DL RDW (test code = 1038) 14.5 % NEUTROPHILS (test code = 1008) 54.3 % LYMPHOCYTES (test code = 1010) 34.7 % MONOCYTES (test code = 1011) 7.4 % EOSINOPHILS (test code = 1012) 2.9 % BASOPHILS (test code = 1013) 0.7 % PLATELET COUNT (test code = 1015) 319 K/UL VALPROIC [id number] 00:00:00 Test Item Value Reference Range Interpretation Comments VALPROIC ACID (test code = 3025) 29.8 UG/ML VALPROIC [id number] 00:00:00 Test Item Value Reference Range Interpretation Comments VALPROIC ACID (test code = 3025) 29.8 UG/ML LIVER (HEPATIC) FUNCTION [id number] 00:00:00 Test Item Value Reference Range Interpretation Comments PROTEIN, TOTAL (test code = 2229) 7.5 G/DL ALBUMIN (test code = 2201) 4.5 G/DL BILIRUBIN, TOTAL (test code = 2207) 0.3 MG/DL BILIRUBIN, DIRECT (test code = 0.1 MG/DL 2021) ALKALINE PHOSPHATASE (test code = 106 U/L 2203) AST (test code = 2218) 16 U/L ALT (test code = 2219) 12 U/L LIVER (HEPATIC) FUNCTION [id number] 00:00:00 Test Item Value Reference Range Interpretation Comments PROTEIN, TOTAL (test code = 2229) 7.5 G/DL ALBUMIN (test code = 2201) 4.5 G/DL BILIRUBIN, TOTAL (test code = 2207) 0.3 MG/DL BILIRUBIN, DIRECT (test code = 0.1 MG/DL 2021) ALKALINE PHOSPHATASE (test code = 106 U/L 2203) AST (test code = 2218) 16 U/L ALT (test code = 2219) 12 U/L THYROID II PROFILE (T3U, T4, T7, TSH)2019-12-26 00:00:00 Test Item Value Reference Range Interpretation Comments T-UPTAKE (test code = 2817) 33.1 % THYROX. BIND. CAPAC. (test code 1.0 = 66734) T4 (THYROXINE) (test code = 6.7 UG/DL 2819) CORRECTED T4 (FTI) (test code = 6.7 UG/DL 2820) TSH, THIRD GENERATION (test code 0.700 UIU/ML = 2821) THYROID II PROFILE (T3U, T4, T7, TSH)2019-12-26 00:00:00 Test Item Value Reference Range Interpretation Comments T-UPTAKE (test code = 2817) 33.1 % THYROX. BIND. CAPAC. (test code 1.0 = 77585) T4 (THYROXINE) (test code = 6.7 UG/DL 2819) CORRECTED T4 (FTI) (test code = 6.7 UG/DL 2820) TSH, THIRD GENERATION (test code 0.700 UIU/ML = 2821) CBC W/AUTO [id number] 00:00:00 Test Item Value Reference Range Interpretation Comments WBC (test code = 1001) 5.8 K/UL RBC (test code = 1002) 4.15 M/UL HEMOGLOBIN (test code = 1003) 12.7 G/DL HEMATOCRIT (test code = 1004) 37.7 % MCV (test code = 1005) 90.8 fL MCH (test code = 1006) 30.6 PG MCHC (test code = 1007) 33.7 G/DL RDW (test code = 1038) 14.5 % NEUTROPHILS (test code = 1008) 54.3 % LYMPHOCYTES (test code = 1010) 34.7 % MONOCYTES (test code = 1011) 7.4 % EOSINOPHILS (test code = 1012) 2.9 % BASOPHILS (test code = 1013) 0.7 % PLATELET COUNT (test code = 1015) 319 K/UL CBC W/AUTO [id number] 00:00:00 Test Item Value Reference Range Interpretation Comments WBC (test code = 1001) 5.8 K/UL RBC (test code = 1002) 4.15 M/UL HEMOGLOBIN (test code = 1003) 12.7 G/DL HEMATOCRIT (test code = 1004) 37.7 % MCV (test code = 1005) 90.8 fL MCH (test code = 1006) 30.6 PG MCHC (test code = 1007) 33.7 G/DL RDW (test code = 1038) 14.5 % NEUTROPHILS (test code = 1008) 54.3 % LYMPHOCYTES (test code = 1010) 34.7 % MONOCYTES (test code = 1011) 7.4 % EOSINOPHILS (test code = 1012) 2.9 % BASOPHILS (test code = 1013) 0.7 % PLATELET COUNT (test code = 1015) 319 K/UL CBC W/AUTO [id number] 00:00:00 Test Item Value Reference Range Interpretation Comments WBC (test code = 1001) 5.8 K/UL RBC (test code = 1002) 4.15 M/UL HEMOGLOBIN (test code = 1003) 12.7 G/DL HEMATOCRIT (test code = 1004) 37.7 % MCV (test code = 1005) 90.8 fL MCH (test code = 1006) 30.6 PG MCHC (test code = 1007) 33.7 G/DL RDW (test code = 1038) 14.5 % NEUTROPHILS (test code = 1008) 54.3 % LYMPHOCYTES (test code = 1010) 34.7 % MONOCYTES (test code = 1011) 7.4 % EOSINOPHILS (test code = 1012) 2.9 % BASOPHILS (test code = 1013) 0.7 % PLATELET COUNT (test code = 1015) 319 K/UL VALPROIC [id number] 00:00:00 Test Item Value Reference Range Interpretation Comments VALPROIC ACID (test code = 3025) 29.8 UG/ML VALPROIC [id number] 00:00:00 Test Item Value Reference Range Interpretation Comments VALPROIC ACID (test code = 3025) 29.8 UG/ML LIVER (HEPATIC) FUNCTION [id number] 00:00:00 Test Item Value Reference Range Interpretation Comments PROTEIN, TOTAL (test code = 2229) 7.5 G/DL ALBUMIN (test code = 2201) 4.5 G/DL BILIRUBIN, TOTAL (test code = 2207) 0.3 MG/DL BILIRUBIN, DIRECT (test code = 0.1 MG/DL 2021) ALKALINE PHOSPHATASE (test code = 106 U/L 2203) AST (test code = 2218) 16 U/L ALT (test code = 2219) 12 U/L LIVER (HEPATIC) FUNCTION [id number] 00:00:00 Test Item Value Reference Range Interpretation Comments PROTEIN, TOTAL (test code = 2229) 7.5 G/DL ALBUMIN (test code = 2201) 4.5 G/DL BILIRUBIN, TOTAL (test code = 2207) 0.3 MG/DL BILIRUBIN, DIRECT (test code = 0.1 MG/DL 2021) ALKALINE PHOSPHATASE (test code = 106 U/L 2203) AST (test code = 2218) 16 U/L ALT (test code = 2219) 12 U/L THYROID II PROFILE (T3U, T4, T7, TSH)2019-12-26 00:00:00 Test Item Value Reference Range Interpretation Comments T-UPTAKE (test code = 2817) 33.1 % THYROX. BIND. CAPAC. (test code 1.0 = 90304) T4 (THYROXINE) (test code = 6.7 UG/DL 281) CORRECTED T4 (FTI) (test code = 6.7 UG/DL 2820) TSH, THIRD GENERATION (test code 0.700 UIU/ML = 2821) THYROID II PROFILE (T3U, T4, T7, TSH)2019-12-26 00:00:00 Test Item Value Reference Range Interpretation Comments T-UPTAKE (test code = 2817) 33.1 % THYROX. BIND. CAPAC. (test code 1.0 = 39276) T4 (THYROXINE) (test code = 6.7 UG/DL 2819) CORRECTED T4 (FTI) (test code = 6.7 UG/DL 2820) TSH, THIRD GENERATION (test code 0.700 UIU/ML = 2821) CBC W/AUTO [id number] 00:00:00 Test Item Value Reference Range Interpretation Comments WBC (test code = 1001) 5.8 K/UL RBC (test code = 1002) 4.15 M/UL HEMOGLOBIN (test code = 1003) 12.7 G/DL HEMATOCRIT (test code = 1004) 37.7 % MCV (test code = 1005) 90.8 fL MCH (test code = 1006) 30.6 PG MCHC (test code = 1007) 33.7 G/DL RDW (test code = 1038) 14.5 % NEUTROPHILS (test code = 1008) 54.3 % LYMPHOCYTES (test code = 1010) 34.7 % MONOCYTES (test code = 1011) 7.4 % EOSINOPHILS (test code = 1012) 2.9 % BASOPHILS (test code = 1013) 0.7 % PLATELET COUNT (test code = 1015) 319 K/UL CBC W/AUTO [id number] 00:00:00 Test Item Value Reference Range Interpretation Comments WBC (test code = 1001) 5.8 K/UL RBC (test code = 1002) 4.15 M/UL HEMOGLOBIN (test code = 1003) 12.7 G/DL HEMATOCRIT (test code = 1004) 37.7 % MCV (test code = 1005) 90.8 fL MCH (test code = 1006) 30.6 PG MCHC (test code = 1007) 33.7 G/DL RDW (test code = 1038) 14.5 % NEUTROPHILS (test code = 1008) 54.3 % LYMPHOCYTES (test code = 1010) 34.7 % MONOCYTES (test code = 1011) 7.4 % EOSINOPHILS (test code = 1012) 2.9 % BASOPHILS (test code = 1013) 0.7 % PLATELET COUNT (test code = 1015) 319 K/UL CBC W/AUTO [id number] 00:00:00 Test Item Value Reference Range Interpretation Comments WBC (test code = 1001) 5.8 K/UL RBC (test code = 1002) 4.15 M/UL HEMOGLOBIN (test code = 1003) 12.7 G/DL HEMATOCRIT (test code = 1004) 37.7 % MCV (test code = 1005) 90.8 fL MCH (test code = 1006) 30.6 PG MCHC (test code = 1007) 33.7 G/DL RDW (test code = 1038) 14.5 % NEUTROPHILS (test code = 1008) 54.3 % LYMPHOCYTES (test code = 1010) 34.7 % MONOCYTES (test code = 1011) 7.4 % EOSINOPHILS (test code = 1012) 2.9 % BASOPHILS (test code = 1013) 0.7 % PLATELET COUNT (test code = 1015) 319 K/UL VALPROIC [id number] 00:00:00 Test Item Value Reference Range Interpretation Comments VALPROIC ACID (test code = 3025) 29.8 UG/ML VALPROIC [id number] 00:00:00 Test Item Value Reference Range Interpretation Comments VALPROIC ACID (test code = 3025) 29.8 UG/ML LIVER (HEPATIC) FUNCTION [id number] 00:00:00 Test Item Value Reference Range Interpretation Comments PROTEIN, TOTAL (test code = 2229) 7.5 G/DL ALBUMIN (test code = 2201) 4.5 G/DL BILIRUBIN, TOTAL (test code = 2207) 0.3 MG/DL BILIRUBIN, DIRECT (test code = 0.1 MG/DL 2021) ALKALINE PHOSPHATASE (test code = 106 U/L 2203) AST (test code = 2218) 16 U/L ALT (test code = 2219) 12 U/L LIVER (HEPATIC) FUNCTION [id number] 00:00:00 Test Item Value Reference Range Interpretation Comments PROTEIN, TOTAL (test code = 2229) 7.5 G/DL ALBUMIN (test code = 2201) 4.5 G/DL BILIRUBIN, TOTAL (test code = 2207) 0.3 MG/DL BILIRUBIN, DIRECT (test code = 0.1 MG/DL 2021) ALKALINE PHOSPHATASE (test code = 106 U/L 2203) AST (test code = 2218) 16 U/L ALT (test code = 2219) 12 U/L LIPID [id number] 00:00:00 Test Item Value Reference Range Interpretation Comments CHOLESTEROL (test code = 2210) 240 MG/DL TRIGLYCERIDES (test code = 2232) 134 MG/DL HDL CHOLESTEROL (test code = 2220) 55 MG/DL CALC LDL CHOL (test code = 2237) 159 MG/DL RISK RATIO LDL/HDL (test code = 2.89 RATIO 2238) LIPID [id number] 00:00:00 Test Item Value Reference Range Interpretation Comments CHOLESTEROL (test code = 2210) 240 MG/DL TRIGLYCERIDES (test code = 2232) 134 MG/DL HDL CHOLESTEROL (test code = 2220) 55 MG/DL CALC LDL CHOL (test code = 2237) 159 MG/DL RISK RATIO LDL/HDL (test code = 2.89 RATIO 2238) VALPROIC [id number] 00:00:00 Test Item Value Reference Range Interpretation Comments VALPROIC ACID (test code = 3025) <2.8 UG/ML VALPROIC [id number] 00:00:00 Test Item Value Reference Range Interpretation Comments VALPROIC ACID (test code = 3025) <2.8 UG/ML HEMOGLOBIN [id number] 00:00:00 Test Item Value Reference Range Interpretation Comments HEMOGLOBIN A1c (test code = 74824) 6.5 % HEMOGLOBIN [id number] 00:00:00 Test Item Value Reference Range Interpretation Comments HEMOGLOBIN A1c (test code = 42562) 6.5 % HEMOGLOBIN [id number] 00:00:00 Test Item Value Reference Range Interpretation Comments HEMOGLOBIN A1c (test code = 10030) 6.5 % LIPID [id number] 00:00:00 Test Item Value Reference Range Interpretation Comments CHOLESTEROL (test code = 2210) 240 MG/DL TRIGLYCERIDES (test code = 2232) 134 MG/DL HDL CHOLESTEROL (test code = 2220) 55 MG/DL CALC LDL CHOL (test code = 2237) 159 MG/DL RISK RATIO LDL/HDL (test code = 2.89 RATIO 2238) LIPID [id number] 00:00:00 Test Item Value Reference Range Interpretation Comments CHOLESTEROL (test code = 2210) 240 MG/DL TRIGLYCERIDES (test code = 2232) 134 MG/DL HDL CHOLESTEROL (test code = 2220) 55 MG/DL CALC LDL CHOL (test code = 2237) 159 MG/DL RISK RATIO LDL/HDL (test code = 2.89 RATIO 2238) VALPROIC [id number] 00:00:00 Test Item Value Reference Range Interpretation Comments VALPROIC ACID (test code = 3025) <2.8 UG/ML VALPROIC [id number] 00:00:00 Test Item Value Reference Range Interpretation Comments VALPROIC ACID (test code = 3025) <2.8 UG/ML HEMOGLOBIN [id number] 00:00:00 Test Item Value Reference Range Interpretation Comments HEMOGLOBIN A1c (test code = 91202) 6.5 % HEMOGLOBIN [id number] 00:00:00 Test Item Value Reference Range Interpretation Comments HEMOGLOBIN A1c (test code = 08459) 6.5 % HEMOGLOBIN [id number] 00:00:00 Test Item Value Reference Range Interpretation Comments HEMOGLOBIN A1c (test code = 64910) 6.5 % LIPID [id number] 00:00:00 Test Item Value Reference Range Interpretation Comments CHOLESTEROL (test code = 2210) 240 MG/DL TRIGLYCERIDES (test code = 2232) 134 MG/DL HDL CHOLESTEROL (test code = 2220) 55 MG/DL CALC LDL CHOL (test code = 2237) 159 MG/DL RISK RATIO LDL/HDL (test code = 2.89 RATIO 2238) LIPID [id number] 00:00:00 Test Item Value Reference Range Interpretation Comments CHOLESTEROL (test code = 2210) 240 MG/DL TRIGLYCERIDES (test code = 2232) 134 MG/DL HDL CHOLESTEROL (test code = 2220) 55 MG/DL CALC LDL CHOL (test code = 2237) 159 MG/DL RISK RATIO LDL/HDL (test code = 2.89 RATIO 2238) VALPROIC [id number] 00:00:00 Test Item Value Reference Range Interpretation Comments VALPROIC ACID (test code = 3025) <2.8 UG/ML VALPROIC [id number] 00:00:00 Test Item Value Reference Range Interpretation Comments VALPROIC ACID (test code = 3025) <2.8 UG/ML HEMOGLOBIN [id number] 00:00:00 Test Item Value Reference Range Interpretation Comments HEMOGLOBIN A1c (test code = 09789) 6.5 % HEMOGLOBIN [id number] 00:00:00 Test Item Value Reference Range Interpretation Comments HEMOGLOBIN A1c (test code = 45410) 6.5 % HEMOGLOBIN [id number] 00:00:00 Test Item Value Reference Range Interpretation Comments HEMOGLOBIN A1c (test code = 81834) 6.5 % LIPID [id number] 00:00:00 Test Item Value Reference Range Interpretation Comments CHOLESTEROL (test code = 2210) 240 MG/DL TRIGLYCERIDES (test code = 2232) 134 MG/DL HDL CHOLESTEROL (test code = 2220) 55 MG/DL CALC LDL CHOL (test code = 2237) 159 MG/DL RISK RATIO LDL/HDL (test code = 2.89 RATIO 2238) LIPID [id number] 00:00:00 Test Item Value Reference Range Interpretation Comments CHOLESTEROL (test code = 2210) 240 MG/DL TRIGLYCERIDES (test code = 2232) 134 MG/DL HDL CHOLESTEROL (test code = 2220) 55 MG/DL CALC LDL CHOL (test code = 2237) 159 MG/DL RISK RATIO LDL/HDL (test code = 2.89 RATIO 2238) VALPROIC [id number] 00:00:00 Test Item Value Reference Range Interpretation Comments VALPROIC ACID (test code = 3025) <2.8 UG/ML VALPROIC [id number] 00:00:00 Test Item Value Reference Range Interpretation Comments VALPROIC ACID (test code = 3025) <2.8 UG/ML HEMOGLOBIN [id number] 00:00:00 Test Item Value Reference Range Interpretation Comments HEMOGLOBIN A1c (test code = 66806) 6.5 % HEMOGLOBIN [id number] 00:00:00 Test Item Value Reference Range Interpretation Comments HEMOGLOBIN A1c (test code = 77318) 6.5 % HEMOGLOBIN [id number] 00:00:00 Test Item Value Reference Range Interpretation Comments HEMOGLOBIN A1c (test code = 31668) 6.5 % [id number] 00:00:00 Test Item Value Reference Range Interpretation Comments TSH, THIRD GENERATION (test code 1.620 UIU/ML = 2821) [id number] 00:00:00 Test Item Value Reference Range Interpretation Comments TSH, THIRD GENERATION (test code 1.620 UIU/ML = 2821) [id number] 00:00:00 Test Item Value Reference Range Interpretation Comments TSH, THIRD GENERATION (test code 1.620 UIU/ML = 2821) LIVER (HEPATIC) FUNCTION [id number] 00:00:00 Test Item Value Reference Range Interpretation Comments PROTEIN, TOTAL (test code = 2229) 7.3 G/DL ALBUMIN (test code = 2201) 4.4 G/DL BILIRUBIN, TOTAL (test code = <0.2 MG/DL 2206) BILIRUBIN, DIRECT (test code = <0.2 MG/DL 2021) ALKALINE PHOSPHATASE (test code = 91 U/L 2203) AST (test code = 2218) 14 U/L ALT (test code = 2219) 9 U/L LIVER (HEPATIC) FUNCTION [id number] 00:00:00 Test Item Value Reference Range Interpretation Comments PROTEIN, TOTAL (test code = 2229) 7.3 G/DL ALBUMIN (test code = 2201) 4.4 G/DL BILIRUBIN, TOTAL (test code = <0.2 MG/DL 2206) BILIRUBIN, DIRECT (test code = <0.2 MG/DL 2021) ALKALINE PHOSPHATASE (test code = 91 U/L 2203) AST (test code = 2218) 14 U/L ALT (test code = 2219) 9 U/L CBC W/AUTO [id number] 00:00:00 Test Item Value Reference Range Interpretation Comments WBC (test code = 1001) 7.0 K/UL RBC (test code = 1002) 3.98 M/UL HEMOGLOBIN (test code = 1003) 12.4 G/DL HEMATOCRIT (test code = 1004) 36.4 % MCV (test code = 1005) 91.5 fL MCH (test code = 1006) 31.2 PG MCHC (test code = 1007) 34.1 G/DL RDW (test code = 1038) 15.4 % NEUTROPHILS (test code = 1008) 58.0 % LYMPHOCYTES (test code = 1010) 29.2 % MONOCYTES (test code = 1011) 9.3 % EOSINOPHILS (test code = 1012) 2.9 % BASOPHILS (test code = 1013) 0.6 % PLATELET COUNT (test code = 1015) 319 K/UL CBC W/AUTO [id number] 00:00:00 Test Item Value Reference Range Interpretation Comments WBC (test code = 1001) 7.0 K/UL RBC (test code = 1002) 3.98 M/UL HEMOGLOBIN (test code = 1003) 12.4 G/DL HEMATOCRIT (test code = 1004) 36.4 % MCV (test code = 1005) 91.5 fL MCH (test code = 1006) 31.2 PG MCHC (test code = 1007) 34.1 G/DL RDW (test code = 1038) 15.4 % NEUTROPHILS (test code = 1008) 58.0 % LYMPHOCYTES (test code = 1010) 29.2 % MONOCYTES (test code = 1011) 9.3 % EOSINOPHILS (test code = 1012) 2.9 % BASOPHILS (test code = 1013) 0.6 % PLATELET COUNT (test code = 1015) 319 K/UL CBC W/AUTO [id number] 00:00:00 Test Item Value Reference Range Interpretation Comments WBC (test code = 1001) 7.0 K/UL RBC (test code = 1002) 3.98 M/UL HEMOGLOBIN (test code = 1003) 12.4 G/DL HEMATOCRIT (test code = 1004) 36.4 % MCV (test code = 1005) 91.5 fL MCH (test code = 1006) 31.2 PG MCHC (test code = 1007) 34.1 G/DL RDW (test code = 1038) 15.4 % NEUTROPHILS (test code = 1008) 58.0 % LYMPHOCYTES (test code = 1010) 29.2 % MONOCYTES (test code = 1011) 9.3 % EOSINOPHILS (test code = 1012) 2.9 % BASOPHILS (test code = 1013) 0.6 % PLATELET COUNT (test code = 1015) 319 K/UL VALPROIC [id number] 00:00:00 Test Item Value Reference Range Interpretation Comments VALPROIC ACID (test code = 3025) 33.6 UG/ML VALPROIC [id number] 00:00:00 Test Item Value Reference Range Interpretation Comments VALPROIC ACID (test code = 3025) 33.6 UG/ML [id number] 00:00:00 Test Item Value Reference Range Interpretation Comments TSH, THIRD GENERATION (test code 1.620 UIU/ML = 2821) [id number] 00:00:00 Test Item Value Reference Range Interpretation Comments TSH, THIRD GENERATION (test code 1.620 UIU/ML = 2821) [id number] 00:00:00 Test Item Value Reference Range Interpretation Comments TSH, THIRD GENERATION (test code 1.620 UIU/ML = 2821) LIVER (HEPATIC) FUNCTION [id number] 00:00:00 Test Item Value Reference Range Interpretation Comments PROTEIN, TOTAL (test code = 2229) 7.3 G/DL ALBUMIN (test code = 2201) 4.4 G/DL BILIRUBIN, TOTAL (test code = <0.2 MG/DL 2206) BILIRUBIN, DIRECT (test code = <0.2 MG/DL 2021) ALKALINE PHOSPHATASE (test code = 91 U/L 2203) AST (test code = 2218) 14 U/L ALT (test code = 2219) 9 U/L LIVER (HEPATIC) FUNCTION [id number] 00:00:00 Test Item Value Reference Range Interpretation Comments PROTEIN, TOTAL (test code = 2229) 7.3 G/DL ALBUMIN (test code = 2201) 4.4 G/DL BILIRUBIN, TOTAL (test code = <0.2 MG/DL 2206) BILIRUBIN, DIRECT (test code = <0.2 MG/DL 2021) ALKALINE PHOSPHATASE (test code = 91 U/L 2203) AST (test code = 2218) 14 U/L ALT (test code = 2219) 9 U/L CBC W/AUTO [id number] 00:00:00 Test Item Value Reference Range Interpretation Comments WBC (test code = 1001) 7.0 K/UL RBC (test code = 1002) 3.98 M/UL HEMOGLOBIN (test code = 1003) 12.4 G/DL HEMATOCRIT (test code = 1004) 36.4 % MCV (test code = 1005) 91.5 fL MCH (test code = 1006) 31.2 PG MCHC (test code = 1007) 34.1 G/DL RDW (test code = 1038) 15.4 % NEUTROPHILS (test code = 1008) 58.0 % LYMPHOCYTES (test code = 1010) 29.2 % MONOCYTES (test code = 1011) 9.3 % EOSINOPHILS (test code = 1012) 2.9 % BASOPHILS (test code = 1013) 0.6 % PLATELET COUNT (test code = 1015) 319 K/UL CBC W/AUTO [id number] 00:00:00 Test Item Value Reference Range Interpretation Comments WBC (test code = 1001) 7.0 K/UL RBC (test code = 1002) 3.98 M/UL HEMOGLOBIN (test code = 1003) 12.4 G/DL HEMATOCRIT (test code = 1004) 36.4 % MCV (test code = 1005) 91.5 fL MCH (test code = 1006) 31.2 PG MCHC (test code = 1007) 34.1 G/DL RDW (test code = 1038) 15.4 % NEUTROPHILS (test code = 1008) 58.0 % LYMPHOCYTES (test code = 1010) 29.2 % MONOCYTES (test code = 1011) 9.3 % EOSINOPHILS (test code = 1012) 2.9 % BASOPHILS (test code = 1013) 0.6 % PLATELET COUNT (test code = 1015) 319 K/UL CBC W/AUTO [id number] 00:00:00 Test Item Value Reference Range Interpretation Comments WBC (test code = 1001) 7.0 K/UL RBC (test code = 1002) 3.98 M/UL HEMOGLOBIN (test code = 1003) 12.4 G/DL HEMATOCRIT (test code = 1004) 36.4 % MCV (test code = 1005) 91.5 fL MCH (test code = 1006) 31.2 PG MCHC (test code = 1007) 34.1 G/DL RDW (test code = 1038) 15.4 % NEUTROPHILS (test code = 1008) 58.0 % LYMPHOCYTES (test code = 1010) 29.2 % MONOCYTES (test code = 1011) 9.3 % EOSINOPHILS (test code = 1012) 2.9 % BASOPHILS (test code = 1013) 0.6 % PLATELET COUNT (test code = 1015) 319 K/UL VALPROIC [id number] 00:00:00 Test Item Value Reference Range Interpretation Comments VALPROIC ACID (test code = 3025) 33.6 UG/ML VALPROIC [id number] 00:00:00 Test Item Value Reference Range Interpretation Comments VALPROIC ACID (test code = 3025) 33.6 UG/ML [id number] 00:00:00 Test Item Value Reference Range Interpretation Comments TSH, THIRD GENERATION (test code 1.620 UIU/ML = 2821) [id number] 00:00:00 Test Item Value Reference Range Interpretation Comments TSH, THIRD GENERATION (test code 1.620 UIU/ML = 2821) [id number] 00:00:00 Test Item Value Reference Range Interpretation Comments TSH, THIRD GENERATION (test code 1.620 UIU/ML = 2821) LIVER (HEPATIC) FUNCTION [id number] 00:00:00 Test Item Value Reference Range Interpretation Comments PROTEIN, TOTAL (test code = 2229) 7.3 G/DL ALBUMIN (test code = 2201) 4.4 G/DL BILIRUBIN, TOTAL (test code = <0.2 MG/DL 2206) BILIRUBIN, DIRECT (test code = <0.2 MG/DL 2021) ALKALINE PHOSPHATASE (test code = 91 U/L 2203) AST (test code = 2218) 14 U/L ALT (test code = 2219) 9 U/L LIVER (HEPATIC) FUNCTION [id number] 00:00:00 Test Item Value Reference Range Interpretation Comments PROTEIN, TOTAL (test code = 2229) 7.3 G/DL ALBUMIN (test code = 2201) 4.4 G/DL BILIRUBIN, TOTAL (test code = <0.2 MG/DL 2206) BILIRUBIN, DIRECT (test code = <0.2 MG/DL 2021) ALKALINE PHOSPHATASE (test code = 91 U/L 2203) AST (test code = 2218) 14 U/L ALT (test code = 2219) 9 U/L CBC W/AUTO [id number] 00:00:00 Test Item Value Reference Range Interpretation Comments WBC (test code = 1001) 7.0 K/UL RBC (test code = 1002) 3.98 M/UL HEMOGLOBIN (test code = 1003) 12.4 G/DL HEMATOCRIT (test code = 1004) 36.4 % MCV (test code = 1005) 91.5 fL MCH (test code = 1006) 31.2 PG MCHC (test code = 1007) 34.1 G/DL RDW (test code = 1038) 15.4 % NEUTROPHILS (test code = 1008) 58.0 % LYMPHOCYTES (test code = 1010) 29.2 % MONOCYTES (test code = 1011) 9.3 % EOSINOPHILS (test code = 1012) 2.9 % BASOPHILS (test code = 1013) 0.6 % PLATELET COUNT (test code = 1015) 319 K/UL CBC W/AUTO [id number] 00:00:00 Test Item Value Reference Range Interpretation Comments WBC (test code = 1001) 7.0 K/UL RBC (test code = 1002) 3.98 M/UL HEMOGLOBIN (test code = 1003) 12.4 G/DL HEMATOCRIT (test code = 1004) 36.4 % MCV (test code = 1005) 91.5 fL MCH (test code = 1006) 31.2 PG MCHC (test code = 1007) 34.1 G/DL RDW (test code = 1038) 15.4 % NEUTROPHILS (test code = 1008) 58.0 % LYMPHOCYTES (test code = 1010) 29.2 % MONOCYTES (test code = 1011) 9.3 % EOSINOPHILS (test code = 1012) 2.9 % BASOPHILS (test code = 1013) 0.6 % PLATELET COUNT (test code = 1015) 319 K/UL CBC W/AUTO [id number] 00:00:00 Test Item Value Reference Range Interpretation Comments WBC (test code = 1001) 7.0 K/UL RBC (test code = 1002) 3.98 M/UL HEMOGLOBIN (test code = 1003) 12.4 G/DL HEMATOCRIT (test code = 1004) 36.4 % MCV (test code = 1005) 91.5 fL MCH (test code = 1006) 31.2 PG MCHC (test code = 1007) 34.1 G/DL RDW (test code = 1038) 15.4 % NEUTROPHILS (test code = 1008) 58.0 % LYMPHOCYTES (test code = 1010) 29.2 % MONOCYTES (test code = 1011) 9.3 % EOSINOPHILS (test code = 1012) 2.9 % BASOPHILS (test code = 1013) 0.6 % PLATELET COUNT (test code = 1015) 319 K/UL VALPROIC [id number] 00:00:00 Test Item Value Reference Range Interpretation Comments VALPROIC ACID (test code = 3025) 33.6 UG/ML VALPROIC [id number] 00:00:00 Test Item Value Reference Range Interpretation Comments VALPROIC ACID (test code = 3025) 33.6 UG/ML [id number] 00:00:00 Test Item Value Reference Range Interpretation Comments TSH, THIRD GENERATION (test code 1.620 UIU/ML = 2821) [id number] 00:00:00 Test Item Value Reference Range Interpretation Comments TSH, THIRD GENERATION (test code 1.620 UIU/ML = 2821) [id number] 00:00:00 Test Item Value Reference Range Interpretation Comments TSH, THIRD GENERATION (test code 1.620 UIU/ML = 2821) LIVER (HEPATIC) FUNCTION [id number] 00:00:00 Test Item Value Reference Range Interpretation Comments PROTEIN, TOTAL (test code = 2229) 7.3 G/DL ALBUMIN (test code = 2201) 4.4 G/DL BILIRUBIN, TOTAL (test code = <0.2 MG/DL 2206) BILIRUBIN, DIRECT (test code = <0.2 MG/DL 2021) ALKALINE PHOSPHATASE (test code = 91 U/L 2203) AST (test code = 2218) 14 U/L ALT (test code = 2219) 9 U/L LIVER (HEPATIC) FUNCTION [id number] 00:00:00 Test Item Value Reference Range Interpretation Comments PROTEIN, TOTAL (test code = 2229) 7.3 G/DL ALBUMIN (test code = 2201) 4.4 G/DL BILIRUBIN, TOTAL (test code = <0.2 MG/DL 2206) BILIRUBIN, DIRECT (test code = <0.2 MG/DL 2021) ALKALINE PHOSPHATASE (test code = 91 U/L 2203) AST (test code = 2218) 14 U/L ALT (test code = 2219) 9 U/L CBC W/AUTO [id number] 00:00:00 Test Item Value Reference Range Interpretation Comments WBC (test code = 1001) 7.0 K/UL RBC (test code = 1002) 3.98 M/UL HEMOGLOBIN (test code = 1003) 12.4 G/DL HEMATOCRIT (test code = 1004) 36.4 % MCV (test code = 1005) 91.5 fL MCH (test code = 1006) 31.2 PG MCHC (test code = 1007) 34.1 G/DL RDW (test code = 1038) 15.4 % NEUTROPHILS (test code = 1008) 58.0 % LYMPHOCYTES (test code = 1010) 29.2 % MONOCYTES (test code = 1011) 9.3 % EOSINOPHILS (test code = 1012) 2.9 % BASOPHILS (test code = 1013) 0.6 % PLATELET COUNT (test code = 1015) 319 K/UL CBC W/AUTO [id number] 00:00:00 Test Item Value Reference Range Interpretation Comments WBC (test code = 1001) 7.0 K/UL RBC (test code = 1002) 3.98 M/UL HEMOGLOBIN (test code = 1003) 12.4 G/DL HEMATOCRIT (test code = 1004) 36.4 % MCV (test code = 1005) 91.5 fL MCH (test code = 1006) 31.2 PG MCHC (test code = 1007) 34.1 G/DL RDW (test code = 1038) 15.4 % NEUTROPHILS (test code = 1008) 58.0 % LYMPHOCYTES (test code = 1010) 29.2 % MONOCYTES (test code = 1011) 9.3 % EOSINOPHILS (test code = 1012) 2.9 % BASOPHILS (test code = 1013) 0.6 % PLATELET COUNT (test code = 1015) 319 K/UL CBC W/AUTO [id number] 00:00:00 Test Item Value Reference Range Interpretation Comments WBC (test code = 1001) 7.0 K/UL RBC (test code = 1002) 3.98 M/UL HEMOGLOBIN (test code = 1003) 12.4 G/DL HEMATOCRIT (test code = 1004) 36.4 % MCV (test code = 1005) 91.5 fL MCH (test code = 1006) 31.2 PG MCHC (test code = 1007) 34.1 G/DL RDW (test code = 1038) 15.4 % NEUTROPHILS (test code = 1008) 58.0 % LYMPHOCYTES (test code = 1010) 29.2 % MONOCYTES (test code = 1011) 9.3 % EOSINOPHILS (test code = 1012) 2.9 % BASOPHILS (test code = 1013) 0.6 % PLATELET COUNT (test code = 1015) 319 K/UL VALPROIC [id number] 00:00:00 Test Item Value Reference Range Interpretation Comments VALPROIC ACID (test code = 3025) 33.6 UG/ML VALPROIC [id number] 00:00:00 Test Item Value Reference Range Interpretation Comments VALPROIC ACID (test code = 3025) 33.6 UG/ML CBC W/AUTO [id number] 00:00:00 Test Item Value Reference Range Interpretation Comments WBC (test code = 1001) 7.6 K/UL RBC (test code = 1002) 4.11 M/UL HEMOGLOBIN (test code = 1003) 12.9 G/DL HEMATOCRIT (test code = 1004) 37.1 % MCV (test code = 1005) 90.3 fL MCH (test code = 1006) 31.4 PG MCHC (test code = 1007) 34.8 G/DL RDW (test code = 1038) 14.1 % NEUTROPHILS (test code = 1008) 55.8 % LYMPHOCYTES (test code = 1010) 34.0 % MONOCYTES (test code = 1011) 7.3 % EOSINOPHILS (test code = 1012) 2.4 % BASOPHILS (test code = 1013) 0.5 % PLATELET COUNT (test code = 1015) 363 K/UL CBC W/AUTO [id number] 00:00:00 Test Item Value Reference Range Interpretation Comments WBC (test code = 1001) 7.6 K/UL RBC (test code = 1002) 4.11 M/UL HEMOGLOBIN (test code = 1003) 12.9 G/DL HEMATOCRIT (test code = 1004) 37.1 % MCV (test code = 1005) 90.3 fL MCH (test code = 1006) 31.4 PG MCHC (test code = 1007) 34.8 G/DL RDW (test code = 1038) 14.1 % NEUTROPHILS (test code = 1008) 55.8 % LYMPHOCYTES (test code = 1010) 34.0 % MONOCYTES (test code = 1011) 7.3 % EOSINOPHILS (test code = 1012) 2.4 % BASOPHILS (test code = 1013) 0.5 % PLATELET COUNT (test code = 1015) 363 K/UL CBC W/AUTO [id number] 00:00:00 Test Item Value Reference Range Interpretation Comments WBC (test code = 1001) 7.6 K/UL RBC (test code = 1002) 4.11 M/UL HEMOGLOBIN (test code = 1003) 12.9 G/DL HEMATOCRIT (test code = 1004) 37.1 % MCV (test code = 1005) 90.3 fL MCH (test code = 1006) 31.4 PG MCHC (test code = 1007) 34.8 G/DL RDW (test code = 1038) 14.1 % NEUTROPHILS (test code = 1008) 55.8 % LYMPHOCYTES (test code = 1010) 34.0 % MONOCYTES (test code = 1011) 7.3 % EOSINOPHILS (test code = 1012) 2.4 % BASOPHILS (test code = 1013) 0.5 % PLATELET COUNT (test code = 1015) 363 K/UL COMPREHENSIVE METABOLIC [id number] 00:00:00 Test Item Value Reference Range Interpretation Comments GLUCOSE (test code = 2217) 83 MG/DL BUN (test code = 2208) 24 MG/DL CREATININE (test code = 2214) 1.35 MG/DL eGFR AMER. (test code 49 ML/MIN/1.73 = 21298) eGFR NON- AMER. (test 43 ML/MIN/1.73 code = 25178) CALC BUN/CREAT (test code = 18 RATIO 2235) SODIUM (test code = 2231) 142 MEQ/L POTASSIUM (test code = 2228) 4.8 MEQ/L CHLORIDE (test code = 2215) 102 MEQ/L CARBON DIOXIDE (test code = 28 MEQ/L 2206) CALCIUM (test code = 2209) 10.0 MG/DL PROTEIN, TOTAL (test code = 7.9 G/DL 2228) ALBUMIN (test code = 2201) 4.6 G/DL CALC GLOBULIN (test code = 3.3 G/DL 2240) CALC A/G RATIO (test code = 1.4 RATIO 2234) BILIRUBIN, TOTAL (test code = <0.2 MG/DL 2206) ALKALINE PHOSPHATASE (test 81 U/L code = 2204) AST (test code = 2218) 12 U/L ALT (test code = 2219) 9 U/L COMPREHENSIVE METABOLIC [id number] 00:00:00 Test Item Value Reference Range Interpretation Comments GLUCOSE (test code = 2217) 83 MG/DL BUN (test code = 2208) 24 MG/DL CREATININE (test code = 2214) 1.35 MG/DL eGFR AMER. (test code 49 ML/MIN/1.73 = 43872) eGFR NON- AMER. (test 43 ML/MIN/1.73 code = 36534) CALC BUN/CREAT (test code = 18 RATIO 2235) SODIUM (test code = 2231) 142 MEQ/L POTASSIUM (test code = 2228) 4.8 MEQ/L CHLORIDE (test code = 2215) 102 MEQ/L CARBON DIOXIDE (test code = 28 MEQ/L 2206) CALCIUM (test code = 2209) 10.0 MG/DL PROTEIN, TOTAL (test code = 7.9 G/DL 2228) ALBUMIN (test code = 2201) 4.6 G/DL CALC GLOBULIN (test code = 3.3 G/DL 2240) CALC A/G RATIO (test code = 1.4 RATIO 2234) BILIRUBIN, TOTAL (test code = <0.2 MG/DL 2206) ALKALINE PHOSPHATASE (test 81 U/L code = 2204) AST (test code = 2218) 12 U/L ALT (test code = 2219) 9 U/L CBC W/AUTO [id number] 00:00:00 Test Item Value Reference Range Interpretation Comments WBC (test code = 1001) 7.6 K/UL RBC (test code = 1002) 4.11 M/UL HEMOGLOBIN (test code = 1003) 12.9 G/DL HEMATOCRIT (test code = 1004) 37.1 % MCV (test code = 1005) 90.3 fL MCH (test code = 1006) 31.4 PG MCHC (test code = 1007) 34.8 G/DL RDW (test code = 1038) 14.1 % NEUTROPHILS (test code = 1008) 55.8 % LYMPHOCYTES (test code = 1010) 34.0 % MONOCYTES (test code = 1011) 7.3 % EOSINOPHILS (test code = 1012) 2.4 % BASOPHILS (test code = 1013) 0.5 % PLATELET COUNT (test code = 1015) 363 K/UL CBC W/AUTO [id number] 00:00:00 Test Item Value Reference Range Interpretation Comments WBC (test code = 1001) 7.6 K/UL RBC (test code = 1002) 4.11 M/UL HEMOGLOBIN (test code = 1003) 12.9 G/DL HEMATOCRIT (test code = 1004) 37.1 % MCV (test code = 1005) 90.3 fL MCH (test code = 1006) 31.4 PG MCHC (test code = 1007) 34.8 G/DL RDW (test code = 1038) 14.1 % NEUTROPHILS (test code = 1008) 55.8 % LYMPHOCYTES (test code = 1010) 34.0 % MONOCYTES (test code = 1011) 7.3 % EOSINOPHILS (test code = 1012) 2.4 % BASOPHILS (test code = 1013) 0.5 % PLATELET COUNT (test code = 1015) 363 K/UL CBC W/AUTO [id number] 00:00:00 Test Item Value Reference Range Interpretation Comments WBC (test code = 1001) 7.6 K/UL RBC (test code = 1002) 4.11 M/UL HEMOGLOBIN (test code = 1003) 12.9 G/DL HEMATOCRIT (test code = 1004) 37.1 % MCV (test code = 1005) 90.3 fL MCH (test code = 1006) 31.4 PG MCHC (test code = 1007) 34.8 G/DL RDW (test code = 1038) 14.1 % NEUTROPHILS (test code = 1008) 55.8 % LYMPHOCYTES (test code = 1010) 34.0 % MONOCYTES (test code = 1011) 7.3 % EOSINOPHILS (test code = 1012) 2.4 % BASOPHILS (test code = 1013) 0.5 % PLATELET COUNT (test code = 1015) 363 K/UL COMPREHENSIVE METABOLIC [id number] 00:00:00 Test Item Value Reference Range Interpretation Comments GLUCOSE (test code = 2217) 83 MG/DL BUN (test code = 2208) 24 MG/DL CREATININE (test code = 2214) 1.35 MG/DL eGFR AMER. (test code 49 ML/MIN/1.73 = 36781) eGFR NON- AMER. (test 43 ML/MIN/1.73 code = 79509) CALC BUN/CREAT (test code = 18 RATIO 2235) SODIUM (test code = 2231) 142 MEQ/L POTASSIUM (test code = 2228) 4.8 MEQ/L CHLORIDE (test code = 2215) 102 MEQ/L CARBON DIOXIDE (test code = 28 MEQ/L 2205) CALCIUM (test code = 2209) 10.0 MG/DL PROTEIN, TOTAL (test code = 7.9 G/DL 2228) ALBUMIN (test code = 2201) 4.6 G/DL CALC GLOBULIN (test code = 3.3 G/DL 2240) CALC A/G RATIO (test code = 1.4 RATIO 2234) BILIRUBIN, TOTAL (test code = <0.2 MG/DL 2206) ALKALINE PHOSPHATASE (test 81 U/L code = 2204) AST (test code = 2218) 12 U/L ALT (test code = 2219) 9 U/L COMPREHENSIVE METABOLIC [id number] 00:00:00 Test Item Value Reference Range Interpretation Comments GLUCOSE (test code = 2217) 83 MG/DL BUN (test code = 2208) 24 MG/DL CREATININE (test code = 2214) 1.35 MG/DL eGFR AMER. (test code 49 ML/MIN/1.73 = 97295) eGFR NON- AMER. (test 43 ML/MIN/1.73 code = 77314) CALC BUN/CREAT (test code = 18 RATIO 2235) SODIUM (test code = 2231) 142 MEQ/L POTASSIUM (test code = 2228) 4.8 MEQ/L CHLORIDE (test code = 2215) 102 MEQ/L CARBON DIOXIDE (test code = 28 MEQ/L 2205) CALCIUM (test code = 2209) 10.0 MG/DL PROTEIN, TOTAL (test code = 7.9 G/DL 2228) ALBUMIN (test code = 2201) 4.6 G/DL CALC GLOBULIN (test code = 3.3 G/DL 2240) CALC A/G RATIO (test code = 1.4 RATIO 2234) BILIRUBIN, TOTAL (test code = <0.2 MG/DL 2206) ALKALINE PHOSPHATASE (test 81 U/L code = 2204) AST (test code = 2218) 12 U/L ALT (test code = 2219) 9 U/L CBC W/AUTO [id number] 00:00:00 Test Item Value Reference Range Interpretation Comments WBC (test code = 1001) 7.6 K/UL RBC (test code = 1002) 4.11 M/UL HEMOGLOBIN (test code = 1003) 12.9 G/DL HEMATOCRIT (test code = 1004) 37.1 % MCV (test code = 1005) 90.3 fL MCH (test code = 1006) 31.4 PG MCHC (test code = 1007) 34.8 G/DL RDW (test code = 1038) 14.1 % NEUTROPHILS (test code = 1008) 55.8 % LYMPHOCYTES (test code = 1010) 34.0 % MONOCYTES (test code = 1011) 7.3 % EOSINOPHILS (test code = 1012) 2.4 % BASOPHILS (test code = 1013) 0.5 % PLATELET COUNT (test code = 1015) 363 K/UL CBC W/AUTO [id number] 00:00:00 Test Item Value Reference Range Interpretation Comments WBC (test code = 1001) 7.6 K/UL RBC (test code = 1002) 4.11 M/UL HEMOGLOBIN (test code = 1003) 12.9 G/DL HEMATOCRIT (test code = 1004) 37.1 % MCV (test code = 1005) 90.3 fL MCH (test code = 1006) 31.4 PG MCHC (test code = 1007) 34.8 G/DL RDW (test code = 1038) 14.1 % NEUTROPHILS (test code = 1008) 55.8 % LYMPHOCYTES (test code = 1010) 34.0 % MONOCYTES (test code = 1011) 7.3 % EOSINOPHILS (test code = 1012) 2.4 % BASOPHILS (test code = 1013) 0.5 % PLATELET COUNT (test code = 1015) 363 K/UL CBC W/AUTO [id number] 00:00:00 Test Item Value Reference Range Interpretation Comments WBC (test code = 1001) 7.6 K/UL RBC (test code = 1002) 4.11 M/UL HEMOGLOBIN (test code = 1003) 12.9 G/DL HEMATOCRIT (test code = 1004) 37.1 % MCV (test code = 1005) 90.3 fL MCH (test code = 1006) 31.4 PG MCHC (test code = 1007) 34.8 G/DL RDW (test code = 1038) 14.1 % NEUTROPHILS (test code = 1008) 55.8 % LYMPHOCYTES (test code = 1010) 34.0 % MONOCYTES (test code = 1011) 7.3 % EOSINOPHILS (test code = 1012) 2.4 % BASOPHILS (test code = 1013) 0.5 % PLATELET COUNT (test code = 1015) 363 K/UL COMPREHENSIVE METABOLIC [id number] 00:00:00 Test Item Value Reference Range Interpretation Comments GLUCOSE (test code = 2217) 83 MG/DL BUN (test code = 2208) 24 MG/DL CREATININE (test code = 2214) 1.35 MG/DL eGFR AMER. (test code 49 ML/MIN/1.73 = 52558) eGFR NON- AMER. (test 43 ML/MIN/1.73 code = 65302) CALC BUN/CREAT (test code = 18 RATIO 2235) SODIUM (test code = 2231) 142 MEQ/L POTASSIUM (test code = 2228) 4.8 MEQ/L CHLORIDE (test code = 2215) 102 MEQ/L CARBON DIOXIDE (test code = 28 MEQ/L 2206) CALCIUM (test code = 2209) 10.0 MG/DL PROTEIN, TOTAL (test code = 7.9 G/DL 2228) ALBUMIN (test code = 2201) 4.6 G/DL CALC GLOBULIN (test code = 3.3 G/DL 2240) CALC A/G RATIO (test code = 1.4 RATIO 2234) BILIRUBIN, TOTAL (test code = <0.2 MG/DL 2206) ALKALINE PHOSPHATASE (test 81 U/L code = 2204) AST (test code = 2218) 12 U/L ALT (test code = 2219) 9 U/L COMPREHENSIVE METABOLIC [id number] 00:00:00 Test Item Value Reference Range Interpretation Comments GLUCOSE (test code = 2217) 83 MG/DL BUN (test code = 2208) 24 MG/DL CREATININE (test code = 2214) 1.35 MG/DL eGFR AMER. (test code 49 ML/MIN/1.73 = 33100) eGFR NON- AMER. (test 43 ML/MIN/1.73 code = 19426) CALC BUN/CREAT (test code = 18 RATIO 2235) SODIUM (test code = 2231) 142 MEQ/L POTASSIUM (test code = 2228) 4.8 MEQ/L CHLORIDE (test code = 2215) 102 MEQ/L CARBON DIOXIDE (test code = 28 MEQ/L 2206) CALCIUM (test code = 2209) 10.0 MG/DL PROTEIN, TOTAL (test code = 7.9 G/DL 2229) ALBUMIN (test code = 2201) 4.6 G/DL CALC GLOBULIN (test code = 3.3 G/DL 2240) CALC A/G RATIO (test code = 1.4 RATIO 2234) BILIRUBIN, TOTAL (test code = <0.2 MG/DL 220) ALKALINE PHOSPHATASE (test 81 U/L code = 2204) AST (test code = 2218) 12 U/L ALT (test code = 2219) 9 U/L CBC W/AUTO [id number] 00:00:00 Test Item Value Reference Range Interpretation Comments WBC (test code = 1001) 7.6 K/UL RBC (test code = 1002) 4.11 M/UL HEMOGLOBIN (test code = 1003) 12.9 G/DL HEMATOCRIT (test code = 1004) 37.1 % MCV (test code = 1005) 90.3 fL MCH (test code = 1006) 31.4 PG MCHC (test code = 1007) 34.8 G/DL RDW (test code = 1038) 14.1 % NEUTROPHILS (test code = 1008) 55.8 % LYMPHOCYTES (test code = 1010) 34.0 % MONOCYTES (test code = 1011) 7.3 % EOSINOPHILS (test code = 1012) 2.4 % BASOPHILS (test code = 1013) 0.5 % PLATELET COUNT (test code = 1015) 363 K/UL CBC W/AUTO [id number] 00:00:00 Test Item Value Reference Range Interpretation Comments WBC (test code = 1001) 7.6 K/UL RBC (test code = 1002) 4.11 M/UL HEMOGLOBIN (test code = 1003) 12.9 G/DL HEMATOCRIT (test code = 1004) 37.1 % MCV (test code = 1005) 90.3 fL MCH (test code = 1006) 31.4 PG MCHC (test code = 1007) 34.8 G/DL RDW (test code = 1038) 14.1 % NEUTROPHILS (test code = 1008) 55.8 % LYMPHOCYTES (test code = 1010) 34.0 % MONOCYTES (test code = 1011) 7.3 % EOSINOPHILS (test code = 1012) 2.4 % BASOPHILS (test code = 1013) 0.5 % PLATELET COUNT (test code = 1015) 363 K/UL CBC W/AUTO [id number] 00:00:00 Test Item Value Reference Range Interpretation Comments WBC (test code = 1001) 7.6 K/UL RBC (test code = 1002) 4.11 M/UL HEMOGLOBIN (test code = 1003) 12.9 G/DL HEMATOCRIT (test code = 1004) 37.1 % MCV (test code = 1005) 90.3 fL MCH (test code = 1006) 31.4 PG MCHC (test code = 1007) 34.8 G/DL RDW (test code = 1038) 14.1 % NEUTROPHILS (test code = 1008) 55.8 % LYMPHOCYTES (test code = 1010) 34.0 % MONOCYTES (test code = 1011) 7.3 % EOSINOPHILS (test code = 1012) 2.4 % BASOPHILS (test code = 1013) 0.5 % PLATELET COUNT (test code = 1015) 363 K/UL COMPREHENSIVE METABOLIC [id number] 00:00:00 Test Item Value Reference Range Interpretation Comments GLUCOSE (test code = 2217) 83 MG/DL BUN (test code = 2208) 24 MG/DL CREATININE (test code = 2214) 1.35 MG/DL eGFR AMER. (test code 49 ML/MIN/1.73 = 87930) eGFR NON- AMER. (test 43 ML/MIN/1.73 code = 78499) CALC BUN/CREAT (test code = 18 RATIO 2235) SODIUM (test code = 2231) 142 MEQ/L POTASSIUM (test code = 2228) 4.8 MEQ/L CHLORIDE (test code = 2215) 102 MEQ/L CARBON DIOXIDE (test code = 28 MEQ/L 6) CALCIUM (test code = 2209) 10.0 MG/DL PROTEIN, TOTAL (test code = 7.9 G/DL 2228) ALBUMIN (test code = 2201) 4.6 G/DL CALC GLOBULIN (test code = 3.3 G/DL 2239) CALC A/G RATIO (test code = 1.4 RATIO 2234) BILIRUBIN, TOTAL (test code = <0.2 MG/DL 2206) ALKALINE PHOSPHATASE (test 81 U/L code = 2204) AST (test code = 2218) 12 U/L ALT (test code = 2219) 9 U/L COMPREHENSIVE METABOLIC [id number] 00:00:00 Test Item Value Reference Range Interpretation Comments GLUCOSE (test code = 2217) 83 MG/DL BUN (test code = 2208) 24 MG/DL CREATININE (test code = 2214) 1.35 MG/DL eGFR AMER. (test code 49 ML/MIN/1.73 = 17344) eGFR NON- AMER. (test 43 ML/MIN/1.73 code = 54314) CALC BUN/CREAT (test code = 18 RATIO 2235) SODIUM (test code = 2231) 142 MEQ/L POTASSIUM (test code = 2228) 4.8 MEQ/L CHLORIDE (test code = 2215) 102 MEQ/L CARBON DIOXIDE (test code = 28 MEQ/L 2206) CALCIUM (test code = 2209) 10.0 MG/DL PROTEIN, TOTAL (test code = 7.9 G/DL 2229) ALBUMIN (test code = 2201) 4.6 G/DL CALC GLOBULIN (test code = 3.3 G/DL 2240) CALC A/G RATIO (test code = 1.4 RATIO 2234) BILIRUBIN, TOTAL (test code = <0.2 MG/DL 2207) ALKALINE PHOSPHATASE (test 81 U/L code = 2204) AST (test code = 2218) 12 U/L ALT (test code = 2219) 9 U/L SCR MAMM BILATERAL CAD [id number] 10:48:36 - SCR MAMM BILATERAL CAD DIGITALBILATERAL DIGITAL SCREENING MAMMOGRAM WITH CAD: 02/09/2019CLINICAL: A symptomatic. Current mammographic images were evaluated by either a [employer] M-[employer]u or a mechatronic [employer] ImageChecker CAD (computer aided detection system). Comparison is made to exam dated 09/09/2014 mammogram - [facility]. The tissue of both breasts [...] further evaluation.Carlos Eduardo Harrell M.D. rb/:02/12/2019 10:48:36 Arabic Linguist: Yenny Lawrence MM, [facility] Mammographyletter sent: Additional Imaging Mammogram BI-RADS: 0 IndeterminateVALPROIC [id number] 00:00:00 Test Item Value Reference Range Interpretation Comments VALPROIC ACID (test code = 3025) 47.2 UG/ML VALPROIC [id number] 00:00:00 Test Item Value Reference Range Interpretation Comments VALPROIC ACID (test code = 3025) 47.2 UG/ML VALPROIC [id number] 00:00:00 Test Item Value Reference Range Interpretation Comments VALPROIC ACID (test code = 3025) 47.2 UG/ML VALPROIC [id number] 00:00:00 Test Item Value Reference Range Interpretation Comments VALPROIC ACID (test code = 3025) 47.2 UG/ML VALPROIC [id number] 00:00:00 Test Item Value Reference Range Interpretation Comments VALPROIC ACID (test code = 3025) 47.2 UG/ML VALPROIC [id number] 00:00:00 Test Item Value Reference Range Interpretation Comments VALPROIC ACID (test code = 3025) 47.2 UG/ML VALPROIC [id number] 00:00:00 Test Item Value Reference Range Interpretation Comments VALPROIC ACID (test code = 3025) 47.2 UG/ML VALPROIC [id number] 00:00:00 Test Item Value Reference Range Interpretation Comments VALPROIC ACID (test code = 3025) 47.2 UG/ML DRUG ABUSE SCREEN 11 W/ETOH,NO CONF [ADDED]2019-01-02 00:00:00 Test Item Value Reference Range Interpretation Comments AMPHETAMINES (test code = NEGATIVE 3201) BARBITURATES (test code = NEGATIVE 3202) BENZODIAZEPINES (test NEGATIVE code = 3203) CANNABINOIDS (test code = PRESUMPTIVE POSITIVE 3204) COCAINE METABOLITE (test NEGATIVE code = 3205) OPIATES (test code = NEGATIVE 3209) OXYCODONE (test code = NEGATIVE 60781) PHENCYCLIDINE (test code NEGATIVE = 3210) METHADONE (test code = NEGATIVE 3207) BUPRENORPHINE (test code NEGATIVE = 82367) ETHANOL (test code = NEGATIVE 4591) DRUG ABUSE SCREEN 11 W/ETOH,NO CONF [ADDED]2019-01-02 00:00:00 Test Item Value Reference Range Interpretation Comments AMPHETAMINES (test code = NEGATIVE 3201) BARBITURATES (test code = NEGATIVE 3202) BENZODIAZEPINES (test NEGATIVE code = 3203) CANNABINOIDS (test code = PRESUMPTIVE POSITIVE 3204) COCAINE METABOLITE (test NEGATIVE code = 3205) OPIATES (test code = NEGATIVE 3209) OXYCODONE (test code = NEGATIVE 21008) PHENCYCLIDINE (test code NEGATIVE = 3210) METHADONE (test code = NEGATIVE 3207) BUPRENORPHINE (test code NEGATIVE = 13827) ETHANOL (test code = NEGATIVE 5924) DRUG ABUSE SCREEN 11 W/ETOH,NO CONF [ADDED]2019-01-02 00:00:00 Test Item Value Reference Range Interpretation Comments AMPHETAMINES (test code = NEGATIVE 3201) BARBITURATES (test code = NEGATIVE 3202) BENZODIAZEPINES (test NEGATIVE code = 3203) CANNABINOIDS (test code = PRESUMPTIVE POSITIVE 3204) COCAINE METABOLITE (test NEGATIVE code = 3205) OPIATES (test code = NEGATIVE 3209) OXYCODONE (test code = NEGATIVE 95671) PHENCYCLIDINE (test code NEGATIVE = 3210) METHADONE (test code = NEGATIVE 3207) BUPRENORPHINE (test code NEGATIVE = 85058) ETHANOL (test code = NEGATIVE 5924) DRUG ABUSE SCREEN 11 W/ETOH,NO CONF [ADDED]2019-01-02 00:00:00 Test Item Value Reference Range Interpretation Comments AMPHETAMINES (test code = NEGATIVE 3201) BARBITURATES (test code = NEGATIVE 3202) BENZODIAZEPINES (test NEGATIVE code = 3203) CANNABINOIDS (test code = PRESUMPTIVE POSITIVE 3204) COCAINE METABOLITE (test NEGATIVE code = 3205) OPIATES (test code = NEGATIVE 3209) OXYCODONE (test code = NEGATIVE 84816) PHENCYCLIDINE (test code NEGATIVE = 3210) METHADONE (test code = NEGATIVE 3207) BUPRENORPHINE (test code NEGATIVE = 77233) ETHANOL (test code = NEGATIVE 5924) DRUG ABUSE SCREEN 11 W/ETOH,NO CONF [ADDED]2019-01-02 00:00:00 Test Item Value Reference Range Interpretation Comments AMPHETAMINES (test code = NEGATIVE 3201) BARBITURATES (test code = NEGATIVE 3202) BENZODIAZEPINES (test NEGATIVE code = 3203) CANNABINOIDS (test code = PRESUMPTIVE POSITIVE 3204) COCAINE METABOLITE (test NEGATIVE code = 3205) OPIATES (test code = NEGATIVE 3209) OXYCODONE (test code = NEGATIVE 18521) PHENCYCLIDINE (test code NEGATIVE = 3210) METHADONE (test code = NEGATIVE 3207) BUPRENORPHINE (test code NEGATIVE = 96891) ETHANOL (test code = NEGATIVE 5924) DRUG ABUSE SCREEN 11 W/ETOH,NO CONF [ADDED]2019-01-02 00:00:00 Test Item Value Reference Range Interpretation Comments AMPHETAMINES (test code = NEGATIVE 3201) BARBITURATES (test code = NEGATIVE 3202) BENZODIAZEPINES (test NEGATIVE code = 3203) CANNABINOIDS (test code = PRESUMPTIVE POSITIVE 3204) COCAINE METABOLITE (test NEGATIVE code = 3205) OPIATES (test code = NEGATIVE 3209) OXYCODONE (test code = NEGATIVE 48027) PHENCYCLIDINE (test code NEGATIVE = 3210) METHADONE (test code = NEGATIVE 3207) BUPRENORPHINE (test code NEGATIVE = 02483) ETHANOL (test code = NEGATIVE 5924) DRUG ABUSE SCREEN 11 W/ETOH,NO CONF [ADDED]2019-01-02 00:00:00 Test Item Value Reference Range Interpretation Comments AMPHETAMINES (test code = NEGATIVE 3201) BARBITURATES (test code = NEGATIVE 3202) BENZODIAZEPINES (test NEGATIVE code = 3203) CANNABINOIDS (test code = PRESUMPTIVE POSITIVE 3204) COCAINE METABOLITE (test NEGATIVE code = 3205) OPIATES (test code = NEGATIVE 3209) OXYCODONE (test code = NEGATIVE 44225) PHENCYCLIDINE (test code NEGATIVE = 3210) METHADONE (test code = NEGATIVE 3207) BUPRENORPHINE (test code NEGATIVE = 46269) ETHANOL (test code = NEGATIVE 5924) DRUG ABUSE SCREEN 11 W/ETOH,NO CONF [ADDED]2019-01-02 00:00:00 Test Item Value Reference Range Interpretation Comments AMPHETAMINES (test code = NEGATIVE 3201) BARBITURATES (test code = NEGATIVE 3202) BENZODIAZEPINES (test NEGATIVE code = 3203) CANNABINOIDS (test code = PRESUMPTIVE POSITIVE 3204) COCAINE METABOLITE (test NEGATIVE code = 3205) OPIATES (test code = NEGATIVE 3209) OXYCODONE (test code = NEGATIVE 95618) PHENCYCLIDINE (test code NEGATIVE = 3210) METHADONE (test code = NEGATIVE 3207) BUPRENORPHINE (test code NEGATIVE = 13819) ETHANOL (test code = NEGATIVE 5924) PAP TEST, THINPREP, [id number] 00:00:00 Test Item Value Reference Range Interpretation Comments SOURCE: (test code = 8001) Cervical/Endocervi martita SLIDES: (test code = 8011) 1 LMP: (test code = 8021) SEE NOTE SPECIMEN ADEQUACY: (test (NOTE) code = 60786) INTERPRETATION: (test code NILM/NO EPITH. = 03584) ABNORMALITY;SEE BELOW OTHER COMMENTS: (test code (NOTE) = 8081) FRONT COUNTER CLERK: (test Katie [place], [place] code = 8101) (ASCP) PATHOLOGIST INTERPRETATION Dina Perez BY: (test code = 8122) D. LOCATION: (test code = (NOTE) 64457) CPT: (test code = 8140) (NOTE) PAP TEST, THINPREP, [id number] 00:00:00 Test Item Value Reference Range Interpretation Comments SOURCE: (test code = 8001) Cervical/Endocervi martita SLIDES: (test code = 8011) 1 LMP: (test code = 8021) SEE NOTE SPECIMEN ADEQUACY: (test (NOTE) code = 23429) INTERPRETATION: (test code NILM/NO EPITH. = 61198) ABNORMALITY;SEE BELOW OTHER COMMENTS: (test code (NOTE) = 8081) FRONT COUNTER CLERK: (test Katie [place], [place] code = 8101) (ASCP) PATHOLOGIST INTERPRETATION Dina Perez BY: (test code = 8122) D. LOCATION: (test code = (NOTE) 17027) CPT: (test code = 8140) (NOTE) PAP TEST, THINPREP, [id number] 00:00:00 Test Item Value Reference Range Interpretation Comments SOURCE: (test code = 8001) Cervical/Endocervi martita SLIDES: (test code = 8011) 1 LMP: (test code = 8021) SEE NOTE SPECIMEN ADEQUACY: (test (NOTE) code = 18082) INTERPRETATION: (test code NILM/NO EPITH. = 37268) ABNORMALITY;SEE BELOW OTHER COMMENTS: (test code (NOTE) = 8081) FRONT COUNTER CLERK: (test Katie [place], [place] code = 8101) (ASCP) PATHOLOGIST INTERPRETATION Dina Perez BY: (test code = 8122) D. LOCATION: (test code = (NOTE) 75495) CPT: (test code = 8140) (NOTE) PAP TEST, THINPREP, [id number] 00:00:00 Test Item Value Reference Range Interpretation Comments SOURCE: (test code = 8001) Cervical/Endocervi martita SLIDES: (test code = 8011) 1 LMP: (test code = 8021) SEE NOTE SPECIMEN ADEQUACY: (test (NOTE) code = 41107) INTERPRETATION: (test code NILM/NO EPITH. = 51113) ABNORMALITY;SEE BELOW OTHER COMMENTS: (test code (NOTE) = 8081) FRONT COUNTER CLERK: (test Katie [place], [place] code = 8101) (ASCP) PATHOLOGIST INTERPRETATION Dina Perez BY: (test code = 8122) D. LOCATION: (test code = (NOTE) 00077) CPT: (test code = 8140) (NOTE) PAP TEST, THINPREP, [id number] 00:00:00 Test Item Value Reference Range Interpretation Comments SOURCE: (test code = 8001) Cervical/Endocervi martita SLIDES: (test code = 8011) 1 LMP: (test code = 8021) SEE NOTE SPECIMEN ADEQUACY: (test (NOTE) code = 78615) INTERPRETATION: (test code NILM/NO EPITH. = 14263) ABNORMALITY;SEE BELOW OTHER COMMENTS: (test code (NOTE) = 8081) FRONT COUNTER CLERK: (test Katie [place], [place] code = 8101) (ASCP) PATHOLOGIST INTERPRETATION Dina Perez BY: (test code = 8122) D. LOCATION: (test code = (NOTE) 06087) CPT: (test code = 8140) (NOTE) PAP TEST, THINPREP, [id number] 00:00:00 Test Item Value Reference Range Interpretation Comments SOURCE: (test code = 8001) Cervical/Endocervi martita SLIDES: (test code = 8011) 1 LMP: (test code = 8021) SEE NOTE SPECIMEN ADEQUACY: (test (NOTE) code = 34736) INTERPRETATION: (test code NILM/NO EPITH. = 02223) ABNORMALITY;SEE BELOW OTHER COMMENTS: (test code (NOTE) = 8081) FRONT COUNTER CLERK: (test Katie [place], [place] code = 8101) (ASCP) PATHOLOGIST INTERPRETATION Dina Perez BY: (test code = 8122) D. LOCATION: (test code = (NOTE) 99105) CPT: (test code = 8140) (NOTE) PAP TEST, THINPREP, [id number] 00:00:00 Test Item Value Reference Range Interpretation Comments SOURCE: (test code = 8001) Cervical/Endocervi martita SLIDES: (test code = 8011) 1 LMP: (test code = 8021) SEE NOTE SPECIMEN ADEQUACY: (test (NOTE) code = 65295) INTERPRETATION: (test code NILM/NO EPITH. = 19792) ABNORMALITY;SEE BELOW OTHER COMMENTS: (test code (NOTE) = 8081) FRONT COUNTER CLERK: (test Katie [place], [place] code = 8101) (ASCP) PATHOLOGIST INTERPRETATION Dina Perez BY: (test code = 8122) D. LOCATION: (test code = (NOTE) 09492) CPT: (test code = 8140) (NOTE) PAP TEST, THINPREP, [id number] 00:00:00 Test Item Value Reference Range Interpretation Comments SOURCE: (test code = 8001) Cervical/Endocervi martita SLIDES: (test code = 8011) 1 LMP: (test code = 8021) SEE NOTE SPECIMEN ADEQUACY: (test (NOTE) code = 02962) INTERPRETATION: (test code NILM/NO EPITH. = 47505) ABNORMALITY;SEE BELOW OTHER COMMENTS: (test code (NOTE) = 8081) FRONT COUNTER CLERK: (test Katie [place], [place] code = 8101) (ASCP) PATHOLOGIST INTERPRETATION Dina Perez BY: (test code = 8122) D. LOCATION: (test code = (NOTE) 83772) CPT: (test code = 8140) (NOTE) HPV HIGH RISK WITH GENOTYPE, [id number] 00:00:00 Test Item Value Reference Range Interpretation Comments HPV HIGH RISK INTERP (test code = NEGATIVE 65641) HPV 16 (test code = 19799) NEGATIVE HPV 18 (test code = 43955) NEGATIVE HPV, HR, OTHER GENOTYPES (test code NEGATIVE = 21062) HPV HIGH RISK WITH GENOTYPE, [id number] 00:00:00 Test Item Value Reference Range Interpretation Comments HPV HIGH RISK INTERP (test code = NEGATIVE 38917) HPV 16 (test code = 70942) NEGATIVE HPV 18 (test code = 79183) NEGATIVE HPV, HR, OTHER GENOTYPES (test code NEGATIVE = 05082) HPV HIGH RISK WITH GENOTYPE, [id number] 00:00:00 Test Item Value Reference Range Interpretation Comments HPV HIGH RISK INTERP (test code = NEGATIVE 63050) HPV 16 (test code = 13519) NEGATIVE HPV 18 (test code = 06461) NEGATIVE HPV, HR, OTHER GENOTYPES (test code NEGATIVE = 01709) HPV HIGH RISK WITH GENOTYPE, [id number] 00:00:00 Test Item Value Reference Range Interpretation Comments HPV HIGH RISK INTERP (test code = NEGATIVE 82254) HPV 16 (test code = 93168) NEGATIVE HPV 18 (test code = 23077) NEGATIVE HPV, HR, OTHER GENOTYPES (test code NEGATIVE = 71292) HPV HIGH RISK WITH GENOTYPE, [id number] 00:00:00 Test Item Value Reference Range Interpretation Comments HPV HIGH RISK INTERP (test code = NEGATIVE 53122) HPV 16 (test code = 62639) NEGATIVE HPV 18 (test code = 27979) NEGATIVE HPV, HR, OTHER GENOTYPES (test code NEGATIVE = 28057) HPV HIGH RISK WITH GENOTYPE, [id number] 00:00:00 Test Item Value Reference Range Interpretation Comments HPV HIGH RISK INTERP (test code = NEGATIVE 92189) HPV 16 (test code = 38761) NEGATIVE HPV 18 (test code = 40944) NEGATIVE HPV, HR, OTHER GENOTYPES (test code NEGATIVE = 10818) HPV HIGH RISK WITH GENOTYPE, [id number] 00:00:00 Test Item Value Reference Range Interpretation Comments HPV HIGH RISK INTERP (test code = NEGATIVE 00062) HPV 16 (test code = 72786) NEGATIVE HPV 18 (test code = 55282) NEGATIVE HPV, HR, OTHER GENOTYPES (test code NEGATIVE = 97720) HPV HIGH RISK WITH GENOTYPE, [id number] 00:00:00 Test Item Value Reference Range Interpretation Comments HPV HIGH RISK INTERP (test code = NEGATIVE 19962) HPV 16 (test code = 75791) NEGATIVE HPV 18 (test code = 93135) NEGATIVE HPV, HR, OTHER GENOTYPES (test code NEGATIVE = 88469) HEMOGLOBIN [id number] 00:00:00 Test Item Value Reference Range Interpretation Comments HEMOGLOBIN A1c (test code = 52282) 6.1 % COMPREHENSIVE METABOLIC [id number] 00:00:00 Test Item Value Reference Range Interpretation Comments GLUCOSE (test code = 2217) 90 MG/DL BUN (test code = 2208) 18 MG/DL CREATININE (test code = 2214) 1.25 MG/DL eGFR AMER. (test code 54 ML/MIN/1.73 = 26764) eGFR NON- AMER. (test 47 ML/MIN/1.73 code = 87292) CALC BUN/CREAT (test code = 14 RATIO 2235) SODIUM (test code = 2231) 142 MEQ/L POTASSIUM (test code = 2228) 5.1 MEQ/L CHLORIDE (test code = 2215) 99 MEQ/L CARBON DIOXIDE (test code = 28 MEQ/L 220) CALCIUM (test code = 2209) 9.9 MG/DL PROTEIN, TOTAL (test code = 7.8 G/DL 2228) ALBUMIN (test code = 2201) 4.6 G/DL CALC GLOBULIN (test code = 3.2 G/DL 2240) CALC A/G RATIO (test code = 1.4 RATIO 2234) BILIRUBIN, TOTAL (test code = 0.2 MG/DL 2206) ALKALINE PHOSPHATASE (test 92 U/L code = 2204) AST (test code = 2218) 16 U/L ALT (test code = 2219) 10 U/L COMPREHENSIVE METABOLIC [id number] 00:00:00 Test Item Value Reference Range Interpretation Comments GLUCOSE (test code = 2217) 90 MG/DL BUN (test code = 2208) 18 MG/DL CREATININE (test code = 2214) 1.25 MG/DL eGFR AMER. (test code 54 ML/MIN/1.73 = 30787) eGFR NON- AMER. (test 47 ML/MIN/1.73 code = 53494) CALC BUN/CREAT (test code = 14 RATIO 2235) SODIUM (test code = 2231) 142 MEQ/L POTASSIUM (test code = 2228) 5.1 MEQ/L CHLORIDE (test code = 2215) 99 MEQ/L CARBON DIOXIDE (test code = 28 MEQ/L 2206) CALCIUM (test code = 2209) 9.9 MG/DL PROTEIN, TOTAL (test code = 7.8 G/DL 2228) ALBUMIN (test code = 2201) 4.6 G/DL CALC GLOBULIN (test code = 3.2 G/DL 2240) CALC A/G RATIO (test code = 1.4 RATIO 2234) BILIRUBIN, TOTAL (test code = 0.2 MG/DL 2207) ALKALINE PHOSPHATASE (test 92 U/L code = 2204) AST (test code = 2218) 16 U/L ALT (test code = 2219) 10 U/L [id number] 00:00:00 Test Item Value Reference Range Interpretation Comments TSH, THIRD GENERATION (test code 1.470 UIU/ML = 2821) [id number] 00:00:00 Test Item Value Reference Range Interpretation Comments TSH, THIRD GENERATION (test code 1.470 UIU/ML = 2821) [id number] 00:00:00 Test Item Value Reference Range Interpretation Comments TSH, THIRD GENERATION (test code 1.470 UIU/ML = 2821) CBC W/AUTO [id number] 00:00:00 Test Item Value Reference Range Interpretation Comments WBC (test code = 1001) 6.7 K/UL RBC (test code = 1002) 4.23 M/UL HEMOGLOBIN (test code = 1003) 12.8 G/DL HEMATOCRIT (test code = 1004) 38.3 % MCV (test code = 1005) 90.5 fL MCH (test code = 1006) 30.3 PG MCHC (test code = 1007) 33.4 G/DL RDW (test code = 1038) 15.4 % NEUTROPHILS (test code = 1008) 59.0 % LYMPHOCYTES (test code = 1010) 30.5 % MONOCYTES (test code = 1011) 6.8 % EOSINOPHILS (test code = 1012) 3.2 % BASOPHILS (test code = 1013) 0.5 % PLATELET COUNT (test code = 1015) 310 K/UL CBC W/AUTO [id number] 00:00:00 Test Item Value Reference Range Interpretation Comments WBC (test code = 1001) 6.7 K/UL RBC (test code = 1002) 4.23 M/UL HEMOGLOBIN (test code = 1003) 12.8 G/DL HEMATOCRIT (test code = 1004) 38.3 % MCV (test code = 1005) 90.5 fL MCH (test code = 1006) 30.3 PG MCHC (test code = 1007) 33.4 G/DL RDW (test code = 1038) 15.4 % NEUTROPHILS (test code = 1008) 59.0 % LYMPHOCYTES (test code = 1010) 30.5 % MONOCYTES (test code = 1011) 6.8 % EOSINOPHILS (test code = 1012) 3.2 % BASOPHILS (test code = 1013) 0.5 % PLATELET COUNT (test code = 1015) 310 K/UL CBC W/AUTO [id number] 00:00:00 Test Item Value Reference Range Interpretation Comments WBC (test code = 1001) 6.7 K/UL RBC (test code = 1002) 4.23 M/UL HEMOGLOBIN (test code = 1003) 12.8 G/DL HEMATOCRIT (test code = 1004) 38.3 % MCV (test code = 1005) 90.5 fL MCH (test code = 1006) 30.3 PG MCHC (test code = 1007) 33.4 G/DL RDW (test code = 1038) 15.4 % NEUTROPHILS (test code = 1008) 59.0 % LYMPHOCYTES (test code = 1010) 30.5 % MONOCYTES (test code = 1011) 6.8 % EOSINOPHILS (test code = 1012) 3.2 % BASOPHILS (test code = 1013) 0.5 % PLATELET COUNT (test code = 1015) 310 K/UL LIPID [id number] 00:00:00 Test Item Value Reference Range Interpretation Comments CHOLESTEROL (test code = 2210) 255 MG/DL TRIGLYCERIDES (test code = 2232) 153 MG/DL HDL CHOLESTEROL (test code = 2220) 72 MG/DL CALC LDL CHOL (test code = 2237) 152 MG/DL RISK RATIO LDL/HDL (test code = 2.12 RATIO 2238) LIPID [id number] 00:00:00 Test Item Value Reference Range Interpretation Comments CHOLESTEROL (test code = 2210) 255 MG/DL TRIGLYCERIDES (test code = 2232) 153 MG/DL HDL CHOLESTEROL (test code = 2220) 72 MG/DL CALC LDL CHOL (test code = 2237) 152 MG/DL RISK RATIO LDL/HDL (test code = 2.12 RATIO 2238) HEMOGLOBIN [id number] 00:00:00 Test Item Value Reference Range Interpretation Comments HEMOGLOBIN A1c (test code = 74399) 6.1 % HEMOGLOBIN [id number] 00:00:00 Test Item Value Reference Range Interpretation Comments HEMOGLOBIN A1c (test code = 06771) 6.1 % HEMOGLOBIN [id number] 00:00:00 Test Item Value Reference Range Interpretation Comments HEMOGLOBIN A1c (test code = 24737) 6.1 % COMPREHENSIVE METABOLIC [id number] 00:00:00 Test Item Value Reference Range Interpretation Comments GLUCOSE (test code = 2217) 90 MG/DL BUN (test code = 2208) 18 MG/DL CREATININE (test code = 2214) 1.25 MG/DL eGFR AMER. (test code 54 ML/MIN/1.73 = 50325) eGFR NON- AMER. (test 47 ML/MIN/1.73 code = 61926) CALC BUN/CREAT (test code = 14 RATIO 2235) SODIUM (test code = 2231) 142 MEQ/L POTASSIUM (test code = 2228) 5.1 MEQ/L CHLORIDE (test code = 2215) 99 MEQ/L CARBON DIOXIDE (test code = 28 MEQ/L 2205) CALCIUM (test code = 2209) 9.9 MG/DL PROTEIN, TOTAL (test code = 7.8 G/DL 2228) ALBUMIN (test code = 2201) 4.6 G/DL CALC GLOBULIN (test code = 3.2 G/DL 0) CALC A/G RATIO (test code = 1.4 RATIO 2233) BILIRUBIN, TOTAL (test code = 0.2 MG/DL 2206) ALKALINE PHOSPHATASE (test 92 U/L code = 2204) AST (test code = 2218) 16 U/L ALT (test code = 2219) 10 U/L COMPREHENSIVE METABOLIC [id number] 00:00:00 Test Item Value Reference Range Interpretation Comments GLUCOSE (test code = 2217) 90 MG/DL BUN (test code = 2208) 18 MG/DL CREATININE (test code = 2214) 1.25 MG/DL eGFR AMER. (test code 54 ML/MIN/1.73 = 07606) eGFR NON- AMER. (test 47 ML/MIN/1.73 code = 92291) CALC BUN/CREAT (test code = 14 RATIO 2235) SODIUM (test code = 2231) 142 MEQ/L POTASSIUM (test code = 2228) 5.1 MEQ/L CHLORIDE (test code = 2215) 99 MEQ/L CARBON DIOXIDE (test code = 28 MEQ/L 2205) CALCIUM (test code = 2209) 9.9 MG/DL PROTEIN, TOTAL (test code = 7.8 G/DL 2228) ALBUMIN (test code = 2201) 4.6 G/DL CALC GLOBULIN (test code = 3.2 G/DL 0) CALC A/G RATIO (test code = 1.4 RATIO 4) BILIRUBIN, TOTAL (test code = 0.2 MG/DL 2206) ALKALINE PHOSPHATASE (test 92 U/L code = 2204) AST (test code = 2218) 16 U/L ALT (test code = 2219) 10 U/L [id number] 00:00:00 Test Item Value Reference Range Interpretation Comments TSH, THIRD GENERATION (test code 1.470 UIU/ML = 2821) [id number] 00:00:00 Test Item Value Reference Range Interpretation Comments TSH, THIRD GENERATION (test code 1.470 UIU/ML = 2821) [id number] 00:00:00 Test Item Value Reference Range Interpretation Comments TSH, THIRD GENERATION (test code 1.470 UIU/ML = 2821) CBC W/AUTO [id number] 00:00:00 Test Item Value Reference Range Interpretation Comments WBC (test code = 1001) 6.7 K/UL RBC (test code = 1002) 4.23 M/UL HEMOGLOBIN (test code = 1003) 12.8 G/DL HEMATOCRIT (test code = 1004) 38.3 % MCV (test code = 1005) 90.5 fL MCH (test code = 1006) 30.3 PG MCHC (test code = 1007) 33.4 G/DL RDW (test code = 1038) 15.4 % NEUTROPHILS (test code = 1008) 59.0 % LYMPHOCYTES (test code = 1010) 30.5 % MONOCYTES (test code = 1011) 6.8 % EOSINOPHILS (test code = 1012) 3.2 % BASOPHILS (test code = 1013) 0.5 % PLATELET COUNT (test code = 1015) 310 K/UL CBC W/AUTO [id number] 00:00:00 Test Item Value Reference Range Interpretation Comments WBC (test code = 1001) 6.7 K/UL RBC (test code = 1002) 4.23 M/UL HEMOGLOBIN (test code = 1003) 12.8 G/DL HEMATOCRIT (test code = 1004) 38.3 % MCV (test code = 1005) 90.5 fL MCH (test code = 1006) 30.3 PG MCHC (test code = 1007) 33.4 G/DL RDW (test code = 1038) 15.4 % NEUTROPHILS (test code = 1008) 59.0 % LYMPHOCYTES (test code = 1010) 30.5 % MONOCYTES (test code = 1011) 6.8 % EOSINOPHILS (test code = 1012) 3.2 % BASOPHILS (test code = 1013) 0.5 % PLATELET COUNT (test code = 1015) 310 K/UL CBC W/AUTO [id number] 00:00:00 Test Item Value Reference Range Interpretation Comments WBC (test code = 1001) 6.7 K/UL RBC (test code = 1002) 4.23 M/UL HEMOGLOBIN (test code = 1003) 12.8 G/DL HEMATOCRIT (test code = 1004) 38.3 % MCV (test code = 1005) 90.5 fL MCH (test code = 1006) 30.3 PG MCHC (test code = 1007) 33.4 G/DL RDW (test code = 1038) 15.4 % NEUTROPHILS (test code = 1008) 59.0 % LYMPHOCYTES (test code = 1010) 30.5 % MONOCYTES (test code = 1011) 6.8 % EOSINOPHILS (test code = 1012) 3.2 % BASOPHILS (test code = 1013) 0.5 % PLATELET COUNT (test code = 1015) 310 K/UL LIPID [id number] 00:00:00 Test Item Value Reference Range Interpretation Comments CHOLESTEROL (test code = 2210) 255 MG/DL TRIGLYCERIDES (test code = 2232) 153 MG/DL HDL CHOLESTEROL (test code = 2220) 72 MG/DL CALC LDL CHOL (test code = 2237) 152 MG/DL RISK RATIO LDL/HDL (test code = 2.12 RATIO 2238) LIPID [id number] 00:00:00 Test Item Value Reference Range Interpretation Comments CHOLESTEROL (test code = 2210) 255 MG/DL TRIGLYCERIDES (test code = 2232) 153 MG/DL HDL CHOLESTEROL (test code = 2220) 72 MG/DL CALC LDL CHOL (test code = 2237) 152 MG/DL RISK RATIO LDL/HDL (test code = 2.12 RATIO 2238) HEMOGLOBIN [id number] 00:00:00 Test Item Value Reference Range Interpretation Comments HEMOGLOBIN A1c (test code = 98213) 6.1 % HEMOGLOBIN [id number] 00:00:00 Test Item Value Reference Range Interpretation Comments HEMOGLOBIN A1c (test code = 54620) 6.1 % HEMOGLOBIN [id number] 00:00:00 Test Item Value Reference Range Interpretation Comments HEMOGLOBIN A1c (test code = 81543) 6.1 % COMPREHENSIVE METABOLIC [id number] 00:00:00 Test Item Value Reference Range Interpretation Comments GLUCOSE (test code = 2217) 90 MG/DL BUN (test code = 2208) 18 MG/DL CREATININE (test code = 2214) 1.25 MG/DL eGFR AMER. (test code 54 ML/MIN/1.73 = 39752) eGFR NON- AMER. (test 47 ML/MIN/1.73 code = 91410) CALC BUN/CREAT (test code = 14 RATIO 2234) SODIUM (test code = 2231) 142 MEQ/L POTASSIUM (test code = 2228) 5.1 MEQ/L CHLORIDE (test code = 2215) 99 MEQ/L CARBON DIOXIDE (test code = 28 MEQ/L 2205) CALCIUM (test code = 2209) 9.9 MG/DL PROTEIN, TOTAL (test code = 7.8 G/DL 2228) ALBUMIN (test code = 2201) 4.6 G/DL CALC GLOBULIN (test code = 3.2 G/DL 2239) CALC A/G RATIO (test code = 1.4 RATIO 2233) BILIRUBIN, TOTAL (test code = 0.2 MG/DL 2206) ALKALINE PHOSPHATASE (test 92 U/L code = 2204) AST (test code = 2218) 16 U/L ALT (test code = 2219) 10 U/L COMPREHENSIVE METABOLIC [id number] 00:00:00 Test Item Value Reference Range Interpretation Comments GLUCOSE (test code = 2217) 90 MG/DL BUN (test code = 2208) 18 MG/DL CREATININE (test code = 2214) 1.25 MG/DL eGFR AMER. (test code 54 ML/MIN/1.73 = 10821) eGFR NON- AMER. (test 47 ML/MIN/1.73 code = 45444) CALC BUN/CREAT (test code = 14 RATIO 5) SODIUM (test code = 2231) 142 MEQ/L POTASSIUM (test code = 2228) 5.1 MEQ/L CHLORIDE (test code = 2215) 99 MEQ/L CARBON DIOXIDE (test code = 28 MEQ/L 2205) CALCIUM (test code = 2209) 9.9 MG/DL PROTEIN, TOTAL (test code = 7.8 G/DL 2228) ALBUMIN (test code = 2201) 4.6 G/DL CALC GLOBULIN (test code = 3.2 G/DL 2239) CALC A/G RATIO (test code = 1.4 RATIO 2233) BILIRUBIN, TOTAL (test code = 0.2 MG/DL 2206) ALKALINE PHOSPHATASE (test 92 U/L code = 220) AST (test code = 2218) 16 U/L ALT (test code = 2219) 10 U/L [id number] 00:00:00 Test Item Value Reference Range Interpretation Comments TSH, THIRD GENERATION (test code 1.470 UIU/ML = 2821) [id number] 00:00:00 Test Item Value Reference Range Interpretation Comments TSH, THIRD GENERATION (test code 1.470 UIU/ML = 2821) [id number] 00:00:00 Test Item Value Reference Range Interpretation Comments TSH, THIRD GENERATION (test code 1.470 UIU/ML = 2821) CBC W/AUTO [id number] 00:00:00 Test Item Value Reference Range Interpretation Comments WBC (test code = 1001) 6.7 K/UL RBC (test code = 1002) 4.23 M/UL HEMOGLOBIN (test code = 1003) 12.8 G/DL HEMATOCRIT (test code = 1004) 38.3 % MCV (test code = 1005) 90.5 fL MCH (test code = 1006) 30.3 PG MCHC (test code = 1007) 33.4 G/DL RDW (test code = 1038) 15.4 % NEUTROPHILS (test code = 1008) 59.0 % LYMPHOCYTES (test code = 1010) 30.5 % MONOCYTES (test code = 1011) 6.8 % EOSINOPHILS (test code = 1012) 3.2 % BASOPHILS (test code = 1013) 0.5 % PLATELET COUNT (test code = 1015) 310 K/UL CBC W/AUTO [id number] 00:00:00 Test Item Value Reference Range Interpretation Comments WBC (test code = 1001) 6.7 K/UL RBC (test code = 1002) 4.23 M/UL HEMOGLOBIN (test code = 1003) 12.8 G/DL HEMATOCRIT (test code = 1004) 38.3 % MCV (test code = 1005) 90.5 fL MCH (test code = 1006) 30.3 PG MCHC (test code = 1007) 33.4 G/DL RDW (test code = 1038) 15.4 % NEUTROPHILS (test code = 1008) 59.0 % LYMPHOCYTES (test code = 1010) 30.5 % MONOCYTES (test code = 1011) 6.8 % EOSINOPHILS (test code = 1012) 3.2 % BASOPHILS (test code = 1013) 0.5 % PLATELET COUNT (test code = 1015) 310 K/UL CBC W/AUTO [id number] 00:00:00 Test Item Value Reference Range Interpretation Comments WBC (test code = 1001) 6.7 K/UL RBC (test code = 1002) 4.23 M/UL HEMOGLOBIN (test code = 1003) 12.8 G/DL HEMATOCRIT (test code = 1004) 38.3 % MCV (test code = 1005) 90.5 fL MCH (test code = 1006) 30.3 PG MCHC (test code = 1007) 33.4 G/DL RDW (test code = 1038) 15.4 % NEUTROPHILS (test code = 1008) 59.0 % LYMPHOCYTES (test code = 1010) 30.5 % MONOCYTES (test code = 1011) 6.8 % EOSINOPHILS (test code = 1012) 3.2 % BASOPHILS (test code = 1013) 0.5 % PLATELET COUNT (test code = 1015) 310 K/UL LIPID [id number] 00:00:00 Test Item Value Reference Range Interpretation Comments CHOLESTEROL (test code = 2210) 255 MG/DL TRIGLYCERIDES (test code = 2232) 153 MG/DL HDL CHOLESTEROL (test code = 2220) 72 MG/DL CALC LDL CHOL (test code = 2237) 152 MG/DL RISK RATIO LDL/HDL (test code = 2.12 RATIO 2238) LIPID [id number] 00:00:00 Test Item Value Reference Range Interpretation Comments CHOLESTEROL (test code = 2210) 255 MG/DL TRIGLYCERIDES (test code = 2232) 153 MG/DL HDL CHOLESTEROL (test code = 2220) 72 MG/DL CALC LDL CHOL (test code = 2237) 152 MG/DL RISK RATIO LDL/HDL (test code = 2.12 RATIO 2238) HEMOGLOBIN [id number] 00:00:00 Test Item Value Reference Range Interpretation Comments HEMOGLOBIN A1c (test code = 52785) 6.1 % HEMOGLOBIN [id number] 00:00:00 Test Item Value Reference Range Interpretation Comments HEMOGLOBIN A1c (test code = 81587) 6.1 % HEMOGLOBIN [id number] 00:00:00 Test Item Value Reference Range Interpretation Comments HEMOGLOBIN A1c (test code = 71041) 6.1 % COMPREHENSIVE METABOLIC [id number] 00:00:00 Test Item Value Reference Range Interpretation Comments GLUCOSE (test code = 2217) 90 MG/DL BUN (test code = 2208) 18 MG/DL CREATININE (test code = 2214) 1.25 MG/DL eGFR AMER. (test code 54 ML/MIN/1.73 = 15315) eGFR NON- AMER. (test 47 ML/MIN/1.73 code = 74681) CALC BUN/CREAT (test code = 14 RATIO 2235) SODIUM (test code = 2231) 142 MEQ/L POTASSIUM (test code = 2228) 5.1 MEQ/L CHLORIDE (test code = 2215) 99 MEQ/L CARBON DIOXIDE (test code = 28 MEQ/L 2205) CALCIUM (test code = 2209) 9.9 MG/DL PROTEIN, TOTAL (test code = 7.8 G/DL 2228) ALBUMIN (test code = 2201) 4.6 G/DL CALC GLOBULIN (test code = 3.2 G/DL 2239) CALC A/G RATIO (test code = 1.4 RATIO 2233) BILIRUBIN, TOTAL (test code = 0.2 MG/DL 2206) ALKALINE PHOSPHATASE (test 92 U/L code = 2204) AST (test code = 2218) 16 U/L ALT (test code = 2219) 10 U/L COMPREHENSIVE METABOLIC [id number] 00:00:00 Test Item Value Reference Range Interpretation Comments GLUCOSE (test code = 2217) 90 MG/DL BUN (test code = 2208) 18 MG/DL CREATININE (test code = 2214) 1.25 MG/DL eGFR AMER. (test code 54 ML/MIN/1.73 = 53311) eGFR NON- AMER. (test 47 ML/MIN/1.73 code = 55032) CALC BUN/CREAT (test code = 14 RATIO 2235) SODIUM (test code = 2231) 142 MEQ/L POTASSIUM (test code = 2228) 5.1 MEQ/L CHLORIDE (test code = 2215) 99 MEQ/L CARBON DIOXIDE (test code = 28 MEQ/L 2205) CALCIUM (test code = 2209) 9.9 MG/DL PROTEIN, TOTAL (test code = 7.8 G/DL 2228) ALBUMIN (test code = 2201) 4.6 G/DL CALC GLOBULIN (test code = 3.2 G/DL 2239) CALC A/G RATIO (test code = 1.4 RATIO 2233) BILIRUBIN, TOTAL (test code = 0.2 MG/DL 2206) ALKALINE PHOSPHATASE (test 92 U/L code = 2204) AST (test code = 2218) 16 U/L ALT (test code = 2219) 10 U/L [id number] 00:00:00 Test Item Value Reference Range Interpretation Comments TSH, THIRD GENERATION (test code 1.470 UIU/ML = 2821) [id number] 00:00:00 Test Item Value Reference Range Interpretation Comments TSH, THIRD GENERATION (test code 1.470 UIU/ML = 2821) [id number] 00:00:00 Test Item Value Reference Range Interpretation Comments TSH, THIRD GENERATION (test code 1.470 UIU/ML = 2821) CBC W/AUTO [id number] 00:00:00 Test Item Value Reference Range Interpretation Comments WBC (test code = 1001) 6.7 K/UL RBC (test code = 1002) 4.23 M/UL HEMOGLOBIN (test code = 1003) 12.8 G/DL HEMATOCRIT (test code = 1004) 38.3 % MCV (test code = 1005) 90.5 fL MCH (test code = 1006) 30.3 PG MCHC (test code = 1007) 33.4 G/DL RDW (test code = 1038) 15.4 % NEUTROPHILS (test code = 1008) 59.0 % LYMPHOCYTES (test code = 1010) 30.5 % MONOCYTES (test code = 1011) 6.8 % EOSINOPHILS (test code = 1012) 3.2 % BASOPHILS (test code = 1013) 0.5 % PLATELET COUNT (test code = 1015) 310 K/UL CBC W/AUTO [id number] 00:00:00 Test Item Value Reference Range Interpretation Comments WBC (test code = 1001) 6.7 K/UL RBC (test code = 1002) 4.23 M/UL HEMOGLOBIN (test code = 1003) 12.8 G/DL HEMATOCRIT (test code = 1004) 38.3 % MCV (test code = 1005) 90.5 fL MCH (test code = 1006) 30.3 PG MCHC (test code = 1007) 33.4 G/DL RDW (test code = 1038) 15.4 % NEUTROPHILS (test code = 1008) 59.0 % LYMPHOCYTES (test code = 1010) 30.5 % MONOCYTES (test code = 1011) 6.8 % EOSINOPHILS (test code = 1012) 3.2 % BASOPHILS (test code = 1013) 0.5 % PLATELET COUNT (test code = 1015) 310 K/UL CBC W/AUTO [id number] 00:00:00 Test Item Value Reference Range Interpretation Comments WBC (test code = 1001) 6.7 K/UL RBC (test code = 1002) 4.23 M/UL HEMOGLOBIN (test code = 1003) 12.8 G/DL HEMATOCRIT (test code = 1004) 38.3 % MCV (test code = 1005) 90.5 fL MCH (test code = 1006) 30.3 PG MCHC (test code = 1007) 33.4 G/DL RDW (test code = 1038) 15.4 % NEUTROPHILS (test code = 1008) 59.0 % LYMPHOCYTES (test code = 1010) 30.5 % MONOCYTES (test code = 1011) 6.8 % EOSINOPHILS (test code = 1012) 3.2 % BASOPHILS (test code = 1013) 0.5 % PLATELET COUNT (test code = 1015) 310 K/UL LIPID [id number] 00:00:00 Test Item Value Reference Range Interpretation Comments CHOLESTEROL (test code = 2210) 255 MG/DL TRIGLYCERIDES (test code = 2232) 153 MG/DL HDL CHOLESTEROL (test code = 2220) 72 MG/DL CALC LDL CHOL (test code = 2237) 152 MG/DL RISK RATIO LDL/HDL (test code = 2.12 RATIO 2238) LIPID [id number] 00:00:00 Test Item Value Reference Range Interpretation Comments CHOLESTEROL (test code = 2210) 255 MG/DL TRIGLYCERIDES (test code = 2232) 153 MG/DL HDL CHOLESTEROL (test code = 2220) 72 MG/DL CALC LDL CHOL (test code = 2237) 152 MG/DL RISK RATIO LDL/HDL (test code = 2.12 RATIO 2238) HEMOGLOBIN [id number] 00:00:00 Test Item Value Reference Range Interpretation Comments HEMOGLOBIN A1c (test code = 14106) 6.1 % HEMOGLOBIN [id number] 00:00:00 Test Item Value Reference Range Interpretation Comments HEMOGLOBIN A1c (test code = 70806) 6.1 % Notes Date/Time Note Provider Source 2023-02-04 Formatting of this note might be differe nt from the original. Katlyn Lewis RN [facility] 11:12:03-00:00 Pt given printed and verbal discharge instructions regarding SOB, Acute Bronchitits, encouraged hydration, Discussed prednison therapy. Pt verbalized understanding of instructions, pt awake alert oriented, resp reg unlabored, skin w/d, color appropriate for race, moves all ext well,pt encouraged to follow up with pcp and or Advised to seek medical attention for new/prolon ged/worsening of symptoms, Symptoms No adverse reaction to meds given in ER noted up on discharge PIV d'cd, dressing to site, catheter in tact. Awake, alert oriented, resp reg unlabored, skin w/d, pt leaving amb with steady gait, in no apparent distress, Electronically signed by Katlyn Lewis, RN at 11:13 AM CDT 2023-02-04 [facility] 09:00:00-00:00 Chest Pain Note Pt placed immediately into r oom for c/o chest pain that started 3 days ago. Also reports SOB. EKG done on arrival to room. Placed on continuous cardiac, blood pressure and oxygen saturation monitoring. Dr. Dietrich at bedside. PIV placed, Please see cardiac assessment for details. Will continue to monitor. Katlyn Lewis, RN Electronically signed by Katlyn Lewis RN at 9:06 AM T 2023-02-04 Formatting of this note might be differe nt from the original. Evelyn Jones RN [facility] 08:51:25-00:00 Patient states: "I've gone t o my doctor because of my cough and he gave me medicine. I've been having chest pain for 2-3 days" Electronically signed by Evelyn Jones RN at 8:[address] [facility] 2023-02-04 Associated Order(s): EKG-12 Lead ROUTINE ONCE [facility] 08:49:00-00:00 Pre-Procedure Diagnose(s): SOB (shortness of jacob ath) Post-Procedure Diagnose(s): SOB (shortness of br eath) Formatting of this note is different from the or iginal. [facility] Emergency Department Note Patient Name: Neela Pizano Date of : 1960 62 year old female Treatment Room: [place] [address] Primary Care Physician: PATIENT DOES NOT HAVE A PCP Patient Escorted by: Family [5] Mode of Arrival: Personal means [1] EMS Treatment Prior to ED Arrival: [employer] treatment: None Travel and Exposure Screening: Symptoms Does patient have any of these symptoms?: (not r ecorded) Exposure Screening Has patient had contact with someone with a communicable disease in the last month?: (not recorded) Diseases exposed to:: (not recorded) Is Patient ?: (not recorded) Exposure Date: (not recorded) Chief Complaint: Chief Complaint Patient presents with Cough Shortness of Breath Chest Pain History of Present Illness: The patient presents from [facility] for evaluation for shortness of breath as well as chest pain for the past 2 or 3 days. She did see her PCP during that time. And was prescribed a cough medication. She rep orts that has not been helpi ng. No fevers. No sick contacts. She does not smoke. She does have a history of COPD. She reports last night she was unable to sleep well due to her shortness of breath. She also reports she feels worse with trying to walk around and do things. She has a history of diabetes, high blood pressure, high cholesterol as well as COPD. She does not wear home oxygen. Here for evaluation. Past Medical History/Immunizations: Past Medical History: Diagnosis Date Arthritis Asthma DM (diabetes mellitus) HTN (hypertension) Hyperlipidemia Neuropathy Obesity (BMI 30-39.9) Tetanus received in last 5 years: No Allergies: Allergies Allergen Reactions Prednisone Itching and Swelling "orange tablets, not the white ones" Past Social History: Tobacco Use Never Alcohol Use No. Drug Use No. Past Surgical History: Past Surgical History: Procedure Laterality Date ACHILLES TENDON REPAIR Left 08/28/2015 Surgeon: Carlos Eduardo Lao Jr., DPM; [place] [facility] [place]UBAL LIGATION Review of Systems: Review of Systems Constitutional: Negative for chills and fever. Respiratory: Positive for cough and shortness of breath. Cardiovascular: Positive for chest pain. Gastrointestinal: Negative for abdominal pain, n ausea and vomiting. Genitourinary: Negative for dysuria. Musculoskeletal: Negative for arthralgias, neck pain and neck stiffness. Skin: Positive for wound. Neurological: Negative for dizziness. Psychiatric/Behavioral: Negative for agitation. Endocrine: Negative for goiter. Physical Exam: ED Triage Vitals [02/04/23 0852] Weight 142.9 kg (315 lb) Actual or estimated Estimated by patient/family report Height 1.626 m (5' 4") BP (!) 142/105 Pulse 93 Resp 20 Temp 37.3 ?C (99.1 ?F) Temp source Oral SpO2 100 % Measured on Room air Physical Exam Vitals and nursing note reviewed. Constitutional: Appearance: Normal appearance. She is obese. HENT: Head: Normocephalic and atraumatic. Mouth/Throat: Mouth: Mucous membranes are dry. Cardiovascular: Rate and Rhythm: Normal rate and regular rhythm . Pulses: Normal pulses. Pulmonary: Effort: Pulmonary effort is normal. No respirat ory distress. Breath sounds: Wheezing present. Comments: No use of accessory muscles. She is able to speak in full and complete senten ce without difficulty. She has coarse wheezing bilaterally. Abdominal: General: There is no distension. Palpations: Abdomen is soft. There is no mass. Tenderness: There is no abdominal tenderness. Hernia: No hernia is present. Musculoskeletal: General: Normal range of motion. Cervical back: Normal range of motion and neck supple. Skin: General: Skin is warm and dry. Neurological: General: No focal deficit present. Mental Status: She is alert and oriented to per son, place, and time. Radiology: XR CHEST 1 VW Final Result EXAM: XR CHEST 1 VW HISTORY: 62 years-old Female; Provided indicatio n: sob . TECHNIQUE: Single frontal view of the chest. COMPARISON: Radiograph dated 09/15/2015 FINDINGS: Normal lung volumes. No focal consolidations. Th ere is diffuse interstitial prominence without overt edema. No pleural effus ion or pneumothorax. The cardiomediastinal silhouette is normal in si ze accounting for technique. No focal osseous lesions or acute osseous findin gs are detected. IMPRESSION Diffuse interstitial prominence without overt ed rylie. No focal consolidations. Preliminary Report Dictated by Resident: Shania Coyne MD., have reviewed this conner dy and agree with the above report. Lab Results: Lab Results COMP. METABOLIC PANEL (94008) - Abnormal Result Value Ref Range NA 138 135 - 145 mmol/L K 4.3 3.5 - 5.0 mmol/L CL 101 98 - 108 mmol/L CO2 TOTAL 29 23 - 31 mmol/L AGAP 8 2 - 16 BUN 25 (*) 7 - 23 mg/dL GLUCOSE 144 (*) 70 - 110 mg/dL CREATININE 1.30 (*) 0.50 - 1.04 mg/dL TOTAL BILI 0.6 0.1 - 1.1 mg/dL CALCIUM 9.3 8.6 - 10.6 mg/dL T PROTEIN 7.9 6.3 - 8.2 g/dL ALBUMIN 4.1 3.5 - 5.0 g/dL ALK PHOS 114 34 - 122 U/L ALTv 15 5 - 35 U/L AST(SGOT) 50 (*) 13 - 40 U/L eGFR 41.2 mL/min/1.73m2 TROPONIN I - Normal TROPONIN I 0.006 <=0.034 ng/mL N-TERMINAL PRO-BNP - Normal NT-proBNP 43 <=125 pg/mL COVID-19 (ID NOW RAPID TESTING) - Normal SARS-CoV-2 Rapid ID NOW Not Detected Not Detect ed CBC WITH DIFF WBC 9.23 4.30 - 11.10 10*3/?L RBC 3.97 3.93 - 5.25 10*6/?L HGB 12.0 11.6 - 15.0 g/dL HCT 37.3 35.7 - 45.2 % MCV 94.0 80.6 - 95.5 fL MCH 30.2 25.9 - 32.8 pg MCHC 32.2 31.6 - 35.1 g/dL RDW-SD 48.9 39.0 - 49.9 fL RDW-CV 14.2 12.0 - 15.5 % PLT 230 166 - 358 10*3/?L MPV 10.2 9.5 - 12.9 fL NRBC/100 WBC 0.0 0.0 - 10.0 /100 WBCs NRBC x10^3 <0.01 10*3/?L GRAN MAT (NEUT) % 61.3 % IMM GRAN % 0.30 % LYMPH % 28.5 % MONO % 8.2 % EOS % 1.5 % BASO % 0.2 % GRAN MAT x10^3(ANC) 5.65 1.88 - 7.09 10*3/uL IMM GRAN x10^3 0.03 0.00 - 0.06 10*3/uL LYMPH x10^3 2.63 1.32 - 3.29 10*3/uL MONO x10^3 0.76 0.33 - 0.92 10*3/uL EOS x10^3 0.14 0.03 - 0.39 10*3/uL BASO x10^3 <0.03 0.01 - 0.07 10*3/uL EKG: If EKG completed, see Procedure Note. Orders and Treatments: Orders Placed This Encounter Procedures XR CHEST 1 VW CBC WITH DIFF COMP. METABOLIC PANEL (33254) TROPONIN I N-TERMINAL PRO-BNP COVID-19 (ID NOW TESTING) LAB ONLY COVID INTERPRETATION Orders Placed This Encounter Medications methylprednisolone sod succ (SOLU-MEDROL) injec tion 125 mg ipratropium (ATROVENT) 0.02 % nebulizer solutio n 0.5 mg albuterol (PROVENTIL) 2.5 mg /3 mL (0.083 %) ne bulizer solution 7.5 mg albuterol (PROVENTIL) 2.5 mg /3 mL (0.083 %) ne bulizer solution 2.5 mg DISCONTD: predniSONE 10 mg tablet predniSONE 10 mg tablet First Provider Eval: ED Events Date/Time Event User Comments 02/04/23848 Medical Screening Begins SARA DIETRICH DO -- 02/04/23848 First Provider Evaluation FABIÁN Up SARA NEVAREZ -- No notes of EC Admission Criteria type on file. ED COURSE Diagnosis/Impression as of 02/04/23 1113 SOB (shortness of breath) Acute bronchitis, unspecified organism Procedures: EKG-12 Lead ROUTINE ONCE Date/Time: 02/04/2023 9:00 AM Performed by: Sara Dietrich DO Authorized by: Sara Dietrich DO ECG reviewed by ED Physician in the absence of a mannequin maker: yes Interpretation: Interpretation: normal Rate: ECG rate: 88 ECG rate assessment: normal Rhythm: Rhythm: sinus rhythm Ectopy: Ectopy: none QRS: QRS axis: Normal QRS intervals: Normal QRS conduction: normal ST segments: ST segments: Normal T waves: T waves: normal MDM: Medical Decision Making The patient presents from [facility] for evaluation for chest pain as well as shortness of breath she had for the past 2 or 3 days. No sick contacts. She does not smoke. She is also had cough and body aches. She did see her PCP several days ago and was prescribed a cough medication which she reports has not been helping. She reports she feels worse when trying to lie down and sleep as well as with exertion. She is a history of COPD, h igh blood pressure, diabetes well high cholesterol. She does not wear oxygen at home. Vital signs are stable here in the ER. The patient is obese. She has no use of accessory muscles and is able to speak in full and complete sentences without difficulty. She does have diffuse wheezing bilaterally. Differential diagnosis inclu regino COPD exacerbation, pneumonia, viral syndrome, ACS Her EKG is unremarkable and shows no STEMI. We will provide the patient with albuterol and Atrovent treatments here in the ER as well as IV Solu-Medrol. We will screen the patient for COVID and obtain a chest x-ray. We will check laboratory studies. We will continue to monitor the patient here in the ER. Final disposition pending. 1045 -the patient is doing well here in the ER. Her wheezing is much improved after the treatmen ts given above. Her chest x-ray shows no acute cardiopulmonary i ssues. Her laboratory studies are unremarkable. We will provide the patient with an additional albuterol treatment here in the ER. Anticipate discharge home later. 1113 -the patient is doing well here in the ER. Her wheezing is almost completely resolved. We will discharge the patien t home in stable condition with prednisone for 4 more days as well as albuterol every 4 hours for the next 24 hours and then spacing out her treatments as she feels better. H er allergy to prednisone is to the orange dye and the 20 mg tablet. She is able to take the other strength prednisone tablets. Problems Addressed: Acute bronchitis, unspecified organism: acute il lness or injury SOB (shortness of breath): acute illness or inju ry Amount and/or Complexity of Data Reviewed Labs: ordered. Decision-making details documente d in ED Course. Radiology: ordered and indep endent interpretation performed. Decision-making details documented in ED Course. ECG/medicine tests: ordered and independent interpretation performed. Decision- making details documented in ED Course. Risk OTC drugs. Prescription drug management. Flowsheet Documentation: Scoring Tools: No data recorded Disposition/Condition: ED Disposition ED Disposition Disch - Home Condition Stable Comment -- Discharge Medications: Current Discharge Medication List START taking these medications Details predniSONE 10 mg tablet Take 5 tablets by mouth in the morning. Qty: 20 tablet, Refills: 0 Associated Diagnoses: Acute bronchitis, unspeci fied organism CONTINUE these medications which have NOT CHANGE D Details !! ibuprofen 800 mg tablet T desmond 1 tablet by mouth every 6 (six) hours as needed for Pain (scale 4-6). Qty: 30 tablet, Refills: 0 Associated Diagnoses: Osteo arthritis of right hip, unspecified osteoarthritis type methocarbamoL 500 mg tablet Take 2 tablets by mouth 4 (four) times daily as needed for Pain (scale 7-10) or Pain (scale 4-6). Qty: 40 tablet, Refills: 0 Associated Diagnoses: Osteo arthritis of right hip, unspecified osteoarthritis type methylPREDNISolone 4 mg tabl ets Take by mouth SEE-INSTRUCTIONS. follow package directions Qty: 21 Each, Refills: 0 Associated Diagnoses: Osteo arthritis of right hip, unspecified osteoarthritis type COMBIVENT RESPIMAT 20-100 mc g/actuation inhaler INHALE TWO PUFFS 4 TIMES DAILY NEEDED Qty: 4 Each, Refills: 0 diphenhydrAMINE (BENADRYL) 2 5 mg capsule Take 1 Cap by mouth every 6 (six) hours as needed for Allergies. Qty: 90 Cap, Refills: 3 fluticasone (FLONASE) 50 mcg /actuation nasal spray Use 1 [place] in each nostril 2 (two) times daily. Qty: 1 Bottle, Refills: 9 SIMVASTATIN ORAL Take by mouth. !! ibuprofen (MOTRIN) 800 mg tablet Take 1 Tab by mouth every 6 (six) hours as needed for Pain (scale 4-6). Qty: 40 Tab, Refills: 2 lisinopril (PRINIVIL,ZESTRIL) 10 mg tablet Take 20 mg by mouth daily. METFORMIN HCL (METFORMIN ORAL) Take 500 mg by mo ut 2 (two) times daily. montelukast (SINGULAIR) 10 mg tablet Take 10 mg by mouth daily. HYDROcodone-acetaminophen (N ORCO) 5-325 mg tablet Take 1 Tab by mouth every 6 (six) hours as needed for Pain (scale 7-10) or Pain unrelieved by non-narcotic analgesics. Qty: 30 Tab, Refills: 0 traMADOL (ULTRAM) 50 mg tabl et Take 1 Tab by mouth every 6 (six) hours as needed for Pain. Qty: 120 Tab, Refills: 0 !! - Potential duplicate medications found. Ple ase discuss with provider. Follow-up: Electronically signed by: Sara Dietrich DO 02/04/23 1119
[2023-02-07] MEDS ORDERED: ASPIRIN 81 MG CHEWABLE TABLET ONE (12:25)
[2023-02-07] MEDS ORDERED: ALBUTEROL 2.5 MG/3 ML NEB SOL ONE ×2 (12:25→19:26)
[2023-02-07] MEDS ORDERED: NA CHLORIDE 0.9% 1,000 ML ONE (12:26)
[2023-02-07] MEDS ORDERED: LEVALBUTEROL 0.63 MG/3 ML NEB ONE (12:26)
--- NOTE | 2023-02-07 12:28 | RAD REPORT ---
EXAM DESCRIPTION: RAD - Chest Single View - 02/07/2023 12:22 pm CLINICAL HISTORY: CHEST PAIN COMPARISON: Chest Pa And Lat (2 Views) dated 07/09/2019; Chest Single View dated 07/08/2019; Chest Sin gle View dated 09/15/2018; Chest Single View dated 12/03/2016 FINDINGS: Lines: None. Lungs: No evidence of edema or pneumonia. Pleural: No significant pleural effusions or pneumothorax. Cardiac: The heart size is within normal limits. Mediastinum: Within normal limits. Bones: No acute fractures. Other: None IMPRESSION: No acute cardiopulmonary disease.
[2023-02-07 12:43] LABS: Absolute Lymphocytes (CBC) 2.9 K/uL (0.7-4.9); Hematocrit 35.8 % (36.0-45.0); Lymphocytes % 26.6 % (15.3-44.8); MCV 91.6 fL (80-100); Platelets 305 thou/uL (152-406)
[2023-02-07 12:47] LABS: Protime INR 1.07
[2023-02-07 13:51] LABS: Albumin 2.9 g/dL (3.4-5.0); Bilirubin Direct 0.1 mg/dL (0-0.2); Bilirubin Indirect, Calculated 0.1 mg/dL (0.2-0.8); Bilirubin Total 0.2 mg/dL (0.2-1.0); Magnesium 1.7 mg/dL (1.6-2.4); Potassium 3.4 mEq/L (3.5-5.1); Troponin High Sensitivity 8.6 pg/mL (<58.9)
--- NOTE | 2023-02-07 15:29 | EKG ---
Test Date: 2023-02-07 Test Time: 12:04:56 Machine Ii Engraver: RIVERA MEASUREMENT RESULTS: Intervals: Rate: 95 [place]: 136 QRSD: 74 QT: 338 QTc: 424 [place]: P: 70 [place]: 136 QRS: 61 T: 56 INTERPRETIVE STATEMENTS: Normal sinus rhythm Normal ECG Compared to ECG 07/08/2019 07:07:58 Fusion complex(es) no longer present Electronically Signed On 02-07-23 15:28:18 CDT by Stevie Bustos
--- NOTE | 2023-02-07 15:30 | ER ---
Nurse's Notes [facility] Name: Neela Pizano Age: 62 yrs Sex: Female : 1960 Arrival Date: 02/07/2023 Time: 11:54 Bed 15 Private MD: Diagnosis: Chest pain, unspecified;Wheezing;COPD/ Chronic obstructive pulmonary disease with (acute) exacerbation;Shortness of breath Presentation: 02/07 12:08 Chief complaint: Patient states: CP \T\ SOB since yesterday. Coronavirus screen: At this jl7 time, the client does not indicate any symptoms associated with coronavirus-19. Ebola Screen: No symptoms or risks identified at this time. 12:08 Method Of Arrival: Ambulatory jl7 12:08 Initial Sepsis Screen: Does the patient meet any 2 criteria? No. Patient's initial jl7 sepsis screen is negative. Does the patient have a suspected source of infection? No. Patient's initial sepsis screen is negative. Risk Assessment: Do you want to hurt yourself or someone else? Patient reports no desire to harm self or others. Onset of symptoms was February 06, 2023. 12:08 Acuity: MARVIN 2 jl7 Triage Assessment: 12:18 General: Appears in no apparent distress. uncomfortable, Behavior is calm, cooperative, jl7 appropriate for age. Pain: Complains of pain in anterior aspect of left upper chest Pain currently is 7 out of 10 on a pain scale. Cardiovascular: Patient's skin is warm and dry. Rhythm is regular. Respiratory: Airway is patent Respiratory effort is even, unlabored, Respiratory pattern is regular, symmetrical, audible wheezing noted. Historical: - Allergies: 12:18 Iodine; jl7 12:18 Prednisone; (the orange one); jl7 - Home Meds: 12:18 glimepiride 1 mg Oral tab 1 tab twice a day [Active]; lisinopril 40 mg Oral tab jl7 [Active]; - PMHx: 12:18 Asthma; Hypertension; neuropathy; Diabetes - NIDDM; jl7 - PSHx: 12:18 Left heel sx; Ligation of fallopian tube; Right foot sx; jl7 - Immunization history:: Adult Immunizations up to date. - Social history:: Smoking status: Patient denies any tobacco usage or history of. - Family history:: not pertinent. Screenin:36 [facility] ED Fall Risk Assessment (Adult) History of falling in the last 3 months, mb9 including since admission No falls in past 3 months (0 pts) Confusion or Disorientation No (0 pts) Intoxicated or Sedated No (0 pts) Impaired Gait No (0 pts) Mobility Assist Device Used No (0 pt) Altered Elimination No (0 pt) Score/Fall Risk Level 0 - 2 = Low Risk Oriented to surroundings, Maintained a safe environment, Educated pt \T\ family on fall prevention, incl call for assistance when getting out of bed. Abuse screen: Denies threats or abuse. Nutritional screening: No deficits noted. Tuberculosis screening: No symptoms or risk factors identified. Assessment: 12:35 General: Appears uncomfortable, Behavior is cooperative. Pain: Complains of pain in mb9 chest Pain radiates to left arm Pain currently is 8 out of 10 on a pain scale. Quality of pain is described as aching, throbbing, Pain began 1 week ago Is intermittent. Neuro: Mcknight Agitation-Sedation Scale (RASS): 0 - Alert and Calm Level of Consciousness is awake, alert, obeys commands, Oriented to person, place, time, situation, Appropriate for age Reports dizziness, headache. Cardiovascular: Reports chest pain, shortness of breath, Heart tones S1 S2 present Patient's skin is warm and dry. Rhythm is regular. Respiratory: Reports shortness of breath Airway is patent Respiratory effort is even, unlabored, Respiratory pattern is regular, symmetrical, Breath sounds with wheezes bilaterally. GI: Abdomen is round non-distended, Bowel sounds present X 4 quads. Abd is soft and non tender X 4 quads. Patient currently denies nausea, vomiting. : No signs and/or symptoms were reported regarding the genitourinary system. EENT: No signs and/or symptoms were reported regarding the EENT system. Derm: Skin is pink, warm \T\ dry. Musculoskeletal: Range of motion: intact in all extremities. 14:54 Reassessment: Patient and/or family updated on plan of care and expected duration. Pain mb9 level reassessed. Patient is alert, oriented x 3, equal unlabored respirations, skin warm/dry/pink. Patient states feeling better. Patient states symptoms have improved. 16:01 Reassessment: No changes from previously documented assessment. Patient and/or family mb9 updated on plan of care and expected duration. Pain level reassessed. Patient is alert, oriented x 3, equal unlabored respirations, skin warm/dry/pink. 17:00 Reassessment: Patient and/or family updated on plan of care and expected duration. Pain mb9 level reassessed. Patient is alert, oriented x 3, equal unlabored respirations, skin warm/dry/pink. Patient states feeling better. Patient states symptoms have improved. 17:34 Reassessment: see [facility] for further charting. mb9 Vital Signs: 12:16 BP 116 / 67; Pulse 97; Resp 20; Temp 97.5; Pulse Ox 100% ; Weight 97.52 kg; Height 5 jl7 ft. 4 in. ; Pain 7/10; 13:20 BP 108 / 89; Pulse 84; Resp 18; Pulse Ox 100% on R/A; mb9 14:54 BP 116 / 87; Pulse 88; Resp 18; Pulse Ox 96% on R/A; mb9 16:00 BP 111 / 65; Pulse 80; Resp 18; Pulse Ox 100% on 2 lpm NC; mb9 20:55 BP 102 / 46; Pulse 89; Resp 16; Pulse Ox 98% ; Pain 7/10; sm8 12:16 Body Mass Index 36.90 (97.52 kg, 162.56 cm) jl7 12:16 Pain Scale: Adult jl7 20:55 Pain Scale: Adult sm8 ED Course: 11:54 Patient arrived in ED. rg4 11:56 Omkar Nicole MD is Attending Physician. [facility] 12:00 Attending Physician role handed off by Omkar Nicole MD cp3 12:00 Tomy Hammer MD is Attending Physician. cp3 12:08 Arm band placed on right wrist. EKG completed in triage. Results shown to . jl7 12:09 Valentina Moran, GEE is Primary Nurse. mb9 12:18 Triage completed. jl7 12:24 XRAY Chest (1 view) In Process Unspecified. EDMS 12:35 No provider procedures requiring assistance completed. Inserted saline lock: 22 gauge mb9 in right antecubital area, using aseptic technique. Blood collected. 12:36 Placed in gown. Bed in low position. Call light in reach. Side rails up X 1. Client mb9 placed on continuous cardiac and pulse oximetry monitoring. NIBP monitoring applied. quality assurance monitor final on. 12:37 Patient maintains SpO2 saturation greater than 95% on room air. mb9 12:37 Basic Metabolic Panel Sent. mb9 12:37 CBC with Diff Sent. mb9 12:37 LFT's Sent. mb9 12:37 Magnesium Sent. mb9 12:37 NT PRO-BNP Sent. mb9 12:37 PT-INR Sent. mb9 12:37 Troponin HS Sent. mb9 12:37 Lipase Sent. mb9 15:30 Alonso Pino MD is Hospitalizing Provider. cp3 16:01 Influenza Screen (a \T\ B) Sent. mb9 16:01 COVID-19 SARS RT PCR Sent. mb9 17:35 Patient admitted, IV remains in place. mb9 19:20 Report received from GEE Fong. ha1 19:25 Provided Education on: need for admit . ha1 Administered Medications: 12:12 Drug: DuoNeb Nebulize (3:1) (2.5 mg - 0.5 mg) 3 ml Route: Nebulizer; mb9 15:44 Follow up: Response: No adverse reaction mb9 12:15 Drug: Aspirin PO Chewable Tablet 81 mg Route: PO; mb9 15:44 Follow up: Response: No adverse reaction mb9 12:20 Drug: NS 0.9% IV 1000 ml Route: IV; Rate: 1 bolus; Site: right antecubital; mb9 15:45 Follow up: Response: No adverse reaction; IV Status: Completed infusion mb9 16:01 Drug: AZITHromycin IVPB 500 mg Route: IVPB; Infused Over: 1 hrs; Site: right mb9 antecubital; Medication: 12:37 VIS not applicable for this client. mb9 Outcome: 15:30 Discharge ordered by . cp3 15:31 Decision to Hospitalize by Provider. cp3 19:25 Condition: stable ha1 19:25 Admitted to ER Hold. Please see [facility] for further documentation. ha1 19:25 Discharge instructions given to patient, family, Instructed on the need for admit, Demonstrated understanding of instructions. 02/08 13:35 Patient left the ED. mb9 Signatures: Dispatcher [employer] EDMS Omkar Nciole MD MD cha Pinckney, Cwanza, MD MD cp3 Jolanta Loza rg4 Jd Sam RN RN jl7 Sophia Carl, RN RN ha1 Luisa, Valentina Curtis, RN RN mb9 Mary Hopson8
--- NOTE | 2023-02-07 15:30 | EDPHYS ---
Physician Documentation [facility] Name: Neela Pizano Age: 62 yrs Sex: Female : 1960 Arrival Date: 02/07/2023 Time: 11:54 Bed 15 Private MD: ED Physician Tomy Hammer HPI: 02/07 12:47 This 62 yrs old Black Female presents to ER via Ambulatory with complaints of Chest cp3 Pain. 12:47 Patient is a 62-year-old female with a history of substernal chest pain which radiates cp3 to the left arm that started at 11 AM pain is described as 7 out of 10 aching cramping with associated wheezing. Pain is radiating to the left arm. The patient has a history of hypertension, diabetes type 2, high cholesterol, patient has a family history significant for a father with LA and as son without myocardial infarction in his 40s. Patient denies fever, chills, nausea, vomiting, diaphoresis. Patient does endorse cough with wheezing and endorses a history of chronic bronchitis. Historical: - Allergies: 12:18 Iodine; jl7 12:18 Prednisone; (the orange one); jl7 - Home Meds: 12:18 glimepiride 1 mg Oral tab 1 tab twice a day [Active]; lisinopril 40 mg Oral tab jl7 [Active]; - PMHx: 12:18 Asthma; Hypertension; neuropathy; Diabetes - NIDDM; jl7 - PSHx: 12:18 Left heel sx; Ligation of fallopian tube; Right foot sx; jl7 - Immunization history:: Adult Immunizations up to date. - Social history:: Smoking status: Patient denies any tobacco usage or history of. - Family history:: not pertinent. ROS: 12:47 Constitutional: Negative for fever, chills, and weight loss, Eyes: Negative for injury, cp3 pain, redness, and discharge, ENT: Negative for injury, pain, and discharge, Neck: Negative for injury, pain, and swelling, Abdomen/GI: Negative for abdominal pain, nausea, vomiting, diarrhea, and constipation, Back: Negative for injury and pain, : Negative for injury, bleeding, discharge, and swelling, MS/Extremity: Negative for injury and deformity, Skin: Negative for injury, rash, and discoloration, Neuro: Negative for headache, weakness, numbness, tingling, and seizure. 12:47 Cardiovascular: Positive for chest pain. 12:47 Respiratory: Positive for cough, wheezing. Exam: 12:47 Constitutional: This is a well developed, well nourished patient who is awake, alert, cp3 and in no acute distress. Head/Face: Normocephalic, atraumatic. Eyes: Pupils equal round and reactive to light, extra-ocular motions intact. Lids and lashes normal. Conjunctiva and sclera are non-icteric and not injected. Cornea within normal limits. Periorbital areas with no swelling, redness, or edema. ENT: Nares patent. No nasal discharge, no septal abnormalities noted. Tympanic membranes are normal and external auditory canals are clear. Oropharynx with no redness, swelling, or masses, exudates, or evidence of obstruction, uvula midline. Mucous membranes moist. Neck: Trachea midline, no thyromegaly or masses palpated, and no cervical lymphadenopathy. Supple, full range of motion without nuchal rigidity, or vertebral point tenderness. No Meningismus. Chest/axilla: Normal chest wall appearance and motion. Nontender with no deformity. No lesions are appreciated. Cardiovascular: Regular rate and rhythm with a normal S1 and S2. No gallops, murmurs, or rubs. Normal PMI, no JVD. No pulse deficits. 12:47 Abdomen/GI: Soft, non-tender, with normal bowel sounds. No distension or tympany. No guarding or rebound. No evidence of tenderness throughout. Back: No spinal tenderness. No costovertebral tenderness. Full range of motion. Skin: Warm, dry with normal turgor. Normal color with no rashes, no lesions, and no evidence of cellulitis. MS/ Extremity: Pulses equal, no cyanosis. Neurovascular intact. Full, normal range of motion. Neuro: Awake and alert, GCS 15, oriented to person, place, time, and situation. Cranial nerves II-XII grossly intact. Motor strength 5/5 in all extremities. Sensory grossly intact. Cerebellar exam normal. Normal gait. Psych: Awake, alert, with orientation to person, place and time. Behavior, mood, and affect are within normal limits. 12:47 Respiratory: the patient does not display signs of respiratory distress, Respirations: normal, Breath sounds: wheezing: inspiratory expiratory is scattered. Vital Signs: 12:16 BP 116 / 67; Pulse 97; Resp 20; Temp 97.5; Pulse Ox 100% ; Weight 97.52 kg; Height 5 jl7 ft. 4 in. ; Pain 7/10; 13:20 BP 108 / 89; Pulse 84; Resp 18; Pulse Ox 100% on R/A; mb9 14:54 BP 116 / 87; Pulse 88; Resp 18; Pulse Ox 96% on R/A; mb9 16:00 BP 111 / 65; Pulse 80; Resp 18; Pulse Ox 100% on 2 lpm NC; mb9 20:55 BP 102 / 46; Pulse 89; Resp 16; Pulse Ox 98% ; Pain 7/10; sm8 12:16 Body Mass Index 36.90 (97.52 kg, 162.56 cm) jl7 12:16 Pain Scale: Adult jl7 20:55 Pain Scale: Adult sm8 Procedures: 12:47 Performed EKG: EKG interpreted by me at 12:04 PM: Normal sinus rhythm, rate 95, no cp3 evidence of acute LA, QT 338. MDM: 11:56 Patient medically screened. thomas 12:01 Patient medically screened. cp3 12:47 Differential diagnosis: abnormal EKG, acute myocardial infarction, congestive heart cp3 failure pleurisy, pneumonia, Reactive airway disease, wheezing, COPD exacerbation. Data reviewed: vital signs, nurses notes, EKG, radiologic studies. 02/07 11:57 Order name: Basic Metabolic Panel; Complete Time: 15:02 [facility] 02/07 11:57 Order name: CBC with Diff; Complete Time: 12:51 [facility] 02/07 11:57 Order name: LFT's; Complete Time: 15:02 [facility] 02/07 11:57 Order name: Magnesium; Complete Time: 15:02 [facility] 02/07 11:57 Order name: NT PRO-BNP; Complete Time: 15:02 [facility] 02/07 11:57 Order name: PT-INR; Complete Time: 12:51 [facility] 02/07 12:52 Interpretation: Within normal limits. cp3 02/07 11:57 Order name: Troponin HS; Complete Time: 15:02 [facility] 02/07 11:57 Order name: Lipase; Complete Time: 15:02 [facility] 02/07 11:57 Order name: Urinalysis w/ reflexes [facility] 02/07 15:28 Order name: COVID-19 SARS RT PCR; Complete Time: 17:05 cp3 02/07 15:28 Order name: Influenza Screen (a \T\ B); Complete Time: 17:05 cp3 02/07 18:02 Order name: Troponin High Sensitivity EDMS 02/07 18:11 Order name: Phosphorus EDMS 02/07 18:11 Order name: NT PRO-BNP EDMS 02/07 18:11 Order name: T4 Free EDMS 02/07 18:11 Order name: Magnesium EDMS 02/07 18:11 Order name: Thyroid Stimulating Hormone EDMS 02/07 21:51 Order name: Glucose, Ancillary Testing EDMS 02/08 00:11 Order name: Glucose, Ancillary Testing EDMS 02/08 02:53 Order name: CBC with Automated Diff EDMS 02/08 03:03 Order name: Basic Metabolic Panel EDMS 02/08 03:03 Order name: Lipid Profile EDMS 02/08 03:05 Order name: Troponin High Sensitivity EDMS 02/08 07:53 Order name: Glucose, Ancillary Testing EDMS 02/08 12:50 Order name: Glucose, Ancillary Testing EDMS 02/07 11:57 Order name: XRAY Chest (1 view); Complete Time: 12:51 [facility] 02/07 12:52 Interpretation: Chest x-ray interpreted by me no acute cardiopulmonary proce. cp3 02/07 16:38 Order name: Head Brain Wo Cont; Complete Time: 17:05 EDMS 02/07 16:38 Order name: Thorax Wo Con; Complete Time: 17:14 EDMS 02/07 16:41 Order name: Echo with Doppler EDMS 02/07 16:44 Order name: ERT ORTHOSTATIC V/S EDMS 02/07 16:44 Order name: ERT ORTHOSTATIC V/S EDMS 02/07 16:44 Order name: ERT ORTHOSTATIC V/S EDMS 02/07 16:44 Order name: ERT ORTHOSTATIC V/S EDMS 02/07 16:44 Order name: ERT ORTHOSTATIC V/S EDMS 02/07 16:44 Order name: ERT ORTHOSTATIC V/S EDMS 02/07 16:44 Order name: ERT ORTHOSTATIC V/S EDMS 02/08 12:45 Order name: NM EDMS 02/07 11:57 Order name: EKG; Complete Time: 11:57 [facility] 02/07 11:57 Order name: Cardiac monitoring; Complete Time: 12:37 [facility] 02/07 11:57 Order name: EKG - Nurse/Tech; Complete Time: 12:37 [facility] 02/07 11:57 Order name: IV Saline Lock; Complete Time: 12:37 [facility] 02/07 11:57 Order name: Labs collected and sent; Complete Time: 12:37 [facility] 02/07 11:57 Order name: O2 Per Protocol; Complete Time: 12:37 [facility] 02/07 11:57 Order name: O2 Sat Monitoring; Complete Time: 12:37 [facility] Administered Medications: 12:12 Drug: DuoNeb Nebulize (3:1) (2.5 mg - 0.5 mg) 3 ml Route: Nebulizer; mb9 15:44 Follow up: Response: No adverse reaction mb9 12:15 Drug: Aspirin PO Chewable Tablet 81 mg Route: PO; mb9 15:44 Follow up: Response: No adverse reaction mb9 12:20 Drug: NS 0.9% IV 1000 ml Route: IV; Rate: 1 bolus; Site: right antecubital; mb9 15:45 Follow up: Response: No adverse reaction; IV Status: Completed infusion mb9 16:01 Drug: AZITHromycin IVPB 500 mg Route: IVPB; Infused Over: 1 hrs; Site: right mb9 antecubital; Disposition Summary: 02/07/23 15:31 Hospitalization Ordered Hospitalization Status: Observation cp3 Provider: Alonso Pino cp3 Condition: Stable(02/07/23 15:31) cp3 Problem: an acute exacerbation cp3 Symptoms: have improved cp3 Bed/Room Type: Standard cp3 Location: Telemetry/MedSurg (observation)(02/08/23 11:20) bd Room Assignment: 218(02/08/23 11:20) bd Diagnosis - Chest pain, unspecified(02/07/23 15:31) cp3 - Wheezing(02/07/23 15:31) cp3 - COPD/ Chronic obstructive pulmonary disease with (acute) exacerbation cp3 - Shortness of breath(02/07/23 15:31) cp3 Forms: - Medication Reconciliation Form cp3 - SBAR form cp3 - Leadership Thank You Letter cp3 Signatures: Dispatcher [employer] EDMS Nessa Cagle Corey, MD MD cha Pinckney, Cwanza, MD MD cp3 Jd Sam RN RN jl7 Valentina Moran RN RN mb9 Corrections: (The following items were deleted from the chart) 12:53 12:51 Within normal limits. cp3 cp3 15:30 15:30 Home cp3 cp3 15:30 15:30 Stable cp3 cp3 15:30 15:30 Chest pain, unspecified cp3 cp3 15:30 15:30 Shortness of breath cp3 cp3 15:30 15:30 Wheezing cp3 cp3 15:30 15:30 Unspecified chronic bronchitis cp3 cp3 16:55 15:31 Telemetry/MedSurg (observation) cp3 mb9 16:55 15:31 cp3 mb9 16:57 16:55 [facility] ER HOLD mb9 mb9 16:57 16:55 mb9 mb9 19:28 16:57 Telemetry/MedSurg (observation) mb9 jl7 19:28 16:57 mb9 jl7 02/08 11:20 02/07 19:28 [facility] ER HOLD jl7 bd 02/08 11:20 02/07 19:28 ERHOLD- jl7 bd
[2023-02-07] MEDS ORDERED: AZITHROMYCIN 500 MG INJ IVPB ONE (16:04)
[2023-02-07] MEDS ORDERED: NA CHLORIDE 0.9% 250 ML ONE (16:04)
[2023-02-07] MEDS ORDERED: ACETAMINOPHEN 325 MG TABLET PO PRN (16:30)
[2023-02-07] MEDS ORDERED: POTASSIUM CL SA 10 MEQ TAB PO ONE ×2 (16:37→17:40)
[2023-02-07] MEDS ORDERED: MECLIZINE HCL 12.5 MG TAB PO PRN (16:38)
[2023-02-07] MEDS ORDERED: ONDANSETRON 4 MG/2 ML VIAL IV PRN (16:48)
--- NOTE | 2023-02-07 16:50 | P.HP ---
Certification for Inpatient Patient admitted to: Inpatient With expected LOS: >2 Midnights Patient will require the following post-hospital care: None Practitioner: I am a practitioner with admitting privileges, knowledge of patient current condition, hospital course, and medical plan of care. Services: Services provided to patient in accordance with Admission requirements found in Title 42 Section 412.3 of the Code of Federal Regulations Patient History Date of Service: 02/07/23 Reason for admission: Chest pain History of Present Illness: Patient is a 62-year-old female with a past medical history significant for asthma, hypertension, DM 2 with neuropathy, obesity who presents with complaint of substernal chest pain that has been ongoing intermittently for the past 1 week. Patient indicated that the pain radiates to left arm. Patient rated pain as 10/10 in severity and described pain as pressure in quality. Patient also reports left lower extremity weakness and left-sided numbness. Patient reported associated signs/symptoms of headache, dizziness, vertigo, cough and shortness of breath. Patient denies any other signs or symptoms. Symptoms are aggravated or relieved by nothing. Patient decided to present to the hospital due to worsening symptoms. Allergies prednisone Allergy (Unknown, Verified 09/15/18 23:13) UNKNOWN iodine Allergy (Verified 07/08/19 16:38) Hives/Rash shrimp Allergy (Verified 09/15/18 23:13) Itching/Hives/Rash Home Medications: Budesonide/Formoterol Fumarate [Symbicort 160-4.5 Mcg Inhaler] 2 puff IH BID #1 hfa.aer.ad 09/16/18 Ipratropium/Albuterol Sulfate [Combivent Respimat 20-100 Mcg] 1 puff IN QID PRN 09/16/18 Metformin HCl 1,000 mg PO BID 09/16/18 Pantoprazole [Protonix Tab*] 1 tab PO DAILY 09/16/18 Valacyclovir HCl [Valtrex] 1 tab PO DAILY 09/16/18 Venlafaxine HCl [Effexor XR] 1 tab PO DAILY 09/16/18 estradioL [Estradiol] 1 tab PO DAILY 09/16/18 hydrOXYzine pamoate [Hydroxyzine Pamoate] 25 mg PO BID PRN 09/16/18 hydroCHLOROthiazide [Hydrochlorothiazide] 25 mg PO DAILY 09/16/18 predniSONE [Deltasone*] 10 mg PO DAILY #5 tab 09/16/18 Divalproex Sodium 500 mg PO BID 07/08/19 Gabapentin 800 mg PO TID 07/08/19 Azithromycin Tab [Zithromax*] 250 mg PO DAILY #3 tab 07/11/19 Cefuroxime Axetil [Cefuroxime] 500 mg PO BID #10 tab 07/11/19 Prednisone [Sterapred Ds] 10 mg PO DAILY #40 tab.ds.pk 07/11/19 - Past Medical/Surgical History Diabetic: Yes -: HTN -: Asthma -: DM -: DM Neuropathy -: hands limited ROM -: Rheumatoid Arthritis -: Chronic Back pain, Seen by Pain management in the past. -: pancreatitis -: tubal ligation -: boil removal from buttock -: R toe sx -: L heel sx Psychosocial/ Personal History: Single, 6 children, Does not work. - Family History Father -: Heart disease Mother -: Heart disease, Cancer - Social History Smoking Status: Never smoker Alcohol use: Yes CD- Drugs: No Caffeine use: Yes Place of Residence: Home Review of Systems General: Unremarkable Eyes: Unremarkable ENT: Unremarkable Respiratory: Cough, Shortness of Breath Cardiovascular: Chest Pain Gastrointestinal: Unremarkable Genitourinary: Unremarkable Musculoskeletal: Arm Pain Integumentary: Unremarkable Neurological: Weakness, Numbness, Other (GAMBOA, Dizziness, LLE weakness, Left sided numbness, vertigo) Lymphatics: Unremarkable Physical Examination - Physical Exam General: Alert, In no apparent distress, Oriented x3, Cooperative, Mild distress HEENT: Atraumatic, PERRLA, Mucous membr. moist/pink, EOMI, Sclerae nonicteric Neck: Supple, 2+ carotid pulse no bruit, No LAD, Without JVD or thyroid abnormality Respiratory: Diminished Cardiovascular: No edema, Regular rate/rhythm, Normal S1 S2 Capillary refill: <2 Seconds Gastrointestinal: Normal bowel sounds, Non-distended, No tenderness Musculoskeletal: No clubbing, No tenderness Integumentary: No rashes, No significant lesion Neurological: Normal speech, Normal tone, Normal affect Lymphatics: No axilla or inguinal lymphadenopathy - Studies Laboratory Data (last 24 hrs) 02/07/23 02/07/23 02/07/23 13:17 12:32 12:32 WBC 10.80 Hgb 11.8 L Hct 35.8 L Plt Count 305 PT 11.8 INR 1.07 Sodium 138 Potassium 3.4 L BUN 41 H Creatinine 1.88 H Glucose 112 H Magnesium 1.7 Total Bilirubin 0.2 AST 8 L ALT 13 Alkaline Phosphatase 91 Lipase 55 Microbiology Data (last 24 hrs): 02/07/23 15:58 Nasopharnyx Influenza Type A Antigen Screen - Final 02/07/23 15:58 Nasopharnyx Influenza Type B Antigen Screen - Final Assessment and Plan - Plan -- Chest pain. To Rule out ACS. Serial troponins negative so far. Cardiology was consulted. Echocardiogram pending to assess cardiac structures and functions. Telemetry to monitor for any malignant arrhythmia. We will await further recommendation from punch operator. --Dizziness\vertigo. CT head unremarkable for any acute intracranial abnormality. Neurology consulted. . Carotid Doppler to rule out any carotid artery stenosis.. Continue meclizine as needed. We will await further recommendation from Neurologist. --Headache. Tylenol as needed. -- Pneumonia. Noted on CT chest. Patient placed on antibiotics, neb treatment with Atrovent\albuterol. Continue O2 therapy As needed. -- DM2 with neuropathy. BS monitoring with sliding scale insulin. --Hypertension. Stable. Continue home medications. --Class II obesity. Likely secondary to excess calories intake. Patient counseled on weight reduction, diet and excise therapy. --Headache. Tylenol as needed. --Anemia of chronic disease. H&H stable. We will continue to monitor hemoglobin and transfuse if less than 7.0. --DVT prophylaxis with Lovenox subQ Discharge Plan: Home Plan to discharge in: Greater than 2 days - Advance Directives Does patient have a Living Will: No Does patient have a Durable POA for Healthcare: No - Code Status/Comfort Care Code Status Assessed: Yes Physician Review: Patient Assessed, Agree with Above Assessment and Plan Critical Care: No
--- NOTE | 2023-02-07 16:58 | RAD REPORT ---
EXAM DESCRIPTION: CT - Head Brain Wo Cont - 02/07/2023 4:50 pm CLINICAL HISTORY: Vertigo COMPARISON: 2020 TECHNIQUE: Computed axial tomography of the head was obtained. IV contrast was not requested. All CT scans are performed using dose optimization technique as appropriate and may include automated exposure control or mA/KV adjustment according to patient size. FINDINGS: An intracranial bleed is not seen The ventricles are normal in caliber No significant hypodense areas within the brain visualized No extra-axial fluid collection is noted. Fluid within the sinuses/ mastoids is not seen IMPRESSION: No acute intracranial abnormality is seen If patient's symptoms persist MRI of the brain would be recommended
--- NOTE | 2023-02-07 17:05 | RAD REPORT ---
EXAM DESCRIPTION: CT - Thorax Wo Con - 02/07/2023 4:50 pm CLINICAL HISTORY: sob COMPARISON: none TECHNIQUE: Computed axial tomography of the chest was obtained. Contrast was not requested. All CT scans are performed using dose optimization technique as appropriate and may include automated exposure control or mA/KV adjustment according to patient size. FINDINGS: The evaluation of mediastinum, greta and vessels is limited secondary to lack of IV contras t administration. Several blebs are present within the lungs bilaterally. Mild left lower lobe opacity probably pneumonia. There is additional mild left lower lobe atelectasis. Peribronchial thickening bilaterally probably chronic. No mediastinal or hilar lymphadenopathy is seen. A pleural effusion is not present. No pericardial effusion. Coronary arterial calcifications IMPRESSION: Mild left lower lobe pneumonia
[2023-02-07] MEDS ORDERED: ENOXAPARIN 30 MG/0.3 ML SQ ONE (17:40)
[2023-02-07] MEDS: ENOXAPARIN 30 MG/0.3 ML SQ SCH (17:45)
[2023-02-07 18:11] LABS: Magnesium 1.7 mg/dL (1.6-2.4); Phosphorus 3.6 mg/dL (2.5-4.9); Thyroid Stimulating Hormone 0.897 uIU/mL (0.358-3.740)
[2023-02-07] MEDS: IPRATROPIUM BROM 0.5MG/2.5ML NEB SCH (19:20)
[2023-02-07] MEDS: ALBUTEROL 2.5 MG/3 ML NEB SOL NEB SCH (19:20)
[2023-02-07] MEDS ORDERED: IPRATROPIUM BROM 0.5MG/2.5ML ONE (19:27)
[2023-02-07] MEDS: INSULIN -REGULAR HUMAN 50 UNIT/0.5 ML ML SQ SCH (21:45)
[2023-02-07] MEDS ORDERED: INSULIN -REGULAR HUMAN 50 UNIT/0.5 ML ML ONE (22:15)
[2023-02-07] MEDS ORDERED: CEFTRIAXONE 1,000 MG in NA CHLORIDE 0.9% 50 ML IVPB SCH (23:35)
[2023-02-08] MEDS ORDERED: CEFTRIAXONE 1000 MG/VIAL ONE (00:55)
[2023-02-08] MEDS ORDERED: NA CHLORIDE 0.9% 100 ML ONE (00:55)
[2023-02-08] MEDS: ALBUTEROL 2.5 MG/3 ML NEB SOL NEB SCH ×4 (01:15→20:35)
[2023-02-08] MEDS: IPRATROPIUM BROM 0.5MG/2.5ML NEB SCH ×4 (01:15→20:35)
[2023-02-08] MEDS ORDERED: ALBUTEROL 2.5 MG/3 ML NEB SOL ONE ×2 (01:17→08:08)
[2023-02-08] MEDS ORDERED: IPRATROPIUM BROM 0.5MG/2.5ML ONE ×2 (01:18→08:08)
--- NOTE | 2023-02-08 02:20 | CON ---
Date of Consultation: 02/07/2023 Reason For Consultation: Chest pain. History Of Present Illness: This is a pleasant 62-year-old female with a past medical history of hyp ertension, asthma, diabetes, rheumatoid arthritis, obesity, presented with chest pain, retrosternal, no radiation. It was at rest. Pain comes and goes and currently she is chest-pain free. She has al so shortness of breath, but she is always short of breath because of the asthma. Denies having activ e chest pain at present time. Past Medical History: As outlined above in HPI. Medication: Refer to reconciliation sheet for detailed list. Allergies: PREDNISONE, IODINE, AND SHRIMP. Family History: No premature coronary artery disease or cancer. Social History: She does not smoke or drink. Does not use any drugs. Review of Systems: All systems reviewed are negative except as mentioned in HPI. Physical Examination: Vital Signs: Reviewed. Head and Neck: Pupils are equal, reactive to light. Intact eye movements. No JVD. No cervical scotty nopathy. Neck: Supple. Thyroid is not enlarged. Lungs: Clear to auscultation bilaterally. No rhonchi, wheezing, or crackles. No accessory muscle u se. Heart: Regular rate and rhythm. No extra sounds. Abdomen: Soft, nontender. Bowel sounds positive. No organomegaly. No masses or hernia. No rigidi ty or rebound. Extremities: No edema, clubbing, or cyanosis. Intact pulses. Skin: No rashes. Neurologic: Alert, awake, oriented x3. No acute focal deficits appreciated. Investigations: BUN 41, creatinine 1.8. Cardiac enzymes x2 were negative and hemoglobin is 11.8. Assessment/recommendation: 1.Chest pain. It is atypical. However, the patient has multiple risk factors including diabetes an d obesity. Recommended obtaining an echo tomorrow plus a stress test to further evaluate this issue and plan accordingly. In the interim, continue aspirin and get 1 more set of cardiac enzymes. 2.Asthma appears to be stable, on inhalers. SR/MODL Voice ID: [id number] Report ID: [id number]
[2023-02-08 02:48] LABS: Absolute Lymphocytes (CBC) 2.6 K/uL (0.7-4.9); Lymphocytes % 29.8 % (15.3-44.8); Platelets 261 thou/uL (152-406)
[2023-02-08 02:52] LABS: Specific Gravity 1.015 (1.005-1.030); Urine Bacteria None Seen /HPF (<20); Urine Bilirubin NEGATIVE (Negative); Urine Blood Negative (Negative); Urine Clarity Turbid (Clear); Urine Color Colorless (Yellow); Urine Glucose TRACE (Negative); Urine Mucus Slight /HPF (None Seen); Urine Protein NEGATIVE (Negative); Urine RBC <5 /HPF (None Seen); Urine Urobilinogen Normal (Normal); Urine pH 5.5 (5.0-7.0)
[2023-02-08 03:03] LABS: Potassium 3.8 mEq/L (3.5-5.1)
[2023-02-08] MEDS ORDERED: REGADENOSON 0.4 MG/5 ML SYR IV ONE (07:24)
[2023-02-08] MEDS: INSULIN -REGULAR HUMAN 50 UNIT/0.5 ML ML SQ SCH ×4 (07:30→21:00)
[2023-02-08] MEDS ORDERED: PNEUMOCOCCAL VACCINE 0.5 ML IMVAC ONE (08:00)
[2023-02-08] MEDS ORDERED: ASPIRIN EC 81 MG TAB PO ONE (08:52)
[2023-02-08] MEDS ORDERED: ENOXAPARIN 30 MG/0.3 ML SQ ONE (08:52)
[2023-02-08] MEDS ORDERED: MAGNESIUM SULFATE 1 gm IVPB 1 GM/100 ML BAG IV ONE ×2 (08:52→09:00)
[2023-02-08] MEDS ORDERED: ASPIRIN 81 MG CHEWABLE TABLET PO SCH (09:00)
[2023-02-08] MEDS: ASPIRIN 81 MG CHEWABLE TABLET PO SCH (09:00)
[2023-02-08] MEDS: ENOXAPARIN 30 MG/0.3 ML SQ SCH (09:00)
--- NOTE | 2023-02-08 12:45 | RAD REPORT ---
EXAM DESCRIPTION: NM - Rest Stress Cardiac Imaging - 02/08/2023 11:44 am CLINICAL HISTORY: CP Chest pain. COMPARISON: No comparisons TECHNIQUE: The patient was administered approximately 10mCi of Tc 99m Sestamibi prior to resting SPE CT imaging of the heart. The patient was then administered approximately 30 mCi of Tc 99m Sestamibi f ollowing exercise or pharmacologic stress. Multiplanar SPECT images were reviewed. FINDINGS: There are large areas of stress-induced ischemia involving both the LV apex and inferior w all. No fixed defect is seen to suggest hibernating myocardium or scarred myocardium. The end diastolic volume is 82 ml, the end systolic volume is 29 ml, and the ejection fraction is 65 %. IMPRESSION: Large area of stress-induced ischemia involving the LV apex and inferior wall.
[2023-02-08] MEDS: AZITHROMYCIN 250 MG TAB PO SCH (13:00)
--- NOTE | 2023-02-08 14:10 | P.PN ---
Subjective Date of Service: 02/08/23 Chief Complaint: Chest pain Patient denies any chest pain today. She also denies any shortness of breath. Physical Examination - Vital Signs Temperature: 98.4 F Blood Pressure: 131/87 Pulse: 83 Respirations: 19 Pulse Ox (%): 99 - Studies Microbiology Data (last 24 hrs): 02/07/23 15:58 Nasopharnyx Influenza Type A Antigen Screen - Final 02/07/23 15:58 Nasopharnyx Influenza Type B Antigen Screen - Final Assessment And Plan - Plan Physical Exam General: Alert, In no apparent distress, Oriented x3. Neck: No elevated JVD. Respiratory: Clear to auscultation bilaterally. Cardiovascular: No edema, Regular rate/rhythm, Normal S1 S2 Gastrointestinal: Normal bowel sounds, Non-distended, No tenderness Musculoskeletal: No clubbing, No tenderness Integumentary: No rashes, No significant lesion Neurological: Normal speech, Normal tone, Normal affect, no focal motor deficit. Assessment and plan Chest pain. Serial troponins negative. Patient seen by Cardiology. Nuclear stress test demonstrates large area of reversible ischemia. Cardiology to follow. Aspirin, beta-tao and Lipitor. Echocardiogram is pending. Dizziness/vertigo/left-sided weakness and numbness. CT head unremarkable for any acute intracranial abnormality. Obtain MRI of the brain. Aspirin. Pneumonia. Noted on CT chest. Continue antibiotic. Neb treatment with Atrovent/albuterol. DM2 with neuropathy. BS monitoring with sliding scale insulin. Hypertension. Continue home medications. Class II obesity. Weight loss by diet and exercise advised. DVT prophylaxis: Lovenox subQ Discharge Plan: Home
--- NOTE | 2023-02-08 15:10 | RAD REPORT ---
EXAM DESCRIPTION: MRI - Brain Wo Cont - 02/08/2023 2:53 pm CLINICAL HISTORY: Left sided weakness and numbness Headache, drowsiness COMPARISON: Head Brain Wo Cont dated 02/07/2023 TECHNIQUE: Multi-sequence, multiplanar MR imaging of the brain was performed without contrast. FINDINGS: No intracranial hemorrhage, hydrocephalus or extra-axial fluid collections. No edema or sh ift of midline structures. No findings to suspect brain mass. DWI is negative for acute CVA. Midline structures are normally formed. Mastoid air cells and paranasal sinuses are clear. IMPRESSION: Negative for acute CVA or other acute intracranial process.
[2023-02-08] MEDS ORDERED: AZITHROMYCIN IV 500 MG in NA CHLORIDE 0.9% 250 ML IVPB SCH (16:00)
--- NOTE | 2023-02-08 17:28 | PN ---
Date of Progress Note: 02/08/2023 Subjective: Seen by bedside. No further chest pain. Review of Systems: No further chest pain, shortness of breath, orthopnea, cough. No nausea, vomiting, diarrhea. All ot her systems reviewed and they were negative. Physical Examination: Vital Signs: Reviewed. Head and Neck: Pupils are equal, reactive to light. Intact eye movements. No JVD. No cervical lym phadenopathy. Neck is supple. Thyroid is not enlarged. Lungs: Clear to auscultation bilaterally. No rhonchi, wheezing, or crackles. No accessory muscle u se. Heart: Regular rate and rhythm. No extra sounds. Abdomen: Soft, nontender. Bowel sounds positive. No organomegaly. No masses or hernia. No rigidi ty or rebound. Extremities: No edema, clubbing, or cyanosis. Intact pulses. Skin: No rash. Neurologic: Alert, awake, oriented x3. No acute focal deficits appreciated. Investigations: Stress test showed large area of stress-induced ischemia involving the inferior wall . Her BUN 33, creatinine 1.43. Assessment And Recommendations: 1.Chest pain with strongly positive stress test, possible unstable angina. Continue baby aspirin. Keep n.p.o. past midnight for possible coronary angiogram tomorrow. 2.Acute renal failure, improved with gentle hydration. SR/MODL Voice ID: [id number] Report ID: [id number]
[2023-02-08 18:34] VITALS: BMI 36.8
[2023-02-08] MEDS: HYDROCODONE/APAP 5/325 MG TAB PO PRN (21:04)
[2023-02-09] MEDS: ALBUTEROL 2.5 MG/3 ML NEB SOL NEB SCH ×4 (02:00→20:10)
[2023-02-09] MEDS: IPRATROPIUM BROM 0.5MG/2.5ML NEB SCH ×4 (02:00→20:10)
[2023-02-09 03:57] LABS: Magnesium 1.8 mg/dL (1.6-2.4); Potassium 3.8 mEq/L (3.5-5.1)
[2023-02-09] MEDS ORDERED: POTASSIUM CL SA 10 MEQ TAB PO ONE (04:00)
[2023-02-09] MEDS ORDERED: MAGNESIUM SULFATE 1 gm IVPB 1 GM/100 ML BAG IV ONE (04:00)
[2023-02-09] MEDS: INSULIN -REGULAR HUMAN 50 UNIT/0.5 ML ML SQ SCH ×4 (07:30→21:00)
[2023-02-09] MEDS: ASPIRIN 81 MG CHEWABLE TABLET PO SCH (07:43)
--- NOTE | 2023-02-09 08:46 | TREADPHA ---
DX: CHEST PAIN Date of Study: 02/08/2023 Ht: 5' 4 " Wt: 214 lb 15.917 oz Consulting Physician: INDAI MEDICATIONS: TYLENOL, NORCO, PROVENTIL, ASPIRIN, LOVENOX, NOVOLIN-R, ANTIVERT, ZOFRAN, AZITHROMYCIN HISTORY: PHYSICIAL EXAMINATION: RESTING B.P.: 112/45 RESTING H.R.: 85 RESTING EKG: NORMAL SINUS RHYTHM PROTOCOL: PHARMACOLOGIC EXERCISE TIME: 3:30 B.P. AT PEAK STRESS: 101/47 IMPRESSION: LEXISCAN INJECTED. CARDIOLITE INJECTED (SEE NUCLEAR MEDICINE REPORT). COMPLAINTS OF CHEST PAIN, SEVEN OUT OF TEN ON PAIN SCALE. COMPLAINTS OF SHORTNESS OF BREATH. NO VENTRICULAR TACHYCARDIA/ SUPRAVENTRICULAR TACHYCARDIA OR ARRHYTHMIAS. LAST BLOOD PRESSURE 122/54 WITH HEART RATE OF 89 BEATS PER MINUTE. NO ELECTROCARDIOGRAM CHANGES OF ISCHEMIA WITH LEXISCAN.
--- NOTE | 2023-02-09 13:22 | ECHO ---
HEIGHT: 5 ft 4 in WEIGHT: 214 lb 15.917 oz DATE OF STUDY: 02/09/[address]: Seth Martinez 2-DIMENSIONAL: YES M.MODE: YES DOPPLER: YES COLOR FLOW: YES TDS: PORTABLE: YES DEFINITY: BUBBLE STUDY: DIAGNOSIS: CHEST PAIN, DIZZINESS CARDIAC HISTORY: CATHERIZATION: NO SURGERY: NO PROSTHETIC VALVE: NO PACEMAKER: NO MEASUREMENTS (cm) DIASTOLIC (NORMALS) SYSTOLIC (NORMALS) IVSd 1.0 (0.6-1.2) LA Diam 2.3 (1.9-4.0) LVEF 67% LVIDd 4.0 (3.5-5.7) LVIDs 2.5 (2.0-3.5) %FS 36% LVPWd 1.1 (0.6-1.2) Ao Diam 2.5 (2.0-3.7) 2 DIMENSIONAL ASSESSMENT: RIGHT ATRIUM: NORMAL LEFT ATRIUM: NORMAL RIGHT VENTRICLE: NORMAL LEFT VENTRICLE: NORMAL TRICUSPID VALVE: TRACE TRICUSPID REGURGITATION MITRAL VALVE: NORMAL PULMONIC VALVE: NORMAL AORTIC VALVE: NORMAL PERICARDIAL EFFUSION: NONE AORTIC ROOT: NORMAL LEFT VENTRICULAR WALL MOTION: NORMAL DOPPLER/COLOR FLOW: TRACE TRICUSPID REGURGITATION COMMENTS: 1. NORMAL LEFT VENTRICULAR EJECTION FRACTION 55-60% 2. NORMAL WALL MOTION 3. GRADE I DIASTOLIC DYSFUNCTION 4. TRACE TRICUSPID REGURGITATION TECHNOLOGIST: GRAHAM DIETRICH
[2023-02-09] MEDS ORDERED: NA CHLORIDE 0.9% 500 ML ONE (13:37)
[2023-02-09] MEDS ORDERED: MIDAZOLAM HCL 2 MG/2 ML INJ ONE (14:41)
[2023-02-09] MEDS ORDERED: HEPARIN 5000 UNIT/ML 1 ML VIAL ONE (14:41)
[2023-02-09] MEDS ORDERED: FENTANYL CITR 100 MCG/2 ML ONE (14:41)
[2023-02-09] MEDS ORDERED: HEPA 1000U/500MLS 0 UNIT/0 ML BAG IV ONE (14:41)
[2023-02-09] MEDS ORDERED: VERAPAMIL HCL 10 MG/4 ML VIAL IV ONE (14:42)
[2023-02-09] MEDS ORDERED: CLOPIDOGREL 75 MG TABLET ONE (14:42)
[2023-02-09] MEDS ORDERED: ATROPINE SULF 1 MG/10 ML SYR IV ONE (14:42)
[2023-02-09] MEDS ORDERED: TICAGRELOR 90 MG TABLET PO ONE (14:42)
[2023-02-09] MEDS: AZITHROMYCIN 250 MG TAB PO SCH (15:43)
[2023-02-09] MEDS: ENOXAPARIN 40 MG/0.4 ML SQ SCH (15:43)
--- NOTE | 2023-02-09 16:08 | P.PN ---
Subjective Date of Service: 02/09/23 Chief Complaint: Chest pain Patient denies any chest pain today. She also denies any shortness of breath. Physical Examination - Vital Signs Temperature: 97.2 F Blood Pressure: 150/83 Pulse: 87 Respirations: 20 Pulse Ox (%): 99 Assessment And Plan - Plan Physical Exam General: Alert, In no apparent distress, Oriented x3. Neck: No elevated JVD. Respiratory: Clear to auscultation bilaterally. Cardiovascular: No edema, Regular rate/rhythm, Normal S1 S2 Gastrointestinal: Normal bowel sounds, Non-distended, No tenderness Musculoskeletal: No clubbing, No tenderness Integumentary: No rashes, No significant lesion Neurological: Normal speech, Normal tone, Normal affect, no focal motor deficit. Assessment and plan Chest pain. Serial troponins negative. Patient seen by Cardiology. Nuclear stress test demonstrated large area of reversible ischemia. Patient is scheduled for cardiac catheterization today. Aspirin, beta-tao and Lipitor. Echocardiogram is unremarkable. Dizziness/vertigo/left-sided weakness and numbness. CT head unremarkable for any acute intracranial abnormality. MRI of the brain shows no acute disease. No acute CVA. Continue aspirin. Pneumonia. Noted on CT chest. Continue antibiotic. Neb treatment with Atrovent/albuterol. DM2 with neuropathy. BS monitoring with sliding scale insulin. Hypertension. Continue home medications. Class II obesity. Weight loss by diet and exercise advised. DVT prophylaxis: Lovenox subQ Discharge Plan: Home
--- NOTE | 2023-02-09 20:39 | PN ---
Date of Progress Note: 02/09/2023 Subjective: Seen by bedside. No chest pain. Review of Systems: No chest pain, shortness of breath, orthopnea, cough. No nausea, vomiting, diarrhea. All other syst ems reviewed are negative. Physical Examination: Vital Signs: Reviewed. Head and Neck: Pupils are equal, reactive to light. Intact eye movements. No JVD. No cervical lym phadenopathy. Neck is supple. Thyroid is not enlarged. Lungs: Clear to auscultation bilaterally. No rhonchi, wheezing, or crackles. No accessory muscle u se. Heart: Regular rate and rhythm. No extra sounds. Abdomen: Soft, nontender. Bowel sounds positive. No organomegaly. No masses or hernia. No rigidi ty or rebound. Extremities: No edema, clubbing, or cyanosis. Intact pulses. Skin: No rashes noted. Neurologic: Alert, awake, oriented x3. No acute focal deficits appreciated. Investigations: BUN 23, creatinine 1.3. Hemoglobin is 11. Assessment/recommendation: 1.Chest pain. Cardiac enzymes are negative. Myocardial infarction was ruled out. She has inferior ischemia on stress test. She will need coronary angiogram, but she is allergic to iodine and steroi ds and she had a major reaction to them in the past. At this point, I do not feel, it is safe to pro ceed with a conventional coronary angiogram. I recommended that she establish relationship with a ca rdiologist in [place] and plan to evaluate the coronary arteries further at the higher level of care facility. There is no need to do inpatient transfer as the patient is chest pain free and cardiac en zymes are negative. I explained to her the importance to proceed with further cardiac workup that in volves an angiogram. Also, recommend baby aspirin, high dose statin. 2.Asthma seems to be stable. From a Cardiology standpoint, patient can be released and follow up with the paper cone machine operator within a we ek post discharge. SR/MODL Voice ID: [id number] Report ID: [id number]
[2023-02-09] MEDS: HYDROCODONE/APAP 5/325 MG TAB PO PRN (22:00)
[2023-02-10] MEDS: IPRATROPIUM BROM 0.5MG/2.5ML NEB SCH ×3 (01:40→14:00)
[2023-02-10] MEDS: ALBUTEROL 2.5 MG/3 ML NEB SOL NEB SCH ×3 (01:40→14:00)
[2023-02-10 03:41] LABS: Magnesium 1.7 mg/dL (1.6-2.4); Potassium 3.9 mEq/L (3.5-5.1)
[2023-02-10 06:18] VITALS: O2SAT 92
[2023-02-10] MEDS: INSULIN -REGULAR HUMAN 50 UNIT/0.5 ML ML SQ SCH (07:30)
[2023-02-10] MEDS ORDERED: MAGNESIUM SULFATE 1 gm IVPB 1 GM/100 ML BAG IV ONE (08:00)
[2023-02-10] MEDS ORDERED: POTASSIUM 25 MEQ EFFERV TAB PO ONE (08:00)
--- NOTE | 2023-02-10 08:43 | P.DS ---
Admission Date: 02/07/23 Discharge Date: 02/10/23 Disposition: ROUTINE DISCHARGE Discharge Condition: FAIR Reason for Admission: Chest pain Brief History of Present Illness: Patient is a 62-year-old female with a past medical history significant for asthma, hypertension, DM 2 with neuropathy, obesity who presented with complaint of substernal chest pain that has been ongoing intermittently for 1 week. Patient indicated that the pain radiates to left arm. Patient rated pain as 10/10 in severity and described pain as pressure in quality. Patient also reported left lower extremity weakness and left-sided numbness. Patient repo rted associated signs/symptoms of headache, dizziness, vertigo, cough and shortness of breath. Initial troponin negative. Head CT did not show any acute disease. Patient was hospitalized for further management. Hospital Course: Patient admitted to the medical floor and the following medical problems addressed: Chest pain. Serial troponins negative. Patient seen by Cardiology Dr. Bustos. Nuclear stress test demonstrated large area of reversible ischemia. Given patient's significant allergy to iodine contrast as well as steroid, Dr. Bustos recommended follow-up at a tertiary center for alternate contrast to be used for cardiac catheterization. Transfer to [facility] cardiac catheterization was attempted but this was declined. I spoke to [facility] cardiology service recommended patient to call the cardiology clinic for an appointment. Patient placed aspirin, beta-tao and Lipitor. Echocardiogram is unremarkable. Dizziness/vertigo/left-sided weakness and numbness. CT head unremarkable for any acute intracranial abnormality. MRI of the brain shows no acute disease. No acute CVA. Patient placed on aspirin. Pneumonia. Noted on CT chest. Patient treated with antibiotics. Neb treatment with Atrovent/albuterol. DM2 with neuropathy. BS managed with sliding scale insulin. Hypertension. Continued home medications. Class II obesity. Weight loss by diet and exercise advised. Vital Signs/Physical Exam: Temp Pulse Resp BP Pulse Ox 97.2 F 89 20 150/83 H 99 02/10/23 07:57 02/10/23 07:57 02/10/23 07:57 02/10/23 07:57 02/10/23 07:57 General: Alert, In no apparent distress, Oriented x3 HEENT: Mucous membr. moist/pink Neck: Supple, JVD not distended Respiratory: Clear to auscultation bilaterally, Normal air movement Cardiovascular: No edema, Regular rate/rhythm, Normal S1 S2 Gastrointestinal: Normal bowel sounds, Soft and benign, Non-distended Musculoskeletal: No swelling Integumentary: No rashes, No cyanosis Neurological: Normal strength at 5/5 x4 extr Laboratory Data at Discharge: WBC 8.90 thou/uL (4.3-10.9) 02/08/23 02:17 Hgb 11.1 g/dL (12.0-15.0) L 02/08/23 02:17 Hct 34.0 % (36.0-45.0) L 02/08/23 02:17 Plt Count 261 thou/uL (152-406) 02/08/23 02:17 PT 11.8 SECONDS (9.5-12.5) 02/07/23 12:32 INR 1.07 02/07/23 12:32 Sodium 138 mEq/L (136-145) 02/10/23 01:54 Potassium 3.9 mEq/L (3.5-5.1) 02/10/23 01:54 BUN 18 mg/dL (7-18) 02/10/23 01:54 Creatinine 1.24 mg/dL (0.55-1.02) H 02/10/23 01:54 Glucose 161 mg/dL (74-106) H 02/10/23 01:54 Phosphorus 3.6 mg/dL (2.5-4.9) 02/07/23 17:37 Magnesium 1.7 mg/dL (1.6-2.4) 02/10/23 01:54 Total Bilirubin 0.2 mg/dL (0.2-1.0) 02/07/23 13:17 AST 8 U/L (15-37) L 02/07/23 13:17 ALT 13 U/L (13-56) 02/07/23 13:17 Alkaline Phosphatase 91 U/L (45-117) 02/07/23 13:17 Triglycerides 261 mg/dL (<150) H 02/08/23 02:17 Cholesterol 186 mg/dL (<200) 02/08/23 02:17 HDL Cholesterol 47 mg/dL (40-60) 02/08/23 02:17 Cholesterol/HDL Ratio 3.96 02/08/23 02:17 Lipase 55 U/L (13-75) 02/07/23 13:17 Home Medications: Budesonide/Formoterol Fumarate [Symbicort 160-4.5 Mcg Inhaler] 2 puff IH BID #1 hfa.aer.ad 09/16/18 Ipratropium/Albuterol Sulfate [Combivent Respimat 20-100 Mcg] 1 puff IN QID PRN 09/16/18 Pantoprazole [Protonix Tab*] 1 tab PO DAILY 09/16/18 Valacyclovir HCl [Valtrex] 1 tab PO DAILY 09/16/18 Venlafaxine HCl [Effexor XR] 1 tab PO DAILY 09/16/18 estradioL [Estradiol] 1 tab PO DAILY 09/16/18 hydroCHLOROthiazide [Hydrochlorothiazide] 25 mg PO DAILY 09/16/18 Divalproex Sodium 500 mg PO BID 07/08/19 Gabapentin 800 mg PO TID 07/08/19 Cefuroxime Axetil [Cefuroxime] 500 mg PO BID #10 tab 07/11/19 Glimepiride 1 mg PO BID 02/08/23 Lisinopril [Zestril] 40 mg PO BID 02/08/23 hydrOXYzine HCL [Atarax] 50 mg PO DAILY PRN 02/08/23 Aspirin Chewable [Aspirin Chewable*] 81 mg PO DAILY #30 tab.chew 02/10/23 Atorvastatin Calcium [Lipitor] 20 mg PO BEDTIME #30 tab 02/10/23 Azithromycin Tab [Zithromax*] 250 mg PO DAILY #4 tab 02/10/23 Metoprolol Tartrate 25 mg PO BID #60 tab 02/10/23 New Medications: Aspirin Chewable [Aspirin Chewable*] 81 mg PO DAILY #30 tab.chew Atorvastatin Calcium [Lipitor] 20 mg PO BEDTIME #30 tab Metoprolol Tartrate 25 mg PO BID #60 tab Azithromycin Tab [Zithromax*] 250 mg PO DAILY #4 tab Diet: AHA Activity: Fall precautions Time spent managing pt's care (in minutes): 35
[2023-02-10] MEDS ORDERED: METOPROLOL TAR 25 MG TAB PO SCH (09:00)
[2023-02-10] MEDS: ENOXAPARIN 40 MG/0.4 ML SQ SCH (10:29)
[2023-02-10] MEDS: AZITHROMYCIN 250 MG TAB PO SCH (10:29)
[2023-02-10] MEDS: ASPIRIN 81 MG CHEWABLE TABLET PO SCH (10:29)
[2023-02-10 12:23] VITALS: BP 133/83; TEMP 97.1
== END 2023-02-10 17:00 | disposition home or self-care (01) | DRG 190 ==
LOC: ER 11:54 → ERHOLD 16:29 → 2ND 02-08 13:03
PROVIDERS: ADMIT Hospitalist; ATTEND Internal Medicine
DX: J44.1 Chronic obstructive pulmonary disease with (acute) exacerbation (principal); J18.9 Pneumonia, unspecified organism; N17.9 Acute kidney failure, unspecified; J44.0 Chronic obstructive pulmonary disease with (acute) lower respiratory infection; I10 Essential (primary) hypertension; E11.40 Type 2 diabetes mellitus with diabetic neuropathy, unspecified; E78.00 Pure hypercholesterolemia, unspecified; D63.8 Anemia in other chronic diseases classified elsewhere; G89.29 Other chronic pain; M54.9 Dorsalgia, unspecified; E66.09 Other obesity due to excess calories; R42 Dizziness and giddiness; R07.89 Other chest pain; Z88.8 Allergy status to other drugs, medicaments and biological substances; Z71.3 Dietary counseling and surveillance; Z98.51 Tubal ligation status; Z79.52 Long term (current) use of systemic steroids; Z79.84 Long term (current) use of oral hypoglycemic drugs; Z68.36 Body mass index [BMI] 36.0-36.9, adult; Z79.899 Other long term (current) drug therapy; Z91.048 Other nonmedicinal substance allergy status; Z91.013 Allergy to seafood; Z91.041 Radiographic dye allergy status
CPT/HCPCS: 36415; 70450; 70551; 71045; 71250; 78452; 80048; 80061; 80076; 81001; 82947; 83690; 83735; 83880; 84100; 84439; 84443; 84484; 85025; 85610; 87635; 87804; 93005; 93017; 93306; 94640; 96361; 96374; 99285; A9500; J0461; J0696; J1644; J1650; J1815; J2250; J2785; J3010; J3475; J7030; J7040; J7050; J7613; J7614; J7644

== ENCOUNTER 2024-09-25 19:41 | Emergency (ER) | payer MEDICAID, OTHER ==
[2024-09-25 21:01] LABS: Absolute Eosinophils 0.1 K/uL (0-0.5); Absolute Lymphocytes (CBC) 1.8 K/uL (0.7-4.9); Absolute Monocytes 0.5 K/uL (0.1-1.3); Absolute Neutrophil 5.1 K/uL (1.8-8.0); Basophils % 0.3 % (0-1.3); Eosinophils % 1.9 % (0-4.4); Hematocrit 33.2 % (36.0-45.0); Lymphocytes % 24.3 % (15.3-44.8); MCH 28.9 pg (27.0-35.0); MCHC 33.1 g/dL (32.0-36.0); MCV 87.1 fL (80-100); MPV 8.3 fL (7.6-11.3); Monocytes % 6.7 % (3.3-12.3); Neutrophils % 66.8 % (41.7-73.7); Platelets 252 thou/uL (152-406); RBC Red Blood Cell Count 3.81 M/uL (3.86-4.86); Red Cell Distribution Width 17.4 % (12.1-15.2)
--- NOTE | 2024-09-25 21:07 | RAD REPORT ---
Procedure: Chest Single View HISTORY: Chest pain COMPARISON: 2022 FINDINGS: The lungs appear clear of acute infiltrate. No significant pleural effusion noted. The heart is normal size. IMPRESSION: No acute abnormality is displayed.
[2024-09-25 21:08] LABS: PT Prothrombin Time 12.1 SECONDS (10-13.0); Protime INR 1.06
[2024-09-25 21:31] LABS: ALT/SGPT 17 U/L (13-56); Albumin 2.9 g/dL (3.4-5.0); Albumin/Globulin Ratio 0.7 (1.1-1.8); Alkaline Phosphatase 97 U/L (45-117); Anion Gap 8.6 mEq/L (5.0-15.0); BUN Blood Urea Nitrogen 25 mg/dL (7-18); Bicarbonate 30 mEq/L (21-32); Bilirubin Total 0.2 mg/dL (0.2-1.0); Globulin 3.9 g/dL (2.3-3.5); Glomerular Filtration Rate 47 ml/min (=/>90); Glucose Level 122 mg/dL (74-106); NT PRO-BNP 258 pg/mL (<125); Protein, Total 6.8 g/dL (6.4-8.2); Sodium Level 139 mEq/L (136-145); Troponin High Sensitivity 4.7 pg/mL (<58.9)
[2024-09-25 21:35] LABS: AST/SGOT 22 U/L (15-37); Bilirubin Direct < 0.2 mg/dL (0-0.2); Magnesium 2.2 mg/dL (1.6-2.4); Potassium 4.6 mEq/L (3.5-5.1)
--- NOTE | 2024-09-25 21:59 | ER ---
Nurse's Notes [facility] Name: Neela Pizano Age: 64 yrs Sex: Female : 1960 Arrival Date: 09/25/2024 Time: 19:41 Bed 14 Private MD: Diagnosis: Other hypoglycemia;Hypoglycemia secondary to sulfonylurea, Acute dyspnea, acute Immunologic reaction to shingles vaccine Presentation: 09/25 20:12 Chief complaint: Patient states: she got the shingles vaccine today, feels like she me1 cant stay awake. took her blood sugar at home and "it was low at 94". BGL in triage was 65 and patient looks like she is going to sleep while talking. States, "I feel like i cant stay awake.". Coronavirus screen: Vaccine status: Patient reports receiving the 2nd dose of the covid vaccine. Ebola Screen: No symptoms or risks identified at this time. Initial Sepsis Screen: Does the patient meet any 2 criteria? No. Patient's initial sepsis screen is negative. Does the patient have a suspected source of infection? No. Patient's initial sepsis screen is negative. Risk Assessment: Do you want to hurt yourself or someone else? Patient reports no desire to harm self or others. Onset of symptoms is unknown. 20:12 Method Of Arrival: Wheelchair me1 20:12 Acuity: MARVIN 3 me1 Historical: - Allergies: 20:14 Iodine; me1 20:14 Prednisone; (the orange one); me1 - PMHx: 20:14 Asthma; Diabetes - NIDDM; Hypertension; neuropathy; me1 - PSHx: 20:14 Left heel sx; Ligation of fallopian tube; Right foot sx; me1 - Immunization history:: Adult Immunizations up to date. - Infectious Disease History:: Denies. - Social history:: Smoking status: Patient/guardian denies using tobacco, but has a distant history of tobacco abuse. - Family history:: not pertinent. Screenin:30 [facility] ED Fall Risk Assessment (Adult) History of falling in the last 3 months, rg5 including since admission No falls in past 3 months (0 pts) Confusion or Disorientation No (0 pts) Intoxicated or Sedated No (0 pts) Impaired Gait No (0 pts) Mobility Assist Device Used No (0 pt) Altered Elimination No (0 pt) Score/Fall Risk Level 0 - 2 = Low Risk Oriented to surroundings, Maintained a safe environment, Provided non-skid footwear, Hourly rounding (assess needs \\T\\ fall precautionary measures) done. Abuse screen: Denies threats or abuse. Nutritional screening: No deficits noted. Tuberculosis screening: No symptoms or risk factors identified. Assessment: 20:30 General: Appears in no apparent distress. comfortable, Behavior is calm, cooperative, rg5 appropriate for age. Pain: Denies pain. Neuro: Level of Consciousness is awake, alert, obeys commands. Cardiovascular: Rhythm is regular. 20:30 Respiratory: Airway is patent Trachea midline Respiratory effort is even, unlabored, rg5 Breath sounds are clear. 20:30 GI: Abdomen is round non-distended, Abd is soft and non tender. : No signs and/or rg5 symptoms were reported regarding the genitourinary system. EENT: No deficits noted. Derm: Skin is intact, Skin is dry, Skin is normal. Musculoskeletal: Circulation, motion, and sensation intact. Range of motion: intact in all extremities. 21:45 Reassessment: Patient and/or family updated on plan of care and expected duration. Pain rg5 level reassessed. Patient is alert, oriented x 3, equal unlabored respirations, skin warm/dry/pink. Patient states feeling better. Vital Signs: 20:12 BP 126 / 77; Pulse 76; Resp 22; Temp 98; Pulse Ox 99% ; Weight 100.24 kg; Height 5 ft. me1 4 in. ; Pain 0/10; 20:30 BP 125 / 73; Pulse 87; Resp 18; Pulse Ox 100% on R/A; rg5 21:45 BP 126 / 79; Pulse 71; Resp 18; Pulse Ox 100% on R/A; Pain 0/10; rg5 20:12 Body Mass Index 37.93 (100.24 kg, 162.56 cm) me1 20:12 Pain Scale: Adult me1 21:45 Pain Scale: Adult rg5 Farrah Coma Score: 21:52 Eye Response: spontaneous(4). Motor Response: obeys commands(6). Verbal Response: sp4 oriented(5). Total: 15. ED Course: 19:42 Patient arrived in ED. mr 20:07 Frankie Nayak MD is Attending Physician. sp4 20:13 Grupo Martinez, RN is Primary Nurse. rg5 20:14 Triage completed. me1 20:14 Arm band placed on Patient placed in an exam room. me1 20:30 Patient has correct armband on for positive identification. Bed in low position. Door rg5 closed. Noise minimized. Warm blanket given. 20:30 No provider procedures requiring assistance completed. rg5 20:40 XRAY Chest (1 view) In Process Unspecified. EDMS 22:03 Provided Education on: post er care. rg5 22:03 IV discontinued, bleeding controlled, No redness/swelling at site. Pressure dressing rg5 applied. Administered Medications: No medications were administered Medication: 20:30 VIS not applicable for this client. rg5 Point of Care Testing: Blood Glucose: 21:56 Blood Glucose: 151 mg/dL; rg5 Ranges: Outcome: 21:58 Discharge ordered by MD. sp4 22:03 Discharged to home ambulatory, rg5 22:03 Condition: stable 22:03 Instructed on discharge instructions, follow up and referral plans. Demonstrated understanding of instructions, follow-up care, 22:03 Patient left the ED. rg5 Signatures: Dispatcher [employer] EDSC Valentina Grande, Reg Reg Frankie Sales MD MD sp4 Coreen Nolan RN RN mt1 Grupo Martinez, RN RN rg5
--- NOTE | 2024-09-25 21:59 | EDPHYS ---
Physician Documentation [facility] Name: Neela Pizano Age: 64 yrs Sex: Female : 1960 Arrival Date: 09/25/2024 Time: 19:41 Bed 14 Private MD: ED Physician Frankie Nayak HPI: 09/25 20:07 This 64 yrs old Black Female presents to ER via Unassigned with complaints of Low sp4 sugar, Shortness Of Breath. 21:51 Six 4-year-old female presents with complaint of blood sugar being low at home as low sp4 as 94. Patient reported some associated dyspnea. Patient had shingles vaccination today. Patient presents here to be evaluated for low blood sugar.. Historical: - Allergies: 20:14 Iodine; me1 20:14 Prednisone; (the orange one); me1 - PMHx: 20:14 Asthma; Diabetes - NIDDM; Hypertension; neuropathy; me1 - PSHx: 20:14 Left heel sx; Ligation of fallopian tube; Right foot sx; me1 - Immunization history:: Adult Immunizations up to date. - Infectious Disease History:: Denies. - Social history:: Smoking status: Patient/guardian denies using tobacco, but has a distant history of tobacco abuse. - Family history:: not pertinent. ROS: 21:52 Constitutional: Negative for fever, chills, and weight loss, Positive for low blood sp4 sugar, Positive for dyspnea 21:52 All other systems are negative, Exam: 21:52 Constitutional: This is a well developed, well nourished patient who is awake, alert, sp4 and in no acute distress. Head/Face: Normocephalic, atraumatic. Eyes: Pupils equal round and reactive to light, extra-ocular motions intact. Lids and lashes normal. Conjunctiva and sclera are not injected. Cornea within normal limits. Periorbital areas with no swelling, redness, or edema. ENT: Nares patent. No nasal discharge, no septal abnormalities noted. Tympanic membranes are normal and external auditory canals are clear. Oropharynx with no redness, swelling, or masses, exudates, or evidence of obstruction, uvula midline. Mucous membranes moist. Neck: Trachea midline, no thyromegaly or masses palpated, and no cervical lymphadenopathy. Supple, full range of motion without nuchal rigidity, or vertebral point tenderness. Chest/axilla: Normal chest wall appearance and motion. Nontender with no deformity. No lesions are appreciated. Cardiovascular: Regular rate and rhythm with a normal S1 and S2. No gallops, murmurs, or rubs. Normal PMI, no JVD. No pulse deficits. Respiratory: Lungs have equal breath sounds bilaterally, clear to auscultation and percussion. No rales, rhonchi or wheezes noted. No increased work of breathing, no retractions or nasal flaring. Abdomen/GI: Soft, with normal bowel sounds. No distension or tympany. No guarding or rebound. No evidence of tenderness throughout. Back: No spinal tenderness. No costovertebral tenderness. Skin: Warm, dry with normal turgor. Normal color with no rashes, no lesions, and no evidence of cellulitis. MS/ Extremity: Pulses equal, no cyanosis. Neurovascular intact. Full, normal range of motion. Neuro: Awake and alert, GCS 15, oriented to person, place, time, and situation. Cranial nerves II-XII grossly intact. Motor strength 5/5 in all extremities. Sensory grossly intact. Psych: Awake, alert, with orientation to person, place and time. Behavior, mood, and affect are within normal limits 21:52 ECG was reviewed by the Attending Physician. EKG 2043 normal sinus rhythm rate 73 normal EKG Vital Signs: 20:12 BP 126 / 77; Pulse 76; Resp 22; Temp 98; Pulse Ox 99% ; Weight 100.24 kg; Height 5 ft. me1 4 in. ; Pain 0/10; 20:30 BP 125 / 73; Pulse 87; Resp 18; Pulse Ox 100% on R/A; rg5 21:45 BP 126 / 79; Pulse 71; Resp 18; Pulse Ox 100% on R/A; Pain 0/10; rg5 20:12 Body Mass Index 37.93 (100.24 kg, 162.56 cm) me1 20:12 Pain Scale: Adult me1 21:45 Pain Scale: Adult rg5 Farrah Coma Score: 21:52 Eye Response: spontaneous(4). Motor Response: obeys commands(6). Verbal Response: sp4 oriented(5). Total: 15. MDM: 20:08 Medical Screening Exam initiated sp4 21:54 Differential diagnosis: Anemia Anxiety Reaction CHF exacerbation, Hypoglycemia. Data sp4 reviewed: vital signs, nurses notes, lab test result(s), EKG, radiologic studies. ED course: HISTORY: Chest pain COMPARISON: 2022 FINDINGS: The lungs appear clear of acute infiltrate. No significant pleural effusion noted. The heart is normal size. IMPRESSION: No acute abnormality is displayed. . 09/25 20:11 Order name: Basic Metabolic Panel; Complete Time: 21:45 sp4 09/25 20:11 Order name: CBC with Diff; Complete Time: 21:45 sp4 09/25 20:11 Order name: LFT's; Complete Time: 21:45 sp4 09/25 20:11 Order name: Magnesium; Complete Time: 21:45 sp4 09/25 20:11 Order name: NT PRO-BNP; Complete Time: 21:45 4 09/25 20:11 Order name: PT-INR; Complete Time: 21:45 4 09/25 20:11 Order name: Troponin HS; Complete Time: 21:45 sp4 09/25 20:18 Order name: Glucose, Ancillary Testing; Complete Time: 21:45 EDAZ 09/25 20:11 Order name: XRAY Chest (1 view); Complete Time: 21:45 4 09/25 20:11 Order name: Cardiac monitoring; Complete Time: 20:55 sp4 09/25 20:11 Order name: EKG - Nurse/Tech; Complete Time: 20:55 sp4 09/25 20:11 Order name: IV Saline Lock; Complete Time: 21:56 sp4 09/25 20:11 Order name: Labs collected and sent; Complete Time: 20:55 sp4 09/25 20:11 Order name: O2 Per Protocol; Complete Time: 20:55 4 09/25 20:11 Order name: O2 Sat Monitoring; Complete Time: 20:55 4 09/25 21:32 Order name: Accucheck Blood Glucose; Complete Time: 21:56 sp4 EC:43 Rate is 73 beats/min. Rhythm is regular, Normal Sinus Rhythm. QRS [place] is Normal. ME sp4 interval is normal. QRS interval is normal. QT interval is normal. No Q waves. T waves are Normal. No ST changes noted. Clinical impression: Normal ECG. Interpreted by me. Reviewed by me. Administered Medications: No medications were administered Point of Care Testing: Blood Glucose: 21:56 Blood Glucose: 151 mg/dL; rg5 Ranges: Critical Glucose Levels:Adult <50 mg/dl or >400 mg/dl <40 mg/dl or >180 mg/dl Disposition Summary: 09/25/24 21:58 Discharge Ordered Notes: Location: Home sp4 Problem: new sp4 Symptoms: have improved sp4 Condition: Stable sp4 Diagnosis - Other hypoglycemia sp4 - Hypoglycemia secondary to sulfonylurea, Acute dyspnea, acute Immunologic reaction sp4 to shingles vaccine Followup: sp4 - With: Private Physician - When: 7 - 10 days - Reason: Recheck today's complaints Discharge Instructions: - Discharge Summary Sheet sp4 - Hypoglycemia sp4 Forms: - Patient Portal Instructions sp4 Signatures: Dispatcher [employer] Frankie Duenas MD MD sp4 Coreen Nolan RN RN me1 Corrections: (The following items were deleted from the chart) 20:12 20:12 BASIC METABOLIC PANEL+C.LAB.BRZ ordered. EDMS EDMS 20:12 20:12 CBC+H.LAB.BRZ ordered. EDMS EDMS 20:12 20:12 HEPATIC FUNCTION+C.LAB.BRZ ordered. EDMS EDMS 20:12 20:12 MAGNESIUM+C.LAB.BRZ ordered. EDMS EDMS 20:12 20:12 PROBNP+C.LAB.BRZ ordered. EDMS EDMS 20:12 20:12 PROTIME (+INR)+COAG.LAB.BRZ ordered. EDMS EDMS 20:12 20:12 Troponin High Sensitivity+C.LAB.BRZ ordered. EDMS EDMS 20:12 20:12 Chest Single View+RAD.RAD.BRZ ordered. EDMS EDMS
[2024-09-25 22:51] VITALS: TEMP 98
[2024-09-25 22:52] VITALS: O2SAT 100
[2024-09-25 22:53] VITALS: BP 126/79
--- NOTE | 2024-09-26 11:57 | EKG ---
Test Date: 2024-09-25 Test Time: 20:43:51 Boiler Out: PIPE MEASUREMENT RESULTS: Intervals: Rate: 73 OR: 160 QRSD: 82 QT: 372 QTc: 409 [place]: P: 60 OR: 160 QRS: 39 T: 26 INTERPRETIVE STATEMENTS: Normal sinus rhythm Normal ECG Compared to ECG 02/07/2023 12:04:56 No significant changes Electronically Signed On 09-26-24 11:56:31 CDT by Demond Vazquez
== END 2024-09-25 22:03 | disposition home or self-care (01) ==
LOC: ER 19:41
DX: E11.649 Type 2 diabetes mellitus with hypoglycemia without coma (principal); E16.0 Drug-induced hypoglycemia without coma; R06.00 Dyspnea, unspecified; T50.Z95A Adverse effect of other vaccines and biological substances, initial encounter; I10 Essential (primary) hypertension
CPT/HCPCS: 36415; 71045; 80048; 80076; 82947; 83735; 83880; 84484; 85025; 85610; 93005; 99283